=== PATIENT | female | born 1965 | race Caucasian/White ===

== ENCOUNTER 2020-06-08 11:57 | Inpatient (IN) ==
[2020-06-08] MEDS ORDERED: ACETAMINOPHEN 500 MG TAB PO STA (12:49)
--- NOTE | 2020-06-08 12:50 | Emergency Department Note ---
History of Present Illness General Chief complaint: Shortness of Breath/Dyspnea Stated complaint: respiratory diff/ cellulitis lower extrem. Time Seen by Provider: 06/08/20 12:33 History of Present Illness Provider complaint: Shortness of breath Onset (ago): day(s) 2 Location: chest, lower extremity and right Severity: severe Pain Consistency: + constant Maximum Pain Intensity: 10 Current Pain Intensity: 10 Quality: + burning and + dull Relieved By: + none 55-year-old female presents emergency department shortness of breath. She reports her symptoms began 2 days ago. She denies any chest pain. She reports productive cough. No hemoptysis. She reports that her sputum is yellow and green. She also reports nausea once yesterday. No hematemesis or coffee-ground emesis. No bilious vomiting. She reports diarrhea since yesterday. Patient also reports that starting on Sunday she started noticing redness of the right leg. She states it is painful to touch and difficult to walk. She states she is afraid she has cellulitis. Patient went to [facility] walk-in clinic today for COVID test and had a temperature of 101.4 and was transported here via EMS. 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 Home Medications Home Medications Medication Instructions Recorded Confirmed Type bumetanide 1 mg PO DAILY@1700 06/08/20 06/08/20 History lisinopril 2.5 mg PO DAILY@1700 06/08/20 06/08/20 History metoprolol succinate 50 mg PO DAILY@0700,1700 06/08/20 06/08/20 History Allergies Allergy/AdvReac Type Severity Reaction Status Date / Time bee venom protein (honey bee) Allergy Unknown GENERALIZED Unverified 06/08/20 14:02 SWELLING-SOB No Known Drug Allergies Allergy Unknown NONE Unverified 06/08/20 14:02 Past Med/Surg History Medical History (Updated 06/08/20 @ 18:05 by Raghav Oliver) Elevated parathyroid hormone HTN (hypertension) Lymphedema No pertinent family history Surgical History (Updated 06/08/20 @ 12:56 by Raghav Oliver) No pertinent past surgical history Family History Grandmother Heart disease Social History (Updated 06/08/20 @ 15:47 by Kenisha Graham MD) Feels Safe at Home: Yes Smoking Status: Former smoker Tobacco Type: cigarettes ; packs per day: 1 ; Years Smoked: 15 ; Review of Systems A total of 10 systems reviewed and were otherwise negative Physical Exam Vital Signs Vital Signs - 24 hr 06/08/20 12:25 06/08/20 12:30 06/08/20 12:40 Temperature 37.5 C Temperature Source Oral Pulse Rate 101 H Pulse Rate [Left Finger] Pulse Rate [Right Finger] Respiratory Rate 28 H Respiratory Effort / Characteristics Respiratory Depth Respiratory Pattern Blood Pressure 104/58 L Blood Pressure [Left Arm] Blood Pressure Mean 73 Blood Pressure Mean [Left Arm] Blood Pressure Position [Left Arm] Pulse Oximetry 85 L 98 98 Oxygen Delivery Method Room Air Nasal Cannula Nasal Cannula Oxygen Flow Rate 3 3 Fraction of Inspired Oxygen Sepsis Recent Fever Within 48 Hours Yes Sepsis New/Unexplained Change in Mental Status No Sepsis Action Taken by Nursing No Action Required 06/08/20 13:43 06/08/20 14:12 06/08/20 14:21 Temperature Temperature Source Pulse Rate 96 H Pulse Rate [Left Finger] 104 H Pulse Rate [Right Finger] 106 H 96 H Respiratory Rate 20 18 21 Respiratory Effort / Characteristics Non-Labored Spontaneous Spontaneous Respiratory Depth Normal Respiratory Pattern Regular Blood Pressure Blood Pressure [Left Arm] 105/52 L Blood Pressure Mean Blood Pressure Mean [Left Arm] 69 Blood Pressure Position [Left Arm] Pulse Oximetry 99 98 100 Oxygen Delivery Method Nasal Cannula High Flow Nasal Cannula BiPAP Oxygen Flow Rate 3 25 Fraction of Inspired Oxygen 35 30 Sepsis Recent Fever Within 48 Hours Sepsis New/Unexplained Change in Mental Status Sepsis Action Taken by Nursing 06/08/20 15:51 06/08/20 16:16 06/08/20 17:50 Temperature Temperature Source Pulse Rate Pulse Rate [Left Finger] Pulse Rate [Right Finger] 93 H 98 H Respiratory Rate 24 22 Respiratory Effort / Characteristics Non-Labored Spontaneous Non-Labored Spontaneous Respiratory Depth Normal Normal Respiratory Pattern Blood Pressure Blood Pressure [Left Arm] 88/47 L 93/48 L Blood Pressure Mean Blood Pressure Mean [Left Arm] 60 63 Blood Pressure Position [Left Arm] Lying Sitting Pulse Oximetry 94 94 Oxygen Delivery Method BiPAP BiPAP BiPAP Oxygen Flow Rate Fraction of Inspired Oxygen Sepsis Recent Fever Within 48 Hours Sepsis New/Unexplained Change in Mental Status Sepsis Action Taken by Nursing Physical Exam EYES: Conjunctivae and EOM are normal. Pupils are equal, round, and reactive to light. Right eye exhibits no discharge. Left eye exhibits no discharge. No scleral icterus. NECK: Normal range of motion. Neck supple. No JVD present. No spinous process tenderness present. No carotid bruit present. No rigidity. No tracheal deviation and normal range of motion present. No Brudzinski's sign and no Kernig's sign noted. CV: Normal rate, regular rhythm, normal heart sounds and intact distal pulses. Palpable radial pulses bue. PULM/CHEST: Diminished breath sounds bilaterally. -Chest Wall: She exhibits no tenderness. ABD: The abdomen is soft and morbidly obese MUSC/SKEL: Lymphedema of the bilateral lower extremities. NEURO: She is alert and oriented to person, place, and time. No cranial nerve deficit or sensory deficit. GCS eye subscore is 4. GCS verbal subscore is 5. GCS motor subscore is 6. SKIN: Redness and warmth over the right lower extremity that appears circumferential. There are no vesicular lesions. Appears consistent with the appearance of cellulitis. PSYCH: She has a normal mood and affect. Behavior is normal. Judgment and thought content normal. Course Course 1240: The patient was evaluated in room B3. A complete history and physical exam was performed. Cardiac monitoring: An order was placed for continuous cardiac monitoring. The monitor shows a rate of 90 with sinus rhythm Patient was seen immediately on arrival and found to be hypoxic on room air. She was started on supplemental oxygen 3 L nasal cannula which improved the patient's oxygen saturation. Patient was supposed to get a COVID-19 swab done at the [facility] outpatient clinic today. She was placed in airborne precautions and full airborne precautions were warned by myself and staff including a N95, facial, gown and gloves. 1339: Vital signs stable. Labs show leukocytosis of 18.3. Venous blood gas shows a PCO2 of 81 and a pH of 7.24. Patient is breathing better on nasal cannula. Given her respiratory acidosis and reported dyspnea as well as tachypnea on arrival, the patient will be started on high flow nasal cannula. Her creatinine is elevated at 2.15. We are unable to obtain CT of the chest given her elevated creatinine level. proBNP is 4462 troponin 0 0.168. Calcitonin 6.12. Given we cannot rule out PE, a d-dimer was tested and was found to be elevated at 1510. Patient is a COVID-19 rule out at this point and will plan on being admitted. She will be treated with vancomycin for cellulitis of her lower extremity. I will consult Dr. Keegan Hubbard pulmonology/ICU to see if he wants to start the patient empirically on anticoagulation given the possibility of PE, COVID-19, and her elevated d-dimer test. 1355: Spoke with Dr. Hubbard pulmonology who states to switch patient from high flow oxygen to BiPAP given her respiratory acidosis. He states that based off the patient's ultrasound of her lower extremity, we could determine if we should anticoagulate her. He states if positive for DVT to anticoagulate if negative hold off on anticoagulation at this time. Discussed with Laisha Todd, [facility] who stated to admit to Dr. Kenisha fink. 1453: Patient tolerated BiPAP well. hvac service technician called and stated they did not feel comfortable to ultrasound the patient since they are not in a negative pressure room and now is on BiPAP. They stated per their protocols they were to wait until the patient is in negative pressure room. I discussed these with Dr. Kenisha Graham, [facility] hospitalist. He is requested that the patient be started on heparin with bolus given this new development. I did discuss my conversation with pulmonology Dr. Hubbard. Dr. Graham stated that he would follow- up and discuss with pulmonology and possibly stop the heparin if necessary. He also requested that an ABG be redone instead of a VBG while the patient was on BiPAP. Orders placed at his request. 1530: Patient tolerating BiPAP well. Status post being on BiPAP, the patient's repeat VBG shows a pH of 7.3, PCO2 of 62. Patient be continued on BiPAP. Administered Medications Sodium Chloride (Nss 1000ml) 1,000 mls @ 125 mls/hr IV .Q8H YUNIER Stop: 07/08/20 12:59 Last Admin: 06/08/20 13:35 Dose: 80 mls/hr Documented by: [id number] Heparin Sodium/Dextrose (Heparin Sodium/Dextrose) 25,000 units in 500 mls @ 40 mls/hr IV .[id number] [facility]; Protocol Stop: 07/08/20 14:59 Last Admin: 06/08/20 15:44 Dose: 2,000 units/hr, 40 mls/hr Documented by: [id number] Cosigned by: [id number] Discontinued Medications Acetaminophen (Tylenol) 1,000 mg PO NOW STA Stop: 06/08/20 12:50 Last Admin: 06/08/20 13:53 Dose: 1,000 mg Documented by: [id number] Heparin Sodium (Porcine) (Heparin Iv Bolus) Confirm Administered Dose 10,000 units .ROUTE .STK-MED ONE Stop: 06/08/20 15:34 Last Admin: 06/08/20 15:45 Dose: 9,000 units Documented by: [id number] Cosigned by: [id number] Heparin Sodium/Dextrose () 1 ea IV NOW STA; Protocol Stop: 06/08/20 14:54 Last Admin: 06/08/20 15:43 Dose: 1 ea Documented by: [id number] Sodium Chloride (Nss 1000ml) 500 mls @ 999 mls/hr IV .Q31M ONE Stop: 06/08/20 13:56 Last Infusion: 06/08/20 14:40 Dose: 0 mls/hr Documented by: [id number] Admin: 06/08/20 13:35 Dose: 999 mls/hr Documented by: [id number] Vancomycin HCl 2,750 mg/ (Sodium Chloride) 555 mls @ 200 mls/hr IV NOW ONE Stop: 06/08/20 16:12 Last Admin: 06/08/20 13:53 Dose: 200 mls/hr Documented by: [id number] Critical Care Time Critical Care Time: Yes Total Critical Care Time: 77 I have personally spent greater than 77 minutes of critical care time in the direct management of this patient. This includes bedside care, interpretation of diagnostic studies, and testing, discussion with consultants, patient, and family members, and other required patient management activities. This 77 minutes is in excess of all separately billable procedures. Medical Decision Making Laboratory Data Result diagrams: 06/08/20 12:20 06/08/20 12:20 Lab Results 06/08/20 06/08/20 06/08/20 Range/Units 12:20 12:20 12:20 WBC 18.33 H (4.8-10.8) K/uL RBC 3.81 L (4.2-5.4) M/uL Hgb 11.5 L (12.0-16.0) g/dL Hct 34.6 L (37-47) % MCV 90.8 (80-100) fL MCH 30.2 (25-34) pg MCHC 33.2 (32-36) g/dL RDW Std Deviation 48.6 H (36.4-46.3) fL RDW Coeff of Quan 14.5 (11.5-14.5) % Plt Count 283 (130-400) K/uL MPV 10.3 (7.4-10.4) fL Immature Gran % (Auto) 0.4 % Neut % (Auto) 87.0 % Lymph % (Auto) 6.2 % Hernando % (Auto) 6.1 % Eos % (Auto) 0.2 % Baso % (Auto) 0.1 % Neut # (Auto) 15.96 H (1.4-6.5) K/uL Lymph # (Auto) 1.13 L (1.2-3.4) K/uL Hernando # (Auto) 1.11 H (0.11-0.59) K/uL Eos # (Auto) 0.04 (0-0.5) K/uL Baso # (Auto) 0.02 (0-0.2) K/uL Immature Gran # (Auto) 0.07 H (0.00-0.02) K/uL PT 11.3 (9.0-12.0) Seconds INR 1.1 (0.9-1.1) APTT 31.8 H (21.0-31.0) Seconds PTT Ratio 1.1 D-Dimer (0-500) ug/L FEU ABG pH (7.35-7.45) ABG pCO2 (35-46) mmHg ABG pO2 (80-95) mmHg ABG HCO3 (19-24) mmol/L ABG O2 Saturation (90-95) % ABG Base Excess (-9-1.8) mEq/L Lyndon Test (Pos) VBG pH (7.36-7.41) VBG pCO2 (38-50) mmHg VBG pO2 mmHg VBG HCO3 mmol/L VBG O2 Saturation % VBG Base Excess mEq/L Barometric Pressure mm/Hg Oxygen Given Sodium (136-145) mmol/L Potassium (3.5-5.1) mmol/L Chloride (98-107) mmol/L Carbon Dioxide (21-32) mmol/L Anion Gap (3-11) BUN (7-18) mg/dl Creatinine (0.6-1.2) mg/dl Est Cr Clr Drug Dosing ml/min Est GFR ( Amer) Est GFR (Non-Af Amer) BUN/Creatinine Ratio (10-20) Glucose (70-99) mg/dl Lactate 1.5 (0.4-2.0) mmol/L Calcium (8.5-10.1) mg/dl Magnesium (1.8-2.4) mg/dl Total Bilirubin (0.2-1) mg/dl AST (15-37) U/L ALT (12-78) U/L Alkaline Phosphatase (45-117) U/L Troponin I (0-0.045) ng/ml NT-Pro-B Natriuret Pep (0-900) pg/ml Total Protein (6.4-8.2) gm/dl Albumin (3.4-5.0) gm/dl Globulin (2.5-4.0) gm/dl Albumin/Globulin Ratio (0.9-2) Procalcitonin (0-0.5) ng/ml Adenovirus (PCR) (NotDetected) B. pertussis DNA (PCR) (NotDetected) B.parapertussis DNA PCR (NotDetected) C. pneumoniae DNA (PCR) (NotDetected) Coronavirus OC43 (PCR) (NotDetected) Coronavirus HKU1 (PCR) (NotDetected) Coronavirus 229E (PCR) (NotDetected) COVID-19 PCR (Negative) Coronavirus NL63 (PCR) (NotDetected) Human Metapneumovir PCR (NotDetected) Influenza Type A (PCR) (NotDetected) Influenza Type B (PCR) (NotDetected) M. pneumoniae (PCR) (NotDetected) Parainfluenza 1 (PCR) (NotDetected) Parainfluenza 2 (PCR) (NotDetected) Parainfluenza 3 (PCR) (NotDetected) Parainfluenza 4 (PCR) (NotDetected) RSV (PCR) (NotDetected) Entero/Rhino (PCR) (NotDetected) SARS-CoV-2 RNA (RT-PCR) 06/08/20 06/08/20 06/08/20 Range/Units 12:20 12:20 12:20 WBC (4.8-10.8) K/uL RBC (4.2-5.4) M/uL Hgb (12.0-16.0) g/dL Hct (37-47) % MCV (80-100) fL MCH (25-34) pg MCHC (32-36) g/dL RDW Std Deviation (36.4-46.3) fL RDW Coeff of Quan (11.5-14.5) % Plt Count (130-400) K/uL MPV (7.4-10.4) fL Immature Gran % (Auto) % Neut % (Auto) % Lymph % (Auto) % Hernando % (Auto) % Eos % (Auto) % Baso % (Auto) % Neut # (Auto) (1.4-6.5) K/uL Lymph # (Auto) (1.2-3.4) K/uL Hernando # (Auto) (0.11-0.59) K/uL Eos # (Auto) (0-0.5) K/uL Baso # (Auto) (0-0.2) K/uL Immature Gran # (Auto) (0.00-0.02) K/uL PT (9.0-12.0) Seconds INR (0.9-1.1) APTT (21.0-31.0) Seconds PTT Ratio D-Dimer (0-500) ug/L FEU ABG pH (7.35-7.45) ABG pCO2 (35-46) mmHg ABG pO2 (80-95) mmHg ABG HCO3 (19-24) mmol/L ABG O2 Saturation (90-95) % ABG Base Excess (-9-1.8) mEq/L Lyndon Test (Pos) VBG pH (7.36-7.41) VBG pCO2 (38-50) mmHg VBG pO2 mmHg VBG HCO3 mmol/L VBG O2 Saturation % VBG Base Excess mEq/L Barometric Pressure mm/Hg Oxygen Given Sodium 132 L (136-145) mmol/L Potassium 3.6 (3.5-5.1) mmol/L Chloride 95 L (98-107) mmol/L Carbon Dioxide 30 (21-32) mmol/L Anion Gap 7.0 (3-11) BUN 52 H (7-18) mg/dl Creatinine 2.15 H (0.6-1.2) mg/dl Est Cr Clr Drug Dosing 52.3 ml/min Est GFR ( Amer) 29.3 Est GFR (Non-Af Amer) 25.3 BUN/Creatinine Ratio 24.0 H (10-20) Glucose 104 H (70-99) mg/dl Lactate (0.4-2.0) mmol/L Calcium 9.6 (8.5-10.1) mg/dl Magnesium 2.1 (1.8-2.4) mg/dl Total Bilirubin 0.7 (0.2-1) mg/dl AST 23 (15-37) U/L ALT 29 (12-78) U/L Alkaline Phosphatase 117 (45-117) U/L Troponin I 0.168 H* (0-0.045) ng/ml NT-Pro-B Natriuret Pep 4462 H (0-900) pg/ml Total Protein 7.5 (6.4-8.2) gm/dl Albumin 2.4 L (3.4-5.0) gm/dl Globulin 5.1 H (2.5-4.0) gm/dl Albumin/Globulin Ratio 0.5 L (0.9-2) Procalcitonin 6.12 H (0-0.5) ng/ml Adenovirus (PCR) (NotDetected) B. pertussis DNA (PCR) (NotDetected) B.parapertussis DNA PCR (NotDetected) C. pneumoniae DNA (PCR) (NotDetected) Coronavirus OC43 (PCR) (NotDetected) Coronavirus HKU1 (PCR) (NotDetected) Coronavirus 229E (PCR) (NotDetected) COVID-19 PCR (Negative) Coronavirus NL63 (PCR) (NotDetected) Human Metapneumovir PCR (NotDetected) Influenza Type A (PCR) (NotDetected) Influenza Type B (PCR) (NotDetected) M. pneumoniae (PCR) (NotDetected) Parainfluenza 1 (PCR) (NotDetected) Parainfluenza 2 (PCR) (NotDetected) Parainfluenza 3 (PCR) (NotDetected) Parainfluenza 4 (PCR) (NotDetected) RSV (PCR) (NotDetected) Entero/Rhino (PCR) (NotDetected) SARS-CoV-2 RNA (RT-PCR) 06/08/20 06/08/20 06/08/20 Range/Units 12:20 13:24 13:24 WBC (4.8-10.8) K/uL RBC (4.2-5.4) M/uL Hgb (12.0-16.0) g/dL Hct (37-47) % MCV (80-100) fL MCH (25-34) pg MCHC (32-36) g/dL RDW Std Deviation (36.4-46.3) fL RDW Coeff of Quan (11.5-14.5) % Plt Count (130-400) K/uL MPV (7.4-10.4) fL Immature Gran % (Auto) % Neut % (Auto) % Lymph % (Auto) % Hernando % (Auto) % Eos % (Auto) % Baso % (Auto) % Neut # (Auto) (1.4-6.5) K/uL Lymph # (Auto) (1.2-3.4) K/uL Hernando # (Auto) (0.11-0.59) K/uL Eos # (Auto) (0-0.5) K/uL Baso # (Auto) (0-0.2) K/uL Immature Gran # (Auto) (0.00-0.02) K/uL PT (9.0-12.0) Seconds INR (0.9-1.1) APTT (21.0-31.0) Seconds PTT Ratio D-Dimer 1510 H* (0-500) ug/L FEU ABG pH (7.35-7.45) ABG pCO2 (35-46) mmHg ABG pO2 (80-95) mmHg ABG HCO3 (19-24) mmol/L ABG O2 Saturation (90-95) % ABG Base Excess (-9-1.8) mEq/L Lyndon Test (Pos) VBG pH 7.24 L (7.36-7.41) VBG pCO2 81 H (38-50) mmHg VBG pO2 36 mmHg VBG HCO3 34 mmol/L VBG O2 Saturation < 60.0 % VBG Base Excess 4.4 mEq/L Barometric Pressure 733.1 mm/Hg Oxygen Given Sodium (136-145) mmol/L Potassium (3.5-5.1) mmol/L Chloride (98-107) mmol/L Carbon Dioxide (21-32) mmol/L Anion Gap (3-11) BUN (7-18) mg/dl Creatinine (0.6-1.2) mg/dl Est Cr Clr Drug Dosing ml/min Est GFR ( Amer) Est GFR (Non-Af Amer) BUN/Creatinine Ratio (10-20) Glucose (70-99) mg/dl Lactate 1.1 (0.4-2.0) mmol/L Calcium (8.5-10.1) mg/dl Magnesium (1.8-2.4) mg/dl Total Bilirubin (0.2-1) mg/dl AST (15-37) U/L ALT (12-78) U/L Alkaline Phosphatase (45-117) U/L Troponin I (0-0.045) ng/ml NT-Pro-B Natriuret Pep (0-900) pg/ml Total Protein (6.4-8.2) gm/dl Albumin (3.4-5.0) gm/dl Globulin (2.5-4.0) gm/dl Albumin/Globulin Ratio (0.9-2) Procalcitonin (0-0.5) ng/ml Adenovirus (PCR) (NotDetected) B. pertussis DNA (PCR) (NotDetected) B.parapertussis DNA PCR (NotDetected) C. pneumoniae DNA (PCR) (NotDetected) Coronavirus OC43 (PCR) (NotDetected) Coronavirus HKU1 (PCR) (NotDetected) Coronavirus 229E (PCR) (NotDetected) COVID-19 PCR (Negative) Coronavirus NL63 (PCR) (NotDetected) Human Metapneumovir PCR (NotDetected) Influenza Type A (PCR) (NotDetected) Influenza Type B (PCR) (NotDetected) M. pneumoniae (PCR) (NotDetected) Parainfluenza 1 (PCR) (NotDetected) Parainfluenza 2 (PCR) (NotDetected) Parainfluenza 3 (PCR) (NotDetected) Parainfluenza 4 (PCR) (NotDetected) RSV (PCR) (NotDetected) Entero/Rhino (PCR) (NotDetected) SARS-CoV-2 RNA (RT-PCR) 06/08/20 06/08/20 06/08/20 Range/Units 13:50 13:50 13:50 WBC (4.8-10.8) K/uL RBC (4.2-5.4) M/uL Hgb (12.0-16.0) g/dL Hct (37-47) % MCV (80-100) fL MCH (25-34) pg MCHC (32-36) g/dL RDW Std Deviation (36.4-46.3) fL RDW Coeff of Quan (11.5-14.5) % Plt Count (130-400) K/uL MPV (7.4-10.4) fL Immature Gran % (Auto) % Neut % (Auto) % Lymph % (Auto) % Hernando % (Auto) % Eos % (Auto) % Baso % (Auto) % Neut # (Auto) (1.4-6.5) K/uL Lymph # (Auto) (1.2-3.4) K/uL Hernando # (Auto) (0.11-0.59) K/uL Eos # (Auto) (0-0.5) K/uL Baso # (Auto) (0-0.2) K/uL Immature Gran # (Auto) (0.00-0.02) K/uL PT (9.0-12.0) Seconds INR (0.9-1.1) APTT (21.0-31.0) Seconds PTT Ratio D-Dimer (0-500) ug/L FEU ABG pH (7.35-7.45) ABG pCO2 (35-46) mmHg ABG pO2 (80-95) mmHg ABG HCO3 (19-24) mmol/L ABG O2 Saturation (90-95) % ABG Base Excess (-9-1.8) mEq/L Lyndon Test (Pos) VBG pH (7.36-7.41) VBG pCO2 (38-50) mmHg VBG pO2 mmHg VBG HCO3 mmol/L VBG O2 Saturation % VBG Base Excess mEq/L Barometric Pressure mm/Hg Oxygen Given Sodium (136-145) mmol/L Potassium (3.5-5.1) mmol/L Chloride (98-107) mmol/L Carbon Dioxide (21-32) mmol/L Anion Gap (3-11) BUN (7-18) mg/dl Creatinine (0.6-1.2) mg/dl Est Cr Clr Drug Dosing ml/min Est GFR ( Amer) Est GFR (Non-Af Amer) BUN/Creatinine Ratio (10-20) Glucose (70-99) mg/dl Lactate (0.4-2.0) mmol/L Calcium (8.5-10.1) mg/dl Magnesium (1.8-2.4) mg/dl Total Bilirubin (0.2-1) mg/dl AST (15-37) U/L ALT (12-78) U/L Alkaline Phosphatase (45-117) U/L Troponin I (0-0.045) ng/ml NT-Pro-B Natriuret Pep (0-900) pg/ml Total Protein (6.4-8.2) gm/dl Albumin (3.4-5.0) gm/dl Globulin (2.5-4.0) gm/dl Albumin/Globulin Ratio (0.9-2) Procalcitonin (0-0.5) ng/ml Adenovirus (PCR) Not Detected (NotDetected) B. pertussis DNA (PCR) Not Detected (NotDetected) B.parapertussis DNA PCR Not Detected (NotDetected) C. pneumoniae DNA (PCR) Not Detected (NotDetected) Coronavirus OC43 (PCR) Not Detected (NotDetected) Coronavirus HKU1 (PCR) Not Detected (NotDetected) Coronavirus 229E (PCR) Not Detected (NotDetected) COVID-19 PCR NEGATIVE (Negative) Coronavirus NL63 (PCR) Not Detected (NotDetected) Human Metapneumovir PCR Not Detected (NotDetected) Influenza Type A (PCR) Not Detected (NotDetected) Influenza Type B (PCR) Not Detected (NotDetected) M. pneumoniae (PCR) Not Detected (NotDetected) Parainfluenza 1 (PCR) Not Detected (NotDetected) Parainfluenza 2 (PCR) Not Detected (NotDetected) Parainfluenza 3 (PCR) Not Detected (NotDetected) Parainfluenza 4 (PCR) Not Detected (NotDetected) RSV (PCR) Not Detected (NotDetected) Entero/Rhino (PCR) Not Detected (NotDetected) SARS-CoV-2 RNA (RT-PCR) Cancelled 06/08/20 Range/Units 15:12 WBC (4.8-10.8) K/uL RBC (4.2-5.4) M/uL Hgb (12.0-16.0) g/dL Hct (37-47) % MCV (80-100) fL MCH (25-34) pg MCHC (32-36) g/dL RDW Std Deviation (36.4-46.3) fL RDW Coeff of Quan (11.5-14.5) % Plt Count (130-400) K/uL MPV (7.4-10.4) fL Immature Gran % (Auto) % Neut % (Auto) % Lymph % (Auto) % Hernando % (Auto) % Eos % (Auto) % Baso % (Auto) % Neut # (Auto) (1.4-6.5) K/uL Lymph # (Auto) (1.2-3.4) K/uL Hernando # (Auto) (0.11-0.59) K/uL Eos # (Auto) (0-0.5) K/uL Baso # (Auto) (0-0.2) K/uL Immature Gran # (Auto) (0.00-0.02) K/uL PT (9.0-12.0) Seconds INR (0.9-1.1) APTT (21.0-31.0) Seconds PTT Ratio D-Dimer (0-500) ug/L FEU ABG pH 7.30 L (7.35-7.45) ABG pCO2 62 H (35-46) mmHg ABG pO2 92 (80-95) mmHg ABG HCO3 30 H (19-24) mmol/L ABG O2 Saturation 96.3 H (90-95) % ABG Base Excess 1.8 (-9-1.8) mEq/L Lyndon Test Pos (Pos) VBG pH (7.36-7.41) VBG pCO2 (38-50) mmHg VBG pO2 mmHg VBG HCO3 mmol/L VBG O2 Saturation % VBG Base Excess mEq/L Barometric Pressure 732.7 mm/Hg Oxygen Given 25L Sodium (136-145) mmol/L Potassium (3.5-5.1) mmol/L Chloride (98-107) mmol/L Carbon Dioxide (21-32) mmol/L Anion Gap (3-11) BUN (7-18) mg/dl Creatinine (0.6-1.2) mg/dl Est Cr Clr Drug Dosing ml/min Est GFR ( Amer) Est GFR (Non-Af Amer) BUN/Creatinine Ratio (10-20) Glucose (70-99) mg/dl Lactate (0.4-2.0) mmol/L Calcium (8.5-10.1) mg/dl Magnesium (1.8-2.4) mg/dl Total Bilirubin (0.2-1) mg/dl AST (15-37) U/L ALT (12-78) U/L Alkaline Phosphatase (45-117) U/L Troponin I (0-0.045) ng/ml NT-Pro-B Natriuret Pep (0-900) pg/ml Total Protein (6.4-8.2) gm/dl Albumin (3.4-5.0) gm/dl Globulin (2.5-4.0) gm/dl Albumin/Globulin Ratio (0.9-2) Procalcitonin (0-0.5) ng/ml Adenovirus (PCR) (NotDetected) B. pertussis DNA (PCR) (NotDetected) B.parapertussis DNA PCR (NotDetected) C. pneumoniae DNA (PCR) (NotDetected) Coronavirus OC43 (PCR) (NotDetected) Coronavirus HKU1 (PCR) (NotDetected) Coronavirus 229E (PCR) (NotDetected) COVID-19 PCR (Negative) Coronavirus NL63 (PCR) (NotDetected) Human Metapneumovir PCR (NotDetected) Influenza Type A (PCR) (NotDetected) Influenza Type B (PCR) (NotDetected) M. pneumoniae (PCR) (NotDetected) Parainfluenza 1 (PCR) (NotDetected) Parainfluenza 2 (PCR) (NotDetected) Parainfluenza 3 (PCR) (NotDetected) Parainfluenza 4 (PCR) (NotDetected) RSV (PCR) (NotDetected) Entero/Rhino (PCR) (NotDetected) SARS-CoV-2 RNA (RT-PCR) Imaging Data Radiologist's Impression: RIGHT LOWER EXTREMITY VENOUS DOPPLER HISTORY: Right leg swelling. COMPARISON STUDY: None. FINDINGS: There is normal compressibility, flow, and augmentation within the [facility] lower extremity deep venous system. A 3.1 x 2.3 x 1.1 cm popliteal cyst. IMPRESSION: No DVT within the right lower extremity ACT 112: Negative or not required by law. Electronically signed by: Piyush Gonzalez M.D. 06/08/2020 4:12 PM Dictated: 06/08/20 1612 Transcribed: 06/08/20 1612 SINGLE VIEW CHEST CLINICAL HISTORY: Sepsis. FINDINGS: An AP, portable, upright chest radiograph is compared to study dated 05/03/2016. The examination is degraded by portable technique, large body habitus, and apical lordotic positioning. The cardiomediastinal silhouette is unremarkable. There are scattered calcified granulomas. The lungs and pleural spaces are otherwise clear. No pneumothorax is seen. The bony thorax is grossly intact. IMPRESSION: No active disease in the chest. ACT 112: Negative or not required by law. Electronically signed by: Shadi Coe M.D. 06/08/2020 1:52 PM Dictated: 06/08/20 1346 Transcribed: 06/08/20 1346 ECG Data Indication: + SOB/dyspnea Rate (beats per minute): 108 Rhythm: + sinus tachycardia ECG Intervals/blocks: + Normal QRS, + Normal IN and + Normal QT-c ECG ST segments: + Normal ST segments [facility] [place] Narrative 1240: The patient was evaluated in room B3. A complete history and physical exam was performed. Cardiac monitoring: An order was placed for continuous cardiac monitoring. The monitor shows a rate of 90 with sinus rhythm Patient was seen immediately on arrival and found to be hypoxic on room air. She was started on supplemental oxygen 3 L nasal cannula which improved the patient's oxygen saturation. Patient was supposed to get a COVID-19 swab done at the [facility] outpatient clinic today. She was placed in airborne precautions and full airborne precautions were warned by myself and staff including a N95, facial, gown and gloves. 1339: Vital signs stable. Labs show leukocytosis of 18.3. Venous blood gas shows a PCO2 of 81 and a pH of 7.24. Patient is breathing better on nasal meenakshi fermin. Given her respiratory acidosis and reported dyspnea as well as tachypnea on arrival, the patient will be started on high flow nasal cannula. Her creatinine is elevated at 2.15. We are unable to obtain CT of the chest given her elevated creatinine level. proBNP is 4462 troponin 0 0.168. Ca lcitonin 6.12. Given we cannot rule out PE, a d-dimer was tested and was found to be elevated at 1510. Patient is a COVID-19 rule out at this point and will plan on being admitted. She will be treated with vancomycin for cellulitis of her lower extremity. I will consult Dr. Keegan Hubbard pulmonology/ICU to see if he wants to start the patient empirically on anticoagulation given the possibility of PE, COVID-19, and her elevated d-dimer test. 1355: Spoke with Dr. Hubbard pulmonology who states to switch patient from high flow oxygen to BiPAP given her respiratory acidosis. He states that based off the patient's ultrasound of her lower extremity, we could determine if we should anticoagulate her. He states if positive for DVT to anticoagulate if negative hold off on anticoagulation at this time. Discussed with Laisha Abreu, [facility] who stated to admit to Dr. Kenisha fink. 1453: Patient tolerated BiPAP well. hvac service technician called and stated they did not feel comfortable to ultrasound the patient since they are not in a negative pressure room and now is on BiPAP. They stated per their protocols they were to wait until the patient is in negative pressure room. I discussed these with Dr. Kenisha Graham, [facility] hospitalist. He is requested that the patient be started on heparin with bolus given this new development. I did discuss my conversation with pulmonology Dr. Hubbard. Dr. Graham stated that he would follow- up and discuss with pulmonology and possibly stop the heparin if necessary. He also requested that an ABG be redone instead of a VBG while the patient was on BiPAP. Orders placed at his request. 1530: Patient tolerating BiPAP well. Status post being on BiPAP, the patient's repeat VBG shows a pH of 7.3, PCO2 of 62. Patient be continued on BiPAP. Impression & Plan Sepsis, Cellulitis, Elevated troponin, BLAYNE (acute kidney injury), Acute respiratory acidosis, Morbid obesity, D-dimer, elevated Discharge Plan Visit Data Chief Complaint: Shortness of Breath/Dyspnea Stated Complaint: respiratory diff/ cellulitis lower extrem. ED Provider: Raghav Oliver Discharge Problem: Sepsis, Cellulitis, Elevated troponin, BLAYNE (acute kidney injury), Acute respiratory acidosis, Morbid obesity, D-dimer, elevated Patient Disposition: Admitted As Inpatient Forms Stand Alone Forms: My [facility] Prescriptions Prescriptions: No Action metoprolol succinate 50 mg tablet extended release 24 hr 50 mg PO DAILY@0700,1700 RF: 0 bumetanide 1 mg tablet 1 mg PO DAILY@1700 RF: 0 lisinopril 2.5 mg tablet 2.5 mg PO DAILY@1700 RF: 0 Referrals Referrals: Alan Wade MD [Primary Care Provider] - Discharge Problem: Sepsis Qualifiers: Sepsis type: sepsis due to unspecified organism Sepsis acute organ dysfunction status: with acute organ dysfunction Severe sepsis acute organ dysfunction type: acute renal failure Acute renal failure type: unspecified Severe sepsis shock status: unspecified Qualified Code(s): A41.9 - Sepsis, unspecified organism Cellulitis Qualifiers: Site of cellulitis: extremity Site of cellulitis of extremity: lower extremity Laterality: right Qualified Code(s): L03.115 - Cellulitis of right lower limb
[2020-06-08 12:58] LABS: Basophils # (auto) 0.02 K/uL (0-0.2); Basophils % (auto) 0.1 %; Eosinophils # (auto) 0.04 K/uL (0-0.5); Eosinophils % (auto) 0.2 %; Hematocrit (blood only) 34.6 % (37-47); Hemoglobin 11.5 g/dL (12.0-16.0); Immature Granulocytes # (auto) 0.07 K/uL (0.00-0.02); Immature Granulocytes % (auto) 0.4 %; Lymphocytes # (auto) 1.13 K/uL (1.2-3.4); Lymphocytes % (auto) 6.2 %; Mean Corpuscular Hemoglobin 30.2 pg (25-34); Mean Corpuscular Hgb Conc 33.2 g/dL (32-36); Mean Corpuscular Volume 90.8 fL (80-100); Mean Platelet Volume 10.3 fL (7.4-10.4); Monocytes # (auto) 1.11 K/uL (0.11-0.59); Monocytes % (auto) 6.1 %; Neutrophils # (auto) 15.96 K/uL (1.4-6.5); Platelet Count 283 K/uL (130-400); RDW Coefficient of Variation 14.5 % (11.5-14.5); RDW Standard Deviation 48.6 fL (36.4-46.3); Red Blood Count 3.81 M/uL (4.2-5.4); White Blood Count 18.33 K/uL (4.8-10.8)
[2020-06-08 13:04] LABS: Albumin Level 2.4 gm/dl (3.4-5.0); Calcium 9.6 mg/dl (8.5-10.1); Creatinine Clr Calc Pharmacy 52.3 ml/min; Est GFR (African American) 29.3; Est GFR (Non-African American) 25.3; Magnesium 2.1 mg/dl (1.8-2.4); Potassium 3.6 mmol/L (3.5-5.1)
[2020-06-08 13:08] LABS: INR 1.1 (0.9-1.1); Partial Thromboplastin Ratio 1.1; Partial Thromboplastin Time 31.8 Seconds (21.0-31.0); Prothrombin Time 11.3 Seconds (9.0-12.0)
[2020-06-08 13:19] LABS: Albumin Globulin Ratio 0.5 (0.9-2); Bilirubin,Total 0.7 mg/dl (0.2-1); Globulin 5.1 gm/dl (2.5-4.0); Total Protein 7.5 gm/dl (6.4-8.2); Troponin I 0.168 ng/ml (0-0.045)
[2020-06-08] MEDS ORDERED: VANCOMYCIN CONSULT ACTIVE PRN (13:26)
[2020-06-08] MEDS ORDERED: SODIUM CHLORIDE 0.9% 1000ML 500 ML IV ONE ×2 (13:26→16:50)
[2020-06-08] MEDS ORDERED: VANCOMYCIN HCL 2,750 MG in SODIUM CHLORIDE 0.9% 500 ML IV ONE (13:26)
[2020-06-08] MEDS: SODIUM CHLORIDE 0.9% 1000ML 1,000 ML IV SCH (13:35)
[2020-06-08 13:38] LABS: Base Excess VBG 4.4 mEq/L; HCO3 VBG 34 mmol/L; Oxygen Saturation VBG < 60.0 %; PCO2 VBG 81 mmHg (38-50); PO2 VBG 36 mmHg; pH VBG 7.24 (7.36-7.41)
[2020-06-08 13:44] LABS: D Dimer 1510 ug/L FEU (0-500)
--- NOTE | 2020-06-08 13:53 | XRay Report ---
SINGLE VIEW CHEST CLINICAL HISTORY: Sepsis. FINDINGS: An AP, portable, upright chest radiograph is compared to study dated 05/03/2016. The examinat ion is degraded by portable technique, large body habitus, and apical lordotic positioning. The cardi omediastinal silhouette is unremarkable. There are scattered calcified granulomas. The lungs and pleu ral spaces are otherwise clear. No pneumothorax is seen. The bony thorax is grossly intact. IMPRESSION: No active disease in the chest. ACT 112: Negative or not required by law. Electronically signed by: Shadi Coe M.D. 06/08/2020 1:52 PM
[2020-06-08 15:14] LABS: Adenovirus PCR Not Detected (NotDetected); Bordetella parapertussis PCR Not Detected (NotDetected); Bordetella pertussis PCR Not Detected (NotDetected); Chlamydia pneumoniae PCR Not Detected (NotDetected); Coronavirus 229E PCR Not Detected (NotDetected); Coronavirus HKU1 PCR Not Detected (NotDetected); Coronavirus NL63 PCR Not Detected (NotDetected); Coronavirus OC43PCR Not Detected (NotDetected); Human Metapneumovirus PCR Not Detected (NotDetected); Influenza A PCR Not Detected (NotDetected); Influenza B PCR Not Detected (NotDetected); Mycoplasma pneumoniae PCR Not Detected (NotDetected); Parainfluenza Virus 1 PCR Not Detected (NotDetected); Parainfluenza Virus 2 PCR Not Detected (NotDetected); Parainfluenza Virus 3 PCR Not Detected (NotDetected); Parainfluenza Virus 4 PCR Not Detected (NotDetected); Respiratory Syncytial VirusPCR Not Detected (NotDetected); Rhinovirus/Enterovirus PCR Not Detected (NotDetected)
--- NOTE | 2020-06-08 15:21 | History & Physical Report ---
Date of Service June 08, 2020 Assessment & Plan (1) Cellulitis: (2) Acute respiratory failure with hypoxia: Reported fevers SIRS - leukocytosis, HR>90, RR> 28 on admission Met criteria for sepsis with possible infectious source - Cellulitis Elevated procalcitonin Lactate is normal Started on vancomycin in ER. Continue vancomycin Get MRSA swap Continue IVF Acute hypoxic resp failure Was initially on high flow, currently on BIPAP Per review of [facility] records, Dr Ambrosio did communicate with patient about findings of recent sleep study last month. Recommended self titrating CPAP for DOMINIQUE until patient gets another sleep study in sleep lab. Patient reports she is yet to get the home CPAP Review of previous labs show chronically high normal to elevated bicarb. Patient likely also has OHS XR of chest did not show opacities or infiltrate that may explain the hypoxia VBG suggestive of respiratory acidosis With right leg pain, cellulitis, comorbidities, elevated BNP/D-dimer/trop, suspicion for possible PE is high Cannot get CT PE now due to BLAYNE Will get RLL dopplers However, will initiate hep drip empirically for now until further results and evaluation Get Pulm/Critical care consult. Dr Hubbard aware Get COVID19 test considering workplace (3) Elevated troponin: Trop is 0.168 EKG show sinus tachy, possible inferior wall infarct (likely old EKG from 01/13/20 [facility], reported sinus rhythm, old anteroseptal infarct; images not available) Will trend troponin Get 2D Echo (4) BLAYNE (acute kidney injury): BLAYNE Cr is 2.15 from 0.8 in november Continue IVF Monitor. Avoid nephrotoxins Hold home diuretics for now (5) HTN (hypertension): Hold home antihypertensives for now Monitor BP (6) DVT prophylaxis: Heparin drip as above until VTE is ruled out Dispo- PCU for now COde status - FULL per discussion with patient History of Present Illness 55 year old woman with history of hypertension, morbid obesity (BMI >70) who presented with right leg redness that started 4 days ago (sunday night), productive cough that started 3 days ago (sunday) Reported redness worsened since sunday with pain, swelling and difficulty walking Reported nausea and diarrhea yesterday. Patient also reported fever of 101.4 Reported she usually has some dyspnea on exertion but this has worsened to even at rest Denied any chest pain, sorethroat Denied any abd pain, dysuria, frequency, urgency Lives with mother at home. Works at [employer] where there has been positive cases of COVID19 Primary Care Provider: Alan Wade MD Allergies Allergy/AdvReac Type Severity Reaction Status Date / Time bee venom protein (honey bee) Allergy Unknown GENERALIZED Unverified 06/08/20 14:02 SWELLING-SOB No Known Drug Allergies Allergy Unknown NONE Unverified 06/08/20 14:02 Home Medications Home Medications Medication Instructions Recorded Confirmed Type bumetanide 1 mg PO DAILY@1700 06/08/20 06/08/20 History lisinopril 2.5 mg PO DAILY@1700 06/08/20 06/08/20 History metoprolol succinate 50 mg PO DAILY@0700,1700 06/08/20 06/08/20 History Past Med/Surg History Medical History (Updated 06/08/20 @ 15:58 by Kenisha Graham MD) Elevated parathyroid hormone HTN (hypertension) Lymphedema No pertinent family history Surgical History (Updated 06/08/20 @ 12:56 by Raghav Oliver) No pertinent past surgical history Family History Grandmother Heart disease Social History (Updated 06/08/20 @ 15:47 by Kenisha Graham MD) Feels Safe at Home: Yes Smoking Status: Former smoker Tobacco Type: cigarettes ; packs per day: 1 ; Years Smoked: 15 ; Review of Systems Constitutional: + fever, + chills and + anorexia Eyes: no problem reported Ear, Nose, Mouth, Throat: no problem reported Respiratory: + cough and + dyspnea; no hemoptysis Cardiovascular: + dyspnea and + dyspnea on exertion; no chest pain Gastrointestinal: + nausea, + vomiting and + diarrhea/loose stools; no abdominal pain, no hematemesis and no melena Genitourinary: no problem reported Musculoskeletal: RIght leg pain, swelling and redness Neurologic: no problem reported Psychiatric: no problem reported Physical Exam Constitutional: + well hydrated and + morbidly obese On BIPAP Eyes: PERRL, conjunctivae normal, anicteric sclerae ENMT: BIPAP mask on Respiratory: Auscultation: no crackles and no rales On BIPAP, Reduced breath sounds bilaterally Cardiovascular: RRR, no murmur, no edema Chest (Breasts): Additional Comments: No chest wall tenderness Gastrointestinal (Abdomen): normal bowel sounds, soft, nontender, no hepatosplenomegaly Musculoskeletal: Chronic lymphedema of both legs Whole of RLE is erythematous, exquisitely tender, no obvious open wounds on inspections. Could not assess posterior aspect due to difficulty raising leg Neurologic: PERRL, EOMI, accommodation nl, no face palsy, no dysarthria Psychiatric: A+Ox3, euthymic affect Results & Data Results & Data ([facility]) Vital Signs (Past 12 Hours) Vital Signs Temp Pulse Pulse Pulse Resp BP BP 06/08/20 14:21 96 H 96 H 21 06/08/20 14:12 106 H 18 06/08/20 13:43 104 H 20 105/52 L 06/08/20 12:40 06/08/20 12:30 06/08/20 12:25 37.5 C 101 H 28 H 104/58 L Pulse Ox 06/08/20 14:21 100 06/08/20 14:12 98 06/08/20 13:43 99 06/08/20 12:40 98 06/08/20 12:30 98 06/08/20 12:25 85 L Laboratory Results Laboratory Results - last 24 hr 06/08/20 06/08/20 06/08/20 12:20 12:20 12:20 WBC 18.33 H RBC 3.81 L Hgb 11.5 L Hct 34.6 L MCV 90.8 MCH 30.2 MCHC 33.2 RDW Std Deviation 48.6 H RDW Coeff of Quan 14.5 Plt Count 283 MPV 10.3 Immature Gran % (Auto) 0.4 Neut % (Auto) 87.0 Lymph % (Auto) 6.2 [place] % (Auto) 6.1 Eos % (Auto) 0.2 Baso % (Auto) 0.1 Neut # (Auto) 15.96 H Lymph # (Auto) 1.13 L [place] # (Auto) 1.11 H Eos # (Auto) 0.04 Baso # (Auto) 0.02 Immature Gran # (Auto) 0.07 H PT 11.3 INR 1.1 APTT 31.8 H PTT Ratio 1.1 D-Dimer ABG pH ABG pCO2 ABG pO2 ABG HCO3 ABG O2 Saturation ABG Base Excess Lyndon Test VBG pH VBG pCO2 VBG pO2 VBG HCO3 VBG O2 Saturation VBG Base Excess Barometric Pressure Oxygen Given Sodium Potassium Chloride Carbon Dioxide Anion Gap BUN Creatinine Est Cr Clr Drug Dosing Est GFR ( Amer) Est GFR (Non-Af Amer) BUN/Creatinine Ratio Glucose Lactate 1.5 Calcium Magnesium Total Bilirubin AST ALT Alkaline Phosphatase Troponin I NT-Pro-B Natriuret Pep Total Protein Albumin Globulin Albumin/Globulin Ratio Procalcitonin Adenovirus (PCR) B. pertussis DNA (PCR) B.parapertussis DNA PCR C. pneumoniae DNA (PCR) Coronavirus OC43 (PCR) Coronavirus HKU1 (PCR) Coronavirus 229E (PCR) Coronavirus NL63 (PCR) Human Metapneumovir PCR Influenza Type A (PCR) Influenza Type B (PCR) M. pneumoniae (PCR) Parainfluenza 1 (PCR) Parainfluenza 2 (PCR) Parainfluenza 3 (PCR) Parainfluenza 4 (PCR) RSV (PCR) Entero/Rhino (PCR) SARS-CoV-2 RNA (RT-PCR) 06/08/20 06/08/20 06/08/20 12:20 12:20 12:20 WBC RBC Hgb Hct MCV MCH MCHC RDW Std Deviation RDW Coeff of Quan Plt Count MPV Immature Gran % (Auto) Neut % (Auto) Lymph % (Auto) [place] % (Auto) Eos % (Auto) Baso % (Auto) Neut # (Auto) Lymph # (Auto) [place] # (Auto) Eos # (Auto) Baso # (Auto) Immature Gran # (Auto) PT INR APTT PTT Ratio D-Dimer ABG pH ABG pCO2 ABG pO2 ABG HCO3 ABG O2 Saturation ABG Base Excess Lyndon Test VBG pH VBG pCO2 VBG pO2 VBG HCO3 VBG O2 Saturation VBG Base Excess Barometric Pressure Oxygen Given Sodium 132 L Potassium 3.6 Chloride 95 L Carbon Dioxide 30 Anion Gap 7.0 BUN 52 H Creatinine 2.15 H Est Cr Clr Drug Dosing 52.3 Est GFR ( Amer) 29.3 Est GFR (Non-Af Amer) 25.3 BUN/Creatinine Ratio 24.0 H Glucose 104 H Lactate Calcium 9.6 Magnesium 2.1 Total Bilirubin 0.7 AST 23 ALT 29 Alkaline Phosphatase 117 Troponin I 0.168 H* NT-Pro-B Natriuret Pep 4462 H Total Protein 7.5 Albumin 2.4 L Globulin 5.1 H Albumin/Globulin Ratio 0.5 L Procalcitonin 6.12 H Adenovirus (PCR) B. pertussis DNA (PCR) B.parapertussis DNA PCR C. pneumoniae DNA (PCR) Coronavirus OC43 (PCR) Coronavirus HKU1 (PCR) Coronavirus 229E (PCR) Coronavirus NL63 (PCR) Human Metapneumovir PCR Influenza Type A (PCR) Influenza Type B (PCR) M. pneumoniae (PCR) Parainfluenza 1 (PCR) Parainfluenza 2 (PCR) Parainfluenza 3 (PCR) Parainfluenza 4 (PCR) RSV (PCR) Entero/Rhino (PCR) SARS-CoV-2 RNA (RT-PCR) 06/08/20 06/08/20 06/08/20 12:20 13:24 13:24 WBC RBC Hgb Hct MCV MCH MCHC RDW Std Deviation RDW Coeff of Quan Plt Count MPV Immature Gran % (Auto) Neut % (Auto) Lymph % (Auto) [place] % (Auto) Eos % (Auto) Baso % (Auto) Neut # (Auto) Lymph # (Auto) [place] # (Auto) Eos # (Auto) Baso # (Auto) Immature Gran # (Auto) PT INR APTT PTT Ratio D-Dimer 1510 H* ABG pH ABG pCO2 ABG pO2 ABG HCO3 ABG O2 Saturation ABG Base Excess Lyndon Test VBG pH 7.24 L VBG pCO2 81 H VBG pO2 36 VBG HCO3 34 VBG O2 Saturation < 60.0 VBG Base Excess 4.4 Barometric Pressure 733.1 Oxygen Given Sodium Potassium Chloride Carbon Dioxide Anion Gap BUN Creatinine Est Cr Clr Drug Dosing Est GFR ( Amer) Est GFR (Non-Af Amer) BUN/Creatinine Ratio Glucose Lactate 1.1 Calcium Magnesium Total Bilirubin AST ALT Alkaline Phosphatase Troponin I NT-Pro-B Natriuret Pep Total Protein Albumin Globulin Albumin/Globulin Ratio Procalcitonin Adenovirus (PCR) B. pertussis DNA (PCR) B.parapertussis DNA PCR C. pneumoniae DNA (PCR) Coronavirus OC43 (PCR) Coronavirus HKU1 (PCR) Coronavirus 229E (PCR) Coronavirus NL63 (PCR) Human Metapneumovir PCR Influenza Type A (PCR) Influenza Type B (PCR) M. pneumoniae (PCR) Parainfluenza 1 (PCR) Parainfluenza 2 (PCR) Parainfluenza 3 (PCR) Parainfluenza 4 (PCR) RSV (PCR) Entero/Rhino (PCR) SARS-CoV-2 RNA (RT-PCR) 06/08/20 06/08/20 06/08/20 13:50 13:50 15:12 WBC RBC Hgb Hct MCV MCH MCHC RDW Std Deviation RDW Coeff of Quan Plt Count MPV Immature Gran % (Auto) Neut % (Auto) Lymph % (Auto) [place] % (Auto) Eos % (Auto) Baso % (Auto) Neut # (Auto) Lymph # (Auto) [place] # (Auto) Eos # (Auto) Baso # (Auto) Immature Gran # (Auto) PT INR APTT PTT Ratio D-Dimer ABG pH 7.30 L ABG pCO2 62 H ABG pO2 92 ABG HCO3 30 H ABG O2 Saturation 96.3 H ABG Base Excess 1.8 Lyndon Test Pos VBG pH VBG pCO2 VBG pO2 VBG HCO3 VBG O2 Saturation VBG Base Excess Barometric Pressure 732.7 Oxygen Given 25L Sodium Potassium Chloride Carbon Dioxide Anion Gap BUN Creatinine Est Cr Clr Drug Dosing Est GFR ( Amer) Est GFR (Non-Af Amer) BUN/Creatinine Ratio Glucose Lactate Calcium Magnesium Total Bilirubin AST ALT Alkaline Phosphatase Troponin I NT-Pro-B Natriuret Pep Total Protein Albumin Globulin Albumin/Globulin Ratio Procalcitonin Adenovirus (PCR) Not Detected B. pertussis DNA (PCR) Not Detected B.parapertussis DNA PCR Not Detected C. pneumoniae DNA (PCR) Not Detected Coronavirus OC43 (PCR) Not Detected Coronavirus HKU1 (PCR) Not Detected Coronavirus 229E (PCR) Not Detected Coronavirus NL63 (PCR) Not Detected Human Metapneumovir PCR Not Detected Influenza Type A (PCR) Not Detected Influenza Type B (PCR) Not Detected M. pneumoniae (PCR) Not Detected Parainfluenza 1 (PCR) Not Detected Parainfluenza 2 (PCR) Not Detected Parainfluenza 3 (PCR) Not Detected Parainfluenza 4 (PCR) Not Detected RSV (PCR) Not Detected Entero/Rhino (PCR) Not Detected SARS-CoV-2 RNA (RT-PCR) Pending
[2020-06-08] MEDS ORDERED: HEPARIN SOD (PORCINE) 1000 UNIT/ML 10 ML VIAL ONE (15:33)
[2020-06-08 15:38] LABS: Base Excess ABG 1.8 mEq/L (-9-1.8); HCO3 ABG 30 mmol/L (19-24); Oxygen Saturation ABG 96.3 % (90-95); PCO2 ABG 62 mmHg (35-46); PO2 ABG 92 mmHg (80-95)
--- NOTE | 2020-06-08 15:39 | Electrocardiogram Report ---
Test Reason : Blood Pressure : / mmHG Vent. Rate : 108 BPM Atrial Rate : 108 BPM P-R Int : 182 ms QRS Dur : 098 ms QT Int : 326 ms P-R-T Axes : 052 -20 033 degrees QTc Int : 436 ms Sinus tachycardia Low voltage QRS Possible Inferior infarct , age undetermined Cannot rule out Anterior infarct (cited on or before 03-MAY-2016) Abnormal ECG When compared with ECG of 03-MAY-2016 11:58, Borderline criteria for Inferior infarct are now Present Confirmed by Sidney Quinonez ([id number]) on 06/08/2020 3:38:57 PM Referred By: Confirmed By:Florian Quinonez
[2020-06-08] MEDS: HEPARIN SODIUM/DEXTROSE 25,000 UNITS/500 ML BAG IV SCH (15:44)
[2020-06-08 15:45] LABS: Allen Test Pos (Pos)
--- NOTE | 2020-06-08 16:14 | Ultrasound Report ---
RIGHT LOWER EXTREMITY VENOUS DOPPLER HISTORY: Right leg swelling. COMPARISON STUDY: None. FINDINGS: There is normal compressibility, flow, and augmentation within the right lower extremity de ep venous system. A 3.1 x 2.3 x 1.1 cm popliteal cyst. IMPRESSION: No DVT within the right lower extremity ACT 112: Negative or not required by law. Electronically signed by: Piyush Gonzalez M.D. 06/08/2020 4:12 PM
[2020-06-08] MEDS ORDERED: POLYETHYLENE (MIRALAX) 17 GM PACK PO PRN (18:44)
[2020-06-08] MEDS: METOPROLOL SUCC 50MG EXT REL TAB PO SCH (20:20)
[2020-06-08] MEDS: ACETAMINOPHEN 325 MG TAB PO PRN (20:22)
--- NOTE | 2020-06-08 21:09 | Pharmacy Report ---
Pharmacy Abx Dose Short Note - Date of Service June 08, 2020 - Assessment & Plan Assessment 55 year old F receiving IV Vancomycin for treatment of sepsis secondary to RLE cellulitis Day # 1 of antimicrobial therapy. * Patient presents with BLAYNE * Morbidly obese with BMI 77.5 kg/m2 Plan Vancomycin * Patient received Vancomycin 2750mg (~16mg/kg) IV x 1 as loading dose in the ED today at 1353; this is the maximum dose of Vancomycin * Given BLAYNE, anticipate renal function will be rapidly changing. Furthermore, with obesity she is at risk for Vancomycin drug accumulation. Unable to safely determine a maintenance regimen of Vancomycin at this time. Will check random Vancomycin level with AM labs to help guide dosing. * Goal trough level for cellulitis/sepsis : 15 to 20 mcg/mL * Random level ordered for: 06/09/20 with AM labs Pharmacy will continue to follow and will adjust dose/frequency as necessary. Thank you.
[2020-06-08 21:50] LABS: Partial Thromboplastin Ratio 1.6; Partial Thromboplastin Time 44.8 Seconds (21.0-31.0)
[2020-06-08] MEDS ORDERED: PROMETHAZINE HCL 12.5 MG in SODIUM CHLORIDE 0.9% 50 ML IV STA (22:22)
[2020-06-08] MEDS ORDERED: HEPARIN IV BOLUS 4,000 UNITS in SYRINGE 0 ML IV ONE (22:30)
[2020-06-08 22:33] LABS: Appearance Urine Turbid (Clear); Bacteria Urine Automated 1+ (Negative); Blood Urine 2+ (Negative); Color Urine Dark Yellow; Epithelial Cell Urine Auto >30 /lpf (0-5); Glucose Urine UA Negative (Negative); Ketones Urine Negative (Negative); Leukocyte Esterase Urine Negative (Negative); Nitrite Urine Negative (Negative); Protein Urine 2+ (Negative); Specific Gravity Urine 1.022 (1.000-1.030); Urobilinogen Urine Negative (Negative)
[2020-06-08 22:36] LABS: Bilirubin Urine Negative (Negative); Ictotest Urine Negative (Negative)
[2020-06-08 22:48] LABS: RBC Urine Automated 0-4 /hpf (0-4)
[2020-06-09] MEDS: SODIUM CHLORIDE 0.9% 1000ML 1,000 ML IV SCH ×3 (00:46→18:52)
[2020-06-09] MEDS: HEPARIN SODIUM/DEXTROSE 25,000 UNITS/500 ML BAG IV SCH ×2 (04:21→16:33)
[2020-06-09 04:32] LABS: Hematocrit (blood only) 33.5 % (37-47); Hemoglobin 10.5 g/dL (12.0-16.0); Mean Corpuscular Hemoglobin 29.4 pg (25-34); Mean Corpuscular Hgb Conc 31.3 g/dL (32-36); Mean Corpuscular Volume 93.8 fL (80-100); Mean Platelet Volume 10.1 fL (7.4-10.4); Platelet Count 295 K/uL (130-400); RDW Coefficient of Variation 14.9 % (11.5-14.5); Red Blood Count 3.57 M/uL (4.2-5.4); White Blood Count 16.89 K/uL (4.8-10.8)
[2020-06-09 04:51] LABS: BUN Creatinine Ratio 25.4 (10-20); Calcium 8.3 mg/dl (8.5-10.1); Creatinine Clr Calc Pharmacy 48.5 ml/min; Est GFR (African American) 29.8; Est GFR (Non-African American) 25.7; Potassium 4.1 mmol/L (3.5-5.1)
[2020-06-09 04:56] LABS: Partial Thromboplastin Ratio 1.9
[2020-06-09 05:05] LABS: Partial Thromboplastin Time 51.8 Seconds (21.0-31.0)
[2020-06-09] MEDS: ONDANSETRON INJ 2 MG/ML 2 ML VIAL IV PRN (05:08)
[2020-06-09] MEDS ORDERED: METOPROLOL SUCC 50MG EXT REL TAB PO SCH (07:00)
[2020-06-09] MEDS: METOPROLOL SUCC 50MG EXT REL TAB PO SCH (07:48)
[2020-06-09] MEDS ORDERED: DAPTOMYCIN CONSULT ACTIVE PRN (08:31)
[2020-06-09] MEDS: DAPTOmycin 625 MG in SYRINGE 0 ML IV SCH (09:37)
--- NOTE | 2020-06-09 10:54 | Nephrology Consultation ---
Date of Consultation June 09, 2020 Assessment & Plan (1) BLAYNE (acute kidney injury): Borderline oliguric acute kidney injury. Urine sediment most consistent with ATN, likely ischemic ATN from hypotension in the setting of sepsis. Baseline creatinine 0.8 most recent labs November 2019. Presenting creatinine 2.2 on , minimal improvement today, again consistent with ATN. Acceptable chem istries; volume status difficult to assess but presumably volume depleted in the setting of sepsis with active diuretic use Daily basic metabolic panel Follow-up pending cultures Agree with resuming diet Continue to avoid nephrotoxins -I lowered her metoprolol dose to 12.5 mg Toprol-XL daily from current 50 mg twice daily dosing due to hypotension and acute renal failure in the setting of sepsis; hold parameters in place; monitor HR No indication for renal replacement therapy or even discussion of this at this time: However oliguria concerning Present on Admission?: Yes (2) Sepsis: Hypotension likely due to sepsis. Bear in mind however she has a history of hypertensive cardiomyopathy remotely and would have low threshold for echocardiogram -Continue to hold blood pressure medications -Continue normal saline current rate per sepsis protocol; -monitor bp as above Present on Admission?: Yes (3) Acute respiratory acidosis: monitor breathing status closely -- nursing and primary service aware Present on Admission?: Yes History of Present Illness Reason for Consultation: Acute renal failure Requesting Physician: Dr. Combs Attending Physician: Yoandy Combs MD History of Present Illness 55-year-old female whom I am asked to evaluate for acute renal failure was admitted yesterday for SIRS from right lower extremity cellulitis and noted to have both acute hypoxic respiratory failure needing BiPAP initially and now high flow oxygen as well as acute kidney injury. Other medical history includes super morbid obesity with a BMI of 76 per outpatient records, presumptive hypertensive cardiomyopathy details as below, hypertension, recently dx'd sleep apnea. The patient has a history of diminished ejection fraction as low was 45% on dobutamine stress echo 2015; improved on subsequent studies, most recently July 2019 dobutamine stress echo with ejection fraction 55%. The patient follows with cardiology, last seen January 2020. At that visit, Bumex increased to 2 milligrams daily with follow-up up labs planned. However these labs were not done. Creatinine 0.03 December 2019, presenting creatinine 2.2 on June 08 and unchanged this morning. Obtaining ROS is challenging d/t patient lethargy - cannot stay awake patrick genough to hold conversation. Allergies Allergy/AdvReac Type Severity Reaction Status Date / Time bee venom protein (honey bee) Allergy Unknown GENERALIZED Unverified 06/08/20 14:02 SWELLING-SOB No Known Drug Allergies Allergy Unknown NONE Unverified 06/08/20 14:02 Home Medications Home Medications Medication Instructions Recorded Confirmed Type bumetanide 1 mg PO DAILY@1700 06/08/20 06/08/20 History lisinopril 2.5 mg PO DAILY@1700 06/08/20 06/08/20 History metoprolol succinate 50 mg PO DAILY@0700,1700 06/08/20 06/08/20 History Patient History Medical History (Updated 06/09/20 @ 11:08 by Chantal John MD, PhD) Elevated parathyroid hormone HTN (hypertension) Lymphedema No pertinent family history Obesity, morbid, BMI 50 or higher Surgical History (Updated 06/08/20 @ 12:56 by Raghav Oliver) No pertinent past surgical history Family History Grandmother Heart disease Social History (Updated 06/08/20 @ 15:47 by Kenisha Graham MD) Communication Ability: Effective Beliefs That Will Affect Care: None Current Living Situation: Family Other Information That Helps Us Care for You: No Feels Safe at Home: Yes Safety Concerns: Feels Safe At This Time Smoking Status: Former smoker Tobacco Type: cigarettes ; packs per day: 1 ; Years Smoked: 15 ; Hx Alcohol Use: No Hx Substance Use: No Review of Systems Review of Systems: Unobtainable due to reduced consciousness (limited; denies pain or sob or N) Physical Exam Constitutional: well developed, + morbidly obese and + altered mental status; no acute distress Eyes: EOM intact bilaterally ENMT: Ears: no external ear abnormality Nose: no external nose abnormality Mouth: + dry oral mucous membranes Neck: no nuchal rigidity Respiratory: + labored breathing (slight), able to speak in complete sentences (barely) and + paradoxical thoraco-abdominal movement; no respiratory distress, no cough and not tachypneic Auscultation: + diminished lung sounds Cardiovascular: Rate/Rhythm: regular rate and regular rhythm Extremities: + edema (indurated BLE) Gastrointestinal (Abdomen): Inspection/Auscultation: normal bowel sounds Percussion/Palpation: abdomen soft; abdomen nontender Musculoskeletal: Extremities: strength 5/5 throughout Skin: no rashes, warm and dry + erythema (RLE) Neurologic: levy, limited speech, no tremor Results & Data Vital Signs (Past 12 Hours) Vital Signs Temp Pulse Pulse Pulse Resp BP Pulse Ox 06/09/20 07:07 36.7 C 74 22 94/62 L 94 06/09/20 03:53 36.9 C 70 18 93/67 L 97 06/09/20 03:40 62 17 98 06/09/20 00:00 91 H 06/08/20 23:12 88 18 97 06/08/20 23:01 37.1 C 87 20 110/74 97 Laboratory Results 06/09/20 04:14 06/09/20 04:14 Admission urinalysis: Turbid dark yellow urine with a specific gravity of 1022, 2+ protein, 2+ blood, other dipstick indices negative; microscopy remarkable for presence of granular casts, 1+ bacteria, greater than 30 epithelial cells per high-powered field, 5-10 white cells per high-powered field Diagnostic Findings Chest x-ray: No active disease in the chest Doppler right lower extremity: No DVT (1) Sepsis Acute renal failure type: unspecified Sepsis acute organ dysfunction status: with acute organ dysfunction Sepsis type: sepsis due to unspecified organism Severe sepsis acute organ dysfunction type: acute renal failure Severe sepsis shock status: unspecified Qualified Code(s): A41.9 - Sepsis, unspecified organism; R65.20 - Severe sepsis without septic shock; N17.9 - Acute kidney failure, unspecified
--- NOTE | 2020-06-09 15:17 | Pulmonary Consultation ---
Date of Consultation June 09, 2020 Assessment & Plan (1) Obesity, morbid, BMI 50 or higher: Impression: 55-year-old female with morbid obesity and known sleep disordered breathing currently not being treated presents with hypoxemic and hypercarbic respiratory failure, acute kidney injury, and probable lower extremity cellulitis. Recommendations: 1. Acute hypoxemic and hypercarbic respiratory failure. There is likely some chronic component of this as well. Continue oxygen titrated to keep saturations at or above 88%. She was empirically placed on BiPAP 15/8 centimeters of water which seems reasonable. She reports that she slept quite well last night. She should continue to use this on a nightly basis as well as as needed for increased work of breathing during the day and whenever she naps. She requires a formal titration study to be performed in the outpatient setting however this is somewhat limited due to novel coronavirus restrictions. 2. Morbid obesity: Continued weight loss recommended. She will continue to follow with [facility]. Consultation with a dock pumper may be beneficial. 3. Acute renal failure: She does have cellulitis. Antibiotics per primary. Blood cultures negative to date. Will check ASO titer. Nephrology following. 4. Recommend increasing physical activity as much as tolerated. Out of bed recommended. 5. Pulmonary hypertension: This is likely secondary to untreated sleep disordered breathing as well as chronic hypoxemic respiratory failure. Consider repeating echocardiogram in several months to follow PA pressures once she is on appropriate therapy for sleep apnea and oxygen therapy. Given her echo findings, consider gentle diuresis as tolerated by blood pressure and kidney function. We will continue to follow with you. Feel free to contact us with questions or concerns. (2) BLAYNE (acute kidney injury): (3) Acute respiratory acidosis: History of Present Illness Attending Physician: Yoandy Combs MD History of Present Illness Asked by the hospitalist service to evaluate this patient with hypoxemic and hypercarbic respiratory failure and respiratory distress. History is obtained from review the electronic medical record and discussion with the patient at bedside. The patient is a 55-year-old female with a history of morbid obesity as well as sleep disordered breathing. She had a sleep study performed last month which demonstrated severe sleep disordered breathing. She has not yet initiated therapy as she states there were some issues with her insurance company. She also has a history of morbid obesity and is established with a [employer] [facility] program and is currently being evaluated for possible bariatric surgery. She is about 3 months into their evaluation. The patient presented to the emergency room yesterday with shortness of breath and lower extremity edema. She was found to have an erythematous leg and thought to have cellulitis. According to the patient, her mobility is extremely limited. She states she can only walk a few steps before becoming significantly short of breath and this is been going on for some time. She does not have oxygen at home. She does report low-grade fevers. She is not coughing or expectorating any phlegm. 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 The patient was assessed for novel coronavirus with a rapid test which was fortunately negative. She was admitted to the hospitalist service and treated with IV antibiotics. There was initial concern about possible PE as her d-dimer was elevated she was unable to get a CT angiogram due to her elevated creatinine. She has no prior history of underlying kidney disease. Allergies Allergy/AdvReac Type Severity Reaction Status Date / Time bee venom protein (honey bee) Allergy Unknown GENERALIZED Unverified 06/08/20 14:02 SWELLING-SOB No Known Drug Allergies Allergy Unknown NONE Unverified 06/08/20 14:02 Home Medications Home Medications Medication Instructions Recorded Confirmed Type bumetanide 1 mg PO DAILY@1700 06/08/20 06/08/20 History lisinopril 2.5 mg PO DAILY@1700 06/08/20 06/08/20 History metoprolol succinate 50 mg PO DAILY@0700,1700 06/08/20 06/08/20 History Patient History Medical History (Updated 06/09/20 @ 11:08 by Chantal John MD, PhD) Elevated parathyroid hormone HTN (hypertension) Lymphedema No pertinent family history Obesity, morbid, BMI 50 or higher Surgical History (Updated 06/08/20 @ 12:56 by Raghav Oliver) No pertinent past surgical history Family History Grandmother Heart disease Social History (Updated 06/08/20 @ 15:47 by Kenisha Graham MD) Communication Ability: Effective Beliefs That Will Affect Care: None Current Living Situation: Family Other Information That Helps Us Care for You: No Feels Safe at Home: Yes Safety Concerns: Feels Safe At This Time Smoking Status: Former smoker Tobacco Type: cigarettes ; packs per day: 1 ; Years Smoked: 15 ; Hx Alcohol Use: No Hx Substance Use: No Review of Systems Review of Systems: Please refer to admission H&P. I have no additions or deletions. Physical Exam Constitutional: well developed, + morbidly obese and + altered mental status; no acute distress Eyes: EOM intact bilaterally ENMT: Ears: no external ear abnormality Nose: no external nose abnormality Mouth: + dry oral mucous membranes Neck: no nuchal rigidity Respiratory: + labored breathing (slight), able to speak in complete sentences (barely) and + paradoxical thoraco-abdominal movement; no respiratory distress, no cough and not tachypneic Auscultation: + diminished lung sounds Cardiovascular: Rate/Rhythm: regular rate and regular rhythm Extremities: + edema (indurated BLE) Gastrointestinal (Abdomen): Inspection/Auscultation: normal bowel sounds Percussion/Palpation: abdomen soft; abdomen nontender Musculoskeletal: Extremities: strength 5/5 throughout Skin: no rashes, warm and dry + erythema (RLE) Neurologic: levy, limited speech, no tremor Results & Data Results & Data ([facility]) Vital Signs (Past 12 Hours) Vital Signs Temp Pulse Pulse Pulse Resp BP Pulse Ox 06/09/20 10:54 36.7 C 85 22 101/63 96 06/09/20 07:07 36.7 C 74 22 94/62 L 94 06/09/20 03:53 36.9 C 70 18 93/67 L 97 06/09/20 03:40 62 17 98 Laboratory Results 06/09/20 04:14 06/09/20 04:14 06/08/20 06/08/20 13:24 15:12 ABG pH 7.30 L ABG pCO2 62 H ABG pO2 92 ABG HCO3 30 H ABG O2 Saturation 96.3 H ABG Base Excess 1.8 VBG pH 7.24 L VBG pCO2 81 H VBG pO2 36 VBG HCO3 34 VBG O2 Saturation < 60.0 VBG Base Excess 4.4 COVID test negative Initial troponin 0 0.085 and follow-up 0.062 BNP level 4462 Albumin 2.4 Urinalysis with 2+ protein and 2+ blood Diagnostic Findings Echocardiogram reviewed. Ejection fraction of 55 to 60%. Thickening of the mitral valve and aortic valve noted. Mild to moderate mitral regurgitation with moderate tricuspid insufficiency. Estimated PA pressures 40-45 with a mildly dilated inferior vena cava and mild dilatation of the right ventricle. No other regional wall motion abnormalities. Venous Doppler study showed no right lower extremity DVT. Popliteal cyst was noted. Chest x-ray from 05/29/2020 was independently reviewed. Film is inadequately penetrated however no obvious airspace opacity identified. PG Care Time/CCT Total # of Minutes Spent Total Time Spent with Patient: Total time spent is greater than 50% in coordination of care (as documented) at patient's floor/unit and/or counseling patient: Coding Level of Care Code 84497 Inpt Consult Level 4 Diagnoses Obesity, morbid, BMI 50 or higher E66.01 BLAYNE (acute kidney injury) N17.9 Acute respiratory acidosis E87.2
[2020-06-09 16:32] LABS: Anti Streptolysin O Screen Positive IU/ml (<200 IU/ml)
--- NOTE | 2020-06-09 18:24 | Hospitalist Progress Note ---
Date of Service June 09, 2020 Assessment & Plan (1) Cellulitis: Reported fevers SIRS - leukocytosis, HR>90, RR> 28 on admission Met criteria for sepsis with possible infectious source - Cellulitis -- afebrile WBC improving -- blood cultures: pending urine culture: pending -- continue Daptomycin IV monitor (2) Acute respiratory failure with hypoxia: Acute Hypoxic and Hypercarbic Respiratory Failure from Obesity Hypoventilation Syndrome, DOMINIQUE -- per admitting MD notes: Was initially on high flow, currently on BIPAP Per review of EPIC records, Dr Ambrosio did communicate with patient about findings of recent sleep study last month. Recommended self titrating CPAP for DOMINIQUE until patient gets another sleep study in sleep lab. Patient reports she is yet to get the home CPAP Review of previous labs show chronically high normal to elevated bicarb. Patient likely also has OHS XR of chest did not show opacities or infiltrate that may explain the hypoxia VBG suggestive of respiratory acidosis -- Covid Test negative -- PE unlikely -- continue Bipap wean off O2 Pulm consulted, discussed with Dr. Hubbard (3) Elevated troponin: likely from Demand Ischemia Trop is 0.168--> 0.08--> 0.06 EKG no signs of infarct Echo: no signs of wall motion abnormalities ACS unlikely (4) BLAYNE (acute kidney injury): Acute Renal Failure likely from ATN, in the setting of sepsis crea 0.8 at baseline now 2.15 --> 2.12 Nephrology consulted continue IV fluids (5) HTN (hypertension): Metoprolol reduced monitor (6) DVT prophylaxis: Heparin SC q8h Dispo- pending COde status - FULL per discussion with patient Admission and Anticipated Discharge Date Admission Date: June 08, 2020 Subjective ff up for respiratory failure- hypoxic and hypercarbic, leg cellulitis, acute renal failure seen resting in bed, alert, comfortable oriented x 3, answers all questions appropriately states she feels improved compared to yesterday denies chest pain, palpitations, dizziness leg discomfort improving no other symptoms Review of Systems Review of Systems: All systems reviewed & are unremarkable except as noted in HPI & below Physical Exam Physical Exam: General- oriented x 3, not in distress, speaks in sentences with no effort or accessory muscle use Head- atraumatic Eyes- PERRL, EOMI, anicteric ENT- oropharynx clear Neck- supple, no JVD, no adenopathy, no thyromegaly; carotids +2/2, no bruits appreciated Lungs- clear to auscultation bilaterally, no rales/wheezes Heart- normal rate, regular rhythm; no murmur, no gallop, no rub appreciated Abdomen- normal bowel sounds, nondistended, soft, nontender, no masses or hepatosplenomegaly Extremities- grade 2 lower leg edema right leg: (+) significant erythema, moderate warmth, mild tenderness Neuro- alert, oriented x 3; CN 2-12 grossly intact; motor 5/5 bi laterally;sensation 100% on all extremities; no other gross focal neurologic deficits Skin- warm & dry Results & Data Results & Data ([facility]) Vital Signs (Past 12 Hours) Vital Signs Temp Pulse Pulse Resp BP Pulse Ox 06/09/20 16:06 36.9 C 86 20 106/67 100 06/09/20 10:54 36.7 C 85 22 101/63 96 06/09/20 07:07 36.7 C 74 22 94/62 L 94
[2020-06-10] MEDS: ONDANSETRON INJ 2 MG/ML 2 ML VIAL IV PRN ×2 (02:06→09:55)
[2020-06-10] MEDS: SODIUM CHLORIDE 0.9% 1000ML 1,000 ML IV SCH (05:44)
[2020-06-10 06:16] LABS: Partial Thromboplastin Ratio 1.1; Partial Thromboplastin Time 31.1 Seconds (21.0-31.0)
--- NOTE | 2020-06-10 07:29 | Pulmonology Progress Note ---
Date of Service June 10, 2020 Assessment & Plan (1) Obesity, morbid, BMI 50 or higher: Impression: 55-year-old female with morbid obesity and known sleep disordered breathing currently not being treated presents with hypoxemic and hypercarbic respiratory failure, acute kidney injury, and probable lower extremity cellulitis. Recommendations: 1. Acute hypoxemic and hypercarbic respiratory failure. There is a chronic component of this as well. Continue oxygen titrated to keep saturations at or above 88%. Continue nightly BiPAP 15/8 as well as as needed during the day. She requires a formal titration study to be performed in the outpatient setting however this is somewhat limited due to novel coronavirus restrictions. This may be able to be accomplished now that the patient has had a negative COVID test but discussions with the sleep lab should be undertaken. Regardless, she should be discharged on nocturnal positive airway pressure at settings noted above with an indication of chronic hypercarbic respiratory failure due to restrictive lung disease from morbid obesity and obesity hypoventilation syndrome. With a negative duplex and her reassuring echo findings, I think PE is less likely and we have alternative diagnoses to explain her hypoxemia. Would not pursue CT angiogram at this time. No indication for empiric anticoagulation other than her morbid obesity and significant mobility issues. Place her on prophylactic doses of 5000 units of heparin subcu every 8 hours. Given her morbid obesity, consultation with pharmacy to determine optimal chemical prophylaxis may be appropriate. She will likely require oxygen in conjunction with BiPAP at discharge. 2. Morbid obesity: Continued weight loss recommended. She will continue to follow with the [facility] bariatric surgery program. Consultation with a banking pin adjuster may be beneficial. 3. Acute renal failure: ASO titer elevated. According to the patient she may have had cellulitis for several weeks. Post strep GN possible. Defer to nephrology. Chemistry this morning pending 4. Recommend increasing physical activity as much as tolerated. Out of bed recommended. Will order PT and OT consults 5. Pulmonary hypertension: This is likely secondary to untreated sleep disordered breathing as well as chronic hypoxemic respiratory failure. Consider repeating echocardiogram in several months to follow PA pressures once she is on appropriate therapy for sleep apnea and oxygen therapy. Given her echo findings, consider gentle diuresis as tolerated by blood pressure and kidney function. We will continue to follow with you. Feel free to contact us with questions or concerns. (2) BLAYNE (acute kidney injury): (3) Acute respiratory acidosis: Admission and Anticipated Discharge Date Admission Date: June 08, 2020 Subjective Patient seen and examined. EMR reviewed. She reports she was compliant with BiPAP again last evening and slept well. This morning she did did develop some mild nausea. She was transitioned just to nasal cannula. No emesis. She states her breathing continues to show slow and steady improvement. Review of Systems Review of Systems: Unchanged from prior Physical Exam Constitutional: well developed, + morbidly obese and + altered mental status; no acute distress Eyes: EOM intact bilaterally ENMT: Ears: no external ear abnormality Nose: no external nose abnormality Mouth: + dry oral mucous membranes Neck: no nuchal rigidity Respiratory: + labored breathing (slight), able to speak in complete sentences (barely) and + paradoxical thoraco-abdominal movement; no respiratory distress, no cough and not tachypneic Auscultation: + diminished lung sounds Cardiovascular: Rate/Rhythm: regular rate and regular rhythm Extremities: + edema (indurated BLE) Gastrointestinal (Abdomen): Inspection/Auscultation: normal bowel sounds Percussion/Palpation: abdomen soft; abdomen nontender Musculoskeletal: Extremities: strength 5/5 throughout Skin: no rashes, warm and dry + erythema (RLE) Results & Data Results & Data ([facility]) Vital Signs (Past 12 Hours) Vital Signs Temp Pulse Pulse Resp BP Pulse Ox 06/10/20 07:12 36.9 C 78 18 107/71 96 06/10/20 04:10 37.1 C 88 20 104/70 96 06/10/20 03:03 93 H 17 96 06/10/20 00:04 36.9 C 59 L 16 119/74 96 06/09/20 21:58 92 H 18 96 06/09/20 19:43 37.4 C 87 24 104/69 98 Laboratory Results 06/09/20 04:14 06/09/20 04:14 Diagnostic Findings No new imaging PG Care Time/CCT Total # of Minutes Spent Total Time Spent with Patient: Total time spent is greater than 50% in coordination of care (as documented) at patient's floor/unit and/or counseling patient: Coding Level of Care Code 96183 Subseq Hosp Care Lvl 2 Diagnoses Obesity, morbid, BMI 50 or higher E66.01 BLAYNE (acute kidney injury) N17.9 Acute respiratory acidosis E87.2
[2020-06-10] MEDS: METOPROLOL SUCC 25MG EXT REL TAB PO SCH (08:03)
[2020-06-10] MEDS: DAPTOmycin 625 MG in SYRINGE 0 ML IV SCH (08:03)
[2020-06-10] MEDS: ACETAMINOPHEN 325 MG TAB PO PRN (08:37)
[2020-06-10 09:35] LABS: Basophils # (auto) 0.03 K/uL (0-0.2); Basophils % (auto) 0.2 %; Eosinophils # (auto) 0.03 K/uL (0-0.5); Eosinophils % (auto) 0.2 %; Hematocrit (blood only) 33.6 % (37-47); Hemoglobin 10.7 g/dL (12.0-16.0); Immature Granulocytes # (auto) 0.12 K/uL (0.00-0.02); Immature Granulocytes % (auto) 0.6 %; Lymphocytes # (auto) 1.03 K/uL (1.2-3.4); Lymphocytes % (auto) 5.4 %; Mean Corpuscular Hemoglobin 29.8 pg (25-34); Mean Corpuscular Hgb Conc 31.8 g/dL (32-36); Mean Corpuscular Volume 93.6 fL (80-100); Mean Platelet Volume 9.9 fL (7.4-10.4); Monocytes # (auto) 1.23 K/uL (0.11-0.59); Monocytes % (auto) 6.5 %; Neutrophils # (auto) 16.46 K/uL (1.4-6.5); Neutrophils % (auto) 87.1 %; Platelet Count 324 K/uL (130-400); RDW Standard Deviation 51.8 fL (36.4-46.3); Red Blood Count 3.59 M/uL (4.2-5.4)
[2020-06-10 09:52] LABS: BUN Creatinine Ratio 30.3 (10-20); Calcium 8.4 mg/dl (8.5-10.1); Creatinine Clr Calc Pharmacy 48.8 ml/min; Est GFR (African American) 29.2; Est GFR (Non-African American) 25.2; Magnesium 2.4 mg/dl (1.8-2.4)
[2020-06-10] MEDS ORDERED: PIPERACILL/TAZOBAC CONSULT ACTIVE PRN (11:48)
[2020-06-10] MEDS: TRAMADOL HCL 50 MG TABLET PO PRN (11:52)
[2020-06-10] MEDS ORDERED: PIPERACILLIN/TAZOBACTAM 4.5 GM in DEXTROSE 5% 100 ML IV ONE (12:00)
[2020-06-10] MEDS: HEPARIN SOD 5,000 UNIT/0.5 ML VIAL SQ SCH ×2 (13:34→21:49)
--- NOTE | 2020-06-10 13:57 | Nephrology Progress Note ---
Date of Service June 10, 2020 Assessment & Plan (1) BLAYNE (acute kidney injury): Nonoliguric stage 2 acute kidney injury, likeliest cause ischemic ATN though nephritic process such as post streptococcal GN also on differential. Urine sediment most consistent with ATN, from hypotension in the setting of sepsis. However nephritic elements present as well; no outpatient/prior urine studies for comparison. daughter tells me pt has taken 800 mg ibuprofen multiple times daily x years. This or PSGN may cause nephritic sediment. Baseline creatinine 0.8 most recent labs November 2019. Presenting creatinine 2.2 on , minimal improvement again today. Acceptable chemistries; volume status difficult to assess >> has SIRS and hypotension but also mildly dilated IVC on TTE. Daily basic metabolic panel Follow-up pending cultures -ordered C3, CH50, RF, anti DNAse B, proteinuria quantification > to evaluate further for PSGN; however treatment for this is also supportive BP med, IVF as below Continue to avoid nephrotoxins -- advised her no nsaids after discharge No indication for renal replacement therapy or biopsy or even discussion of this at this time (2) Acute respiratory failure with hypoxia: acute on chronic hypoxemic and hypercarbic respiratory failure > just in process before admission of getting CPAP but had not yet done so; -pulmonary following, bipap arranged in house Present on Admission?: Yes (3) Hypotension: her outpatient blood pressures tend to run 120-140 systolic on bid long acting metoprolol 50 mg and bumex and lisinopril. from sepsis; no new echo findings to explain hypotension. She has mild tachycardia, HR in 90s; not appreciably different so far than when she was on full home dose BB in house -continue lower metoprolol dose 12.5 mg succinate qAM -stop NS and observe -low threshold for IV lasix standing -- will give one low dose now -check TSH in AM Present on Admission?: Yes Admission and Anticipated Discharge Date Admission Date: June 08, 2020 Subjective seen and examined with daughter at bedside about 1445. more alert and interactive today but still on the whole quite sleepy. no n/v; RLE very painful and had some drainage earlier today Review of Systems Review of Systems: All systems reviewed & are unremarkable except as noted in HPI & below Physical Exam Constitutional: well developed, + morbidly obese and + lethargic; no acute distress and no altered mental status Eyes: EOM intact bilaterally ENMT: Ears: no external ear abnormality Nose: no external nose abnormality Mouth: + dry oral mucous membranes Neck: no nuchal rigidity Respiratory: + labored breathing (slight), able to speak in complete sentences (barely but more than yesterday) and + paradoxical thoraco-abdominal movement; no respiratory distress, no cough and not tachypneic Auscultation: + diminished lung sounds and + wheezes (new today) Cardiovascular: Rate/Rhythm: regular rate and regular rhythm Extremities: + edema (indurated BLE) Gastrointestinal (Abdomen): Inspection/Auscultation: normal bowel sounds Percussion/Palpation: abdomen soft; abdomen nontender Musculoskeletal: Extremities: strength 5/5 throughout Skin: no rashes, warm and dry + erythema (RLE with sanguinous fluid drainage and several pustules) Neurologic: levy, fluent though limited and more appropriate speechm no tremor Psychiatric: Orientation: oriented x 3 Affect: euthymic affect Results & Data ([facility]) Vital Signs (Past 12 Hours) Vital Signs Temp Pulse Pulse Resp BP Pulse Ox 06/10/20 12:54 36.5 C 97 H 20 93/53 L 98 06/10/20 07:12 36.9 C 78 18 107/71 96 06/10/20 04:10 37.1 C 88 20 104/70 96 06/10/20 03:03 93 H 17 96 Laboratory Results 06/10/20 09:18 06/10/20 09:18 ASO titer = 200 (<200 wnl) Diagnostic Findings Echocardiogram yesterday Moderate LVH, ejection fraction 55 to 60% Mild to moderate right heart pressure elevations in the range of 40 to 45 mmHg with mild RV and IVC dilation Moderate TR; m-m MR
[2020-06-10 15:51] LABS: Appearance Urine Cloudy (Clear); Bacteria Urine Automated Negative (Negative); Bilirubin Urine Negative (Negative); Blood Urine Negative (Negative); Color Urine Dark Yellow; Epithelial Cell Urine Auto >30 /lpf (0-5); Glucose Urine UA Negative (Negative); Ketones Urine Negative (Negative); Leukocyte Esterase Urine Negative (Negative); Nitrite Urine Negative (Negative); Protein Urine 1+ (Negative); Specific Gravity Urine 1.019 (1.000-1.030); Urobilinogen Urine Negative (Negative)
[2020-06-10 16:06] LABS: Protein Creatinine Ratio Urine 0.8 (0-0.2); Total Protein Urine Random 95.3 mg/dl (0-11.9)
[2020-06-10] MEDS: PIPERACILLIN/TAZOBACTAM 4.5 GM in DEXTROSE 5% 100 ML IV SCH (16:57)
[2020-06-10] MEDS ORDERED: FUROSEMIDE 20 MG in SYRINGE 0 ML IV ONE (17:30)
--- NOTE | 2020-06-10 20:15 | Hospitalist Progress Note ---
Date of Service June 10, 2020 Assessment & Plan (1) Cellulitis: Reported fevers SIRS - leukocytosis, HR>90, RR> 28 on admission Met criteria for sepsis with possible infectious source - Cellulitis -- afebrile WBC about the same -- blood cultures: pending urine culture: pending --Add Zosyn, continue Daptomycin IV 1 dose Lasix given today Continue to monitor closely (2) Acute respiratory failure with hypoxia: Acute Hypoxic and Hypercarbic Respiratory Failure from Obesity Hypoventilation Syndrome, DOMINIQUE -- per admitting MD notes: Was initially on high flow, currently on BIPAP Per review of EPIC records, Dr Ambrosio did communicate with patient about findings of recent sleep study last month. Recommended self titrating CPAP for DOMINIQUE until patient gets another sleep study in sleep lab. Patient reports she is yet to get the home CPAP Review of previous labs show chronically high normal to elevated bicarb. Patient likely also has OHS XR of chest did not show opacities or infiltrate that may explain the hypoxia VBG suggestive of respiratory acidosis -- Covid Test negative -- PE unlikely -- continue Bipap wean off O2 Pulm consulted, discussed with Dr. Hubbard --Will need to arrange BiPAP upon discharge (3) Elevated troponin: likely from Demand Ischemia Trop is 0.168--> 0.08--> 0.06 EKG no signs of infarct Echo: no signs of wall motion abnormalities ACS unlikely (4) BLAYNE (acute kidney injury): Acute Renal Failure likely from ATN, in the setting of sepsis crea 0.8 at baseline now 2.15 --> 2.12 Nephrology consulted In range at 2.1 Continue to monitor closely continue IV fluids (5) HTN (hypertension): Metoprolol reduced monitor (6) DVT prophylaxis: Heparin SC q8h Dispo- pending COde status - FULL per discussion with patient Plan of care discussed with patient and her daughter at the bedside In detail at length All questions were answered They are understanding, agreeable, comfortable plan of care Admission and Anticipated Discharge Date Admission Date: June 08, 2020 Subjective Follow-up for hypoxia, leg cellulitis, acute renal failure Seen resting in bed, comfortable, not in distress, on oxygen supplement via nasal cannula Appears more comfortable today than yesterday States her breathing is improving No cough or fevers or chills Reports leg pain on the left side today No problems urination No other symptoms Review of Systems Review of Systems: All systems reviewed & are unremarkable except as noted in HPI & below Physical Exam Physical Exam: General- oriented x 3, not in distress, speaks in sentences with no effort or accessory muscle use Eyes- anicteric Neck- no JVD Lungs- clear breath sounds bilaterally, no rales/wheezes Heart- normal rate, regular rhythm; no murmurs Abdomen- normal bowel sounds, nondistended, soft, nontender Extremities-significant edema and erythema on the right lower leg with tenderness and warmth Mild edema on the left lower extremity Neuro- alert, oriented x 3; no gross focal neurologic deficits Skin- warm & dry Results & Data Results & Data ([facility]) Vital Signs (Past 12 Hours) Vital Signs Temp Pulse Pulse Resp BP Pulse Ox 06/10/20 16:02 36.6 C 80 23 138/77 98 06/10/20 16:00 93 H 06/10/20 12:54 36.5 C 97 H 20 93/53 L 98 Laboratory Results Laboratory Results - last 24 hr 06/10/20 06/10/20 06/10/20 05:33 09:18 09:18 WBC 18.90 H RBC 3.59 L Hgb 10.7 L Hct 33.6 L MCV 93.6 MCH 29.8 MCHC 31.8 L RDW Std Deviation 51.8 H RDW Coeff of Quan 15.0 H Plt Count 324 MPV 9.9 Immature Gran % (Auto) 0.6 Neut % (Auto) 87.1 Lymph % (Auto) 5.4 [place] % (Auto) 6.5 Eos % (Auto) 0.2 Baso % (Auto) 0.2 Neut # (Auto) 16.46 H Lymph # (Auto) 1.03 L [place] # (Auto) 1.23 H Eos # (Auto) 0.03 Baso # (Auto) 0.03 Immature Gran # (Auto) 0.12 H APTT 31.1 H PTT Ratio 1.1 Sodium 136 Potassium 4.0 Chloride 100 Carbon Dioxide 26 Anion Gap 10.0 BUN 65 H Creatinine 2.16 H Est Cr Clr Drug Dosing 48.8 Est GFR ( Amer) 29.2 Est GFR (Non-Af Amer) 25.2 BUN/Creatinine Ratio 30.3 H Glucose 149 H Calcium 8.4 L Magnesium 2.4 Urine Color Urine Appearance Urine pH Ur Specific [place] Urine Protein Urine Glucose (UA) Urine Ketones Urine Blood Urine Nitrite Urine Bilirubin Urine Urobilinogen Ur Leukocyte Esterase Urine WBC (Auto) Urine RBC (Auto) U Hyaline Cast (Auto) U Epithel Cells (Auto) Urine Bacteria (Auto) Urine Yeast Ur Random Creatinine U Random Total Protein Protein/Creatinin Ratio 06/10/20 06/10/20 15:00 15:00 WBC RBC Hgb Hct MCV MCH MCHC RDW Std Deviation RDW Coeff of Quan Plt Count MPV Immature Gran % (Auto) Neut % (Auto) Lymph % (Auto) [place] % (Auto) Eos % (Auto) Baso % (Auto) Neut # (Auto) Lymph # (Auto) [place] # (Auto) Eos # (Auto) Baso # (Auto) Immature Gran # (Auto) APTT PTT Ratio Sodium Potassium Chloride Carbon Dioxide Anion Gap BUN Creatinine Est Cr Clr Drug Dosing Est GFR ( Amer) Est GFR (Non-Af Amer) BUN/Creatinine Ratio Glucose Calcium Magnesium Urine Color Dark Yellow Urine Appearance Cloudy A Urine pH 5.0 Ur Specific [place] 1.019 Urine Protein 1+ H Urine Glucose (UA) Negative Urine Ketones Negative Urine Blood Negative Urine Nitrite Negative Urine Bilirubin Negative Urine Urobilinogen Negative Ur Leukocyte Esterase Negative Urine WBC (Auto) 1-5 Urine RBC (Auto) 5-10 H U Hyaline Cast (Auto) 10-30 H U Epithel Cells (Auto) >30 H Urine Bacteria (Auto) Negative Urine Yeast Budding A Ur Random Creatinine 125.0 U Random Total Protein 95.3 H Protein/Creatinin Ratio 0.8 H
[2020-06-11] MEDS: ONDANSETRON INJ 2 MG/ML 2 ML VIAL IV PRN ×3 (02:22→21:43)
[2020-06-11] MEDS: PIPERACILLIN/TAZOBACTAM 4.5 GM in DEXTROSE 5% 100 ML IV SCH ×3 (02:22→17:13)
[2020-06-11] MEDS: ACETAMINOPHEN 325 MG TAB PO PRN ×2 (02:22→09:42)
[2020-06-11] MEDS: HEPARIN SOD 5,000 UNIT/0.5 ML VIAL SQ SCH ×3 (06:05→21:22)
[2020-06-11 06:11] LABS: Basophils # (auto) 0.02 K/uL (0-0.2); Basophils % (auto) 0.1 %; Eosinophils # (auto) 0.07 K/uL (0-0.5); Eosinophils % (auto) 0.4 %; Hematocrit (blood only) 33.5 % (37-47); Hemoglobin 10.7 g/dL (12.0-16.0); Immature Granulocytes # (auto) 0.16 K/uL (0.00-0.02); Immature Granulocytes % (auto) 0.8 %; Lymphocytes # (auto) 1.21 K/uL (1.2-3.4); Lymphocytes % (auto) 6.4 %; Mean Corpuscular Hemoglobin 30.1 pg (25-34); Mean Corpuscular Hgb Conc 31.9 g/dL (32-36); Mean Corpuscular Volume 94.1 fL (80-100); Mean Platelet Volume 9.3 fL (7.4-10.4); Monocytes % (auto) 7.9 %; Neutrophils # (auto) 15.95 K/uL (1.4-6.5); Neutrophils % (auto) 84.4 %; Platelet Count 387 K/uL (130-400); RDW Standard Deviation 51.6 fL (36.4-46.3); Red Blood Count 3.56 M/uL (4.2-5.4); White Blood Count 18.91 K/uL (4.8-10.8)
[2020-06-11 06:57] LABS: BUN Creatinine Ratio 34.6 (10-20); Creatinine Clr Calc Pharmacy 52.2 ml/min; Est GFR (African American) 31.6; Est GFR (Non-African American) 27.3; Potassium 4.1 mmol/L (3.5-5.1)
[2020-06-11] MEDS: DAPTOmycin 625 MG in SYRINGE 0 ML IV SCH (08:15)
[2020-06-11] MEDS: METOPROLOL SUCC 25MG EXT REL TAB PO SCH (08:15)
--- NOTE | 2020-06-11 11:30 | Pulmonology Progress Note ---
Date of Service June 11, 2020 Assessment & Plan (1) Obesity, morbid, BMI 50 or higher: Impression: 55-year-old female with morbid obesity and known sleep disordered breathing currently not being treated presents with hypoxemic and hypercarbic respiratory failure, acute kidney injury, and probable lower extremity cellulitis. Recommendations: 1. Acute hypoxemic and hypercarbic respiratory failure. There is a chronic component of this as well. Continue oxygen titrated to keep saturations at or above 88%. Continue nightly BiPAP 15/8 as well as as needed during the day. She requires a formal titration study to be performed in the outpatient setting however this is somewhat limited due to novel coronavirus restrictions. This may be able to be accomplished now that the patient has had a negative COVID test but discussions with the sleep lab should be undertaken. Regardless, she should be discharged on nocturnal positive airway pressure at settings noted above with an indication of chronic hypercarbic respiratory failure due to restrictive lung disease from morbid obesity and obesity hypoventilation syndrome. She will likely require oxygen in conjunction with BiPAP at dis charge. I met with the patient and her daughter at bedside. I discussed with the patient that BiPAP is no longer recommended it is life-sustaining therapy. Her only other alternative is to pursue a tracheostomy. She expressed understanding and states she will be compliant with BiPAP. I also advised her that weight loss at this point in time is not a recommendation, it is a medical necessity. The patient is experiencing organ dysfunction due to her weight and without significant weight loss, it will significantly impact her longevity. 2. Morbid obesity: Continued weight loss recommended. She will continue to follow with the [facility] bariatric surgery program. Consultation with a tritionist may be beneficial. 3. Recommend increasing physical activity as much as tolerated. Out of bed recommended. Awaiting PT and OT consults 4. Pulmonary hypertension: This is likely secondary to untreated sleep disordered breathing as well as chronic hypoxemic respiratory failure. Consider repeating echocardiogram in several months to follow PA pressures once she is on appropriate therapy for sleep apnea and oxygen therapy. Given her echo findings, consider gentle diuresis as tolerated by blood pressure and kidney function. We will continue to follow with you. Feel free to contact us with questions or concerns. (2) BLAYNE (acute kidney injury): (3) Acute respiratory acidosis: Admission and Anticipated Discharge Date Admission Date: June 08, 2020 Subjective Patient seen and examined. Discussed with bedside nurse. Apparently the patient declined to use CPAP/BiPAP last night. She was obtunded and unarousable this morning. BiPAP was replaced and the patient has had improvement in her sensorium. She remains hemodynamically stable. Review of Systems Review of Systems: Unobtainable due to reduced consciousness Physical Exam Constitutional: well developed, + morbidly obese and + altered mental status; no acute distress Eyes: EOM intact bilaterally ENMT: Ears: no external ear abnormality Nose: no external nose abnormality Mouth: + dry oral mucous membranes Neck: no nuchal rigidity Respiratory: + labored breathing (slight), able to speak in complete sentences (barely) and + paradoxical thoraco-abdominal movement; no respiratory distress, no cough and not tachypneic Auscultation: + diminished lung sounds Cardiovascular: Rate/Rhythm: regular rate and regular rhythm Extremities: + edema (indurated BLE) Gastrointestinal (Abdomen): Inspection/Auscultation: normal bowel sounds Percussion/Palpation: abdomen soft; abdomen nontender Musculoskeletal: Extremities: strength 5/5 throughout Skin: no rashes, warm and dry + erythema (RLE) Results & Data Results & Data ([facility]) Vital Signs (Past 12 Hours) Vital Signs Temp Pulse Resp BP Pulse Ox 06/11/20 08:00 36.5 C 70 20 115/84 92 06/11/20 04:04 36.3 C L 101 H 22 110/71 95 06/10/20 23:40 36.9 C 90 20 114/64 98 Laboratory Results 06/11/20 05:44 06/11/20 05:44 Cultures no growth to date Diagnostic Findings No new films PG Care Time/CCT Total # of Minutes Spent Total Time Spent with Patient: Total time spent is greater than 50% in coordination of care (as documented) at patient's floor/unit and/or counseling patient: Coding Level of Care Code 16830 Subseq Hosp Care Lvl 3 Diagnoses Obesity, morbid, BMI 50 or higher E66.01 BLAYNE (acute kidney injury) N17.9 Acute respiratory acidosis E87.2
[2020-06-11 13:20] LABS: Base Excess ABG 0.9 mEq/L (-9-1.8); HCO3 ABG 30 mmol/L (19-24); Oxygen Saturation ABG 96.1 % (90-95); PCO2 ABG 74 mmHg (35-46); PO2 ABG 94 mmHg (80-95); pH ABG 7.23 (7.35-7.45)
[2020-06-11 13:22] LABS: Allen Test Pos (Pos)
[2020-06-11 13:48] LABS: Estimated Average Glucose 123 mg/dl; Hemoglobin A1C 5.9 % (4.5-5.6)
[2020-06-11] MEDS: TRAMADOL HCL 50 MG TABLET PO PRN (15:06)
--- NOTE | 2020-06-11 17:39 | Nephrology Progress Note ---
Date of Service June 11, 2020 Assessment & Plan (1) BLAYNE (acute kidney injury): Nonoliguric stage 2 acute kidney injury, likeliest cause ischemic ATN though nephritic process such as post streptococcal GN also on differential. Urine sediment most consistent with ATN, from hypotension in the setting of sepsis. However nephritic elements present as well; no outpatient/prior urine studies for comparison. also, pt has taken 800 mg ibuprofen multiple times daily x years. This or PSGN may cause nephritic sediment. Baseline creatinine 0.8 most recent labs November 2019. Presenting creatinine 2.2 on , minimal improvement again today. Acceptable chemistries; volume status difficult to assess >> has SIRS and hypotension (now normotensive today) but also mildly dilated IVC on TTE. Daily basic metabolic panel Follow-up pending cultures -ordered C3, CH50, RF, anti DNAse B, proteinuria quantification > to evaluate further for PSGN; however treatment for this is also supportive BP med, IVF as below Continue to avoid nephrotoxins -- advised her no nsaids after discharge No indication for renal replacement therapy or biopsy or even discussion of this at this time (2) Acute respiratory failure with hypoxia: acute on chronic hypoxemic and hypercarbic respiratory failure > just in process before admission of getting CPAP but had not yet done so; -pulmonary following, bipap arranged in house (3) Hypotension: resolving somewhat--110-120s systolic today. her outpatient blood pressures tend to run 120-140 systolic on bid long acting metoprolol 50 mg and bumex and lisinopril. from sepsis; no new echo findings to explain hypotension. She has mild tachycardia, HR in 90s; not appreciably different so far than when she was on full home dose BB in house -continue lower metoprolol dose 12.5 mg succinate qAM -stop NS and observe -low threshold for IV lasix standing -- ghad one dose yesterday; use prn at this tiem only -order in to check TSH in AM Admission and Anticipated Discharge Date Admission Date: June 08, 2020 Subjective seen on rounds this am at 0750; sleeping and nearly impossible to awaken on bipap in recliner at that point. nursing reports pt refused bipap through most of night and was awake much of night Review of Systems Review of Systems: Other (unable to obtain due to clinical condition) Physical Exam Constitutional: well developed, + morbidly obese and + lethargic; no acute distress difficult to arouse fully or for long Eyes: EOM intact bilaterally ENMT: Ears: no external ear abnormality Nose: no external nose abnormality Mouth: + dry oral mucous membranes Neck: no nuchal rigidity Respiratory: no respiratory distress, no cough, + not able to speak in complete sentence and not tachypneic Auscultation: + diminished lung sounds Cardiovascular: Rate/Rhythm: regular rate and regular rhythm Extremities: + edema (indurated BLE with some drainage) Gastrointestinal (Abdomen): Inspection/Auscultation: normal bowel sounds Percussion/Palpation: abdomen soft; abdomen nontender Musculoskeletal: Extremities: strength 5/5 throughout Skin: no rashes, warm and dry + erythema (RLE with sanguinous fluid drainage and several pustules) Neurologic: + not awake (stuporous/lethargic) Results & Data ([facility]) Vital Signs (Past 12 Hours) Vital Signs Temp Pulse Resp BP Pulse Ox 06/11/20 15:14 88 20 141/69 H 100 06/11/20 14:13 22 96 06/11/20 12:04 36.1 C L 45 L 19 121/64 99 06/11/20 08:00 36.5 C 70 20 115/84 92 Laboratory Results 06/11/20 05:44 06/11/20 05:44
--- NOTE | 2020-06-11 19:04 | Hospitalist Progress Note ---
Date of Service June 11, 2020 Assessment & Plan (1) Acute respiratory failure with hypoxia: Acute Hypoxic and Hypercarbic Respiratory Failure from restrictive lung disease, obesity Hypoventilation Syndrome, DOMINIQUE Morbid obesity -- per admitting MD notes: Was initially on high flow, currently on BIPAP Per review of EPIC records, Dr Ambrosio did communicate with patient about findings of recent sleep study last month. Recommended self titrating CPAP for DOMINIQUE until patient gets another sleep study in sleep lab. Patient reports she is yet to get the home CPAP Review of previous labs show chronically high normal to elevated bicarb. Patient likely also has OHS XR of chest did not show opacities or infiltrate that may explain the hypoxia VBG suggestive of respiratory acidosis -- Covid Test negative -- PE unlikely --BiPAP settings adjusted today secondary to hypercapnia, lethargy Patient strongly encouraged to use BiPAP while sleeping, emphasized dangers involved without using BiPAP including severe hypercapnia, leading to mechanical intubation or tracheostomy Patient verbalized understanding and agreement Pulm consulted, discussed with Dr. Hubbard today --Will need to arrange BiPAP upon discharge will need weight loss as well (2) Cellulitis: Right lower extremity cellulitis Per admitting service notes: Reported fevers SIRS - leukocytosis, HR>90, RR> 28 on admission Met criteria for sepsis with possible infectious source - Cellulitis -- afebrile WBC about the same -- blood cultures: Negative so far urine culture: Negative so far --Doppler studies right lower extremity: Negative for DVT --Right lower extremity still with significant edema, erythema Continue to observe with broadening of antibiotic coverage to daptomycin plus Zosyn Apply warm compress Continue to monitor closely (3) BLAYNE (acute kidney injury): Acute Renal Failure likely from ATN, in the setting of sepsis Also likely secondary to NSAID use Patient admits to taking ibuprofen 800 mg multiple times per day for several weeks now crea 0.8 at baseline now 2.15 --> 2.12--> 2.0 Nephrology consulted Continue to monitor closely Fluids on hold for now (4) Elevated troponin: likely from Demand Ischemia Possible underlying cor pulmonale Trop is 0.168--> 0.08--> 0.06 EKG no signs of infarct Echo: Rhythm sinus with frequent ventricular ectopic beats Left ventricular size is normal There is moderate concentric LVH Left ventricular wall motion is normal Ejection fraction 50 of 60% There is moderate thickening of the mitral valve leaflets and calcification of the posterior mitral valve annulus Aortic valve leaflets appear mildly callused There is mild to moderate mitral regurgitation There is moderate tricuspid regurgitation Mild to moderate elevation right heart pressures estimated right ventricular systolic pressure 40 to 45 mmHg Inferior vena cava small dilated right ventricle is mild dilated --Acute coronary syndrome unlikely Troponin elevation likely secondary to demand ischemia from hypoxia, also acute renal failure leading to multiple elevation --Patient has cor pulmonale likely secondary to obstructive sleep apnea, restrictive lung disease Likely contributing to bilateral lower extremity edema We will utilize Lasix as needed (5) HTN (hypertension): Metoprolol reduced to prevent hypotension monitor (6) DVT prophylaxis: Heparin SC q8h Dispo- pending COde status - FULL per discussion with patient Plan of care discussed with patient and her daughter at the bedside In detail at length All questions were answered They are understanding, agreeable, comfortable plan of care Admission and Anticipated Discharge Date Admission Date: June 08, 2020 Subjective Follow-up for hypoxic and hypercapnic respiratory failure, acute renal failure, right lower extremity cellulitis Seen with patient's daughter Claudine at the bedside Patient has been lethargic since this morning, was unable to tolerate BiPAP overnight Review of systems difficult to complete secondary to patient's cognitive status Otherwise no other signs or issues per RN ABG stat ordered pH 7.23 PCO2 [address] Hubbard, recommend to adjust BiPAP settings to 20/10 Patient reassessed after about an hour and a half, the patient was alert, oriented x3, speaking in sentences without problems Denies active shortness of breath, chest pain, palpitations, dizziness Unable to tolerate BiPAP overnight secondary to nausea, nausea resolved now Still having pain over the right lower extremity, adequately covered by analgesics Denies problems with urination No other symptoms Review of Systems Review of Systems: All systems reviewed & are unremarkable except as noted in HPI & below Physical Exam Physical Exam: General- oriented x 3, not in distress, speaks in sentences with no effort or accessory muscle use Eyes- anicteric Neck- no JVD Lungs-diminished but clear breath sounds bilaterally, no crackles or wheezing noted Heart- normal rate, regular rhythm; no murmurs Abdomen- normal bowel sounds, nondistended, soft, nontender Extremities-right lower extremity: Significant edema with erythema, small blisters, mild warmth, positive tenderness Left lower extremity: Mild edema, no warmth/erythema/tenderness Neuro- alert, oriented x 3; no gross focal neurologic deficits Skin- warm & dry Results & Data Results & Data ([facility]) Vital Signs (Past 12 Hours) Vital Signs Temp Pulse Resp BP Pulse Ox 06/11/20 18:45 36.8 C 98 H 20 131/72 96 06/11/20 15:14 88 20 141/69 H 100 06/11/20 14:13 22 96 06/11/20 12:04 36.1 C L 45 L 19 121/64 99 06/11/20 08:00 36.5 C 70 20 115/84 92
[2020-06-11 23:13] LABS: Partial Thromboplastin Ratio 1.1; Partial Thromboplastin Time 30.2 Seconds (21.0-31.0)
[2020-06-11 23:26] LABS: Alanine Aminotransferase 33 U/L (12-78); Albumin Level 1.9 gm/dl (3.4-5.0); Aspartate Aminotransferase 17 U/L (15-37); BUN Creatinine Ratio 37.9 (10-20); Blood Urea Nitrogen 66 mg/dl (7-18); Calcium 9.4 mg/dl (8.5-10.1); Carbon Dioxide 30 mmol/L (21-32); Chloride 101 mmol/L (98-107); Creatinine Clr Calc Pharmacy 60.2 ml/min; Est GFR (African American) 37.6; Est GFR (Non-African American) 32.4; Glucose 120 mg/dl (70-99); Lipase 134 U/L (73-393); Magnesium 2.7 mg/dl (1.8-2.4); Potassium 4.1 mmol/L (3.5-5.1); Sodium 136 mmol/L (136-145)
[2020-06-11 23:31] LABS: Albumin Globulin Ratio 0.3 (0.9-2); Alkaline Phosphatase 220 U/L (45-117); Globulin 5.6 gm/dl (2.5-4.0); Total Protein 7.5 gm/dl (6.4-8.2); Troponin I < 0.015 ng/ml (0-0.045)
[2020-06-12] MEDS: PIPERACILLIN/TAZOBACTAM 4.5 GM in DEXTROSE 5% 100 ML IV SCH ×3 (02:04→17:15)
[2020-06-12] MEDS: ONDANSETRON INJ 2 MG/ML 2 ML VIAL IV PRN ×3 (03:13→23:52)
[2020-06-12] MEDS ORDERED: XOPENEX/ATROVENT 1.25mg/0.5MG NEB COMBO NEB STA ×2 (04:51→10:56)
[2020-06-12] MEDS ORDERED: methylPREDNISolone 40 MG in SYRINGE 0 ML IV STA (04:54)
[2020-06-12] MEDS ORDERED: IPRATROPIUM BROMIDE NEB SOLN 0.02% 2.5 ML VIAL INH STA ×2 (04:54→11:12)
[2020-06-12] MEDS ORDERED: LEVALBUTEROL 1.25MG/0.5ML NEB INH STA ×2 (04:54→11:12)
[2020-06-12] MEDS ORDERED: ALBUMIN 25% 50 ML with FUROSEMIDE 40 MG IV ONE (05:30)
[2020-06-12 05:48] LABS: Basophils # (auto) 0.02 K/uL (0-0.2); Basophils % (auto) 0.1 %; Eosinophils # (auto) 0.06 K/uL (0-0.5); Eosinophils % (auto) 0.3 %; Hemoglobin 10.7 g/dL (12.0-16.0); Immature Granulocytes # (auto) 0.24 K/uL (0.00-0.02); Immature Granulocytes % (auto) 1.4 %; Lymphocytes # (auto) 1.24 K/uL (1.2-3.4); Lymphocytes % (auto) 7.1 %; Mean Corpuscular Hemoglobin 29.6 pg (25-34); Mean Corpuscular Volume 94.2 fL (80-100); Monocytes # (auto) 1.43 K/uL (0.11-0.59); Monocytes % (auto) 8.2 %; Neutrophils # (auto) 14.36 K/uL (1.4-6.5); Neutrophils % (auto) 82.9 %; Platelet Count 471 K/uL (130-400); RDW Coefficient of Variation 15.2 % (11.5-14.5); RDW Standard Deviation 52.3 fL (36.4-46.3); Red Blood Count 3.61 M/uL (4.2-5.4); White Blood Count 17.35 K/uL (4.8-10.8)
[2020-06-12 05:53] LABS: Base Excess ABG 3.1 mEq/L (-9-1.8); HCO3 ABG 31 mmol/L (19-24); Oxygen Saturation ABG 95.8 % (90-95); PCO2 ABG 66 mmHg (35-46); PO2 ABG 89 mmHg (80-95); pH ABG 7.29 (7.35-7.45)
[2020-06-12 05:55] LABS: Mean Corpuscular Hgb Conc 31.5 g/dL (32-36)
[2020-06-12 06:01] LABS: Allen Test Pos (Pos)
[2020-06-12] MEDS: HEPARIN SOD 5,000 UNIT/0.5 ML VIAL SQ SCH ×3 (06:14→22:16)
[2020-06-12 06:52] LABS: BUN Creatinine Ratio 38.8 (10-20); Calcium 9.6 mg/dl (8.5-10.1); Creatinine Clr Calc Pharmacy 65.1 ml/min; Est GFR (African American) 41.3; Est GFR (Non-African American) 35.6; Magnesium 2.8 mg/dl (1.8-2.4); Potassium 4.5 mmol/L (3.5-5.1); Thyroid Stimulating Hormone 0.575 uIu/ml (0.300-4.500)
[2020-06-12] MEDS ORDERED: LEVALBUTEROL 1.25MG/0.5ML NEB INH SCH (07:00)
[2020-06-12] MEDS ORDERED: IPRATROPIUM BROMIDE NEB SOLN 0.02% 2.5 ML VIAL INH SCH (07:00)
[2020-06-12] MEDS ORDERED: XOPENEX/ATROVENT 1.25mg/0.5MG NEB COMBO NEB PRN ×2 (07:06→10:55)
[2020-06-12] MEDS: DAPTOmycin 625 MG in SYRINGE 0 ML IV SCH (08:00)
[2020-06-12] MEDS: METOPROLOL SUCC 25MG EXT REL TAB PO SCH (08:03)
--- NOTE | 2020-06-12 08:29 | XRay Report ---
XR chest 1V portable CLINICAL HISTORY: Shortness of breath. COMPARISON STUDY: Chest CT May 05, 2016. Chest radiograph June 08, 2020. FINDINGS: Region is rotated. Cardiomegaly is unchanged. There is no evidence for pulmonary edema. No pneumothorax or pleural effusion is noted. Exam is compromised by suboptimal penetration. IMPRESSION: No acute cardiopulmonary findings. No significant change in appearance of the chest. ACT 112: Negative or not required by law. Electronically signed by: Nasim Cortez M.D. 06/12/2020 8:28 AM
--- NOTE | 2020-06-12 09:39 | Pulmonology Progress Note ---
Date of Service June 12, 2020 Assessment & Plan (1) Obesity, morbid, BMI 50 or higher: Impression: 55-year-old female with morbid obesity and known sleep disordered breathing currently not being treated presents with hypoxemic and hypercarbic respiratory failure, acute kidney injury, and probable lower extremity cellulitis. Recommendations: 1. Acute hypoxemic and hypercarbic respiratory failure. There is a chronic component of this as well. Continue oxygen titrated to keep saturations at or above 88%. Increased bilevel settings to 20/12 centimeters of water. Her EPAP needs to be at least at high to treat the component of obstructive apnea. Her tidal volumes on this setting are between 507 100 which should be adequate. This may be able to be accomplished now that the patient has had a negative COVID test but discussions with the sleep lab should be undertaken. Regardless, she should be discharged on nocturnal positive airway pressure at settings noted above with an indication of chronic hypercarbic respiratory failure due to restrictive lung disease from morbid obesity and obesity hypoventilation syndrome. She will likely require oxygen in conjunction with BiPAP at discharge. Her respiratory status will be better if she can get out of bed and sit up. I again stressed to the primary team patient and nursing staff that compliance with BiPAP is a lifesaving measure. If the patient were to proceed to intubation, it is entirely possible that she may require tracheostomy. This would need ENT consultation given her size. 2. Morbid obesity: Continued weight loss recommended. She will continue to follow with the [facility] bariatric surgery program. Consultation with a director of recruitment and admissions may be beneficial. 3. Recommend increasing physical activity as much as tolerated. Out of bed recommended. Awaiting PT and OT consults 4. Pulmonary hypertension: This is likely secondary to untreated sleep disordered breathing as well as chronic hypoxemic respiratory failure. Consider repeating echocardiogram in several months to follow PA pressures once she is on appropriate therapy for sleep apnea and oxygen therapy. Given her echo findings, consider gentle diuresis as tolerated by blood pressure and kidney function. We will continue to follow with you. Feel free to contact us with questions or concerns. (2) BLAYNE (acute kidney injury): (3) Acute respiratory acidosis: Admission and Anticipated Discharge Date Admission Date: June 08, 2020 Subjective Patient sleeping with BiPAP in place. Reportedly there were issues with compli ance again last night. Yesterday afternoon she had a level of decreased consciousness and blood gas confirmed chronic respiratory acidosis. BiPAP settings were to be increased to 20/10 however this morning when I assessed her she is on 20/5. Review of Systems Review of Systems: All systems reviewed & are unremarkable except as noted in HPI & below Physical Exam Constitutional: well developed, + morbidly obese and + altered mental status; no acute distress Eyes: EOM intact bilaterally ENMT: Ears: no external ear abnormality Nose: no external nose abnormality Mouth: + dry oral mucous membranes Neck: no nuchal rigidity Respiratory: + labored breathing (slight), able to speak in complete sentences (barely) and + paradoxical thoraco-abdominal movement; no respiratory distress, no cough and not tachypneic Auscultation: + diminished lung sounds Cardiovascular: Rate/Rhythm: regular rate and regular rhythm Extremities: + edema (indurated BLE) Gastrointestinal (Abdomen): Inspection/Auscultation: normal bowel sounds Percussion/Palpation: abdomen soft; abdomen nontender Musculoskeletal: Extremities: strength 5/5 throughout Skin: no rashes, warm and dry + erythema (RLE) Results & Data Results & Data ([facility]) Vital Signs (Past 12 Hours) Vital Signs Temp Pulse Pulse Resp BP Pulse Ox 06/12/20 07:59 64 64 22 94 06/12/20 07:41 37.0 C 83 20 121/74 94 06/12/20 05:13 96 H 29 H 98 06/12/20 05:12 99 H 29 H 98 06/12/20 03:32 36.9 C 103 H 25 H 113/62 06/12/20 03:30 97 H 23 99 06/12/20 00:33 106 H 06/11/20 23:44 37 C 87 24 131/89 98 06/11/20 23:06 106 H 16 96 PG Care Time/CCT Total # of Minutes Spent Total Time Spent with Patient: Total time spent is greater than 50% in coordination of care (as documented) at patient's floor/unit and/or counseling patient: Coding Level of Care Code 53792 Subseq Hosp Care Lvl 2 Diagnoses Obesity, morbid, BMI 50 or higher E66.01 BLAYNE (acute kidney injury) N17.9 Acute respiratory acidosis E87.2
[2020-06-12] MEDS: TRAMADOL HCL 50 MG TABLET PO PRN ×3 (10:12→23:51)
--- NOTE | 2020-06-12 10:57 | Hospitalist Progress Note ---
Date of Service June 12, 2020 Assessment & Plan (1) Acute respiratory failure with hypoxia: Acute Hypoxic and Hypercarbic Respiratory Failure from restrictive lung disease, obesity Hypoventilation Syndrome, DOMINIQUE Morbid obesity -- per admitting MD notes: Was initially on high flow, currently on BIPAP Per review of [facility] records, Dr Ambrosio did communicate with patient about findings of recent sleep study last month. Recommended self titrating CPAP for DOMINIQUE until patient gets another sleep study in sleep lab. Patient reports she is yet to get the home CPAP Review of previous labs show chronically high normal to elevated bicarb. Patient likely also has OHS XR of chest did not show opacities or infiltrate that may explain the hypoxia VBG suggestive of respiratory acidosis -- Covid Test negative -- PE unlikely --Xopenex Atrovent ordered today for mild wheezing --Patient encouraged strongly to continue using BiPAP --Will need to arrange BiPAP upon discharge will need weight loss as well (2) Cellulitis: Right lower extremity cellulitis Per admitting service notes: Reported fevers SIRS - leukocytosis, HR>90, RR> 28 on admission Met criteria for sepsis with possible infectious source - Cellulitis -- afebrile WBC improving -- blood cultures: Negative so far urine culture: Negative so far --Doppler studies right lower extremity: Negative for DVT --Right lower extremity seems to be improving today Continue to observe with broadening of antibiotic coverage to daptomycin plus Zosyn Apply warm compress Continue to monitor closely (3) BLAYNE (acute kidney injury): Acute Renal Failure likely from ATN, in the setting of sepsis Also likely secondary to NSAID use Patient admits to taking ibuprofen 800 mg multiple times per day for several weeks now crea 0.8 at baseline now 2.15 --> 2.12--> 2.0--> 1.6 Nephrology consulted Continue to monitor closely Fluids on hold for now (4) Elevated troponin: likely from Demand Ischemia Possible underlying cor pulmonale Trop is 0.168--> 0.08--> 0.06 EKG no signs of infarct Echo: Rhythm sinus with frequent ventricular ectopic beats Left ventricular size is normal There is moderate concentric LVH Left ventricular wall motion is normal Ejection fraction 50 of 60% There is moderate thickening of the mitral valve leaflets and calcification of the posterior mitral valve annulus Aortic valve leaflets appear mildly callused There is mild to moderate mitral regurgitation There is moderate tricuspid regurgitation Mild to moderate elevation right heart pressures estimated right ventricular systolic pressure 40 to 45 mmHg Inferior vena cava small dilated right ventricle is mild dilated --Acute coronary syndrome unlikely Troponin elevation likely secondary to demand ischemia from hypoxia, also acute renal failure leading to multiple elevation --Patient has cor pulmonale likely secondary to obstructive sleep apnea, restrictive lung disease Likely contributing to bilateral lower extremity edema We will utilize Lasix as needed (5) HTN (hypertension): Metoprolol reduced to prevent hypotension monitor (6) DVT prophylaxis: Heparin SC q8h Dispo- pending COde status - FULL per discussion with patient Plan of care discussed with patient and her daughter at the bedside In detail at length All questions were answered They are understanding, agreeable, comfortable plan of care Admission and Anticipated Discharge Date Admission Date: June 08, 2020 Subjective Follow-up for hypoxic respiratory failure, cellulitis, acute renal failure Seen with patient's son and daughter Yuliya at the bedside Awake and alert oriented x3 answers all questions appropriately States she feels somewhat improved compared to yesterday Able to tolerate BiPAP previous night Patient still having right lower extremity pain No other symptoms Review of Systems Review of Systems: All systems reviewed & are unremarkable except as noted in HPI & below Physical Exam Physical Exam: General- oriented x 3, not in distress, speaks in sentences with no effort or accessory muscle use Eyes- anicteric Neck- no JVD Lungs-mild wheeze right lung, clear on the left Heart- normal rate, regular rhythm; no murmurs Abdomen- normal bowel sounds, nondistended, soft, nontender Extremities-right lower extremity: Edema, erythema, warmth improving compared to previous day Neuro- alert, oriented x 3; no gross focal neurologic deficits Skin- warm & dry Results & Data Results & Data ([facility]) Vital Signs (Past 12 Hours) Vital Signs Temp Pulse Pulse Resp BP Pulse Ox 06/12/20 07:59 64 64 22 94 06/12/20 07:41 37.0 C 83 20 121/74 94 06/12/20 05:13 96 H 29 H 98 06/12/20 05:12 99 H 29 H 98 06/12/20 03:32 36.9 C 103 H 25 H 113/62 06/12/20 03:30 97 H 23 99 06/12/20 00:33 106 H 06/11/20 23:44 37 C 87 24 131/89 98 06/11/20 23:06 106 H 16 96 Laboratory Results Laboratory Results - last 24 hr 06/11/20 06/11/20 06/12/20 22:48 22:48 05:37 WBC 17.35 H RBC 3.61 L Hgb 10.7 L Hct 34.0 L MCV 94.2 MCH 29.6 MCHC 31.5 L RDW Std Deviation 52.3 H RDW Coeff of Quan 15.2 H Plt Count 471 H MPV 9.0 Immature Gran % (Auto) 1.4 Neut % (Auto) 82.9 Lymph % (Auto) 7.1 [place] % (Auto) 8.2 Eos % (Auto) 0.3 Baso % (Auto) 0.1 Neut # (Auto) 14.36 H Lymph # (Auto) 1.24 [place] # (Auto) 1.43 H Eos # (Auto) 0.06 Baso # (Auto) 0.02 Immature Gran # (Auto) 0.24 H APTT 30.2 PTT Ratio 1.1 ABG pH ABG pCO2 ABG pO2 ABG HCO3 ABG O2 Saturation ABG Base Excess Lyn[place] Test Barometric Pressure Oxygen Given Sodium 136 Potassium 4.1 Chloride 101 Carbon Dioxide 30 Anion Gap 5.0 BUN 66 H Creatinine 1.75 H Est Cr Clr Drug Dosing 60.2 Est GFR ( Amer) 37.6 Est GFR (Non-Af Amer) 32.4 BUN/Creatinine Ratio 37.9 H Glucose 120 H Calcium 9.4 Magnesium 2.7 H Total Bilirubin 1.0 AST 17 ALT 33 Alkaline Phosphatase 220 H Troponin I < 0.015 Total Protein 7.5 Albumin 1.9 L Globulin 5.6 H Albumin/Globulin Ratio 0.3 L Lipase 134 Procalcitonin TSH Specimen Hemolysis 06/12/20 06/12/20 06/12/20 05:37 05:37 05:37 WBC RBC Hgb Hct MCV MCH MCHC RDW Std Deviation RDW Coeff of Quan Plt Count MPV Immature Gran % (Auto) Neut % (Auto) Lymph % (Auto) [place] % (Auto) Eos % (Auto) Baso % (Auto) Neut # (Auto) Lymph # (Auto) [place] # (Auto) Eos # (Auto) Baso # (Auto) Immature Gran # (Auto) APTT PTT Ratio ABG pH 7.29 L ABG pCO2 66 H ABG pO2 89 ABG HCO3 31 H ABG O2 Saturation 95.8 H ABG Base Excess 3.1 H Lyn[place] Test Pos Barometric Pressure 735.2 Oxygen Given 30% FiO2 Sodium 137 Potassium 4.5 Chloride 102 Carbon Dioxide 31 Anion Gap 4.0 BUN 63 H Creatinine 1.62 H Est Cr Clr Drug Dosing 65.1 Est GFR ( Amer) 41.3 Est GFR (Non-Af Amer) 35.6 BUN/Creatinine Ratio 38.8 H Glucose 121 H Calcium 9.6 Magnesium 2.8 H Total Bilirubin AST ALT Alkaline Phosphatase Troponin I Total Protein Albumin Globulin Albumin/Globulin Ratio Lipase Procalcitonin 1.17 H TSH 0.575 Specimen Hemolysis
[2020-06-12] MEDS ORDERED: LEVALBUTEROL 1.25MG/0.5ML NEB INH PRN (11:00)
[2020-06-12] MEDS ORDERED: IPRATROPIUM BROMIDE NEB SOLN 0.02% 2.5 ML VIAL INH PRN (11:00)
--- NOTE | 2020-06-12 11:16 | Nephrology Progress Note ---
Date of Service June 12, 2020 Assessment & Plan (1) BLAYNE (acute kidney injury): Improving nonoliguric stage 2 acute kidney injury, from ischemic ATN though nephritic process from NSAIDS or post streptococcal GN also on differential. Urine sediment most consistent with ATN, from hypotension in the setting of sepsis. However nephritic elements present as well; no outpatient/prior urine studies for comparison. also, pt has taken 800 mg ibuprofen multiple times daily x years. Baseline creatinine 0.8 most recent labs November 2019. Presenting creatinine 2.2 on , some improvement again today. Acceptable chemistries; volume status difficult to assess >> has SIRS and hypotension (now normotensive today) but also mildly dilated IVC on TTE. Daily basic metabolic panel Follow-up pending cultures -ordered C3, CH50, RF, anti DNAse B, proteinuria quantification > to evaluate further for PSGN; however treatment for this is also supportive BP med, IVF as below Continue to avoid nephrotoxins -- advised her no nsaids after discharge No indication for renal replacement therapy or biopsy or even discussion of this at this time (2) Acute respiratory failure with hypoxia: acute on chronic hypoxemic and hypercarbic respiratory failure > just in process before admission of getting CPAP but had not yet done so; -pulmonary following, bipap arranged in house (3) Hypotension: resolving now --110-120s systolic past 24 hrs. her outpatient blood pressures tend to run 120-140 systolic on bid long acting metoprolol 50 mg and bumex and lisinopril. from sepsis; no new echo findings to explain hypotension. -continue lower metoprolol dose 12.5 mg succinate qAM (OP dose much higher) - but low threshold to reintroduce -no indicatino for further IVF -for now recommend prn IV lasix, not standing -- had one dose lasix albumin this am Admission and Anticipated Discharge Date Admission Date: June 08, 2020 Subjective Daughter at bedside. Patient on BiPAP which limits review of systems. Ongoing leg pain. had IV lasix/albumin this am Review of Systems Review of Systems: All systems reviewed & are unremarkable except as noted in HPI & below Physical Exam Constitutional: well developed and + morbidly obese; no acute distress On BiPAP and much more interactive Eyes: EOM intact bilaterally ENMT: Ears: no external ear abnormality Nose: no external nose abnormality Mouth: + dry oral mucous membranes Neck: no nuchal rigidity Respiratory: no respiratory distress, no cough, + not able to speak in complete sentence and not tachypneic Auscultation: + diminished lung sounds Cardiovascular: Rate/Rhythm: regular rate and regular rhythm Extremities: + edema (indurated BLE with some drainage) Gastrointestinal (Abdomen): Inspection/Auscultation: normal bowel sounds Percussion/Palpation: abdomen soft; abdomen nontender Musculoskeletal: Extremities: strength 5/5 throughout Skin: no rashes, warm and dry + erythema (RLE with sanguinous fluid draina ge and several pustules) Neurologic: + not awake (stuporous/lethargic) Psychiatric: Orientation: oriented x 3 Affect: euthymic affect Genitourinary: No Jon Results & Data ([facility]) Vital Signs (Past 12 Hours) Vital Signs Temp Pulse Pulse Resp BP Pulse Ox 06/12/20 07:59 64 64 22 94 06/12/20 07:41 37.0 C 83 20 121/74 94 06/12/20 05:13 96 H 29 H 98 06/12/20 05:12 99 H 29 H 98 06/12/20 03:32 36.9 C 103 H 25 H 113/62 06/12/20 03:30 97 H 23 99 06/12/20 00:33 106 H 06/11/20 23:44 37 C 87 24 131/89 98 Laboratory Results 06/12/20 05:37 06/12/20 05:37 ABG noted Diagnostic Findings cxr today FINDINGS: Region is rotated. Cardiomegaly is unchanged. There is no evidence for pulmonary edema. No pneumothorax or pleural effusion is noted. Exam is compromised by suboptimal penetration. IMPRESSION: No acute cardiopulmonary findings. No significant change in appearance of the chest.
[2020-06-12] MEDS: ACETAMINOPHEN 325 MG TAB PO PRN (11:24)
[2020-06-12] MEDS: DOCUSATE SODIUM/SENNA 50/8.6MG TAB PO SCH (11:25)
[2020-06-12] MEDS ORDERED: XOPENEX/ATROVENT 1.25mg/0.5MG NEB COMBO NEB SCH (12:00)
[2020-06-13] MEDS: PIPERACILLIN/TAZOBACTAM 4.5 GM in DEXTROSE 5% 100 ML IV SCH ×3 (02:17→18:41)
[2020-06-13] MEDS: HEPARIN SOD 5,000 UNIT/0.5 ML VIAL SQ SCH ×3 (06:02→22:11)
[2020-06-13 07:37] LABS: BUN Creatinine Ratio 39.1 (10-20); Calcium 9.5 mg/dl (8.5-10.1); Creatinine Clr Calc Pharmacy 85.7 ml/min; Est GFR (African American) 52.9; Est GFR (Non-African American) 45.6; Potassium 4.6 mmol/L (3.5-5.1)
[2020-06-13] MEDS: DOCUSATE SODIUM/SENNA 50/8.6MG TAB PO SCH (07:37)
[2020-06-13] MEDS: TRAMADOL HCL 50 MG TABLET PO PRN ×3 (07:37→22:11)
--- NOTE | 2020-06-13 07:46 | Electrocardiogram Report ---
Test Reason : Blood Pressure : / mmHG Vent. Rate : 103 BPM Atrial Rate : 103 BPM P-R Int : 188 ms QRS Dur : 086 ms QT Int : 330 ms P-R-T Axes : 041 -18 048 degrees QTc Int : 432 ms Poor data quality, interpretation may be adversely affected Sinus tachycardia with frequent Premature ventricular complexes in a pattern of bigeminy Low voltage QRS Anterior infarct Abnormal ECG No previous ECGs available Confirmed by Diego Degroot ([id number]) on 06/13/2020 7:45:49 AM Referred By: REFERRED SELF Confirmed By:Diego Degroot
[2020-06-13 08:03] LABS: Basophils # (auto) 0.02 K/uL (0-0.2); Basophils % (auto) 0.1 %; Eosinophils # (auto) 0.03 K/uL (0-0.5); Eosinophils % (auto) 0.2 %; Hematocrit (blood only) 34.3 % (37-47); Immature Granulocytes # (auto) 0.28 K/uL (0.00-0.02); Immature Granulocytes % (auto) 1.5 %; Lymphocytes # (auto) 1.45 K/uL (1.2-3.4); Lymphocytes % (auto) 7.9 %; Mean Corpuscular Hemoglobin 30.2 pg (25-34); Mean Corpuscular Hgb Conc 32.1 g/dL (32-36); Mean Corpuscular Volume 94.2 fL (80-100); Mean Platelet Volume 9.5 fL (7.4-10.4); Monocytes # (auto) 1.29 K/uL (0.11-0.59); Neutrophils % (auto) 83.3 %; Platelet Count 491 K/uL (130-400); RDW Coefficient of Variation 14.9 % (11.5-14.5); RDW Standard Deviation 50.7 fL (36.4-46.3); Red Blood Count 3.64 M/uL (4.2-5.4); White Blood Count 18.37 K/uL (4.8-10.8)
[2020-06-13] MEDS: DAPTOmycin 625 MG in SYRINGE 0 ML IV SCH (09:14)
[2020-06-13] MEDS: METOPROLOL SUCC 25MG EXT REL TAB PO SCH (09:16)
--- NOTE | 2020-06-13 10:39 | Nephrology Progress Note ---
Date of Service June 13, 2020 Assessment & Plan (1) BLAYNE (acute kidney injury): Further improving nonoliguric stage 2 acute kidney injury, from ischemic ATN though nephritic process from NSAIDS or post streptococcal GN also on differential. Urine sediment most consistent with ATN, from hypotension in the setting of sepsis. However nephritic elements present as well; no outpatient/prior urine studies for comparison. also, pt has taken 800 mg ibuprofen multiple times daily x years. Baseline creatinine 0.8 most recent labs November 2019. Presenting creatinine 2.2 on , some improvement again today. Acceptable chemistries; volume status difficult to assess >> has SIRS and hypotension (now normotensive today) but also mildly dilated IVC on TTE. Daily basic metabolic panel Follow-up pending cultures -ordered C3, CH50, RF, anti DNAse B, proteinuria quantification > to evaluate further for PSGN; however treatment for this is also supportive BP med, lasix as below Continue to avoid nephrotoxins -- advised her no nsaids after discharge No indication for renal replacement therapy or biopsy or even discussion of this at this time (2) Acute respiratory failure with hypoxia: acute on chronic hypoxemic and hypercarbic respiratory failure > just in process before admission of getting CPAP but had not yet done so; -pulmonary following, bipap arranged in house -will start standing lasix 10 mg IV daily bid17 (3) Hypotension: resolving now --110-120s systolic past 24 hrs. her outpatient blood pressures tend to run 120-140 systolic on bid long acting metoprolol 50 mg and bumex and lisinopril. from sepsis; no new echo findings to explain hypotension. -continue lower metoprolol dose 12.5 mg succinate qAM (OP dose much higher) - but low threshold to reintroduce -monitor BP and creat on lasix Admission and Anticipated Discharge Date Admission Date: June 08, 2020 Subjective no c/o except ongoing leg pain though it's a bit better; voiding well no issues. Review of Systems Review of Systems: All systems reviewed & are unremarkable except as noted in HPI & below Physical Exam Constitutional: well developed, + morbidly obese and + lethargic (but less than first 2 days of admission; on 02nC); no acute distress Eyes: EOM intact bilaterally ENMT: Ears: no external ear abnormality Nose: no external nose abnormality Mouth: + dry oral mucous membranes Neck: no nuchal rigidity Respiratory: + cough (thick hacking); no respiratory distress, + not able to speak in complete sentence and not tachypneic Auscultation: + diminished lung sounds Cardiovascular: Rate/Rhythm: regular rate and regular rhythm Extremities: + edema (indurated BLE with some yeasty drainage) Gastrointestinal (Abdomen): Inspection/Auscultation: normal bowel sounds Percussion/Palpation: abdomen soft; abdomen nontender Musculoskeletal: Extremities: strength 5/5 throughout Skin: no rashes, warm and dry + erythema (RLE with sanguinous fluid drainage and several pustules) Neurologic: awake (but doses off a few times) Psychiatric: Orientation: oriented x 3 Affect: euthymic affect Results & Data ([facility]) Vital Signs (Past 12 Hours) Vital Signs Temp Pulse Pulse Resp BP Pulse Ox 06/13/20 07:50 36.4 C L 75 21 112/78 92 06/13/20 04:19 36.7 C 86 16 125/83 93 06/13/20 03:30 87 27 H 98 06/12/20 23:21 36.4 C L 85 22 147/78 H 93 Laboratory Results 06/13/20 06:20 06/13/20 06:20
[2020-06-13] MEDS: FUROSEMIDE 10 MG in SYRINGE 0 ML IV SCH ×2 (11:31→16:36)
--- NOTE | 2020-06-13 12:13 | Pulmonology Progress Note ---
Date of Service June 13, 2020 Assessment & Plan (1) Obesity, morbid, BMI 50 or higher: Impression: 55-year-old female with morbid obesity and known sleep disordered breathing currently not being treated presents with hypoxemic and hypercarbic respiratory failure, acute kidney injury, and probable lower extremity cellulitis. Recommendations: 1. Acute hypoxemic and hypercarbic respiratory failure. There is a chronic component of this as well. Continue oxygen titrated to keep saturations at or above 88%. Continue bilevel settings at 20/12 centimeters of water. Her EPAP needs to be at least at high to treat the component of obstructive apnea. She will need a sleep study as an outpatient. Regardless, she should be discharged on nocturnal positive airway pressure at settings noted above with an indication of chronic hypercarbic respiratory failure due to restrictive lung disease from morbid obesity and obesity hypoventilation syndrome. She will likely require oxygen in conjunction with BiPAP at discharge. Her respiratory status will be better if she can get out of bed and sit up. 2. Morbid obesity: Continued weight loss recommended. She will continue to follow with the [facility] bariatric surgery program. Consultation with a software business analyst may be beneficial. 3. Recommend increasing physical activity as much as tolerated. Out of bed recommended. Awaiting PT and OT consults 4. Pulmonary hypertension: This is likely secondary to untreated sleep disordered breathing as well as chronic hypoxemic respiratory failure. Consider repeating echocardiogram in several months to follow PA pressures once she is on appropriate therapy for sleep apnea and oxygen therapy. Given her echo findings, consider gentle diuresis as tolerated by blood pressure and kidney function. Overall prognosis is poor. We will continue to follow with you. Feel free to contact us with questions or concerns. (2) BLAYNE (acute kidney injury): (3) Acute respiratory acidosis: Admission and Anticipated Discharge Date Admission Date: June 08, 2020 Subjective Patient is laying in bed today. She is lethargic. She does open her eyes and answer questions appropriately. She is slow to answer. She noted she had some mild chest pain yesterday evening which was transient. Denies any nausea or vomiting. She has bothered by the air leak on the BiPAP and also by the noise. Review of Systems Review of Systems: All systems reviewed & are unremarkable except as noted in HPI & below Physical Exam Constitutional: well developed, + morbidly obese and + altered mental status; no acute distress Eyes: EOM intact bilaterally ENMT: Ears: no external ear abnormality Nose: no external nose abnormality Mouth: + dry oral mucous membranes Neck: no nuchal rigidity Respiratory: + labored breathing (slight) and able to speak in complete sentences (barely); no respiratory distress, no cough and not tachypneic Auscultation: + diminished lung sounds Cardiovascular: Rate/Rhythm: regular rate and regular rhythm Extremities: + edema (indurated BLE) Gastrointestinal (Abdomen): Inspection/Auscultation: normal bowel sounds Percussion/Palpation: abdomen soft; abdomen nontender Musculoskeletal: Extremities: strength 5/5 throughout Skin: no rashes, warm and dry + erythema (RLE) Results & Data Results & Data ([facility]) Vital Signs (Past 12 Hours) Vital Signs Temp Pulse Pulse Resp BP Pulse Ox 06/13/20 11:45 98.1 F 90 20 133/63 96 06/13/20 07:50 97.5 F L 75 21 112/78 92 06/13/20 04:19 98.1 F 86 16 125/83 93 06/13/20 03:30 87 27 H 98 I personally reviewed labs, chest imaging and vital signs. PG Care Time/CCT Total # of Minutes Spent Total Time Spent with Patient: Total time spent is greater than 50% in coordination of care (as documented) at patient's floor/unit and/or counseling patient: Coding Level of Care Code 54701 Subseq Hosp Care Lvl 3 Diagnoses Obesity, morbid, BMI 50 or higher E66.01 BLAYNE (acute kidney injury) N17.9 Acute respiratory acidosis E87.2
--- NOTE | 2020-06-13 12:54 | Hospitalist Progress Note ---
Date of Service June 13, 2020 Assessment & Plan (1) Acute respiratory failure with hypoxia: Acute Hypoxic and Hypercarbic Respiratory Failure Secondary to restrictive lung disease, obesity Hypoventilation Syndrome, DOMINIQUE Morbid obesity -- per admitting MD notes: Was initially on high flow, currently on BIPAP Per review of EPIC records, Dr Ambrosio did communicate with patient about findings of recent sleep study last month. Recommended self titrating CPAP for DOMINIQUE until patient gets another sleep study in sleep lab. Patient reports she is yet to get the home CPAP Review of previous labs show chronically high normal to elevated bicarb. Patient likely also has OHS XR of chest did not show opacities or infiltrate that may explain the hypoxia VBG suggestive of respiratory acidosis -- Covid Test negative -- PE unlikely --Tolerating BiPAP better Continue current settings, 14/09 Discussed with pulmonary service, recommend to continue BiPAP setting of 20/10 upon discharge Close follow-up with pulmonary clinic as an outpatient --Continue PRN nebs -- will need weight loss as well, patient already following with him [facility] bariatric clinic for possible bariatric surgery (2) Cellulitis: Right lower extremity cellulitis Per admitting service notes: Reported fevers SIRS - leukocytosis, HR>90, RR> 28 on admission Met criteria for sepsis with possible infectious source - Cellulitis -- afebrile WBC improving -- blood cultures: Negative so far urine culture: Negative so far --Doppler studies right lower extremity: Negative for DVT --Right lower extremity improving gradually Continue to observe with daptomycin plus Zosyn Apply warm compress We will consult wound care service Continue to monitor closely (3) BLAYNE (acute kidney injury): Acute Renal Failure likely from ATN, in the setting of sepsis Also likely secondary to NSAID use Patient admits to taking ibuprofen 800 mg multiple times per day for several weeks now crea 0.8 at baseline now 2.15 --> 2.12--> 2.0--> 1.6--> 1.3 Nephrology consulted Continue to monitor closely Fluids on hold for now (4) Elevated troponin: likely from Demand Ischemia Possible underlying cor pulmonale Trop is 0.168--> 0.08--> 0.06 EKG no signs of infarct Echo: Rhythm sinus with frequent ventricular ectopic beats Left ventricular size is normal There is moderate concentric LVH Left ventricular wall motion is normal Ejection fraction 50 of 60% There is moderate thickening of the mitral valve leaflets and calcification of the posterior mitral valve annulus Aortic valve leaflets appear mildly callused There is mild to moderate mitral regurgitation There is moderate tricuspid regurgitation Mild to moderate elevation right heart pressures estimated right ventricular systolic pressure 40 to 45 mmHg Inferior vena cava small dilated right ventricle is mild dilated --Acute coronary syndrome unlikely Troponin elevation likely secondary to demand ischemia from hypoxia, also acute renal failure leading to multiple elevation --Patient has cor pulmonale likely secondary to obstructive sleep apnea, restrictive lung disease Likely contributing to bilateral lower extremity edema Lasix 10 mg twice daily ordered Continue to monitor (5) HTN (hypertension): Metoprolol reduced to prevent hypotension monitor (6) DVT prophylaxis: Heparin SC q8h Dispo- pending COde status - FULL per discussion with patient Plan of care discussed with patient and her daughter at the bedside In detail at length All questions were answered They are understanding, agreeable, comfortable plan of care Admission and Anticipated Discharge Date Admission Date: June 08, 2020 Subjective Follow-up for respiratory failure-hypercapnic, hypoxic, acute renal failure, right lower leg cellulitis Seen with RN chair at the bedside, patient's daughter Claudine visiting at the bedside also Was able to use and tolerate BiPAP overnight Seen resting in bed, on 3 L of nasal cannula Comfortable, not in distress, oriented x3 States she feels improved compared to yesterday No shortness of breath, cough, fevers or chills No problems with urination Positive constipation, positive flatus No abdominal pain, nausea or vomiting Right lower leg pain relieved by tramadol No other symptoms Review of Systems Review of Systems: All systems reviewed & are unremarkable except as noted in HPI & below Physical Exam Physical Exam: General- oriented x 3, not in distress, speaks in sentences with no effort or accessory muscle use Eyes- anicteric Neck- no JVD Lungs-faint expiratory wheeze, no crackles, good air entry bilaterally Heart- normal rate, regular rhythm; no murmurs Abdomen- normal bowel sounds, nondistended, soft, nontender Extremities-right lower extremity: Edema, erythema, warmth improving Positive blisters, healing No bleeding, or purulent discharge Left lower extremity: Trace edema Neuro- alert, oriented x 3; no gross focal neurologic deficits Skin- warm & dry Results & Data Results & Data ([facility]) Vital Signs (Past 12 Hours) Vital Signs Temp Pulse Pulse Resp BP Pulse Ox 06/13/20 11:45 36.7 C 90 20 133/63 96 06/13/20 07:50 36.4 C L 75 21 112/78 92 06/13/20 04:19 36.7 C 86 16 125/83 93 06/13/20 03:30 87 27 H 98 Laboratory Results Laboratory Results - last 24 hr 06/13/20 06/13/20 06:20 06:20 WBC 18.37 H RBC 3.64 L Hgb 11.0 L Hct 34.3 L MCV 94.2 MCH 30.2 MCHC 32.1 RDW Std Deviation 50.7 H RDW Coeff of Quan 14.9 H Plt Count 491 H MPV 9.5 Immature Gran % (Auto) 1.5 Neut % (Auto) 83.3 Lymph % (Auto) 7.9 Obion % (Auto) 7.0 Eos % (Auto) 0.2 Baso % (Auto) 0.1 Neut # (Auto) 15.30 H Lymph # (Auto) 1.45 Obion # (Auto) 1.29 H Eos # (Auto) 0.03 Baso # (Auto) 0.02 Immature Gran # (Auto) 0.28 H Sodium 142 Potassium 4.6 Chloride 104 Carbon Dioxide 35 H Anion Gap 3.0 BUN 52 H Creatinine 1.32 H D Est Cr Clr Drug Dosing 85.7 Est GFR ( Amer) 52.9 Est GFR (Non-Af Amer) 45.6 BUN/Creatinine Ratio 39.1 H Glucose 127 H Calcium 9.5
[2020-06-13] MEDS: ONDANSETRON INJ 2 MG/ML 2 ML VIAL IV PRN (13:05)
[2020-06-13] MEDS ORDERED: ALBUMIN 25% 50 ML IV ONE (23:21)
[2020-06-13] MEDS ORDERED: METOPROLOL TARTRATE 1 MG/ML VIAL IV STA (23:21)
--- NOTE | 2020-06-13 23:26 | Communication Note ---
Date of Service: June 13, 2020 Notified by RN of rapid A. fib event on the monitor around 11:20 PM. Cardiac rate 150s, SBP 110s as per patient. Patient nauseous as per RN. No chest pain, no S OB. Spontaneous conversion to NSR after 10 minutes. AP PAF Increase maintenance Toprol XL Rx from 12.5 to 25 mg p.o. daily Will relay to AM provider..
[2020-06-13] MEDS ORDERED: METOPROLOL SUCC 25MG EXT REL TAB PO STA (23:32)
[2020-06-13] MEDS: PROMETHAZINE HCL 12.5 MG in SODIUM CHLORIDE 0.9% 50 ML IV PRN (23:51)
[2020-06-14 00:05] LABS: Partial Thromboplastin Ratio 0.9; Partial Thromboplastin Time 25.4 Seconds (21.0-31.0)
[2020-06-14 00:21] LABS: BUN Creatinine Ratio 42.9 (10-20); Calcium 10.1 mg/dl (8.5-10.1); Creatinine Clr Calc Pharmacy 106.8 ml/min; Est GFR (African American) 68.9; Est GFR (Non-African American) 59.5; Magnesium 2.2 mg/dl (1.8-2.4); Potassium 4.5 mmol/L (3.5-5.1)
[2020-06-14] MEDS: PIPERACILLIN/TAZOBACTAM 4.5 GM in DEXTROSE 5% 100 ML IV SCH ×3 (01:01→17:10)
[2020-06-14] MEDS: HEPARIN SOD 5,000 UNIT/0.5 ML VIAL SQ SCH ×3 (05:14→21:08)
[2020-06-14 05:52] LABS: Basophils # (auto) 0.02 K/uL (0-0.2); Basophils % (auto) 0.1 %; Eosinophils # (auto) 0.12 K/uL (0-0.5); Eosinophils % (auto) 0.8 %; Hematocrit (blood only) 36.2 % (37-47); Hemoglobin 11.1 g/dL (12.0-16.0); Immature Granulocytes # (auto) 0.28 K/uL (0.00-0.02); Immature Granulocytes % (auto) 1.8 %; Lymphocytes # (auto) 1.65 K/uL (1.2-3.4); Lymphocytes % (auto) 10.5 %; Mean Corpuscular Hemoglobin 29.4 pg (25-34); Mean Corpuscular Hgb Conc 30.7 g/dL (32-36); Mean Corpuscular Volume 95.8 fL (80-100); Mean Platelet Volume 8.8 fL (7.4-10.4); Monocytes # (auto) 1.15 K/uL (0.11-0.59); Monocytes % (auto) 7.3 %; Neutrophils # (auto) 12.56 K/uL (1.4-6.5); Neutrophils % (auto) 79.5 %; Platelet Count 508 K/uL (130-400); RDW Standard Deviation 52.8 fL (36.4-46.3); Red Blood Count 3.78 M/uL (4.2-5.4); White Blood Count 15.78 K/uL (4.8-10.8)
[2020-06-14 06:25] LABS: BUN Creatinine Ratio 40.5 (10-20); Calcium 9.4 mg/dl (8.5-10.1); Creatinine Clr Calc Pharmacy 108.2 ml/min; Est GFR (African American) 70.5; Est GFR (Non-African American) 60.9; Potassium 4.5 mmol/L (3.5-5.1)
[2020-06-14] MEDS: LEVALBUTEROL 1.25MG/0.5ML NEB INH PRN (09:30)
[2020-06-14] MEDS: IPRATROPIUM BROMIDE NEB SOLN 0.02% 2.5 ML VIAL INH PRN (09:30)
[2020-06-14] MEDS: TRAMADOL HCL 50 MG TABLET PO PRN ×2 (09:32→17:13)
[2020-06-14] MEDS: PROMETHAZINE HCL 12.5 MG in SODIUM CHLORIDE 0.9% 50 ML IV PRN (09:32)
[2020-06-14] MEDS: DOCUSATE SODIUM/SENNA 50/8.6MG TAB PO SCH (09:33)
[2020-06-14] MEDS: FUROSEMIDE 10 MG in SYRINGE 0 ML IV SCH (09:33)
[2020-06-14] MEDS: DAPTOmycin 625 MG in SYRINGE 0 ML IV SCH (09:34)
[2020-06-14] MEDS ORDERED: MICONAZOLE NITRATE POWDER 43 GM EXT PRN (10:00)
--- NOTE | 2020-06-14 11:39 | Pulmonology Progress Note ---
Date of Service June 14, 2020 Assessment & Plan (1) Acute on chronic respiratory failure with hypoxia and hypercapnia: Patient is acute on chronic respiratory failure with hypoxia and hypercapnia. Polysomnography completed 05/05/2020 showing severe obstructive disease. Patient will require BiPAP on discharge BiPAP settings this morning were 20/5. Patient requires a higher EPAP to treat component obstructive apnea. Order is been placed to keep the EPAP at 12 with an IPAP of 20 Repeat ABG this morning and is much as patient is lethargic and last ABG/VBG was 06/11/2020 Patient should be followed consistently as an outpatient with the pulmonary clinic for restrictive disease secondary to morbid obesity as well as obstructive disease as listed above. Maintain SaO2 between 88 and 92% Continue work with patient at bedside for tolerance of BiPAP (2) Pulmonary hypertension: This is most likely secondary to untreated sleep apnea Continue with diuretics as well as oxygen therapy Would repeat echocardiogram in 2 to 3 months provided the patient is on outpatient therapy Diuretics as tolerated secondary to acute kidney injury (3) Obstructive sleep apnea: Outpatient polysomnography completed 05/05/2020 Will need titration studies We will discharge on BiPAP at a minimum with settings at 20/12 Patient requires higher EPAP setting to treat obstructive process of disease Continue work with patient regarding tolerance of BiPAP (4) Obesity, morbid, BMI 50 or higher: Patient currently following with bariatric program at [facility] Prior to the COVID lockdown, patient had achieved 30 pound weight loss and was being scheduled for surgery Inasmuch as this was considered an elective procedure, surgery was canceled Continue to follow with bariatrics Continue weight loss as tolerated Continue compliance with pulmonary treatments to maximize effect if surgery is attained (5) BLAYNE (acute kidney injury): Patient presented with acute kidney injury with a creatinine of 2.15 Currently being followed by nephrology Continue serial labs and 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 Hubbard This is a 55-year-old female that was admitted on 06/08/2020 with diagnosis of cellulitis of lower extremities, Sirs, acute on chronic respiratory failure with hypoxia, hypercapnia, and acute kidney injury. The patient is seen at bedside today and has BiPAP in place at 20/5. Mask leak is 26. Maximum tidal volume with deep inspiration is 1225. Chest x-ray on 06/08/2020 as well as 06/12/2020 shows no infiltrate or acute cardiopulmonary process. Duplex study of the right lower extremity shows no e vidence of deep vein thrombosis. No other imaging has been acquired. Polysomnography was completed 05/05/2020 and reveals severe obstructive sleep apnea. There is also significant nocturnal hypoxemia with hypoxia during periods of wakefulness. Patient was recommended for positive air pressure therapy. In discussion with the daughter Yuliya this morning, titration studies have not been completed. Patient states that she thinks that insurance was approved and they are just waiting for equipment. The patient is somewhat lethargic this morning but awakes easily to verbal stimuli. She is able to give thumbs up on the right and the left. She is able to give appropriate answers to questions. She denies any chest pain or tightness. She is working to tolerate the BiPAP mask. She denies having any pulmonary equipment at home such as a nebulizer, CPAP, BiPAP in the past. She states the pain is controlled this morning. She denies any significant sputum production. She denies any awareness of fever, chills, sweats, rigors. Review of Systems Review of Systems: All systems reviewed & are unremarkable except as noted in HPI & below Physical Exam Physical Exam: GENERAL : No acute distress. EYES: No icterus, gaze conjugate. Pupils equal round and reactive to light. NOSE: No evidence of epistaxis MOUTH: No lesions or candidiasis. Mucosa is dry. BiPAP mask is in place with a leak of 26. NECK: Supple. No appreciation of carotid bruits or stridor. LUNGS: Anterior lung mendez are clear. Patient does have significant bronchospasm in the lower two thirds of the posterior mendez posteriorly. There is no appreciation of stridor. HEART: Regular, rate controlled in the 90s ABDOMEN: Soft, NT, ND, BS Present. No rebound tenderness with deep palpation. EXTREMITIES: Positive LE edema, pedal pulses intact and equal bilaterally. There is evidence of RLE bullae and venous stasis. NEURO: A&OX3. Results & Data Results & Data ([facility]) Vital Signs (Past 12 Hours) Vital Signs Temp Pulse Pulse Resp BP BP Pulse Ox 06/14/20 11:20 36.8 C 93 H 20 150/78 H 98 06/14/20 10:36 96 H 22 99 06/14/20 09:30 77 20 96 06/14/20 07:15 36.6 C 90 20 141/82 H 99 06/14/20 07:02 88 06/14/20 04:10 62 24 94 06/14/20 02:50 36.4 C L 62 20 112/73 96 06/14/20 02:01 82 Laboratory Results 06/08/20 06/08/20 06/11/20 13:24 15:12 13:00 ABG pH 7.30 L 7.23 L ABG pCO2 62 H 74 H ABG pO2 92 94 ABG HCO3 30 H 30 H ABG O2 Saturation 96.3 H 96.1 H ABG Base Excess 1.8 0.9 VBG pH 7.24 L VBG pCO2 81 H VBG pO2 36 VBG HCO3 34 VBG O2 Saturation < 60.0 VBG Base Excess 4.4 06/12/20 05:37 ABG pH 7.29 L ABG pCO2 66 H ABG pO2 89 ABG HCO3 31 H ABG O2 Saturation 95.8 H ABG Base Excess 3.1 H VBG pH VBG pCO2 VBG pO2 VBG HCO3 VBG O2 Saturation VBG Base Excess Diagnostic Findings No further diagnostic studies since 06/12/2020 PG Care Time/CCT Total # of Minutes Spent Total Time Spent with Patient: Total time spent is greater than 50% in coordination of care (as documented) at patient's floor/unit and/or counseling patient: 30 minutes including discussion and examination with patient. Then had further discussion with daughter Yuliya regarding outpatient treatment plan and need for follow-up for her acute on chronic respiratory failure as well as obstructive disease. [place] [address] Subseq Hosp Care Lvl 3 Patient Type Established Diagnoses Acute on chronic respiratory failure with hypoxia and hypercapnia J96.21; J96.22 Pulmonary hypertension I27.20 Obstructive sleep apnea G47.33 Obesity, morbid, BMI 50 or higher E66.01 BLAYNE (acute kidney injury) N17.9 DVT prophylaxis Z29.9 Time Spent (min) 30
[2020-06-14] MEDS: HYDROCODONE/ACETAMOPHEN 5/325MG TAB PO PRN ×2 (11:45→18:15)
[2020-06-14] MEDS: ONDANSETRON INJ 2 MG/ML 2 ML VIAL IV PRN (11:45)
--- NOTE | 2020-06-14 11:45 | Nephrology Progress Note ---
Date of Service June 14, 2020 Assessment & Plan (1) BLAYNE (acute kidney injury): Further improving nonoliguric stage 2 acute kidney injury, from ischemic ATN though nephritic process from NSAIDS or post streptococcal GN also on differential. Urine sediment most consistent with ATN, from hypotension in the setting of sepsis. However nephritic elements present as well; no outpatient/prior urine studies for comparison. also, pt has taken 800 mg ibuprofen multiple times daily x years. Baseline creatinine 0.8 most recent labs November 2019. Presenting creatinine 2.2 on , creatinine now back to baseline. BUN is still high which might suggest a prerenal component. Daily basic metabolic panel -Continue fluid boluses as needed (2) Acute respiratory failure with hypoxia: acute on chronic hypoxemic and hypercarbic respiratory failure > just in process before admission of getting CPAP but had not yet done so; -pulmonary following, bipap arranged in house -Hold Lasix (3) Hypotension: BP now on the high side. Her metoprolol was reduced in setting of hypotension. Recommend increasing metoprolol back to 25 mg daily. Admission and Anticipated Discharge Date Admission Date: June 08, 2020 Subjective Patient had nausea and vomiting last night. She has leg pain. Daughter Yuliya was at the bedside this morning. She has intermittent shortness of breath and uses CPAP at night. Review of Systems Review of Systems: All systems reviewed & are unremarkable except as noted in HPI & below Physical Exam Physical Exam: General exam: Appears comfortable, no acute distress HEENT: Pupils are equal and reactive to light Neck: No JVD, neck is supple trachea is midline Respiratory system: Clear breath sounds bilaterally. Gastrointestinal: Abdomen is soft, non distended, non tender, bowel sounds are present CVS: Regular rate and rhythm. No murmurs, rubs or gallops Musculoskeletal: No joint or muscle tenderness Extremities: Non tender, no edema, peripheral pulses are present Neuro: Oriented, no tremors, no focal neurological deficits Skin: No rashes, right leg erythematous with vesicles and bullae Results & Data ([facility]) Vital Signs (Past 12 Hours) Vital Signs Temp Pulse Pulse Resp BP BP Pulse Ox 06/14/20 11:20 36.8 C 93 H 20 150/78 H 98 06/14/20 10:36 96 H 22 99 06/14/20 09:30 77 20 96 06/14/20 07:15 36.6 C 90 20 141/82 H 99 06/14/20 07:02 88 06/14/20 04:10 62 24 94 06/14/20 02:50 36.4 C L 62 20 112/73 96 06/14/20 02:01 82 Laboratory Results 06/14/20 05:35 06/14/20 05:35 WBC 15.78 H RBC 3.78 L MCV 95.8 MCH 29.4 MCHC 30.7 L RDW Std Deviation 52.8 H RDW Coeff of Quan 15.0 H Plt Count 508 H MPV 8.8
[2020-06-14 12:24] LABS: Base Excess ABG 10.2 mEq/L (-9-1.8); HCO3 ABG 37 mmol/L (19-24); Oxygen Saturation ABG 93.4 % (90-95); PCO2 ABG 58 mmHg (35-46); PO2 ABG 67 mmHg (80-95); pH ABG 7.42 (7.35-7.45)
[2020-06-14 12:28] LABS: Allen Test Pos (Pos)
[2020-06-14] MEDS ORDERED: LACTULOSE SYRUP 20 GM/30 ML UDC PO PRN (12:52)
[2020-06-14] MEDS ORDERED: LACTULOSE SYRUP 20 GM/30 ML UDC PO ONE (13:00)
--- NOTE | 2020-06-14 13:22 | XRay Report ---
SINGLE VIEW CHEST CLINICAL HISTORY: Productive cough. FINDINGS: An AP, portable, upright chest radiograph is compared to study dated 06/12/2020. The examina tion is degraded by portable technique, large body habitus, and apical lordotic positioning. The card iomediastinal silhouette is unremarkable. There is mild chronic elevation of the right hemidiaphragm. The lungs and pleural spaces are clear. No pneumothorax is seen. The bony thorax is grossly intact. IMPRESSION: No active disease in the chest. ACT 112: Negative or not required by law. Electronically signed by: Shadi Coe M.D. 06/14/2020 1:21 PM
[2020-06-14] MEDS: FLUTICASONE/VILANTEROL 100/25MCG 14 PUFFS/INHALER INH SCH (14:01)
--- NOTE | 2020-06-14 15:06 | Electrocardiogram Report ---
Test Reason : Blood Pressure : / mmHG Vent. Rate : 094 BPM Atrial Rate : 094 BPM P-R Int : 192 ms QRS Dur : 084 ms QT Int : 362 ms P-R-T Axes : 057 -20 022 degrees QTc Int : 452 ms Sinus rhythm with frequent Premature ventricular complexes Low voltage QRS Septal infarct (cited on or before 03-MAY-2016) Abnormal ECG When compared with ECG of 11-JUN-2020 21:52, No significant change was found Confirmed by Milton Ibrahim ([id number]) on 06/14/2020 3:05:54 PM Referred By: REFERRED SELF Confirmed By:Milton Ibrahim
--- NOTE | 2020-06-14 19:31 | Hospitalist Progress Note ---
Date of Service June 14, 2020 Assessment & Plan (1) Acute respiratory failure with hypoxia: Acute Hypoxic and Hypercarbic Respiratory Failure Secondary to restrictive lung disease, obesity Hypoventilation Syndrome, DOMINIQUE Morbid obesity -- per admitting MD notes: Was initially on high flow, currently on BIPAP Per review of EPIC records, Dr Ambrosio did communicate with patient about findings of recent sleep study last month. Recommended self titrating CPAP for DOMINIQUE until patient gets another sleep study in sleep lab. Patient reports she is yet to get the home CPAP Review of previous labs show chronically high normal to elevated bicarb. Patient likely also has OHS XR of chest did not show opacities or infiltrate that may explain the hypoxia VBG suggestive of respiratory acidosis -- Covid Test negative -- PE unlikely --Tolerating BiPAP better Continue current settings, 14/09 -- add Breo , has history of smoking Close follow-up with pulmonary clinic as an outpatient --Continue PRN nebs -- will need weight loss as well, patient already following with him [facility] bariatric clinic for possible bariatric surgery (2) Cellulitis: Right lower extremity cellulitis Per admitting service notes: Reported fevers SIRS - leukocytosis, HR>90, RR> 28 on admission Met criteria for sepsis with possible infectious source - Cellulitis -- afebrile WBC improving -- blood cultures: Negative so far urine culture: Negative so far --Doppler studies right lower extremity: Negative for DVT --Right lower extremity continues to improve Continue to observe with daptomycin plus Zosyn Apply warm compress consult wound care service will consult [facility] Continue to monitor closely (3) BLAYNE (acute kidney injury): Acute Renal Failure likely from ATN, in the setting of sepsis Also likely secondary to NSAID use Patient admits to taking ibuprofen 800 mg multiple times per day for several weeks now crea 0.8 at baseline now 2.15 --> 2.12--> 2.0--> 1.6--> 1.3--> 1.0 Nephrology consulted Continue to monitor closely Fluids on hold for now (4) Elevated troponin: likely from Demand Ischemia Possible underlying cor pulmonale Trop is 0.168--> 0.08--> 0.06 EKG no signs of infarct Echo: Rhythm sinus with frequent ventricular ectopic beats Left ventricular size is normal There is moderate concentric LVH Left ventricular wall motion is normal Ejection fraction 50 of 60% There is moderate thickening of the mitral valve leaflets and calcification of the posterior mitral valve annulus Aortic valve leaflets appear mildly callused There is mild to moderate mitral regurgitation There is moderate tricuspid regurgitation Mild to moderate elevation right heart pressures estimated right ventricular systolic pressure 40 to 45 mmHg Inferior vena cava small dilated right ventricle is mild dilated --Acute coronary syndrome unlikely Troponin elevation likely secondary to demand ischemia from hypoxia, also acute renal failure leading to multiple elevation --Patient has cor pulmonale likely secondary to obstructive sleep apnea, restrictive lung disease Likely contributing to bilateral lower extremity edema Lasix 10 mg twice daily --> on hold Continue to monitor (5) HTN (hypertension): continue Metoprolol monitor (6) DVT prophylaxis: Heparin SC q8h Dispo- pending COde status - FULL per discussion with patient Plan of care discussed with patient and her daughter Yuliya at the bedside In detail at length All questions were answered They are understanding, agreeable, comfortable plan of care Admission and Anticipated Discharge Date Admission Date: June 08, 2020 Subjective ff up for respiratory failure, acute renal failure, r leg cellulitis seen resting in bed, comfortable was not able to tolerate Bipap yesterday due to nausea (+) constipation but (+ )flatus still has r leg pain no other symptoms Review of Systems Review of Systems: All systems reviewed & are unremarkable except as noted in HPI & below Physical Exam Physical Exam: General- oriented x 3, not in distress, speaks in sentences with no effort or accessory muscle use Eyes- anicteric Neck- no JVD Lungs-faint wheeze bilaterally no crackles Heart- normal rate, regular rhythm; no murmurs Abdomen- normal bowel sounds, nondistended, soft, nontender Extremities- right lower leg edema: improving, less erythema, cluster of blisters present- ruptured Neuro- alert, oriented x 3; no gross focal neurologic deficits Skin- warm & dry Results & Data Results & Data ([facility]) Vital Signs (Past 12 Hours) Vital Signs Temp Pulse Pulse Resp BP BP Pulse Ox 06/14/20 15:19 90 06/14/20 15:16 36.5 C 93 H 18 145/79 H 96 06/14/20 11:20 36.8 C 93 H 20 150/78 H 98 06/14/20 10:36 96 H 22 99 06/14/20 09:30 77 20 96
[2020-06-15] MEDS: PIPERACILLIN/TAZOBACTAM 4.5 GM in DEXTROSE 5% 100 ML IV SCH ×3 (01:01→17:27)
[2020-06-15] MEDS: ONDANSETRON INJ 2 MG/ML 2 ML VIAL IV PRN ×2 (01:56→16:37)
[2020-06-15] MEDS: HYDROCODONE/ACETAMOPHEN 5/325MG TAB PO PRN ×4 (01:59→21:25)
[2020-06-15] MEDS: HEPARIN SOD 5,000 UNIT/0.5 ML VIAL SQ SCH ×3 (05:26→21:26)
[2020-06-15] MEDS: METOPROLOL SUCC 25MG EXT REL TAB PO SCH (07:52)
[2020-06-15] MEDS: FLUTICASONE/VILANTEROL 100/25MCG 14 PUFFS/INHALER INH SCH (07:52)
[2020-06-15] MEDS: DAPTOmycin 625 MG in SYRINGE 0 ML IV SCH (07:55)
[2020-06-15] MEDS: DOCUSATE SODIUM/SENNA 50/8.6MG TAB PO SCH (07:55)
[2020-06-15 08:13] LABS: Basophils # (auto) 0.03 K/uL (0-0.2); Basophils % (auto) 0.2 %; Eosinophils # (auto) 0.18 K/uL (0-0.5); Hematocrit (blood only) 38.5 % (37-47); Hemoglobin 11.7 g/dL (12.0-16.0); Immature Granulocytes # (auto) 0.31 K/uL (0.00-0.02); Immature Granulocytes % (auto) 1.7 %; Lymphocytes # (auto) 1.73 K/uL (1.2-3.4); Lymphocytes % (auto) 9.3 %; Mean Corpuscular Hemoglobin 29.2 pg (25-34); Mean Corpuscular Hgb Conc 30.4 g/dL (32-36); Mean Platelet Volume 8.6 fL (7.4-10.4); Monocytes # (auto) 1.11 K/uL (0.11-0.59); Neutrophils # (auto) 15.24 K/uL (1.4-6.5); Neutrophils % (auto) 81.8 %; Platelet Count 532 K/uL (130-400); RDW Coefficient of Variation 14.8 % (11.5-14.5); RDW Standard Deviation 52.4 fL (36.4-46.3); Red Blood Count 4.01 M/uL (4.2-5.4)
[2020-06-15 08:40] LABS: BUN Creatinine Ratio 31.2 (10-20); Calcium 9.7 mg/dl (8.5-10.1); Creatinine Clr Calc Pharmacy 108.4 ml/min; Est GFR (African American) 86.3; Est GFR (Non-African American) 74.5; Magnesium 1.9 mg/dl (1.8-2.4); Potassium 4.4 mmol/L (3.5-5.1)
[2020-06-15] MEDS: TRAMADOL HCL 50 MG TABLET PO PRN ×2 (08:50→16:37)
--- NOTE | 2020-06-15 10:54 | Nephrology Progress Note ---
Date of Service June 15, 2020 Assessment & Plan (1) BLAYNE (acute kidney injury): Further improving nonoliguric stage 2 acute kidney injury, from ischemic ATN though nephritic process from NSAIDS or post streptococcal GN also on differential. Urine sediment most consistent with ATN, from hypotension in the setting of sepsis. However nephritic elements present as well; no outpatient/prior urine studies for comparison. also, pt has taken 800 mg ibuprofen multiple times daily x years. Baseline creatinine 0.8 most recent labs November 2019. Presenting creatinine 2.2 on , creatinine now back to baseline. BUN is still high which might suggest a prerenal component. Daily basic metabolic panel -No need for fluids now (2) Acute respiratory failure with hypoxia: acute on chronic hypoxemic and hypercarbic respiratory failure > just in process before admission of getting CPAP but had not yet done so; -pulmonary following, bipap arranged in house -Holding Lasix (3) HTN (hypertension): BP now on the high side. Her metoprolol was reduced in setting of hypotension. Recommend increasing metoprolol back to 25 mg twice daily. Admission and Anticipated Discharge Date Admission Date: June 08, 2020 Subjective Patient is more awake today. She tolerated BiPAP last night. Breathing is at baseline. She had episodes of labored breathing in the morning. Review of Systems Review of Systems: All systems reviewed & are unremarkable except as noted in HPI & below Physical Exam 2 Physical Exam: General exam: Appears comfortable, no acute distress HEENT: Pupils are equal and reactive to light Neck: No JVD, neck is supple trachea is midline Respiratory system: Clear breath sounds bilaterally. Gastrointestinal: Abdomen is soft, non distended, non tender, bowel sounds are present CVS: Regular rate and rhythm. No murmurs, rubs or gallops Musculoskeletal: No joint or muscle tenderness Extremities: Non tender, 1+ edema, right leg is erythematous with bullae and very tender Neuro: Oriented, no tremors, no focal neurological deficits Skin: No rashes, erythema on the right leg Results & Data ([facility]) Vital Signs (Past 12 Hours) Vital Signs Temp Pulse Pulse Pulse Resp BP BP 06/15/20 07:34 94 H 06/15/20 07:04 36.7 C 73 20 149/65 H 06/15/20 03:30 36.7 C 86 18 116/64 06/15/20 00:37 101 H 06/14/20 23:25 37.4 C 91 H 18 128/74 06/14/20 23:15 77 18 Pulse Ox 06/15/20 07:34 06/15/20 07:04 94 06/15/20 03:30 98 06/15/20 00:37 06/14/20 23:25 97 06/14/20 23:15 97 Laboratory Results 06/15/20 07:56 06/15/20 07:56 WBC 18.60 H RBC 4.01 L MCV 96.0 MCH 29.2 MCHC 30.4 L RDW Std Deviation 52.4 H RDW Coeff of Quan 14.8 H Plt Count 532 H MPV 8.6
[2020-06-15] MEDS: ACETAMINOPHEN 325 MG TAB PO PRN (12:01)
--- NOTE | 2020-06-15 13:35 | Pulmonology Progress Note ---
Date of Service June 15, 2020 Assessment & Plan (1) Acute on chronic respiratory failure with hypoxia and hypercapnia: Patient is acute on chronic respiratory failure with hypoxia and hypercapnia. Polysomnography completed 05/05/2020 showing severe obstructive disease. Patient will require BiPAP on discharge Considerable improvement in ABG yesterday after use of BiPAP overnight. Discussed need for BiPAP at night consistently for greater than 4 hours. Also suggested trials of BiPAP during the day for 30 to 60 minutes while awake to acclimate to the mask Maintain SaO2 between 88 and 92% (2) Pulmonary hypertension: This is most likely secondary to untreated sleep apnea Continue with oxygen therapy Would repeat echocardiogram in 2 to 3 months provided the patient is on outpatient therapy Diuretics as tolerated secondary to acute kidney injury (3) Obstructive sleep apnea: Outpatient polysomnography completed 05/05/2020 Will need titration studies We will discharge on BiPAP at a minimum with settings at 20/12. Patient would benefit from system that provided ramp for start up. Patient requires higher EPAP setting to treat obstructive process of disease Continue work with patient regarding tolerance of BiPAP (4) Obesity, morbid, BMI 50 or higher: Patient currently following with bariatric program at [facility] Prior to the COVID lockdown, patient had achieved 30 pound weight loss and was being scheduled for surgery Inasmuch as this was considered an elective procedure, surgery was canceled Continue to follow with bariatrics Continue weight loss as tolerated Continue compliance with pulmonary treatments to maximize effect if surgery is attained (5) BLAYNE (acute kidney injury): Patient presented with acute kidney injury with a creatinine of 2.15 Creatinine is down to 0.88 with a BUN of 27 Currently being followed by nephrology Continue serial labs and treatment per power builder developer Continue with diuretics for pulmonary hypertension as tolerated (6) DVT prophylaxis: Lower extremity cellulitis to the right leg Lower extremity duplex was negative for deep vein thrombosis on the right Further management per hospitalist team Thank you for including us in the care of this patient. Please refer to Dr. Hubbard's addendum for further recommendations. Admission and Anticipated Discharge Date Admission Date: June 08, 2020 Subjective Attending: Dr. Hubbard This is a 55-year-old female that was admitted on 06/08/2020 with diagnosis of cellulitis of lower extremities, Sirs, acute on chronic respiratory failure with hypoxia, hypercapnia, and acute kidney injury. The patient is doing much better today. Her repeat ABG yesterday showed significant improvement in the pH from 7.29-7.42. Her PCO2 was also signif icantly improved from the 90s to the 50s. This morning, the patient is alert and oriented x3. She has no evidence of the lethargy. She is talkative and able to give full history. She cooperated with the bath this morning and attended to some of her own ADLs. She does report sputum production of whitish to yellow sputum. There is no evidence of hemoptysis. She denies any fever, chills, sweats, rigors. She had minimal nausea last night which was controlled with antiemetics. She has no diarrhea and denies any vomiting. Aside from general malaise, she has no acute complaints. Review of Systems Review of Systems: All systems reviewed & are unremarkable except as noted in HPI & below Physical Exam Physical Exam: GENERAL : No acute distress. Pleasant and talkative. Daughter Yuliya is at bedside. EYES: No icterus, gaze conjugate. Pupils equal round and reactive to light NOSE: No evidence of epistaxis MOUTH: No lesions or candidiasis. Mucosa is moist NECK: Supple. No appreciation of stridor LUNGS: Generally clear to auscultation bilaterally with the exception of some fine bronchospasm in the bilateral posterior upper lung mendez. HEART: Regular, rate controlled ABDOMEN: Soft, NT, ND, BS Present EXTREMITIES: No LE edema, pedal pulses intact and equal bilaterally. There is significant erythema and warmth to the right lower extremity with bullae. NEURO: A&OX3 Results & Data Results & Data ([facility]) Vital Signs (Past 12 Hours) Vital Signs Temp Pulse Pulse Pulse Resp BP BP 06/15/20 07:34 94 H 06/15/20 07:04 36.7 C 73 20 149/65 H 06/15/20 03:30 36.7 C 86 18 116/64 Pulse Ox 06/15/20 07:34 06/15/20 07:04 94 06/15/20 03:30 98 Laboratory Results 06/15/20 07:56 06/15/20 07:56 Diagnostic Findings SINGLE VIEW CHEST CLINICAL HISTORY: Productive cough. FINDINGS: An AP, portable, upright chest radiograph is compared to study dated 06/12/2020. The examination is degraded by portable technique, large body habitus, and apical lordotic positioning. The cardiomediastinal silhouette is unremarkable. There is mild chronic elevation of the right hemidiaphragm. The lungs and pleural spaces are clear. No pneumothorax is seen. The bony thorax is grossly intact. IMPRESSION: No active disease in the chest. Electronically signed by: Shadi Coe M.D. 06/14/2020 1:21 PM PG Care Time/CCT Total # of Minutes Spent Total Time Spent with Patient: Total time spent is greater than 50% in coordination of care (as documented) at patient's floor/unit and/or counseling patient: 40 minutes including discussion with patient as well as patient's daughter Yuliya regarding treatment goals and plan of care while in inpatient. Coding Level of Care Code 11495 Subseq Hosp Care Lvl 2 Diagnoses Acute on chronic respiratory failure with hypoxia and hypercapnia J96.21; J96.22 Pulmonary hypertension I27.20 Obstructive sleep apnea G47.33 Obesity, morbid, BMI 50 or higher E66.01 BLAYNE (acute kidney injury) N17.9 DVT prophylaxis Z29.9 Time Spent (min) 40
--- NOTE | 2020-06-15 17:45 | Hospitalist Progress Note ---
Date of Service June 15, 2020 Assessment & Plan (1) Acute respiratory failure with hypoxia: Acute Hypoxic and Hypercarbic Respiratory Failure Secondary to restrictive lung disease, obesity Hypoventilation Syndrome, DOMINIQUE Morbid obesity -- per admitting MD notes: Was initially on high flow, currently on BIPAP Per review of EPIC records, Dr Ambrosio did communicate with patient about findings of recent sleep study last month. Recommended self titrating CPAP for DOMINIQUE until patient gets another sleep study in sleep lab. Patient reports she is yet to get the home CPAP Review of previous labs show chronically high normal to elevated bicarb. Patient likely also has OHS XR of chest did not show opacities or infiltrate that may explain the hypoxia VBG suggestive of respiratory acidosis -- Covid Test negative -- PE unlikely --BiPAP setting titrated while admitted At one point patient was obtunded, pH 7.2, PCO2 74, BiPAP settings increased --Main reason for not tolerating BiPAP occasionally is nausea Nausea improved after BM with lactulose, tolerating BiPAP better Importance of using BiPAP emphasized with patient, as per commercial reporter this is going to be life-sustaining for her at this point, patient verbalized understanding and agreement Continue current settings, 14/09 --06/14/2020, patient noted to have mild scattered wheezing, in light of history of smoking, added Breo, wheezing today is almost resolved -- Will need to continue BiPAP upon discharge Close follow-up with pulmonary clinic as an outpatient -- will need weight loss as well, patient already following at [facility] bariatric clinic for possible bariatric surgery Discussed with Dr. Poole via [employer] text today, patient has an appointment with them next week, may need to be done via telemedicine if possible (2) Cellulitis: Right lower extremity cellulitis Severe Per admitting service notes: Reported fevers SIRS - leukocytosis, HR>90, RR> 28 on admission Met criteria for sepsis with possible infectious source - Cellulitis -- afebrile WBC improving -- blood cultures: Negative so far urine culture: Negative so far --Doppler studies right lower extremity: Negative for DVT --Right lower extremity continues to improve although slowly Continue with daptomycin plus Zosyn Consulted wound care service Consulted [facility] ID service, awaiting recommendations Continue to monitor closely (3) BLAYNE (acute kidney injury): Acute Renal Failure likely from ATN, in the setting of sepsis Also likely secondary to NSAID use Patient admits to taking ibuprofen 800 mg multiple times per day for several weeks now crea 0.8 at baseline Given IV fluids, creatinine gradually improved Creatinine 2.15 --> 2.12--> 2.0--> 1.6--> 1.3--> 1.0--> 0.8 Nephrology consulted Continue to monitor closely Fluids on hold for now (4) Elevated troponin: likely from Demand Ischemia Possible underlying cor pulmonale Trop is 0.168--> 0.08--> 0.06 EKG no signs of infarct Echo: Rhythm sinus with frequent ventricular ectopic beats Left ventricular size is normal There is moderate concentric LVH Left ventricular wall motion is normal Ejection fraction 50 of 60% There is moderate thickening of the mitral valve leaflets and calcification of the posterior mitral valve annulus Aortic valve leaflets appear mildly callused There is mild to moderate mitral regurgitation There is moderate tricuspid regurgitation Mild to moderate elevation right heart pressures estimated right ventricular systolic pressure 40 to 45 mmHg Inferior vena cava small dilated right ventricle is mild dilated --Acute coronary syndrome unlikely Troponin elevation likely secondary to demand ischemia from hypoxia, also acute renal failure leading to multiple elevation --Patient has cor pulmonale likely secondary to obstructive sleep apnea, restrictive lung disease Likely contributing to bilateral lower extremity edema -- given intermittent Lasix --> currently on hold Continue to monitor (5) HTN (hypertension): continue Metoprolol XL 25 mg daily monitor (6) SVT (supraventricular tachycardia): Noted on 06/15/2020 around 7 AM patient had a 2-minute episode of SVT Patient reported palpitations but no dizziness or chest pain or shortness of breath Follows as an outpatient with [facility] cardiology clinic Continue metoprolol XL 25 mg daily for now will consult lead printer (7) Constipation: Given lactulose 1 dose 06/14/2020, positive BMs Patient's nausea improved Continue senna daily, please give lactulose as needed (8) DVT prophylaxis: Heparin SC q8h Disposition Will likely need to transition to longterm facility Will need follow-up with PCP, pulmonology clinic, bariatric surgery clinic, lead printer Plan of care discussed with patient and her daughter Yuliya at the bedside In detail at length All questions were answered They are understanding, agreeable, comfortable plan of care Admission and Anticipated Discharge Date Admission Date: June 08, 2020 Subjective Follow-up for hypoxic and hypercapnic respiratory failure, acute renal failure, right lower leg cellulitis Seen with patient's daughter Yuliya visiting at bedside Patient is awake alert oriented x3, on 3 L of nasal cannula, comfortable, not in distress States she feels improved today compared to yesterday Able to tolerate BiPAP overnight No active shortness of breath, cough, sputum production Positive bowel movement yesterday with lactulose Having significant right lower extremity pain this morning, improved with [place] and tramadol Denies other symptoms Review of Systems Review of Systems: All systems reviewed & are unremarkable except as noted in HPI & below Physical Exam Physical Exam: General- oriented x 3, not in distress, speaks in sentences with no effort or accessory muscle use Eyes- anicteric Neck- no JVD Lungs-very faint wheeze on the right lower lobe, clear on the left, no crackles or wheezing Heart- normal rate, regular rhythm; no murmurs Abdomen- normal bowel sounds, nondistended, soft, nontender Extremities-right lower leg: Still has edema and erythema and but improving, blisters drying up Neuro- alert, oriented x 3; no gross focal neurologic deficits Skin- warm & dry Results & Data Results & Data ([facility]) Vital Signs (Past 12 Hours) Vital Signs Temp Pulse Pulse Resp BP BP Pulse Ox 06/15/20 15:49 36.9 C 97 H 22 128/77 96 06/15/20 15:38 97 H 06/15/20 07:34 94 H 06/15/20 07:04 36.7 C 73 20 149/65 H 94 Laboratory Results Laboratory Results - last 24 hr 06/15/20 06/15/20 06/15/20 07:56 07:56 Unknown WBC 18.60 H RBC 4.01 L Hgb 11.7 L Hct 38.5 MCV 96.0 MCH 29.2 MCHC 30.4 L RDW Std Deviation 52.4 H RDW Coeff of Quan 14.8 H Plt Count 532 H MPV 8.6 Immature Gran % (Auto) 1.7 Neut % (Auto) 81.8 Lymph % (Auto) 9.3 [place]verse % (Auto) 6.0 Eos % (Auto) 1.0 Baso % (Auto) 0.2 Neut # (Auto) 15.24 H Lymph # (Auto) 1.73 [place]verse # (Auto) 1.11 H Eos # (Auto) 0.18 Baso # (Auto) 0.03 Immature Gran # (Auto) 0.31 H Sodium 140 Potassium 4.4 Chloride 100 Carbon Dioxide 37 H Anion Gap 3.0 BUN 27 H Creatinine 0.88 Est Cr Clr Drug Dosing 108.4 Est GFR ( Amer) 86.3 Est GFR (Non-Af Amer) 74.5 BUN/Creatinine Ratio 31.2 H Glucose 103 H Calcium 9.7 Magnesium 1.9 Total Creatine Kinase 13 L
[2020-06-16] MEDS: ONDANSETRON INJ 2 MG/ML 2 ML VIAL IV PRN ×2 (00:15→16:03)
[2020-06-16] MEDS: TRAMADOL HCL 50 MG TABLET PO PRN ×2 (00:16→08:28)
[2020-06-16] MEDS: PIPERACILLIN/TAZOBACTAM 4.5 GM in DEXTROSE 5% 100 ML IV SCH ×3 (02:08→18:23)
[2020-06-16] MEDS: HYDROCODONE/ACETAMOPHEN 5/325MG TAB PO PRN ×3 (04:32→22:20)
[2020-06-16] MEDS: HEPARIN SOD 5,000 UNIT/0.5 ML VIAL SQ SCH ×3 (05:24→21:13)
[2020-06-16] MEDS: METOPROLOL SUCC 25MG EXT REL TAB PO SCH (08:28)
[2020-06-16 08:29] LABS: BUN Creatinine Ratio 24.8 (10-20); Calcium 8.8 mg/dl (8.5-10.1); Creatinine Clr Calc Pharmacy 132.9 ml/min; Est GFR (Non-African American) 94.9; Potassium 4.5 mmol/L (3.5-5.1)
[2020-06-16] MEDS: FLUTICASONE/VILANTEROL 100/25MCG 14 PUFFS/INHALER INH SCH (08:29)
[2020-06-16] MEDS: DOCUSATE SODIUM/SENNA 50/8.6MG TAB PO SCH (08:30)
[2020-06-16] MEDS: DAPTOmycin 625 MG in SYRINGE 0 ML IV SCH (08:31)
--- NOTE | 2020-06-16 09:44 | Nephrology Progress Note ---
Date of Service June 16, 2020 Assessment & Plan (1) BLAYNE (acute kidney injury): Further improving nonoliguric stage 2 acute kidney injury, from ischemic ATN though nephritic process from NSAIDS or post streptococcal GN also on differential. Urine sediment most consistent with ATN, from hypotension in the setting of sepsis. However nephritic elements present as well; no outpatient/prior urine studies for comparison. also, pt has taken 800 mg ibuprofen multiple times daily x years. Baseline creatinine 0.8 most recent labs November 2019. Presenting creatinine 2.2 on , creatinine now back to baseline. Daily basic metabolic panel -No need for fluids now (2) Acute respiratory failure with hypoxia: acute on chronic hypoxemic and hypercarbic respiratory failure > -Continuing BiPAP when sleeping. -Holding Lasix (3) HTN (hypertension): BP is controlled now. Continue her metoprolol 25 mg daily. Admission and Anticipated Discharge Date Admission Date: June 08, 2020 Subjective No new issues today. Patient is being cleaned at the time of my visit. Breathing is at baseline Review of Systems Review of Systems: All systems reviewed & are unremarkable except as noted in HPI & below Physical Exam Physical Exam: General exam: Appears comfortable, no acute distress HEENT: Pupils are equal and reactive to light Neck: No JVD, neck is supple trachea is midline Respiratory system: Clear breath sounds bilaterally. Gastrointestinal: Abdomen is soft, non distended, non tender, bowel sounds are present CVS: Regular rate and rhythm. No murmurs, rubs or gallops Musculoskeletal: No joint or muscle tenderness Extremities: Non tender, 1+ edema, Neuro: Oriented, no tremors, no focal neurological deficits Skin: No rashes, right leg is erythematous with bullae Results & Data ([facility]) Vital Signs (Past 12 Hours) Vital Signs Temp Pulse Pulse Resp BP BP Pulse Ox 06/16/20 08:45 93 H 06/16/20 06:55 36.5 C 97 H 20 116/61 96 06/16/20 04:34 36.4 C L 94 H 18 129/79 100 06/16/20 03:35 91 H 22 98 06/16/20 00:18 36.7 C 06/15/20 23:50 37.5 C 56 L 20 144/77 H 96 06/15/20 22:09 85 18 95 Laboratory Results 06/16/20 07:09
--- NOTE | 2020-06-16 12:47 | Electrocardiogram Report ---
Test Reason : Blood Pressure : / mmHG Vent. Rate : 098 BPM Atrial Rate : 098 BPM P-R Int : 192 ms QRS Dur : 098 ms QT Int : 338 ms P-R-T Axes : 053 -20 043 degrees QTc Int : 431 ms Normal sinus rhythm Low voltage QRS Possible Anterolateral infarct (cited on or before 03-MAY-2016) Abnormal ECG When compared with ECG of 13-JUN-2020 23:33, Premature ventricular complexes are no longer Present Questionable change in initial forces of Lateral leads Nonspecific T wave abnormality, worse in Anterior leads Confirmed by Milton Ibrahim ([id number]) on 06/16/2020 12:47:12 PM Referred By: REFERRED SELF Confirmed By:Milton Ibrahim
--- NOTE | 2020-06-16 13:25 | Pulmonology Progress Note ---
Date of Service June 16, 2020 Assessment & Plan (1) Acute on chronic respiratory failure with hypoxia and hypercapnia: Patient is acute on chronic respiratory failure with hypoxia and hypercapnia. Polysomnography completed 05/05/2020 shows severe obstructive disease. Patient will require BiPAP on discharge with IPAP of 20 and EPAP of 12 Patient should use BiPAP for a minimum of 4-6 hours with sleep and as tolerated with rest during the day. Patient had considerable improvement in ABG after use of BiPAP Maintain SaO2 between 88 and 92% Continue to follow with [facility] bariatrics and pulmonary/sleep on discharge (2) Pulmonary hypertension: This is most likely secondary to untreated sleep apnea Continue with oxygen therapy Would repeat echocardiogram in 2 to 3 months provided the patient is on outpatient therapy Diuretics as tolerated secondary to acute kidney injury (3) Obstructive sleep apnea: Outpatient polysomnography completed 05/05/2020 Will need titration studies as an outpatient We will discharge on BiPAP at a minimum with settings at 20/12. Patient requires higher EPAP setting to treat obstructive process of disease Continue work with patient regarding tolerance of BiPAP (4) Obesity, morbid, BMI 50 or higher: Patient currently following with bariatric program at [facility] Prior to the COVID lockdown, patient had achieved 30 pound weight loss and was being scheduled for surgery Inasmuch as this was considered an elective procedure, surgery was canceled Continue to follow with bariatrics Continue weight loss as tolerated Continue compliance with pulmonary treatments to maximize effect if surgery is attained (5) BLAYNE (acute kidney injury): Resolved Patient presented with acute kidney injury with a creatinine of 2.15 Creatinine is down to 0.88 with a BUN of 27 Currently being followed by nephrology Continue serial labs and treatment per director process Continue with diuretics for pulmonary hypertension as tolerated (6) DVT prophylaxis: Lower extremity cellulitis to the right leg Lower extremity duplex was negative for deep vein thrombosis on the right Further management per hospitalist team Thank you for including us in the care of this patient. Please refer to Dr. Hubbard's addendum for further recommendations. I had discussion again tofday with case management. Patient can be discharged to SNF/Rehab from a pulmonary perspective. Nothing further needed from pulmonary for BiPAP settings. We will sign off at this time. Feel free to reconsult as needed. Admission and Anticipated Discharge Date Admission Date: June 08, 2020 Subjective Attending: Dr. Hubbard This is a 55-year-old female that was admitted on 06/08/2020 with diagnosis of cellulitis of lower extremities, Sirs, acute on chronic respiratory failure with hypoxia, hypercapnia, and acute kidney injury. The patient continues to improve slowly. Repeat ABG showed resolution of acidosis with persistent PCO2. Patient is tolerating BiPAP better and was able to successfully use it for 6 hours last night. She has no reports of nausea or vomiting today. She is tired but feeling much better overall. She did have some increased lower extremity pain this morning and received pain medication which she admittedly says makes her drowsy. She has no reports of fever or chills. She has no acute complaints. Review of Systems Review of Systems: All systems reviewed & are unremarkable except as noted in HPI & below Physical Exam Physical Exam: GENERAL : No acute distress EYES: No icterus, gaze conjugate NOSE: No evidence of epistaxis MOUTH: No lesions or candidiasis NECK: Supple LUNGS: CTA B/L, no wheezes, rales or rhonchi HEART: Regular, rate controlled ABDOMEN: Soft, NT, ND, BS Present EXTREMITIES: No LE edema, pedal pulses intact and equal bilaterally. There continues to be improving cellulitis to the right lower extremity with associated bullae. NEURO: A&OX3 Results & Data Results & Data ([facility]) Vital Signs (Past 12 Hours) Vital Signs Temp Pulse Pulse Resp BP BP Pulse Ox 06/16/20 11:17 36.9 C 56 L 16 102/51 L 94 06/16/20 11:16 87 21 94 06/16/20 08:45 93 H 06/16/20 06:55 36.5 C 97 H 20 116/61 96 06/16/20 04:34 36.4 C L 94 H 18 129/79 100 06/16/20 03:35 91 H 22 98 Laboratory Results 06/15/20 07:56 06/16/20 07:09 Diagnostic Findings No new diagnostics PG Care Time/CCT Total # of Minutes Spent Total Time Spent with Patient: Total time spent is greater than 50% in office service coordinator rdination of care (as documented) at patient's floor/unit and/or counseling patient: 40 minutes Coding Level of Care Code 97383 Subseq Hosp Care Lvl 2 Diagnoses Acute on chronic respiratory failure with hypoxia and hypercapnia J96.21; J96.22 Pulmonary hypertension I27.20 Obstructive sleep apnea G47.33 Obesity, morbid, BMI 50 or higher E66.01 BLAYNE (acute kidney injury) N17.9 DVT prophylaxis Z29.9
--- NOTE | 2020-06-16 13:55 | Hospitalist Progress Note ---
Date of Service June 16, 2020 Assessment & Plan (1) Acute respiratory failure with hypoxia: Acute Hypoxic and Hypercarbic Respiratory Failure Secondary to restrictive lung disease, obesity Hypoventilation Syndrome, DOMINIQUE Morbid obesity This is a 55-year-old female that was admitted on 06/08/2020 with diagnosis of cellulitis of lower extremities, Sirs, acute on chronic respiratory failure with hypoxia, hypercapnia, and acute kidney injury. Respiratory status improved to approximate baseline . Repeat ABG showed resolution of acidosis with persistent PCO2. Continue BiPAP at night Patient input from pulmonology team -- Importance of using BiPAP emphasized with patient, as per housekeeping laundry worker this is going to be life-sustaining for her at this point, patient verbalized understanding and agreement Continue current settings, 14/09 -- Will need to continue BiPAP upon discharge Close follow-up with pulmonary clinic as an outpatient -- will need weight loss as well, patient already following at [facility] bariatric clinic for possible bariatric surgery Discussed with Dr. Poole via [place] text today, patient has an appointment with them next week, may need to be done via telemedicine if possible (2) Cellulitis: Right lower extremity cellulitis Per admitting service notes: Reported fevers SIRS - leukocytosis, HR>90, RR> 28 on admission Met criteria for sepsis with possible infectious source - Cellulitis Chronic bilateral lower extremity edema/l lymphedema Noted blister on right lower extremity approximately 3 weeks ago, which continued to get worse, admitted with right lower extremity cellulitis Significant erythema, swelling, multiple blisters filled with pus noted -- -- blood cultures: Negative so far urine culture: Negative so far --Doppler studies right lower extremity: Negative for DVT -- Continue with daptomycin plus Zosyn Consulted wound care service, appreciate input, wound care provider Dr. Licea consulted as patient may need possible debridement Consulted [facility] ID service, awaiting recommendations C (3) BLAYNE (acute kidney injury): Acute Renal Failure likely from ATN, in the setting of sepsis Also likely secondary to NSAID use Patient admits to taking ibuprofen 800 mg multiple times per day for several weeks now crea 0.8 at baseline Creatinine improved to baseline Creatinine 2.15 --> 2.12--> 2.0--> 1.6--> 1.3--> 1.0--> 0.8 Nephrology consulted IV fluids discontinued (4) Elevated troponin: likely from Demand Ischemia Possible underlying cor pulmonale Trop is 0.168--> 0.08--> 0.06 EKG no signs of infarct Echo: Rhythm sinus with frequent ventricular ectopic beats Left ventricular size is normal There is moderate concentric LVH Left ventricular wall motion is normal Ejection fraction 50 of 60% There is moderate thickening of the mitral valve leaflets and calcification of the posterior mitral valve annulus Aortic valve leaflets appear mildly callused There is mild to moderate mitral regurgitation There is moderate tricuspid regurgitation Mild to moderate elevation right heart pressures estimated right ventricular systolic pressure 40 to 45 mmHg Inferior vena cava small dilated right ventricle is mild dilated --Acute coronary syndrome unlikely Troponin elevation likely secondary to demand ischemia from hypoxia, also acut e renal failure leading to multiple elevation --Patient has cor pulmonale likely secondary to obstructive sleep apnea, restrictive lung disease Likely contributing to bilateral lower extremity edema -- given intermittent Lasix --> currently on hold because of acute renal failure Continue to monitor (5) HTN (hypertension): continue Metoprolol XL 25 mg daily monitor (6) SVT (supraventricular tachycardia): Noted on 06/15/2020 around 7 AM patient had a 2-minute episode of SVT Patient reported palpitations but no dizziness or chest pain or shortness of breath Follows as an outpatient with [facility] cardiology clinic Continue metoprolol XL 25 mg daily for now Cardiology consulted (7) Constipation: Given lactulose 1 dose 06/14/2020, positive BMs Patient's nausea improved Continue senna daily, please give lactulose as needed (8) DVT prophylaxis: High risk given morbid obesity, bilateral lower extremity lymphedema, right lower extremity cellulitis Heparin SC q8h Disposition Will likely need to transition to longterm facility Will need follow-up with PCP, pulmonology clinic, bariatric surgery clinic, advanced manufacturing consultant Plan of care discussed with patient and her daughter Yuliya at the bedside In detail at length All questions were answered They are understanding, agreeable, comfortable plan of care Admission and Anticipated Discharge Date Admission Date: June 08, 2020 Subjective She reports of pain on right lower leg/cellulitis area Fever, but experiencing occasional chills Had cough with yellowish productive sputum earlier this morning No complaint of shortness of breath, no orthopnea No wheeze Review of Systems 2 Review of Systems: All systems reviewed & are unremarkable except as noted in HPI & below Constitutional: no fever Musculoskeletal: Right lower extremity severe lymphedema, with cellulitis Physical Exam Constitutional: WD/WN, vitals as above + obese; no acute distress Eyes: no scleral abnormality ENMT: external ear and nose normal, oropharynx normal Neck: trachea midline, no thyromegaly Respiratory: normal respiratory effort and + cough; no respiratory distress Auscultation: no crackles, no rales and no wheezes Cardiovascular: Rate/Rhythm: regular rate and regular rhythm Extremities: + edema Significant bilateral lower extremity edema Gastrointestinal (Abdomen): Percussion/Palpation: abdomen soft; abdomen nontender Musculoskeletal: Bilateral significant lymphadenopathy, right worse than left Skin: Erythematous, swelling on right lower extremity, chronic lymphedema Multiple yellowish, past continuing blisters, wound noted Neurologic: PERRL, EOMI, accommodation nl, no face palsy, no dysarthria Results & Data Results & Data ([facility]) Vital Signs (Past 12 Hours) Vital Signs Temp Pulse Pulse Resp BP BP Pulse Ox 06/16/20 11:17 36.9 C 56 L 16 102/51 L 94 06/16/20 11:16 87 21 94 06/16/20 08:45 93 H 06/16/20 06:55 36.5 C 97 H 20 116/61 96 06/16/20 04:34 36.4 C L 94 H 18 129/79 100 06/16/20 03:35 91 H 22 98
--- NOTE | 2020-06-16 15:27 | Cardiology Consultation ---
Date of Consultation June 16, 2020 Assessment & Plan (1) PSVT (paroxysmal supraventricular tachycardia): (2) Pulmonary hypertension: (3) Obstructive sleep apnea: (4) Acute on chronic respiratory failure with hypoxia and hypercapnia: (5) Obesity, morbid, BMI 50 or higher: (6) Cellulitis: (7) HTN (hypertension): Patient with underlying obesity hypoventilation and severe obstructive sleep apnea only started on BiPAP this admission Short bursts of paroxysmal supraventricular tachycardia occurring while not wearing BiPAP She was counseled that her obstructive sleep apnea is most likely the most significant contributing factor to her paroxysmal supraventricular tachycardia. The need for compliance with BiPAP as recommended by pulmonary medicine was discussed at great lengths and she states that she will comply We will continue her current dose of metoprolol History of Present Illness Reason for Consultation: NSVT Requesting Physician: Dr. Villareal Attending Physician: Allie Villareal MD History of Present Illness I saw Ms. Jacobson in consultation today June 16, 2020. She is a very medically complex morbidly obese 55-year-old woman admitted for cellulitis. Diagnosed with severe obstructive sleep apnea during her admission and started on nocturnal BiPAP therapy. She is been having a difficult time tolerating and last evening when the BiPAP was off she had some episodes of nonsustained supraventricular tachycardia. She states that she was aware of this and did feel racing of her heart. She states that she is had similar episodes in the past. Allergies Allergy/AdvReac Type Severity Reaction Status Date / Time bee venom protein (honey bee) Allergy Unknown GENERALIZED Unverified 06/08/20 14:02 SWELLING-SOB No Known Drug Allergies Allergy Unknown NONE Unverified 06/08/20 14:02 Patient History Medical History Acute on chronic respiratory failure with hypoxia and hypercapnia Elevated parathyroid hormone HTN (hypertension) Lymphedema No pertinent family history Obesity, morbid, BMI 50 or higher Obstructive sleep apnea Surgical History No pertinent past surgical history Family History Grandmother Heart disease Social History Smoking Status: Former smoker packs per day: 1; Years Smoked: 15; Hx Alcohol Use: No Hx Substance Use: No Communication Ability: Effective Beliefs That Will Affect Care: None Current Living Situation: Family Other Information That Helps Us Care for You: No Feels Safe at Home: Yes Safety Concerns: Feels Safe At This Time Review of Systems Review of Systems: All systems reviewed & are unremarkable except as noted in HPI & below Physical Exam Physical Exam: General: Awake, alert and oriented x 3. No acute distress. HEENT: Normocephalic, atraumatic. Pupils equal, round and reactive to light and accommodation. Extraocular muscles are intact. Anicteric sclera. Moist mucous membranes. Neck: No JVD. No bruit. Cardiovascular: Distant but regular unable appreciate murmurs rubs or gallops. Pulmonary: Clear to auscultation B/L. No rales, rhonchi or wheezing Abdomen: Bowel sounds x 4, soft. No rebound, guarding or tenderness. No organomegaly. Extremities: Significant right lower extremity cellulitis with chronic venous insufficiency changes and nonpitting lower extremity edema. Unable to appreciate pal palpable pedal pulses Skin: Warm and dry. Results & Data ([facility]) Vital Signs (Past 12 Hours) Vital Signs Temp Pulse Pulse Resp BP BP Pulse Ox 06/16/20 15:04 100 H 06/16/20 11:17 36.9 C 56 L 16 102/51 L 94 06/16/20 11:16 87 21 94 06/16/20 08:45 93 H 06/16/20 06:55 36.5 C 97 H 20 116/61 96 06/16/20 04:34 36.4 C L 94 H 18 129/79 100 06/16/20 03:35 91 H 22 98 (1) Cellulitis Laterality: right Site of cellulitis: extremity Site of cellulitis of extremity: lower extremity Qualified Code(s): L03.115 - Cellulitis of right lower limb
[2020-06-16] MEDS: IPRATROPIUM BROMIDE NEB SOLN 0.02% 2.5 ML VIAL INH PRN (15:49)
[2020-06-16] MEDS: LEVALBUTEROL 1.25MG/0.5ML NEB INH PRN (15:49)
[2020-06-16] MEDS: HYDROmorphone INJ 0.5 MG/0.5 ML SYR IV PRN (18:24)
[2020-06-17] MEDS: ONDANSETRON INJ 2 MG/ML 2 ML VIAL IV PRN ×2 (02:00→07:59)
[2020-06-17] MEDS: PIPERACILLIN/TAZOBACTAM 4.5 GM in DEXTROSE 5% 100 ML IV SCH ×3 (02:00→18:12)
[2020-06-17] MEDS: HYDROmorphone INJ 0.5 MG/0.5 ML SYR IV PRN ×3 (03:21→19:34)
[2020-06-17] MEDS: HEPARIN SOD 5,000 UNIT/0.5 ML VIAL SQ SCH (05:43)
[2020-06-17] MEDS: DAPTOmycin 625 MG in SYRINGE 0 ML IV SCH (08:00)
[2020-06-17] MEDS: FLUTICASONE/VILANTEROL 100/25MCG 14 PUFFS/INHALER INH SCH (08:00)
[2020-06-17] MEDS: HYDROCODONE/ACETAMOPHEN 5/325MG TAB PO PRN ×2 (08:05→18:50)
[2020-06-17] MEDS: METOPROLOL SUCC 25MG EXT REL TAB PO SCH (08:06)
[2020-06-17] MEDS: DOCUSATE SODIUM/SENNA 50/8.6MG TAB PO SCH (08:12)
[2020-06-17] MEDS ORDERED: METOPROLOL SUCC 25MG EXT REL TAB PO ONE (10:05)
--- NOTE | 2020-06-17 10:11 | Nephrology Progress Note ---
Date of Service June 17, 2020 Assessment & Plan (1) BLAYNE (acute kidney injury): Further improving nonoliguric stage 2 acute kidney injury, from ischemic ATN though nephritic process from NSAIDS or post streptococcal GN also on differential. Urine sediment most consistent with ATN, from hypotension in the setting of sepsis. However nephritic elements present as well; no outpatient/prior urine studies for comparison. also, pt has taken 800 mg ibuprofen multiple times daily x years. Baseline creatinine 0.8 most recent labs November 2019. Presenting creatinine 2.2 on , creatinine now back to baseline. Daily basic metabolic panel -No need for fluids now -Renal will sign off. Please reconsult if additional questions or concerns (2) Acute respiratory failure with hypoxia: acute on chronic hypoxemic and hypercarbic respiratory failure > -Continuing BiPAP when sleeping. -Holding Lasix (3) HTN (hypertension): Blood pressure is on the high side. Patient also has tachycardia. Metoprolol was changed to Toprol-XL 50 mg daily. Admission and Anticipated Discharge Date Admission Date: June 08, 2020 Subjective Patient feels about the same. No shortness of breath. She still requires CPAP at night. She complains of right leg pain Review of Systems Review of Systems: All systems reviewed & are unremarkable except as noted in HPI & below Physical Exam Physical Exam: General exam: Appears comfortable, no acute distress HEENT: Pupils are equal and reactive to light Neck: No JVD, neck is supple trachea is midline Respiratory system: Clear breath sounds bilaterally. Gastrointestinal: Abdomen is soft, non distended, non tender, bowel sounds are present CVS: Regular rate and rhythm. No murmurs, rubs or gallops Musculoskeletal: No joint or muscle tenderness Extremities: Right leg is swollen and erythematous with weeping lesions Neuro: Oriented, no tremors, no focal neurological deficits Skin: No rashes Results & Data ([facility]) Vital Signs (Past 12 Hours) Vital Signs Temp Pulse Pulse Resp BP BP Pulse Ox 06/17/20 10:02 99 06/17/20 08:51 37 C 06/17/20 07:38 104 H 06/17/20 07:03 36.5 C 102 H 20 151/87 H 95 06/17/20 04:03 37.2 C 83 21 128/76 94 06/17/20 03:44 93 H 22 94 06/17/20 03:15 93 H 20 119/75 99 07/22/20 23:40 37.0 C 84 20 118/79 94 06/16/20 23:00 91 H 23 98 Laboratory Results 06/16/20 07:09
[2020-06-17] MEDS: TRAMADOL HCL 50 MG TABLET PO PRN (11:30)
--- NOTE | 2020-06-17 11:43 | Communication Note ---
Date of Service: June 17, 2020 per nursing , pt started to experience small amount vaginal bleed since last night pt is post menopausal , last period few years back sub q heparin on hold pelvic usg and Brand Planner consult requested Allie Villareal MD
--- NOTE | 2020-06-17 14:14 | Ultrasound Report ---
ULTRASOUND OF THE PELVIS CLINICAL HISTORY: Postmenopausal bleeding. COMPARISON STUDY: No priors. TECHNIQUE: Real-time, grayscale, and color flow sonography of the pelvis is performed both transabdom inally and endovaginally. Images are reviewed in the transverse and longitudinal planes. The examinat ion is degraded by large body habitus. FINDINGS: Uterus: The uterus is atrophic and heterogeneous, measuring at least 7 cm in length. Numerous nabothi an cysts are seen in the cervix. Endometrium: The endometrium is normal in appearance, and the endometrial stripe is normal in thickne ss measuring up to 1.0 cm. Ovaries: The ovaries were not visualized. Pelvis: There is no free fluid in the cul-de-sac. No concerning adnexal lesion is seen. IMPRESSION: 1. The uterus is atrophic and heterogeneous. 2. The endometrium is thickened for age measuring up to 1.0 cm in thickness. Nonemergent gynecology f ollow-up is recommended. 3. The ovaries were not visualized. ACT 112: Negative or not required by law. Electronically signed by: Shadi Coe M.D. 06/17/2020 2:13 PM
--- NOTE | 2020-06-17 15:36 | Wound Consultation ---
Date of Consultation June 17, 2020 Assessment & Plan (1) Cellulitis of right lower limb: This is a 55-year-old female with a severe cellulitis of her right lower extremity. Wounds need debridement. Topical Xylocaine was applied. After obtaining permission and using a curette, the wound was debrided of fibrin and slough. Minimal bleeding was controlled with pressure. Patient tolerated the procedure well with no complications. This represents a non-excisional debridement of approximately 600 cm. Wound was dressed with Aquacel Ag and an ultra sorb pad. If wound soaks through Aquacel Ag overnight which is reapply ultra sorb's. Continue antibiotics per infectious disease. Thank you for limited participate in the care of this patient. Please do not hesitate to call with any questions. We will continue to follow along. History of Present Illness Reason for Consultation: right leg cellultitis Attending Physician: Allie Villareal MD History of Present Illness This is a 55-year-old female with a history of SVT, pulmonary hypertension, obstructive sleep apnea and hypertension who was admitted June 08, 2020 with acute respiratory failure with hypoxia and severe cellulitis of her right leg. Patient remains on IV antibiotics. The right leg has blistered and has a large amount of drainage. Unable to obtain ABIs due to pain. At this time patient denies fever or chills. Allergies Allergy/AdvReac Type Severity Reaction Status Date / Time bee venom protein (honey bee) Allergy Unknown GENERALIZED Unverified 06/08/20 14:02 SWELLING-SOB No Known Drug Allergies Allergy Unknown NONE Unverified 06/08/20 14:02 Patient History Medical History Acute on chronic respiratory failure with hypoxia and hypercapnia Elevated parathyroid hormone HTN (hypertension) Lymphedema No pertinent family history Obesity, morbid, BMI 50 or higher Obstructive sleep apnea Surgical History No pertinent past surgical history Family History Grandmother Heart disease Social History Smoking Status: Former smoker packs per day: 1; Years Smoked: 15; Hx Alcohol Use: No Hx Substance Use: No Communication Ability: Effective Beliefs That Will Affect Care: None Current Living Situation: Family Other Information That Helps Us Care for You: No Feels Safe at Home: Yes Safety Concerns: Feels Safe At This Time Review of Systems Review of Systems: All systems reviewed & are unremarkable except as noted in HPI & below Physical Exam Constitutional: WD/WN, vitals as above Eyes: PERRL, conjunctivae normal, anicteric sclerae ENMT: external ear and nose normal, oropharynx normal Skin: Wound measuring as recorded in nursing documentation. This is a circumferential wound with blistering. Periwound is erythematous. There is copious amounts of drainage and no foul odor. Neurologic: awake; not confused Psychiatric: A+Ox3, euthymic affect Results & Data Vital Signs (Past 12 Hours) Vital Signs Temp Pulse Pulse Resp BP BP Pulse Ox 06/17/20 10:02 99 06/17/20 08:51 37 C 06/17/20 07:38 104 H 06/17/20 07:03 36.5 C 102 H 20 151/87 H 95 06/17/20 04:03 37.2 C 83 21 128/76 94 06/17/20 03:44 93 H 22 94 PG Care Time/CCT Total # of Minutes Spent Total Time Spent with Patient: Total time spent is greater than 50% in coordination of care (as documented) at patient's floor/unit and/or counseling patient: Coding Level of Care Code 51890 Inpt Consult Level 3 Diagnoses Cellulitis of right lower limb L03.115
--- NOTE | 2020-06-17 18:41 | Hospitalist Progress Note ---
Date of Service June 17, 2020 Assessment & Plan (1) Acute respiratory failure with hypoxia: Acute Hypoxic and Hypercarbic Respiratory Failure Secondary to restrictive lung disease, obesity Hypoventilation Syndrome, DOMINIQUE Morbid obesity This is a 55-year-old female that was admitted on 06/08/2020 with diagnosis of cellulitis of lower extremities, Sirs, acute on chronic respiratory failure with hypoxia, hypercapnia, and acute kidney injury. Respiratory status improved to approximate baseline . Repeat ABG showed resolution of acidosis with persistent PCO2. Continue BiPAP at night Patient input from pulmonology team -- Importance of using BiPAP emphasized with patient, as per travel attendants this is going to be life-sustaining for her at this point, patient verbalized understanding and agreement Continue current settings, 14/09 -- Will need to continue BiPAP upon discharge Close follow-up with pulmonary clinic as an outpatient -- will need weight loss as well, patient already following at [facility] bariatric clinic for possible bariatric surgery Dr Ayon Discussed with Dr. 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 requested (2) Cellulitis: Right lower extremity cellulitis Per admitting service notes: Reported fevers SIRS - leukocytosis, HR>90, RR> 28 on admission Met criteria for sepsis with possible infectious source - Cellulitis Chronic bilateral lower extremity edema/l lymphedema Noted blister on right lower extremity approximately 3 weeks ago, which continued to get worse, admitted with right lower extremity cellulitis Significant erythema, swelling, multiple blisters filled with pus noted -- -- blood cultures: Negative so far urine culture: Negative so far --Doppler studies right lower extremity: Negative for DVT -- Continue with daptomycin plus Zosyn Consulted wound care service, appreciate input, wound care provider Dr. Licea consulted pt underwent debridement of wounds on rt lower ext Consulted [facility] ID service, awaiting recommendations C (3) BLAYNE (acute kidney injury): Acute Renal Failure likely from ATN, in the setting of sepsis Also likely secondary to NSAID use Patient admits to taking ibuprofen 800 mg multiple times per day for several weeks now crea 0.8 at baseline Creatinine improved to baseline Creatinine 2.15 --> 2.12--> 2.0--> 1.6--> 1.3--> 1.0--> 0.8 Nephrology consulted IV fluids discontinued (4) Elevated troponin: likely from Demand Ischemia Possible underlying cor pulmonale Trop is 0.168--> 0.08--> 0.06 EKG no signs of infarct Echo: Rhythm sinus with frequent ventricular ectopic beats Left ventricular size is normal There is moderate concentric LVH Left ventricular wall motion is normal Ejection fraction 50 of 60% There is moderate thickening of the mitral valve leaflets and calcification of the posterior mitral valve annulus Aortic valve leaflets appear mildly callused There is mild to moderate mitral regurgitation There is moderate tricuspid regurgitation Mild to moderate elevation right heart pressures estimated right ventricular systolic pressure 40 to 45 mmHg Inferior vena cava small dilated right ventricle is mild dilated --Acute coronary syndrome unlikely Troponin elevation likely secondary to demand ischemia from hypoxia, also acute renal failure leading to multiple elevation --Patient has cor pulmonale likely secondary to obstructive sleep apnea, restrictive lung disease Likely contributing to bilateral lower extremity edema -- will resume Lasix in am (5) HTN (hypertension): continue Metoprolol XL 25 mg daily monitor (6) SVT (supraventricular tachycardia): Noted on 06/15/2020 around 7 AM patient had a 2-minute episode of SVT Patient reported palpitations but no dizziness or chest pain or shortness of breath Follows as an outpatient with [facility] cardiology clinic Continue metoprolol XL 50 mg daily for now Cardiology following (7) Constipation: Given lactulose 1 dose 06/14/2020, positive BMs Patient's nausea improved Continue senna daily, please give lactulose as needed (8) DVT prophylaxis: High risk given morbid obesity, bilateral lower extremity lymphedema, right lower extremity cellulitis Heparin SC q8h on hold for vaginal leed Disposition Will likely need to transition to rehab PT/OT eval Will need follow-up with PCP, pulmonology clinic, bariatric surgery clinic, electric meter installer Admission and Anticipated Discharge Date Admission Date: June 08, 2020 Subjective had episode of vaginal bleeding earlier resolved now no complain of abdominal pain no fever or chills Review of Systems Review of Systems: All systems reviewed & are unremarkable except as noted in HPI & below Physical Exam Constitutional: WD/WN, vitals as above + obese; no acute distress Eyes: no scleral abnormality ENMT: external ear and nose normal, oropharynx normal Neck: trachea midline, no thyromegaly Respiratory: normal respiratory effort and + cough; no respiratory distress Auscultation: no crackles, no rales and no wheezes Cardiovascular: Rate/Rhythm: regular rate and regular rhythm Extremities: + edema Gastrointestinal (Abdomen): Percussion/Palpation: abdomen soft; abdomen nont mannie Musculoskeletal: right leg extensive cellulitis , s/p debridement today bandage present Neurologic: PERRL, EOMI, accommodation nl, no face palsy, no dysarthria Results & Data Results & Data ([facility]) Vital Signs (Past 12 Hours) Vital Signs Temp Pulse Pulse Pulse Resp BP BP 06/17/20 15:00 36.5 C 93 H 18 128/76 06/17/20 10:02 06/17/20 08:51 37 C 06/17/20 07:38 104 H 06/17/20 07:03 36.5 C 102 H 20 151/87 H Pulse Ox 06/17/20 15:00 94 06/17/20 10:02 99 06/17/20 08:51 06/17/20 07:38 06/17/20 07:03 95
--- NOTE | 2020-06-17 22:38 | Electrocardiogram Report ---
Test Reason : Blood Pressure : / mmHG Vent. Rate : 093 BPM Atrial Rate : 093 BPM P-R Int : 164 ms QRS Dur : 092 ms QT Int : 358 ms P-R-T Axes : 045 -11 015 degrees QTc Int : 445 ms Sinus rhythm with frequent Premature ventricular complexes Low voltage QRS Possible Anterior infarct Abnormal ECG When compared with ECG of 16-JUN-2020 10:32, Premature ventricular complexes are now Present Confirmed by Diego Degroot ([id number]) on 06/17/2020 10:38:12 PM Referred By: REFERRED SELF Confirmed By:Diego Degroot
[2020-06-18] MEDS: HYDROCODONE/ACETAMOPHEN 5/325MG TAB PO PRN ×3 (00:51→21:02)
[2020-06-18] MEDS: ONDANSETRON INJ 2 MG/ML 2 ML VIAL IV PRN ×2 (00:52→23:01)
[2020-06-18] MEDS: PIPERACILLIN/TAZOBACTAM 4.5 GM in DEXTROSE 5% 100 ML IV SCH ×3 (02:28→17:22)
[2020-06-18] MEDS: HYDROmorphone INJ 0.5 MG/0.5 ML SYR IV PRN ×2 (02:30→15:02)
[2020-06-18] MEDS: TRAMADOL HCL 50 MG TABLET PO PRN ×2 (05:37→13:22)
[2020-06-18] MEDS: FLUTICASONE/VILANTEROL 100/25MCG 14 PUFFS/INHALER INH SCH (07:59)
[2020-06-18] MEDS: METOPROLOL SUCC 50MG EXT REL TAB PO SCH (07:59)
[2020-06-18] MEDS: DAPTOmycin 625 MG in SYRINGE 0 ML IV SCH (08:00)
[2020-06-18] MEDS: DOCUSATE SODIUM/SENNA 50/8.6MG TAB PO SCH (08:53)
[2020-06-18] MEDS: FUROSEMIDE 10 MG in SYRINGE 0 ML IV SCH ×2 (08:53→17:22)
--- NOTE | 2020-06-18 15:52 | Wound Progress Note ---
Date of Service June 18, 2020 Assessment & Plan (1) Cellulitis of right lower limb: Leg is improving. No debridement was done today. Wound be dressed with Aquacel Ag and ultra sorb pads. This will be wrapped with Kerlix. Patient will need ABIs or arterial studies when she is able to tolerate them. Subjective Patient seen at bedside. Tubigrip was too tight last night. There is still large amount of drainage. Patient denying fever or chills. Review of Systems Review of Systems: All systems reviewed & are unremarkable except as noted in HPI & below Physical Exam Skin: Wound measuring as recorded in nursing documentation. Still large amount of slough covering the wounds. Blisters are reabsorbing. Periwound remains erythematous but improved. Neurologic: awake; not confused Psychiatric: A+Ox3, euthymic affect Results & Data Vital Signs (Past 12 Hours) Vital Signs Temp Pulse Pulse Resp BP BP Pulse Ox 06/18/20 15:29 91 H 22 94 06/18/20 15:27 37.4 C 78 22 116/69 95 06/18/20 11:18 36.7 C 88 18 138/79 98 06/18/20 07:38 100 H 06/18/20 07:16 36.6 C 92 H 20 146/72 H 94 PG Care Time/CCT Total # of Minutes Spent Total Time Spent with Patient: Total time spent is greater than 50% in coordination of care (as documented) at patient's floor/unit and/or counseling patient: Coding Level of Care Code 42197 Subseq Hosp Care Lvl 2 Diagnoses Cellulitis of right lower limb L03.115
--- NOTE | 2020-06-18 17:05 | Hospitalist Progress Note ---
Date of Service June 18, 2020 Assessment & Plan (1) Acute respiratory failure with hypoxia: Acute Hypoxic and Hypercarbic Respiratory Failure Secondary to restrictive lung disease, obesity Hypoventilation Syndrome, DOMINIQUE Morbid obesity This is a 55-year-old female that was admitted on 06/08/2020 with diagnosis of cellulitis of lower extremities, Sirs, acute on chronic respiratory failure with hypoxia, hypercapnia, and acute kidney injury. Respiratory status improved to approximate baseline . Repeat ABG showed resolution of acidosis with persistent PCO2. Continue BiPAP at night Patient input from pulmonology team -- Importance of using BiPAP emphasized with patient, as per hot mix operator this is going to be life-sustaining for her at this point, patient verbalized understanding and agreement Continue current settings, 14/09 -- Will need to continue BiPAP upon discharge Close follow-up with pulmonary clinic as an outpatient -- will need weight loss as well, patient already following at [facility] bariatric clinic for possible bariatric surgery Dr Ayon Discussed with Dr. Poole via [place] text , patient has an appointment with them next week, may need to be done via telemedicine if possible Post menauposal bleed : pelvic USG shows thickend endometrium considering age Assembly Repairer eval requested (2) Cellulitis: Right lower extremity cellulitis Per admitting service notes: Reported fevers SIRS - leukocytosis, HR>90, RR> 28 on admission Met criteria for sepsis with possible infectious source - Cellulitis Chronic bilateral lower extremity edema/l lymphedema Noted blister on right lower extremity approximately 3 weeks ago, which continued to get worse, admitted with right lower extremity cellulitis Significant erythema, swelling, multiple blisters filled with pus noted -- -- blood cultures: Negative so far urine culture: Negative so far --Doppler studies right lower extremity: Negative for DVT -- Continue with daptomycin plus Zosyn Consulted wound care service, appreciate input, wound care provider Dr. Licea consulted pt underwent debridement of wounds on rt lower ext Continue local wound care Consulted [facility] ID service, awaiting recommendations (3) BLAYNE (acute kidney injury): Acute Renal Failure likely from ATN, in the setting of sepsis Also likely secondary to NSAID use Patient admits to taking ibuprofen 800 mg multiple times per day for several weeks now crea 0.8 at baseline Creatinine improved to baseline Creatinine 2.15 --> 2.12--> 2.0--> 1.6--> 1.3--> 1.0--> 0.8 Nephrology consulted IV fluids discontinued (4) Elevated troponin: likely from Demand Ischemia Possible underlying cor pulmonale Trop is 0.168--> 0.08--> 0.06 EKG no signs of infarct Echo: Rhythm sinus with frequent ventricular ectopic beats Left ventricular size is normal There is moderate concentric LVH Left ventricular wall motion is normal Ejection fraction 50 of 60% There is moderate thickening of the mitral valve leaflets and calcification of the posterior mitral valve annulus Aortic valve leaflets appear mildly callused There is mild to moderate mitral regurgitation There is moderate tricuspid regurgitation Mild to moderate elevation right heart pressures estimated right ventricular systolic pressure 40 to 45 mmHg Inferior vena cava small dilated right ventricle is mild dilated --Acute coronary syndrome unlikely Troponin elevation likely secondary to demand ischemia from hypoxia, also acute renal failure leading to multiple elevation --Patient has cor pulmonale likely secondary to obstructive sleep apnea, restrictive lung disease Likely contributing to bilateral lower extremity edema -- Lasix resumed (5) HTN (hypertension): continue Metoprolol XL 25 mg daily monitor (6) SVT (supraventricular tachycardia): Noted on 06/15/2020 around 7 AM patient had a 2-minute episode of SVT Patient reported palpitations but no dizziness or chest pain or shortness of breath Follows as an outpatient with [facility] cardiology clinic Continue metoprolol XL 50 mg daily for now Cardiology following (7) Constipation: Given lactulose 1 dose 06/14/2020, positive BMs Patient's nausea improved Continue senna daily, please give lactulose as needed (8) DVT prophylaxis: High risk given morbid obesity, bilateral lower extremity lymphedema, right lower extremity cellulitis Heparin subcu Disposition Will likely need to transition to rehab PT/OT eval Will need follow-up with PCP, pulmonology clinic, bariatric surgery clinic, electrician helper powerhouse Admission and Anticipated Discharge Date Admission Date: June 08, 2020 Subjective Status post bedside debridement of right Leg cellulitis by wound care provider Still have pain and discomfort due to procedure No fever or chills, denies of any shortness of breath, Used BiPAP approximately 6 hours last night Physical Exam Constitutional: WD/WN, vitals as above + obese; no acute distress Eyes: no scleral abnormality ENMT: external ear and nose normal, oropharynx normal Neck: trachea midline, no thyromegaly Respiratory: normal respiratory effort and + cough; no respiratory distress Auscultation: no crackles, no rales and no wheezes Cardiovascular: Rate/Rhythm: regular rate and regular rhythm Extremities: + edema Gastrointestinal (Abdomen): Percussion/Palpation: abdomen soft; abdomen nontender Musculoskeletal: Extensive right lower leg lymphedema, erythema, cellulitis, status post debridement, bandage present Neurologic: PERRL, EOMI, accommodation nl, no face palsy, no dysarthria Results & Data Results & Data ([facility]) Vital Signs (Past 12 Hours) Vital Signs Temp Pulse Pulse Resp BP BP Pulse Ox 06/18/20 16:44 105 H 06/18/20 15:29 91 H 22 94 06/18/20 15:27 37.4 C 78 22 116/69 95 06/18/20 11:18 36.7 C 88 18 138/79 98 06/18/20 07:38 100 H 06/18/20 07:16 36.6 C 92 H 20 146/72 H 94
--- NOTE | 2020-06-18 20:45 | OB/GYN Consultation ---
Date of Consultation June 18, 2020 Assessment & Plan (1) Post-menopausal bleeding: TUBE DEPATCHER Consult dictated Plan Unremarkable pelvic sonogram pt will need an endometrial biopsy This will require a TUBE DEPATCHER exam table and endometrial Pipelle Pt will f/u with me in the office after disch . Gradall Operator will no longer follow this pt unless her land surveying party chief situation changes Thank you for the consult and please do not hesitate to reconsult our services if you need to' History of Present Illness Attending Physician: Allie Villareal MD Allergies Allergy/AdvReac Type Severity Reaction Status Date / Time bee venom protein (honey bee) Allergy Unknown GENERALIZED Unverified 06/08/20 14:02 SWELLING-SOB No Known Drug Allergies Allergy Unknown NONE Unverified 06/08/20 14:02 Patient History Medical History Acute on chronic respiratory failure with hypoxia and hypercapnia Elevated parathyroid hormone HTN (hypertension) Lymphedema No pertinent family history Obesity, morbid, BMI 50 or higher Obstructive sleep apnea Surgical History No pertinent past surgical history Family History Grandmother Heart disease Social History Smoking Status: Former smoker packs per day: 1; Years Smoked: 15; Hx Alcohol Use: No Hx Substance Use: No Communication Ability: Effective Beliefs That Will Affect Care: None Current Living Situation: Family Other Information That Helps Us Care for You: No Feels Safe at Home: Yes Safety Concerns: Feels Safe At This Time Results & Data Vital Signs (Past 12 Hours) Vital Signs Temp Pulse Pulse Pulse Resp BP BP 06/18/20 19:01 36.7 C 97 H 20 119/72 06/18/20 16:44 105 H 06/18/20 15:29 91 H 22 06/18/20 15:27 37.4 C 78 22 116/69 06/18/20 11:18 36.7 C 88 18 138/79 Pulse Ox 06/18/20 19:01 92 06/18/20 16:44 06/18/20 15:29 94 06/18/20 15:27 95 06/18/20 11:18 98
[2020-06-18 22:11] LABS: Anti-DNASE B Ab 146 U/mL (<301); Complement C3 217 mg/dL (83-193); Complement Total(CH50) >60 U/mL (31-60); Rheumatoid Factor 14 IU/mL (<14)
--- NOTE | 2020-06-18 22:37 | History and Physical Report ---
DATE OF ADMISSION: 06/08/[address] Villareal. This is a SHOVEL HANDLE ASSEMBLER consult for vaginal bleeding. HISTORY OF PRESENT ILLNESS: This is a 55-year-old who was admitted to [facility] on 06/08/2020 with complaints of right leg swelling and shortness of breath. The patient was in her usual state of health. She is a morbidly obese patient, BMI over 70, who has chronic cellulitis on her right leg. Her cellulitis prior to 06/08/2020 was getting worse. 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 Upon recommendation of her central office supervisor, she went to see her PCP. Her PCP directed her to the Emergency Room where in the emergency room, she was admitted with a fever of 101.4 and possible sepsis. The patient was admitted on medicine service and has been here since. She is being evaluated for hypertension, sepsis, acute kidney failure and was started on DVT prophylaxis. She began to have some vaginal bleeding and so SHOVEL HANDLE ASSEMBLER was consulted. She has had a transvaginal ultrasound, which showed a uterus of about 7 weeks' size with normal endometrial thickening. The patient has no history of SHOVEL HANDLE ASSEMBLER cancers, cervical, uterine, or ovarian. She has been postmenopausal for over 4 years. She has not seen SHOVEL HANDLE ASSEMBLER in several years. PAST MEDICAL HISTORY: 1. History of parathyroid disease. 2. Hypertension. 3. Lymphedema. PAST SURGICAL HISTORY: None. SOCIAL HISTORY: The patient denies tobacco, drug or alcohol use. FAMILY HISTORY: Noncontributory. PHYSICAL EXAMINATION: GENERAL: Obese white female resting comfortably in bed. HEART: Regular rhythm and rate. PELVIC: The patient has cough. Otherwise lungs are clear. EXTREMITIES: As stated above, she has right leg cellulitis, which has been debrided by wound therapy today. It is well bandaged and appeared to be clean and dry. Left leg is otherwise unremarkable except for large size because of obesity. No cyanosis, clubbing or edema. ASSESSMENT AND PLAN: This is a 55-year-old obese patient with multiple medical problems including hypertension, renal disease, sepsis, and cellulitis, who has been admitted since 06/08/2020. SHOVEL HANDLE ASSEMBLER consult was placed because patient had vaginal bleeding after being placed on DVT prophylaxis. Bedside transvaginal ultrasound was otherwise unremarkable. The patient will need endometrial biopsy which cannot be done in this hospital setting. The patient is very morbidly obese and will need procedure room to do the endometrial biopsy. At the moment, this is something that can be done as an outpatient. I have discussed findings with the patient. The patient will follow up with me in the office where an office endometrial biopsy will be done. I discussed this with the hospitalist information consultant tonight as far as my plan. Please do not hesitate to reconsult if needed. SHOVEL HANDLE ASSEMBLER will no longer follow this patient unless patient's situation changes.
[2020-06-19] MEDS: PIPERACILLIN/TAZOBACTAM 4.5 GM in DEXTROSE 5% 100 ML IV SCH ×3 (02:35→17:21)
[2020-06-19] MEDS: HYDROmorphone INJ 0.5 MG/0.5 ML SYR IV PRN (03:58)
[2020-06-19] MEDS: HYDROCODONE/ACETAMOPHEN 5/325MG TAB PO PRN ×3 (06:23→20:46)
[2020-06-19] MEDS: DOCUSATE SODIUM/SENNA 50/8.6MG TAB PO SCH (08:37)
[2020-06-19] MEDS: FUROSEMIDE 10 MG in SYRINGE 0 ML IV SCH ×2 (08:37→17:13)
[2020-06-19] MEDS: FLUTICASONE/VILANTEROL 100/25MCG 14 PUFFS/INHALER INH SCH (08:38)
[2020-06-19] MEDS: METOPROLOL SUCC 50MG EXT REL TAB PO SCH (08:48)
[2020-06-19] MEDS: DAPTOmycin 625 MG in SYRINGE 0 ML IV SCH (08:48)
[2020-06-19] MEDS: TRAMADOL HCL 50 MG TABLET PO PRN ×2 (11:38→17:55)
--- NOTE | 2020-06-19 17:16 | Hospitalist Progress Note ---
Date of Service June 19, 2020 Assessment & Plan (1) Acute respiratory failure with hypoxia: Acute Hypoxic and Hypercarbic Respiratory Failure Secondary to restrictive lung disease, obesity Hypoventilation Syndrome, DOMINIQUE Morbid obesity This is a 55-year-old female that was admitted on 06/08/2020 with diagnosis of cellulitis of lower extremities, Sirs, acute on chronic respiratory failure with hypoxia, hypercapnia, and acute kidney injury. Respiratory status improved to approximate baseline . Repeat ABG showed resolution of acidosis with persistent PCO2. Continue BiPAP at night Patient input from pulmonology team -- Importance of using BiPAP emphasized with patient, as per vehicle return associate this is going to be life-sustaining for her at this point, patient verbalized understanding and agreement Continue current settings, 14/09 -- Will need to continue BiPAP upon discharge Close follow-up with pulmonary clinic as an outpatient -- will need weight loss as well, patient already following at [facility] bariatric clinic for possible bariatric surgery Dr Ayon Discussed with Dr. Poole via [place] text , patient has an appointment with them next week, may need to be done via telemedicine if possible Post menauposal bleed : No further episode pelvic USG shows thickend endometrium considering age Manager Information eval requested Appreciate input, Recommends outpatient follow-up in clinic for endometrial biopsy Rash/itching Possible allergic reaction to IV Dilaudid,Ordered recently after post debridement of right lower extremity patient reports feeling of itching after IV pain meds, has been tolerated been tolerating IV antibiotic Has to limit IV Dilaudid, utilize p.o. pain med benadryl ordered continue to monitor (2) Cellulitis: Right lower extremity cellulitis Per admitting service notes: Reported fevers SIRS - leukocytosis, HR>90, RR> 28 on admission Met criteria for sepsis with possible infectious source - Cellulitis Chronic bilateral lower extremity edema/l lymphedema Noted blister on right lower extremity approximately 3 weeks ago, which continued to get worse, admitted with right lower extremity cellulitis Significant erythema, swelling, multiple blisters filled with pus noted -- -- blood cultures: Negative so far urine culture: Negative so far --Doppler studies right lower extremity: Negative for DVT -- Continue with daptomycin plus Zosyn Consulted wound care service, appreciate input, wound care provider Dr. Licea consulted pt underwent debridement of wounds on rt lower ext Continue local wound care Consulted [facility] ID service, awaiting recommendations (3) BLAYNE (acute kidney injury): Acute Renal Failure likely from ATN, in the setting of sepsis Also likely secondary to NSAID use Patient admits to taking ibuprofen 800 mg multiple times per day for several weeks now crea 0.8 at baseline Creatinine improved to baseline Creatinine 2.15 --> 2.12--> 2.0--> 1.6--> 1.3--> 1.0--> 0.8 Nephrology consulted IV fluids discontinued (4) Elevated troponin: likely from Demand Ischemia Possible underlying cor pulmonale Trop is 0.168--> 0.08--> 0.06 EKG no signs of infarct Echo: Rhythm sinus with frequent ventricular ectopic beats Left ventricular size is normal There is moderate concentric LVH Left ventricular wall motion is normal Ejection fraction 50 of 60% There is moderate thickening of the mitral valve leaflets and calcification of the posterior mitral valve annulus Aortic valve leaflets appear mildly callused There is mild to moderate mitral regurgitation There is moderate tricuspid regurgitation Mild to moderate elevation right heart pressures estimated right ventricular systolic pressure 40 to 45 mmHg Inferior vena cava small dilated right ventricle is mild dilated --Acute coronary syndrome unlikely Troponin elevation likely secondary to demand ischemia from hypoxia, also acute renal failure leading to multiple elevation --Patient has cor pulmonale likely secondary to obstructive sleep apnea, restrictive lung disease Likely contributing to bilateral lower extremity edema -- Lasix resumed (5) HTN (hypertension): continue Metoprolol XL 25 mg daily monitor (6) SVT (supraventricular tachycardia): Noted on 06/15/2020 around 7 AM patient had a 2-minute episode of SVT Patient reported palpitations but no dizziness or chest pain or shortness of breath Follows as an outpatient with [facility] cardiology clinic Continue metoprolol XL 50 mg daily for now Cardiology following (7) Constipation: Given lactulose 1 dose 06/14/2020, positive BMs Patient's nausea improved Continue senna daily, please give lactulose as needed (8) DVT prophylaxis: High risk given morbid obesity, bilateral lower extremity lymphedema, right lower extremity cellulitis Heparin subcu Disposition Will likely need to transition to rehab PT/OT eval Will need follow-up with PCP, pulmonology clinic, bariatric surgery clinic, patternmaker plaster Admission and Anticipated Discharge Date Admission Date: June 08, 2020 Subjective Developed erythematous rash, itching on back, Patient reports of itching sensation after getting IV Dilaudid No discomfort after taking p.o. [place] No fever or chills, no shortness of breath or cough Right leg slightly area pain has improved Physical Exam Constitutional: WD/WN, vitals as above + obese; no acute distress Eyes: no scleral abnormality ENMT: external ear and nose normal, oropharynx normal Neck: trachea midline, no thyromegaly Respiratory: normal respiratory effort and + cough; no respiratory distress Auscultation: no crackles, no rales and no wheezes Cardiovascular: Rate/Rhythm: regular rate and regular rhythm Extremities: + edema Gastrointestinal (Abdomen): Percussion/Palpation: abdomen soft; abdomen nontender Neurologic: PERRL, EOMI, accommodation nl, no face palsy, no dysarthria Results & Data Results & Data ([facility]) Vital Signs (Past 12 Hours) Vital Signs Temp Pulse Pulse Resp BP BP Pulse Ox 06/19/20 15:50 102 H 06/19/20 15:08 36.7 C 70 18 142/81 H 96 06/19/20 11:26 36.8 C 61 18 139/80 96 06/19/20 08:49 105 H 109/64 06/19/20 07:19 36.7 C 96 H 18 104/54 L 92 06/19/20 07:01 98 H
[2020-06-19] MEDS: ACETAMINOPHEN 325 MG TAB PO PRN (21:58)
[2020-06-19] MEDS: HEPARIN SOD 5,000 UNIT/0.5 ML VIAL SQ SCH (22:41)
[2020-06-20] MEDS: PIPERACILLIN/TAZOBACTAM 4.5 GM in DEXTROSE 5% 100 ML IV SCH ×2 (02:38→09:14)
[2020-06-20] MEDS: TRAMADOL HCL 50 MG TABLET PO PRN ×3 (05:47→20:51)
[2020-06-20] MEDS: HEPARIN SOD 5,000 UNIT/0.5 ML VIAL SQ SCH (05:48)
[2020-06-20] MEDS ORDERED: FUROSEMIDE 20 MG TAB PO SCH (09:00)
[2020-06-20] MEDS: DAPTOmycin 625 MG in SYRINGE 0 ML IV SCH (09:08)
[2020-06-20] MEDS: FLUTICASONE/VILANTEROL 100/25MCG 14 PUFFS/INHALER INH SCH (09:08)
[2020-06-20] MEDS: METOPROLOL SUCC 50MG EXT REL TAB PO SCH (09:11)
[2020-06-20] MEDS: HYDROCODONE/ACETAMOPHEN 5/325MG TAB PO PRN ×2 (09:18→15:23)
[2020-06-20] MEDS: DOCUSATE SODIUM/SENNA 50/8.6MG TAB PO SCH (09:18)
--- NOTE | 2020-06-20 09:28 | Hospitalist Progress Note ---
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 pain med benadryl ordered continue to monitor Patient has been utilizing p.o. narcotic pain meds only, itching, diffuse erythematous rash on back and torso has improved (2) Acute respiratory failure with hypoxia: Acute Hypoxic and Hypercarbic Respiratory Failure Secondary to restrictive lung disease, obesity Hypoventilation Syndrome, DOMINIQUE Morbid obesity This is a 55-year-old female that was admitted on 06/08/2020 with diagnosis of cellulitis of lower extremities, SIRS acute on chronic respiratory failure with hypoxia, hypercapnia, and acute kidney injury. Respiratory status improved to approximate baseline . Appreciate input from neurology team Patient is started on BiPAP at night, so far has been tolerating only 4-6 hours at night -- Importance of using BiPAP emphasized with patient, as per song plugger this is going to be life-sustaining for her at this point, patient verbalized und erstanding and agreement Continue current settings, 14/09 -- Will need to continue BiPAP upon discharge Close follow-up with pulmonary clinic as an outpatient -- will need weight loss as well, patient already following at [facility] bariatric clinic for possible bariatric surgery Bariatric surgery was contacted by previous hospitalist Dr. Poole Patient will need clinic follow-up/telehealth appointment after discharged from hospital (3) Cellulitis: Right lower extremity cellulitis Per admitting service notes: Reported fevers SIRS - leukocytosis, HR>90, RR> 28 on admission Met criteria for sepsis with possible infectious source - Cellulitis Chronic bilateral lower extremity edema/l lymphedema Noted blister on right lower extremity approximately 3 weeks ago, which continued to get worse, admitted with right lower extremity cellulitis Significant erythema, swelling, multiple blisters filled with pus noted -- -- blood cultures: Negative so far urine culture: Negative so far --Doppler studies right lower extremity: Negative for DVT --MRSA nasal screening negative On daptomycin/Zosyn We will DC daptomycin now We will change antibiotic to IV Rocephin, Appreciate input from wound care provider Dr. Licea, pt underwent debridement of wounds on rt lower ext Continue local wound care (4) BLAYNE (acute kidney injury): Acute Renal Failure likely from ATN, in the setting of sepsis Also likely secondary to NSAID use Patient admits to taking ibuprofen 800 mg multiple times per day for several weeks now Improved to baseline, Patient is counseled repeated time to avoid NSAIDs Appreciate input from nephrology (5) Elevated troponin: likely from Demand Ischemia Possible underlying cor pulmonale Trop is 0.168--> 0.08--> 0.06 , EKG no signs of infarct Echo: Left ventricular wall motion is normal Ejection fraction 50 of 60% Mild to moderate elevation right heart pressures estimated right ventricular systolic pressure 40 to 45 mmHg --Acute coronary syndrome unlikely Echo no wall motion abnormality, no anginal symptoms, no chest pain or chest heaviness, Troponin elevation likely secondary to demand ischemia from hypoxia, also acute renal failure leading to multiple elevation --Patient has cor pulmonale likely secondary to obstructive sleep apnea, restrictive lung disease Also evidence of right heart failure noted Likely contributing to bilateral lower extremity edema -- Lasix resumed Continue CPAP at night (6) HTN (hypertension): BP stable: continue Metoprolol XL 25 mg daily monitor (7) SVT (supraventricular tachycardia): Noted on 06/15/2020 around 7 AM patient had a 2-minute episode of SVT Patient reported palpitations but no dizziness or chest pain or shortness of breath Follows as an outpatient with [facility] cardiology clinic Continue metoprolol XL 50 mg daily for now Cardiology following (8) DVT prophylaxis: High risk given morbid obesity, bilateral lower extremity lymphedema, right lower extremity cellulitis Subcu heparin discontinued, as patient continued to have intermittent vaginal bleed Disposition Will likely need to transition to rehab PT/OT eval requested Will need follow-up with PCP, pulmonology clinic, bariatric surgery clinic, risk and insurance consultant Admission and Anticipated Discharge Date Admission Date: June 08, 2020 Subjective Patient seen and examined at bedside, Reports of having a lower abdominal cramps with intermittent vaginal bleeding/spotting Itching/erythematous rash on back and torso has almost resolved Patient has been utilizing p.o. pain meds only, we are avoiding IV Dilaudid for possible drug allergic reaction Reports of having chills this morning, no fever Vitals been stable, Able to tolerate CPAP at night for 4-6 hours No cough, no shortness of breath, denies of any orthopnea Review of Systems Constitutional: + chills; no fever Genitourinary: Intermittent vaginal bleeding Physical Exam Constitutional: WD/WN, vitals as above + obese; no acute distress Eyes: no scleral abnormality ENMT: external ear and nose normal, oropharynx normal Neck: trachea midline, no thyromegaly Respiratory: normal respiratory effort and + cough; no respiratory distress Auscultation: no crackles, no rales and no wheezes Cardiovascular: Rate/Rhythm: regular rate and regular rhythm Extremities: + edema Gastrointestinal (Abdomen): Percussion/Palpation: abdomen soft; abdomen nontender Neurologic: PERRL, EOMI, accommodation nl, no face palsy, no dysarthria Results & Data Results & Data ([facility]) Vital Signs (Past 12 Hours) Vital Signs Temp Pulse Pulse Resp BP Pulse Ox 06/20/20 07:28 36.9 C 100 H 18 148/66 H 96 06/20/20 03:50 36.9 C 88 20 125/73 100 06/20/20 03:48 77 24 95 06/19/20 23:44 76 20 98 06/19/20 23:13 36.8 C 105 H 18 96/48 L 93 (1) Cellulitis Site of cellulitis: extremity Site of cellulitis of extremity: lower extremity Laterality: right Qualified Code(s): L03.115 - Cellulitis of right lower limb
[2020-06-20] MEDS: cefTRIAXone SODIUM 2,000 MG in DEXTROSE 5% 50 ML IV SCH (10:07)
[2020-06-20] MEDS ORDERED: FUROSEMIDE 20 MG TAB PO ONE (10:08)
[2020-06-20 11:03] LABS: Hematocrit (blood only) 32.5 % (37-47); Hemoglobin 10.2 g/dL (12.0-16.0); Mean Corpuscular Hemoglobin 29.8 pg (25-34); Mean Corpuscular Hgb Conc 31.4 g/dL (32-36); Mean Platelet Volume 8.8 fL (7.4-10.4); Platelet Count 335 K/uL (130-400); RDW Coefficient of Variation 14.9 % (11.5-14.5); RDW Standard Deviation 51.4 fL (36.4-46.3); Red Blood Count 3.42 M/uL (4.2-5.4); White Blood Count 11.74 K/uL (4.8-10.8)
[2020-06-20] MEDS: ONDANSETRON INJ 2 MG/ML 2 ML VIAL IV PRN (11:13)
[2020-06-20] MEDS: PROMETHAZINE HCL 12.5 MG in SODIUM CHLORIDE 0.9% 50 ML IV PRN (16:09)
[2020-06-20] MEDS: FUROSEMIDE 20 MG TAB PO SCH (16:22)
[2020-06-20] MEDS: ACETAMINOPHEN 325 MG TAB PO PRN (19:37)
[2020-06-20] MEDS ORDERED: KETOROLAC TROMETHAMINE 15 MG/ML VIAL IV ONE (21:39)
[2020-06-21] MEDS: HYDROCODONE/ACETAMOPHEN 5/325MG TAB PO PRN ×2 (05:35→13:37)
[2020-06-21] MEDS: ACETAMINOPHEN 325 MG TAB PO PRN ×2 (06:13→19:17)
[2020-06-21 07:48] LABS: BUN Creatinine Ratio 12.7 (10-20); Calcium 8.4 mg/dl (8.5-10.1); Creatinine Clr Calc Pharmacy 115.3 ml/min; Est GFR (African American) 87.5; Est GFR (Non-African American) 75.5; Potassium 4.1 mmol/L (3.5-5.1)
[2020-06-21] MEDS: FLUTICASONE/VILANTEROL 100/25MCG 14 PUFFS/INHALER INH SCH (08:01)
[2020-06-21] MEDS: METOPROLOL SUCC 50MG EXT REL TAB PO SCH (08:01)
[2020-06-21] MEDS: DOCUSATE SODIUM/SENNA 50/8.6MG TAB PO SCH (08:02)
[2020-06-21] MEDS: FUROSEMIDE 20 MG TAB PO SCH ×2 (08:02→16:04)
[2020-06-21] MEDS: cefTRIAXone SODIUM 2,000 MG in DEXTROSE 5% 50 ML IV SCH (09:09)
[2020-06-21] MEDS: TRAMADOL HCL 50 MG TABLET PO PRN ×2 (09:09→15:36)
--- NOTE | 2020-06-21 13:52 | Wound Progress Note ---
Date of Service June 21, 2020 Assessment & Plan (1) Cellulitis of right lower limb: Leg is improving. No debridement was done today. Wound be dressed with Aquacel Ag and ABD pads. This will be wrapped with Kerlix. Patient instructed to keep the dressing in place. Patient will need ABIs or arterial studies when she is able to tolerate them. I will see patient in the office after discharge. Subjective Patient seen at bedside with WOCN. She had no dressing on. Reports it was getting too tight. Review of Systems Review of Systems: All systems reviewed & are unremarkable except as noted in HPI & below Physical Exam Skin: Circumferential wound measuring as recorded in nursing documentation. Wound appears to be clinically improving. The anterior aspect is dried out secondary to no dressing on. There is still significant drainage coming from the lateral medial and posterior aspects of the wound. Periwound is erythematous but improving. Neurologic: awake; not confused Psychiatric: A+Ox3, euthymic affect Results & Data Vital Signs (Past 12 Hours) Vital Signs Temp Pulse Pulse Resp BP Pulse Ox 06/21/20 11:06 36.8 C 97 H 18 143/76 H 98 06/21/20 08:00 108 H 06/21/20 07:27 37.4 C 85 18 136/68 91 06/21/20 03:43 101 H 20 95 06/21/20 02:52 37.0 C 98 H 18 93/64 L 94 PG Care Time/CCT Total # of Minutes Spent Total Time Spent with Patient: Total time spent is greater than 50% in coordination of care (as documented) at patient's floor/unit and/or counseling patient: Coding Level of Care Code 49570 Subseq Hosp Care Lvl 2 Diagnoses Cellulitis of right lower limb L03.115
[2020-06-21] MEDS: cephALEXin 250 MG CAP PO SCH ×2 (16:05→21:35)
--- NOTE | 2020-06-21 17:21 | Hospitalist Progress Note ---
Date of Service June 21, 2020 Assessment & Plan (1) Cellulitis: Right lower extremity Extensive cellulitis With pus-containing blisters Chronic bilateral lower extremity edema/l lymphedema Noted blister on right lower extremity approximately 3 weeks ago, which continued to get worse, admitted with right lower extremity cellulitis Significant erythema, swelling, multiple blisters filled with pus noted --Doppler studies right lower extremity: Negative for DVT Need arterial Doppler and ANNE-MARIE when patient is able to tolerate --MRSA nasal screening negative Appreciate input from wound care provider : According to his note: Leg is improving. No debridement was done today. Wound be dressed with Aquacel Ag and ABD pads. This will be wrapped with Kerlix. Patient instructed to keep the dressing in place. Patient will need ABIs or arterial studies when she is able to tolerate them. Patient will be seen by wound care provider in clinic after discharge (2) Post-menopausal bleeding: Patient noted to have intermittent vaginal bleed /Spotting on and off No further episode now pelvic USG shows thickend endometrium measuring up to 1 cm considering age Barrel Header eval requested Appreciate input, Recommends outpatient follow-up in clinic for endometrial biopsy Will DC subcu heparin, No further vaginal bleed episode after discontinuation of subcu heparin Rash/itching/ Symptom has completely resolved:no Itching or rash noted Possible allergic reaction to IV Dilaudid,Ordered recently after post debridement of right lower extremity patient reports feeling of itching after IV pain meds, has been tolerating IV antibiotic Has to limit IV Dilaudid, utilize p.o. pain med benadryl ordered continue to monitor Patient has been utilizing p.o. narcotic pain meds only, itching, diffuse erythematous rash on back and torso has improved (3) Acute respiratory failure with hypoxia: Acute Hypoxic and Hypercarbic Respiratory Failure Secondary to restrictive lung disease, obesity Hypoventilation Syndrome, DOMINIQUE Morbid obesity This is a 55-year-old female that was admitted on 06/08/2020 with diagnosis of cellulitis of lower extremities, SIRS acute on chronic respiratory failure with hypoxia, hypercapnia, and acute kidney injury. Respiratory status improved to approximate baseline . Appreciate input from neurology team Patient is started on BiPAP at night, so far has been tolerating only 4-6 hours at night -- Importance of using BiPAP emphasized with patient, as per civil engineering design draftsperson this is going to be life-sustaining for her at this point, patient verbalized understanding and agreement Continue current settings, 14/09 -- Will need to continue BiPAP upon discharge To rehab Close follow-up with pulmonary clinic as an outpatient -- will need weight loss as well, patient already following at [facility] bariatric clinic for possible bariatric surgery Bariatric surgery was contacted by previous hospitalist Dr. Poole Patient will need clinic follow-up/telehealth appointment after discharged from hospital (4) BLAYNE (acute kidney injury): Resolved, renal function improved to baseline Acute Renal Failure likely from ATN, in the setting of sepsis Also likely secondary to NSAID use Patient admits to taking ibuprofen 800 mg multiple times per day for several we eks now Patient is counseled repeated time to avoid NSAIDs Appreciate input from nephrology (5) Elevated troponin: likely from Demand Ischemia Possible underlying cor pulmonale Trop is 0.168--> 0.08--> 0.06 , EKG no signs of infarct Echo: Left ventricular wall motion is normal Ejection fraction 50 of 60% Mild to moderate elevation right heart pressures estimated right ventricular systolic pressure 40 to 45 mmHg --Acute coronary syndrome unlikely Echo no wall motion abnormality, no anginal symptoms, no chest pain or chest heaviness, Troponin elevation likely secondary to demand ischemia from hypoxia, also acute renal failure leading to multiple elevation --Patient has cor pulmonale likely secondary to obstructive sleep apnea, restrictive lung disease Also evidence of right heart failure noted Likely contributing to bilateral lower extremity edema -- Lasix resumed Continue CPAP at night (6) HTN (hypertension): BP stable: Intermittent tachycardia noted continue Metoprolol XL 25 mg daily monitor In telemetry (7) SVT (supraventricular tachycardia): Noted on 06/15/2020 around 7 AM patient had a 2-minute episode of SVT Patient reported palpitations but no dizziness or chest pain or shortness of breath Follows as an outpatient with [facility] cardiology clinic Continue metoprolol XL 50 mg daily Cardiology following (8) DVT prophylaxis: High risk given morbid obesity, bilateral lower extremity lymphedema, right lower extremity cellulitis Subcu heparin discontinued, as patient continued to have intermittent vaginal bleed Disposition Will likely need to transition to rehab PT/OT eval requested Will need follow-up with PCP, pulmonology clinic, bariatric surgery clinic, inorganic chemical technician Admission and Anticipated Discharge Date Admission Date: June 08, 2020 Subjective Patient seen at bedside Denies of any pain or discomfort, Vitals been stable, No further bleeding per vagina or spotting Right lower extremity dressing change done by Dr. Godinez earlier Physical Exam Constitutional: WD/WN, vitals as above + obese; no acute distress Eyes: no scleral abnormality ENMT: external ear and nose normal, oropharynx normal Neck: trachea midline, no thyromegaly Respiratory: normal respiratory effort and + cough; no respiratory distress Auscultation: no crackles, no rales and no wheezes Cardiovascular: Rate/Rhythm: regular rate and regular rhythm Extremities: + edema Gastrointestinal (Abdomen): Percussion/Palpation: abdomen soft; abdomen nontender Neurologic: PERRL, EOMI, accommodation nl, no face palsy, no dysarthria Results & Data Results & Data ([facility]) Vital Signs (Past 12 Hours) Vital Signs Temp Pulse Pulse Resp BP BP Pulse Ox 06/21/20 15:20 37.7 C H 81 18 131/72 95 06/21/20 11:06 36.8 C 97 H 18 143/76 H 98 06/21/20 08:00 108 H 06/21/20 07:27 37.4 C 85 18 136/68 91 (1) Cellulitis Laterality: right Site of cellulitis: extremity Site of cellulitis of extremity: lower extremity Qualified Code(s): L03.115 - Cellulitis of right lower limb
[2020-06-22] MEDS: ACETAMINOPHEN 325 MG TAB PO PRN ×2 (00:15→19:07)
[2020-06-22] MEDS: FUROSEMIDE 20 MG TAB PO SCH ×2 (08:29→16:32)
[2020-06-22] MEDS: HYDROCODONE/ACETAMOPHEN 5/325MG TAB PO PRN ×2 (08:30→21:31)
[2020-06-22] MEDS: METOPROLOL SUCC 50MG EXT REL TAB PO SCH (08:30)
[2020-06-22] MEDS: DOCUSATE SODIUM/SENNA 50/8.6MG TAB PO SCH (08:31)
[2020-06-22] MEDS: cephALEXin 250 MG CAP PO SCH (08:31)
[2020-06-22] MEDS: FLUTICASONE/VILANTEROL 100/25MCG 14 PUFFS/INHALER INH SCH (08:31)
[2020-06-22] MEDS ORDERED: DAPTOMYCIN CONSULT ACTIVE PRN (10:26)
--- NOTE | 2020-06-22 10:32 | Communication Note ---
Date of Service: June 22, 2020 Patient having intermittent spike of temperature/fever since yesterday T-max 39 at 7 PM yesterday Patient reports of feeling chills, fatigue during those febrile episode No cough, no shortness of breath Does mention urine very concentrated, with foul-smelling denies of urinary frequency or dysuria Patient will need to stay in hospital for continued evaluation of infection/febrile episode Order for CBC, BMP, urine culture, blood and wound culture DC p.o. Keflex Antibiotic changed to broad-spectrum IV daptomycin and IV cefepime Continue to monitor in telemetry No plan to discharge to rehab today Case management will be updated Allie Villareal MD
[2020-06-22 11:04] LABS: Basophils # (auto) 0.02 K/uL (0-0.2); Basophils % (auto) 0.3 %; Eosinophils # (auto) 0.11 K/uL (0-0.5); Eosinophils % (auto) 1.6 %; Hematocrit (blood only) 30.3 % (37-47); Hemoglobin 9.6 g/dL (12.0-16.0); Immature Granulocytes # (auto) 0.02 K/uL (0.00-0.02); Immature Granulocytes % (auto) 0.3 %; Lymphocytes # (auto) 0.58 K/uL (1.2-3.4); Lymphocytes % (auto) 8.6 %; Mean Corpuscular Hemoglobin 29.4 pg (25-34); Mean Corpuscular Hgb Conc 31.7 g/dL (32-36); Mean Corpuscular Volume 92.7 fL (80-100); Mean Platelet Volume 8.6 fL (7.4-10.4); Monocytes # (auto) 0.77 K/uL (0.11-0.59); Monocytes % (auto) 11.4 %; Neutrophils # (auto) 5.25 K/uL (1.4-6.5); Neutrophils % (auto) 77.8 %; Platelet Count 312 K/uL (130-400); RDW Coefficient of Variation 14.5 % (11.5-14.5); RDW Standard Deviation 49.1 fL (36.4-46.3); Red Blood Count 3.27 M/uL (4.2-5.4); White Blood Count 6.75 K/uL (4.8-10.8)
[2020-06-22] MEDS ORDERED: CEFEPIME CONSULT ACTIVE PRN (11:10)
[2020-06-22 11:34] LABS: BUN Creatinine Ratio 11.6 (10-20); Calcium 8.5 mg/dl (8.5-10.1); Creatinine Clr Calc Pharmacy 133.4 ml/min; Est GFR (African American) 95.4; Est GFR (Non-African American) 82.3
[2020-06-22] MEDS: CEFEPIME 2,000 MG in SYRINGE 7.5 ML IV SCH ×2 (11:46→19:45)
[2020-06-22] MEDS: DAPTOmycin 425 MG in SYRINGE 0 ML IV SCH (11:46)
[2020-06-22] MEDS: TRAMADOL HCL 50 MG TABLET PO PRN (12:10)
--- NOTE | 2020-06-22 13:07 | Hospitalist Progress Note ---
Date of Service June 22, 2020 Assessment & Plan (1) Cellulitis: Right lower extremity Extensive cellulitis With pus-containing blisters Chronic bilateral lower extremity edema/l lymphedema Noted blister on right lower extremity approximately 3 weeks ago, which continued to get worse, admitted with right lower extremity cellulitis Significant erythema, swelling, multiple blisters filled with pus noted --Doppler studies right lower extremity: Negative for DVT Need arterial Doppler and ANNE-MARIE when patient is able to tolerate Given recurrent fever, patient is restarted on IV daptomycin and cefepime Wound culture ordered Appreciate input from [facility] infectious disease consult on 06/15/[address] of right lower extremity for evaluation of any abscess Appreciate input from wound care provider : Wound be dressed with Aquacel Ag and ABD pads. This will be wrapped with Kerlix. Patient instructed to keep the dressing in place. Patient will need ABIs or arterial studies when she is able to tolerate them. Patient will be seen by wound care provider in clinic after discharge (2) Post-menopausal bleeding: Patient noted to have intermittent vaginal bleed /Spotting on and off No further episode now pelvic USG shows thickend endometrium measuring up to 1 cm considering age Sprinkler Truck Driver eval requested Appreciate input, Recommends outpatient follow-up in clinic for endometrial biopsy Will DC subcu heparin, No further vaginal bleed episode after discontinuation of subcu heparin Rash/itching/ Symptom has completely resolved:no Itching or rash noted Possible allergic reaction to IV Dilaudid,Ordered recently after post debridement of right lower extremity patient reports feeling of itching after IV pain meds, has been tolerating IV antibiotic Has to limit IV Dilaudid, utilize p.o. pain med benadryl ordered continue to monitor Patient has been utilizing p.o. narcotic pain meds only, itching, diffuse erythematous rash on back and torso has improved (3) Acute respiratory failure with hypoxia: Acute Hypoxic and Hypercarbic Respiratory Failure Secondary to restrictive lung disease, obesity Hypoventilation Syndrome, DOMINIQUE Morbid obesity This is a 55-year-old female that was admitted on 06/08/2020 with diagnosis of cellulitis of lower extremities, SIRS acute on chronic respiratory failure with hypoxia, hypercapnia, and acute kidney injury. Respiratory status improved to approximate baseline . Appreciate input from neurology team Patient is started on BiPAP at night, so far has been tolerating only 4-6 hours at night -- Importance of using BiPAP emphasized with patient, as per abrasive grinder this is going to be life-sustaining for her at this point, patient verbalized understanding and agreement Continue current settings, 14/09 -- Will need to continue BiPAP upon discharge To rehab Close follow-up with pulmonary clinic as an outpatient -- will need weight loss as well, patient already following at [facility] bariatric clinic for possible bariatric surgery Bariatric surgery was contacted by previous hospitalist Dr. Poole Patient will need clinic follow-up/telehealth appointment after discharged from hospital (4) BLAYNE (acute kidney injury): Resolved, renal function improved to baseline Acute Renal Failure likely from ATN, in the setting of sepsis Also likely secondary to NSAID use Patient admits to taking ibuprofen 800 mg multiple times per day for several weeks now Patient is counseled repeated time to avoid NSAIDs Appreciate input from nephrology (5) Elevated troponin: likely from Demand Ischemia Possible underlying cor pulmonale Trop is 0.168--> 0.08--> 0.06 , EKG no signs of infarct Echo: Left ventricular wall motion is normal Ejection fraction 50 of 60% Mild to moderate elevation right heart pressures estimated right ventricular systolic pressure 40 to 45 mmHg --Acute coronary syndrome unlikely Echo no wall motion abnormality, no anginal symptoms, no chest pain or chest heaviness, Troponin elevation likely secondary to demand ischemia from hypoxia, also acute renal failure leading to multiple elevation --Patient has cor pulmonale likely secondary to obstructive sleep apnea, restrictive lung disease Also evidence of right heart failure noted Likely contributing to bilateral lower extremity edema -- Lasix resumed Continue CPAP at night (6) HTN (hypertension): BP stable: Intermittent tachycardia noted continue Metoprolol XL 25 mg daily monitor In telemetry (7) SVT (supraventricular tachycardia): Noted on 06/15/2020 around 7 AM patient had a 2-minute episode of SVT Patient reported palpitations but no dizziness or chest pain or shortness of breath Follows as an outpatient with [facility] cardiology clinic Continue metoprolol XL 50 mg daily Cardiology following (8) DVT prophylaxis: High risk given morbid obesity, bilateral lower extremity lymphedema, right lower extremity cellulitis Subcu heparin discontinued, as patient continued to have intermittent vaginal bleed Disposition Patient will need continued hospital stay for evaluation of further infectious process Will likely need to transition to rehab when medically stable PT/OT eval requested Will need follow-up with PCP, pulmonology clinic, bariatric surgery clinic, nurse clinical Admission and Anticipated Discharge Date Admission Date: June 08, 2020 Subjective Febrile episode noted this morning, Lab work reviewed, no leukocytosis, renal function stable, Repeat blood culture, urine culture ordered will follow report Physical Exam Constitutional: WD/WN, vitals as above + obese; no acute distress Eyes: no scleral abnormality ENMT: external ear and nose normal, oropharynx normal Neck: trachea midline, no thyromegaly Respiratory: normal respiratory effort and + cough; no respiratory distress Auscultation: no crackles, no rales and no wheezes Cardiovascular: Rate/Rhythm: regular rate and regular rhythm Extremities: + edema Gastrointestinal (Abdomen): Percussion/Palpation: abdomen soft; abdomen nontender Neurologic: PERRL, EOMI, accommodation nl, no face palsy, no dysarthria Results & Data Results & Data ([facility]) Vital Signs (Past 12 Hours) Vital Signs Temp Pulse Pulse Resp BP Pulse Ox 06/22/20 12:00 36.9 C 91 H 20 133/75 96 06/22/20 08:00 37.4 C 91 H 18 120/67 97 06/22/20 07:39 102 H 06/22/20 04:22 36.9 C 20 128/84 96 06/22/20 02:50 84 20 92 (1) Cellulitis Site of cellulitis: extremity Site of cellulitis of extremity: lower extremity Laterality: right Qualified Code(s): L03.115 - Cellulitis of right lower limb
[2020-06-22] MEDS ORDERED: OPTIRAY 320 125ml IV PRN (14:03)
--- NOTE | 2020-06-22 14:21 | CT Scan Report ---
CT tib/fib RT w con CT DOSE: 781.90 mGy.cm CLINICAL HISTORY: right leg extensive cellulitis , eval for abscess TECHNIQUE: Patient was scanned in a dynamic helical fashion during intravenous administration of 120 cc of Optiray 320 A dose lowering technique was utilized adhering to the principles of ALARA. COMPARISON STUDY: None. FINDINGS: The examination is mildly limited from a technical standpoint due to the patient's large body habitus as a small portion of the subcutaneous tissues of the lower lateral leg were not within the field-of -view. There is diffuse lower extremity edema with skin thickening consistent with the clinical history of c ellulitis. There are no focal fluid collections to indicate an abscess. There are no bony destructive changes to indicate osteomyelitis. Moderate arthritic changes are present within the. There is no gas present within the soft tissues. IMPRESSION: 1. Diffuse cutaneous and subcutaneous edema, consistent with the clinical history of cellulitis 2. No evidence of abscess 3. No evidence of osteomyelitis ACT 112: Negative or not required by law. Electronically signed by: Galen Rodriguez M.D. 06/22/2020 2:20 PM
[2020-06-22] MEDS: ONDANSETRON INJ 2 MG/ML 2 ML VIAL IV PRN (16:32)
[2020-06-23] MEDS: CEFEPIME 2,000 MG in SYRINGE 7.5 ML IV SCH ×3 (03:46→19:14)
[2020-06-23] MEDS: METOPROLOL SUCC 50MG EXT REL TAB PO SCH (08:51)
[2020-06-23] MEDS: FLUTICASONE/VILANTEROL 100/25MCG 14 PUFFS/INHALER INH SCH (08:51)
[2020-06-23] MEDS: FUROSEMIDE 20 MG TAB PO SCH ×2 (08:51→16:21)
[2020-06-23] MEDS: HYDROCODONE/ACETAMOPHEN 5/325MG TAB PO PRN ×2 (08:56→16:31)
[2020-06-23] MEDS: DOCUSATE SODIUM/SENNA 50/8.6MG TAB PO SCH (08:57)
[2020-06-23] MEDS: DAPTOmycin 425 MG in SYRINGE 0 ML IV SCH (10:35)
--- NOTE | 2020-06-23 19:03 | Hospitalist Progress Note ---
Date of Service June 23, 2020 Assessment & Plan (1) Acute on chronic respiratory failure with hypoxia and hypercapnia: (1) Cellulitis: Right lower extremity Extensive cellulitis With pus-containing blisters per Dr. Villareal notes: --Doppler studies right lower extremity: Negative for DVT Need arterial Doppler and ANNE-MARIE when patient is able to tolerate CT of right lower extremity: no abscess continue Dapto + Cefepime will discuss with ID re: antibiotic regiman and duration (2) Post-menopausal bleeding: per Dr. Villareal notes: Patient noted to have intermittent vaginal bleed /Spotting on and off No further episode now pelvic USG shows thickend endometrium measuring up to 1 cm considering age Jute Bag Clipper eval requested Appreciate input, Recommends outpatient follow-up in clinic for endometrial biopsy No further vaginal bleed episode after discontinuation of subcu heparin Rash/itching Symptom has completely resolved:no Itching or rash noted Possible allergic reaction to IV Dilaudid,Ordered recently after post debridement of right lower extremity patient reports feeling of itching after IV pain meds, has been tolerating IV antibiotic Diffuse erythematous rash on back and torso has improved (3) Acute respiratory failure with hypoxia: Acute Hypoxic and Hypercarbic Respiratory Failure Secondary to restrictive lung disease, obesity Hypoventilation Syndrome, DOMINIQUE Morbid obesity This is a 55-year-old female that was admitted on 06/08/2020 with diagnosis of cellulitis of lower extremities, SIRS acute on chronic respiratory failure with hypoxia, hypercapnia, and acute kidney injury. Respiratory status improved to approximate baseline. tolerating Bipap well now (4) BLAYNE (acute kidney injury): Resolved, renal function improved to baseline Acute Renal Failure likely from ATN, in the setting of sepsis Also likely secondary to NSAID use Patient admits to taking ibuprofen 800 mg multiple times per day for several weeks now Patient is counseled repeated time to avoid NSAIDs Appreciate input from nephrology (5) Elevated troponin: likely from Demand Ischemia Possible underlying cor pulmonale Trop is 0.168--> 0.08--> 0.06 EKG no signs of infarct Echo: Left ventricular wall motion is normal Ejection fraction 50 of 60% Mild to moderate elevation right heart pressures estimated right ventricular systolic pressure 40 to 45 mmHg --Acute coronary syndrome unlikely Echo no wall motion abnormality, no anginal symptoms, no chest pain or chest heaviness, Troponin elevation likely secondary to demand ischemia from hypoxia, also acute renal failure leading to multiple elevation --Patient has cor pulmonale likely secondary to obstructive sleep apnea, restrictive lung disease Also evidence of right heart failure noted Likely contributing to bilateral lower extremity edema -- Lasix resumed Continue CPAP at night (6) HTN (hypertension): continue Metoprolol XL 25 mg daily monitor In telemetry (7) SVT (supraventricular tachycardia): Noted on 06/15/2020 around 7 AM patient had a 2-minute episode of SVT Patient reported palpitations but no dizziness or chest pain or shortness of breath likely from being off Bipap Truck Crane Operator Helper consulted Continue metoprolol XL 50 mg daily (8) DVT prophylaxis: High risk given morbid obesity, bilateral lower extremity lymphedema, right lower extremity cellulitis Subcu heparin discontinued, as patient continued to have intermittent vaginal bleed Disposition Patient will need continued hospital stay for evaluation of further infectious process Will likely need to transition to rehab when medically stable PT/OT eval requested Will need follow-up with PCP, pulmonology clinic, bariatric surgery clinic, steam box operator Admission and Anticipated Discharge Date Admission Date: June 08, 2020 Subjective ff up for RLE cellulitis, acute renal failure, respiratory failure seen resting in bed, comfortable, in good spirits continues to feel improved no SOB, cough, chills no itching no vaginal bleeding RLE pain improving tolerating Bipap well no other symptoms Review of Systems Review of Systems: All systems reviewed & are unremarkable except as noted in HPI & below Physical Exam Physical Exam: General- oriented x 3, not in distress, speaks in sentences with no effort or accessory muscle use Eyes- anicteric Neck- no JVD Lungs- clear breath sounds bilaterally, no rales/wheezes Heart- normal rate, regular rhythm; no murmurs Abdomen- normal bowel sounds, nondistended, soft, nontender Extremities-RLE: moderate edema, dressing in place- no discharge/bleeding noted Neuro- alert, oriented x 3; no gross focal neurologic deficits Skin- warm & dry Results & Data Results & Data ([facility]) Vital Signs (Past 12 Hours) Vital Signs Temp Pulse Pulse Resp BP BP Pulse Ox 06/23/20 16:00 36.6 C 99 H 18 130/74 94 06/23/20 11:32 36.6 C 95 H 16 114/65 91 06/23/20 07:46 37.2 C 88 18 113/68 99 06/23/20 07:28 97 H
[2020-06-23] MEDS: TRAMADOL HCL 50 MG TABLET PO PRN (20:57)
[2020-06-23] MEDS: ONDANSETRON INJ 2 MG/ML 2 ML VIAL IV PRN (21:44)
[2020-06-24] MEDS: CEFEPIME 2,000 MG in SYRINGE 7.5 ML IV SCH ×3 (01:56→19:27)
[2020-06-24] MEDS: METOPROLOL SUCC 50MG EXT REL TAB PO SCH (08:14)
[2020-06-24] MEDS: FLUTICASONE/VILANTEROL 100/25MCG 14 PUFFS/INHALER INH SCH (08:14)
[2020-06-24] MEDS: DOCUSATE SODIUM/SENNA 50/8.6MG TAB PO SCH (08:14)
[2020-06-24] MEDS: FUROSEMIDE 20 MG TAB PO SCH ×2 (08:14→17:20)
[2020-06-24] MEDS: HYDROCODONE/ACETAMOPHEN 5/325MG TAB PO PRN ×2 (08:16→16:08)
[2020-06-24] MEDS: DAPTOmycin 425 MG in SYRINGE 0 ML IV SCH (10:53)
[2020-06-24] MEDS: ACETAMINOPHEN 325 MG TAB PO PRN (11:59)
--- NOTE | 2020-06-24 12:58 | Hospitalist Progress Note ---
Date of Service June 24, 2020 Assessment & Plan (1) Acute on chronic respiratory failure with hypoxia and hypercapnia: Acute respiratory failure with hypoxia: Acute Hypoxic and Hypercarbic Respiratory Failure Secondary to restrictive lung disease, obesity Hypoventilation Syndrome, DOMINIQUE Morbid obesity This is a 55-year-old female that was admitted on 06/08/2020 with diagnosis of cellulitis of lower extremities, SIRS acute on chronic respiratory failure with hypoxia, hypercapnia, and acute kidney injury. Respiratory status improved to approximate baseline. tolerating Bipap well now continue as outpatient Cellulitis: Right lower extremity Extensive cellulitis per Dr. Villareal notes: --Doppler studies right lower extremity: Negative for DVT Need arterial Doppler and ANNE-MARIE when patient is able to tolerate CT of right lower extremity: no abscess received Dapto + Zosyn, then Cefepime, total of 17 days discussed with [facility] SONDRA Pool- recommend Clindamycin and Cipro x 1 week ff up with [facility] BLAYNE (acute kidney injury) Resolved, renal function improved to baseline Acute Renal Failure likely from ATN, in the setting of sepsis Also likely secondary to NSAID use Patient admits to taking ibuprofen 800 mg multiple times per day for several weeks now Patient is counseled to avoid NSAIDs Nephrology consulted Post-menopausal bleeding per Dr. Villareal notes: Patient noted to have intermittent vaginal bleed /Spotting pelvic USG shows thickend endometrium measuring up to 1 cm considering age Station Supervisor eval - Dr. Chiu Recommends outpatient follow-up in clinic for endometrial biopsy 06/24/2020: had an episode of vaginal bleeding- amount equivalent to "having a period" discussed with Dr. Jordan- senior solutions engineer Station Supervisor recommend Aygestin (Norethindrone 5mg daily x 7 days), ff up with Mammalogy Teacher in 1 week for endometrial biopsy Rash/itching Symptom has completely resolved Possible allergic reaction to IV Dilaudid patient reports pruritus after IV pain meds, has been tolerating IV antibiotic Diffuse erythematous rash on back and torso has improved Elevated troponin: likely from Demand Ischemia Possible underlying cor pulmonale Trop is 0.168--> 0.08--> 0.06 EKG no signs of infarct Echo: Left ventricular wall motion is normal Ejection fraction 50 of 60% Mild to moderate elevation right heart pressures estimated right ventricular systolic pressure 40 to 45 mmHg --Acute coronary syndrome unlikely Echo no wall motion abnormality, no anginal symptoms, no chest pain or chest heaviness, Troponin elevation likely secondary to demand ischemia from hypoxia, also acute renal failure leading to multiple elevation --Patient has cor pulmonale likely secondary to obstructive sleep apnea, restrictive lung disease Also evidence of right heart failure noted Likely contributing to bilateral lower extremity edema -- Lasix resumed Continue CPAP at night HTN (hypertension): continue Metoprolol XL 25 mg daily SVT (supraventricular tachycardia): Noted on 06/15/2020 around 7 AM patient had a 2-minute episode of SVT Patient reported palpitations but no dizziness or chest pain or shortness of breath likely from being off Bipap Pump Mechanic consulted Continue metoprolol XL 50 mg daily DVT prophylaxis: High risk given morbid obesity, bilateral lower extremity lymphedema, right lower extremity cellulitis Subcu heparin discontinued, as patient had episodes of intermittent vaginal bleed please continue to encourage ambulation, especially now patient will be on Norethindrone Disposition d/c to Rehab when accepted ff up with PCP in 1 week ff up with Station Supervisor in 1 week ff up with [facility] 1 week Admission and Anticipated Discharge Date Admission Date: June 08, 2020 Subjective ff up for right leg cellulitis, acute renal failure, respiratory failure seen resting in bed, comfortable in good spirits states she feels fine overall no shortness of breath, cough right leg pain adequately controlled had episode of vaginal bleed today- equivalent to "having a period" no abdominal pain, cramping denies other symptom states she is ready for discharge today Review of Systems Review of Systems: All systems reviewed & are unremarkable except as noted in HPI & below Physical Exam Physical Exam: General- oriented x 3, not in distress, speaks in sentences with no effort or accessory muscle use Eyes- anicteric Neck- no JVD Lungs- clear breath sounds bilaterally, no rales/wheezes Heart- normal rate, regular rhythm; no murmurs Abdomen- normal bowel sounds, nondistended, soft, nontender Extremities- no pretibial edema, no calf tenderness right lower ext: has moderate edema, mild warmth and tenderness on some areas, blisters healing well Neuro- alert, oriented x 3; no gross focal neurologic deficits Skin- warm & dry Results & Data Results & Data ([facility]) Vital Signs (Past 12 Hours) Vital Signs Temp Pulse Pulse Resp BP Pulse Ox 06/24/20 07:53 36.6 C 99 H 18 141/74 H 98 06/24/20 04:53 107 H 06/24/20 03:10 99 H 23 95 06/24/20 03:03 37 C 101 H 20 103/62 96
[2020-06-24] MEDS: NORETHINDRONE 5 MG TAB PO SCH (13:44)
--- NOTE | 2020-06-24 13:48 | Discharge Summary ---
Date of Service June 24, 2020 Discharge Data Allergies Allergy/AdvReac Type Severity Reaction Status Date / Time bee venom protein (honey bee) Allergy Unknown GENERALIZED Unverified 06/08/20 14:02 SWELLING-SOB No Known Drug Allergies Allergy Unknown NONE Unverified 06/08/20 14:02 Consultations 06/08/20 14:15 ED Decision to Admit Stat 06/08/20 15:55 Consult Configuration Release Manager Routine 06/08/20 18:44 Consult Case Management - Discharge Planning Routine 06/09/20 08:19 Consult Nephrology Routine 06/15/20 08:39 Consult Infectious Diseases Routine 06/15/20 17:45 Consult Cardiology Routine 06/16/20 12:51 Consult Wound Care Provider Routine 06/17/20 11:41 Consult Gynecology Routine Ordered Studies 06/08/20 12:49 US venous doppler LE RT Stat 06/17/20 15:30 US pelvic complete Routine US transvaginal Routine 06/22/20 13:04 CT tib/fib RT w con Routine Hospital Course (1) Acute on chronic respiratory failure with hypoxia and hypercapnia: Acute respiratory failure with hypoxia: Acute Hypoxic and Hypercarbic Respiratory Failure Secondary to restrictive lung disease, obesity Hypoventilation Syndrome, DOMINIQUE Morbid obesity This is a 55-year-old female that was admitted on 06/08/2020 with diagnosis of cellulitis of lower extremities, SIRS acute on chronic respiratory failure with hypoxia, hypercapnia, and acute kidney injury. Respiratory status improved to approximate baseline. tolerating Bipap well now continue as outpatient Cellulitis: Right lower extremity Extensive cellulitis per Dr. Villareal notes: --Doppler studies right lower extremity: Negative for DVT Need arterial Doppler and ANNE-MARIE when patient is able to tolerate CT of right lower extremity: no abscess received Dapto + Zosyn, then Cefepime, total of 17 days discussed with Peyton Pool- recommend Clindamycin and Cipro x 1 week ff up with [facility] BLAYNE (acute kidney injury) Resolved, renal function improved to baseline Acute Renal Failure likely from ATN, in the setting of sepsis Also likely secondary to NSAID use Patient admits to taking ibuprofen 800 mg multiple times per day for several weeks now Patient is counseled to avoid NSAIDs Nephrology consulted Post-menopausal bleeding per Dr. Villareal notes: Patient noted to have intermittent vaginal bleed /Spotting pelvic USG shows thickend endometrium measuring up to 1 cm considering age Call Center Trainer eval - Dr. Chiu Recommends outpatient follow-up in clinic for endometrial biopsy 06/24/2020: had an episode of vaginal bleeding- amount equivalent to "having a period" discussed with Dr. Jordan- elevator constructor Call Center Trainer recommend Aygestin (Norethindrone 5mg daily x 7 days), ff up with Flight Communications Officer in 1 week for endometrial biopsy Rash/itching Symptom has completely resolved Possible allergic reaction to IV Dilaudid patient reports pruritus after IV pain meds, has been tolerating IV antibiotic Diffuse erythematous rash on back and torso has improved Elevated troponin: likely from Demand Ischemia Possible underlying cor pulmonale Trop is 0.168--> 0.08--> 0.06 EKG no signs of infarct Echo: Left ventricular wall motion is normal Ejection fraction 50 of 60% Mild to moderate elevation right heart pressures estimated right ventricular systolic pressure 40 to 45 mmHg --Acute coronary syndrome unlikely Echo no wall motion abnormality, no anginal symptoms, no chest pain or chest heaviness, Troponin elevation likely secondary to demand ischemia from hypoxia, also acute renal failure leading to multiple elevation --Patient has cor pulmonale likely secondary to obstructive sleep apnea, restrictive lung disease Also evidence of right heart failure noted Likely contributing to bilateral lower extremity edema -- Lasix resumed Continue CPAP at night Pulmonary Hypertension HTN (hypertension): continue Metoprolol XL 25 mg daily SVT (supraventricular tachycardia): Noted on 06/15/2020 around 7 AM patient had a 2-minute episode of SVT Patient reported palpitations but no dizziness or chest pain or shortness of breath likely from being off Bipap Multimedia Editor consulted Continue metoprolol XL 50 mg daily DVT prophylaxis: High risk given morbid obesity, bilateral lower extremity lymphedema, right lower extremity cellulitis Subcu heparin discontinued, as patient had episodes of intermittent vaginal bleed please continue to encourage ambulation, especially now patient will be on Norethindrone Disposition d/c to Rehab when accepted ff up with PCP in 1 week ff up with Call Center Trainer in 1 week ff up with [facility] in 1 week Discharge Plan Discharge Items Patient Disposition: Transfer Inpatient Rehab Fac Reason For Visit: ACUTE HYPOXIC RESP FAILURE,SEPSIS,RLE CELLULITIS,A Discharge Diagnosis: ACUTE HYPOXIC AND HYPERCAPNEIC RESPIRATORY FAILURE SEVERE RIGHT LOWER EXTREMITY CELLULITIS, SEPSIS ACUTE RENAL FAILURE POST MENOPAUSAL BLEEDING Activity: As commented below Activity Comment: CONTINUE PT AND OT Driving/Machine Use: NO DRIVING UNTIL RE-EVALUATED AND ALLOWED BY PRIMARY CARE PHYSICIAN Non-emergency contact: Primary Care Provider Call non-emergency contact if: you have any medication questions, your symptoms worsen, your pain is not controlled, your pain is worsening, your pain is unusual for you, your pain is concerning for you, your wound has increased redness, your wound has increased drainage and your wound pain has increased Follow-up/Referrals: Sagar Hubbard MD [Physician] - Alan Wade MD [Primary Care Provider] - Diet: Heart Healthy Addtl Attending Provider Instructions: PLEASE REFER TO [facility] DISCHARGE SUMMARY FOR FULL DETAILS. 1 MORE WEEK OF CIPROFLOXACIN AND CLINDAMYCIN. FOLLOW UP WITH [facility] IN 1 WEEK. Patient will require BiPAP on discharge with IPAP of 20 and EPAP of 12 Patient requires higher EPAP setting to treat obstructive process of disease Patient should use BiPAP for a minimum of 4-6 hours with sleep and as tolerated with rest during the day. Will need titration studies as an outpatient Maintain SaO2 between 88 and 92% Continue to follow with [facility] bariatrics and pulmonary/sleep on discharge Continue with oxygen therapy at daytime. Would repeat echocardiogram in 2 to 3 months for pulmonary hypertension Continue to follow with bariatrics FOLLOW UP WITH [facility] FOR POSSIBLE ENDOMETRIAL BIOPSY IN 1 WEEK. CLINIC TO CALL PATIENT WITH APPOINTMENT. FOLLOW UP WITH [facility] IN 1 WEEK AND REGULARLY. FOLLOW UP WITH PCP 1 WEEK AFTER DISCHARGE FROM REHAB. FOLLOW UP WITH [facility] DR. SAGAR HUBBARD IN 1-2 WEEKS. FOLLOW UP WITH [facility] IN 1-2 WEEKS. Pending Studies at Discharge: Yes Studies:: CBC, CMP IN 1 WEEK REPEAT 2D ECHO IN 2-3 MONTHS Stand-Alone Forms: My [facility] [employer], Smoking Cessation Skilled Items Patient informed of condition?: Yes DNR: No Discharge Level of Care: Acute rehab Communicable Disease: No Discharge Prognosis: Stable Lines: None Urinary Catheter: No Medications and DC Order Prescriptions: New clindamycin HCl 150 mg capsule 450 mg PO Q8H 7 Days Qty: 63 RF: 0 ciprofloxacin HCl 500 mg tablet 500 mg PO Q12H Qty: 14 RF: 0 ipratropium bromide 0.02 % Solution 0.5 mg inhalation Q4R PRN (Reason: shortness of breath or wheezing) Qty: 62.5 RF: 0 levalbuterol HCl 1.25 mg/0.5 mL Solution For Nebulization 1.25 mg inhalation Q4R PRN (Reason: shortness of breath or wheezing) Qty: 30 RF: 0 acetaminophen 325 mg Tablet 650 mg PO Q4H PRN (Reason: fever or pain) Qty: 30 RF: 0 metoprolol succinate 50 mg Tablet Extended Release 24 Hr 50 mg PO DAILY Qty: 30 RF: 0 furosemide 20 mg Tablet 20 mg PO BID17 Qty: 60 RF: 0 lactulose 20 gram/30 mL Solution 20 gm PO TID PRN (Reason: constipation) Qty: 1200 RF: 0 sennosides-docusate sodium [Senokot-S] 8.6-50 mg Tablet 1 tab PO QAM Qty: 30 RF: 0 norethindrone acetate 5 mg Tablet 5 mg PO DAILY Qty: 6 RF: 0 Breo Ellipta 100-25 mcg/dose Blister With Device 1 puff inhalation DAILY Qty: 1 RF: 2 (DME) BiPap Machine Misc See Rx Instructions .ROUTE .MEDSUPPLY Qty: 1 RF: 0 (DME) walker Misc See Rx Instructions .ROUTE .MEDSUPPLY Qty: 1 RF: 0 Admission Data Admit Date/Time: 06/08/20 17:16 Attending Provider: Yoandy Combs Admit Provider: Kenisha Graham I. Primary Care Provider: Alan Wade Other Providers: [facility] ; [facility], ; Kenisha Graham I. ; Sagar Hubbard ; Chantal John ; Андрей Daugherty ; Alex Gordon ; Emile Pool I. ; Baldemar Vásquez II ; Holly Jimenez ; Joseph Martinez ; Jaime Roe ; Salazar Licea ; Miguelito Watson ; Sherron Taylor ; Brittany Stiles ; Lalo Chiu ; Tamera Worley ; Naresh Contreras ; Eliazar Head ; Radha Dangelo. ; Shea Dove V. ; iNna Monzon. ; Allie Villareal. ; [facility]
--- NOTE | 2020-06-24 14:41 | Wound Progress Note ---
Date of Service June 24, 2020 Assessment & Plan (1) Cellulitis of right lower limb: Leg is improving. No debridement was done today. Wound be dressed with Aquacel Ag and ABD pads. This will be wrapped with Kerlix. Secure in place with a single layer Tubigrip Patient instructed to keep the dressing in place. Patient will need ABIs or arterial studies likely after discharge. I will see patient in the office after discharge. Subjective Patient seen at bedside with WOCN. Patient has a temporary Kerlix dressing on it she just got cleaned up. Review of Systems Review of Systems: All systems reviewed & are unremarkable except as noted in HPI & below Physical Exam Physical Exam: Temp Pulse Resp BP Pulse Ox 36.6 C 119 H 18 141/74 H 98 06/24/20 07:53 06/24/20 08:00 06/24/20 07:53 06/24/20 07:53 06/24/20 07:53 Skin: Wound measuring is recorded in nursing documentation. Leg is still erythematous with large amount of drainage and blistering. Neurologic: awake; not confused Psychiatric: A+Ox3, euthymic affect Results & Data Vital Signs (Past 12 Hours) Vital Signs Temp Pulse Pulse Resp BP Pulse Ox 06/24/20 08:00 119 H 06/24/20 07:53 36.6 C 99 H 18 141/74 H 98 06/24/20 04:53 107 H 06/24/20 03:10 99 H 23 95 06/24/20 03:03 37 C 101 H 20 103/62 96 PG Care Time/CCT Total # of Minutes Spent Total Time Spent with Patient: Total time spent is greater than 50% in coordination of care (as documented) at patient's floor/unit and/or counseling patient: Coding Level of Care Code 74910 Subseq Hosp Care Lvl 2 Diagnoses Cellulitis of right lower limb L03.115
[2020-06-24] MEDS: TRAMADOL HCL 50 MG TABLET PO PRN (21:17)
[2020-06-25] MEDS: HYDROCODONE/ACETAMOPHEN 5/325MG TAB PO PRN ×3 (01:38→20:32)
[2020-06-25] MEDS: CEFEPIME 2,000 MG in SYRINGE 7.5 ML IV SCH (03:46)
[2020-06-25] MEDS: TRAMADOL HCL 50 MG TABLET PO PRN (08:34)
[2020-06-25] MEDS: NORETHINDRONE 5 MG TAB PO SCH (08:35)
[2020-06-25] MEDS: METOPROLOL SUCC 50MG EXT REL TAB PO SCH (08:35)
[2020-06-25] MEDS: FLUTICASONE/VILANTEROL 100/25MCG 14 PUFFS/INHALER INH SCH (08:36)
[2020-06-25] MEDS: FUROSEMIDE 20 MG TAB PO SCH ×2 (08:36→17:53)
[2020-06-25] MEDS: DOCUSATE SODIUM/SENNA 50/8.6MG TAB PO SCH (08:36)
[2020-06-25] MEDS: CLINDAMYCIN HCL 150 MG CAP PO SCH ×2 (09:13→17:52)
[2020-06-25] MEDS: CIPROFLOXACIN 500 MG TAB PO SCH ×2 (09:13→20:32)
--- NOTE | 2020-06-25 21:36 | Hospitalist Progress Note ---
Date of Service June 25, 2020 Assessment & Plan (1) Acute on chronic respiratory failure with hypoxia and hypercapnia: Acute respiratory failure with hypoxia: Acute Hypoxic and Hypercarbic Respiratory Failure Secondary to restrictive lung disease, obesity Hypoventilation Syndrome, DOMINIQUE Morbid obesity This is a 55-year-old female that was admitted on 06/08/2020 with diagnosis of cellulitis of lower extremities, SIRS acute on chronic respiratory failure with hypoxia, hypercapnia, and acute kidney injury. Respiratory status improved to approximate baseline. -- tolerating Bipap well now continue as outpatient Cellulitis: Right lower extremity Extensive cellulitis per Dr. Villareal notes: --Doppler studies right lower extremity: Negative for DVT Need arterial Doppler and ANNE-MARIE when patient is able to tolerate CT of right lower extremity: no abscess received Dapto + Zosyn, then Cefepime, total of 17 days discussed with [facility] SONDRA Pool- recommend Clindamycin and Cipro x 1 week ff up with [facility] -- continues to improve transition to Clinda + Cipro BLAYNE (acute kidney injury) Resolved, renal function improved to baseline Acute Renal Failure likely from ATN, in the setting of sepsis Also likely secondary to NSAID use Patient admits to taking ibuprofen 800 mg multiple times per day for several weeks now Patient is counseled to avoid NSAIDs Nephrology consulted Post-menopausal bleeding per Dr. Villareal notes: Patient noted to have intermittent vaginal bleed /Spotting pelvic USG shows thickend endometrium measuring up to 1 cm considering age Conventional Underwriter eval - Dr. Chiu Recommends outpatient follow-up in clinic for endometrial biopsy 06/24/2020: had an episode of vaginal bleeding- amount equivalent to "having a period" discussed with Dr. Jordan- machine carton marker Conventional Underwriter recommend Aygestin (Norethindrone 5mg daily x 7 days), ff up with Health Insurance Agent in 1 week for endometrial biopsy -- resolved monitor Rash/itching Symptom has completely resolved Possible allergic reaction to IV Dilaudid patient reports pruritus after IV pain meds, has been tolerating IV antibiotic Diffuse erythematous rash on back and torso has improved Elevated troponin: likely from Demand Ischemia Possible underlying cor pulmonale Trop is 0.168--> 0.08--> 0.06 EKG no signs of infarct Echo: Left ventricular wall motion is normal Ejection fraction 50 of 60% Mild to moderate elevation right heart pressures estimated right ventricular systolic pressure 40 to 45 mmHg --Acute coronary syndrome unlikely Echo no wall motion abnormality, no anginal symptoms, no chest pain or chest heaviness, Troponin elevation likely secondary to demand ischemia from hypoxia, also acute renal failure leading to multiple elevation --Patient has cor pulmonale likely secondary to obstructive sleep apnea, restrictive lung disease Also evidence of right heart failure noted Likely contributing to bilateral lower extremity edema -- Lasix resumed Continue CPAP at night Pulmonary Hypertension will need outpatient echo HTN (hypertension): continue Metoprolol XL 25 mg daily SVT (supraventricular tachycardia): Noted on 06/15/2020 around 7 AM patient had a 2-minute episode of SVT Patient reported palpitations but no dizziness or chest pain or shortness of breath likely from being off Bipap Seed Potato Cutter consulted Continue metoprolol XL 50 mg daily DVT prophylaxis: High risk given morbid obesity, bilateral lower extremity lymphedema, right lower extremity cellulitis Subcu heparin discontinued, as patient had episodes of intermittent vaginal bleed please continue to encourage ambulation, especially now patient will be on Norethindrone Disposition d/c to Rehab when accepted ff up with PCP in 1 week ff up with Conventional Underwriter in 1 week [facility] Admission and Anticipated Discharge Date Admission Date: June 08, 2020 Subjective ff up for respiratory failure, etc. seen resting in bed, comfortable states she feels fine overall no SOB, chest pain, palpitations no vaginal bleeding tolerating Bipap well so far no other symptoms Review of Systems Review of Systems: All systems reviewed & are unremarkable except as noted in HPI & below Physical Exam Physical Exam: General- oriented x 3, not in distress, speaks in sentences with no effort or accessory muscle use Eyes- anicteric Neck- no JVD Lungs- clear BS BL Heart- normal rate, regular rhythm; no murmurs Abdomen- normal bowel sounds, nondistended, soft, nontender Extremities- RLE cellulitis continues to improve Neuro- alert, oriented x 3; no gross focal neurologic deficits Skin- warm & dry Results & Data Results & [facility] ([facility]) Vital Signs (Past 12 Hours) Vital Signs Temp Pulse Pulse Resp BP Pulse Ox 06/25/20 20:26 36.7 C 94 H 20 134/84 94 06/25/20 15:40 101 H 06/25/20 15:10 36.5 C 90 20 143/94 H 95 06/25/20 11:36 36.3 C L 87 18 110/66 90
[2020-06-26] MEDS: CLINDAMYCIN HCL 150 MG CAP PO SCH ×3 (00:15→16:29)
[2020-06-26] MEDS: TRAMADOL HCL 50 MG TABLET PO PRN (01:52)
[2020-06-26] MEDS: FLUTICASONE/VILANTEROL 100/25MCG 14 PUFFS/INHALER INH SCH (08:09)
[2020-06-26] MEDS: CIPROFLOXACIN 500 MG TAB PO SCH ×2 (08:09→21:10)
[2020-06-26] MEDS: DOCUSATE SODIUM/SENNA 50/8.6MG TAB PO SCH (08:10)
[2020-06-26] MEDS: METOPROLOL SUCC 50MG EXT REL TAB PO SCH (08:10)
[2020-06-26] MEDS: NORETHINDRONE 5 MG TAB PO SCH (08:10)
[2020-06-26] MEDS: FUROSEMIDE 20 MG TAB PO SCH ×2 (08:10→16:30)
[2020-06-26] MEDS: HYDROCODONE/ACETAMOPHEN 5/325MG TAB PO PRN ×3 (08:14→21:10)
--- NOTE | 2020-06-26 19:44 | Hospitalist Progress Note ---
Date of Service June 26, 2020 Assessment & Plan (1) Acute on chronic respiratory failure with hypoxia and hypercapnia: Acute respiratory failure with hypoxia: Acute Hypoxic and Hypercarbic Respiratory Failure Secondary to restrictive lung disease, obesity Hypoventilation Syndrome, DOMINIQUE Morbid obesity This is a 55-year-old female that was admitted on 06/08/2020 with diagnosis of cellulitis of lower extremities, SIRS acute on chronic respiratory failure with hypoxia, hypercapnia, and acute kidney injury. Respiratory status improved to approximate baseline. -- tolerating Bipap well now continue as outpatient Cellulitis: Right lower extremity Extensive cellulitis per Dr. Villareal notes: --Doppler studies right lower extremity: Negative for DVT Need arterial Doppler and ANNE-MARIE when patient is able to tolerate CT of right lower extremity: no abscess received Dapto + Zosyn, then Cefepime, total of 17 days discussed with [facility] SONDRA Pool- recommend Clindamycin and Cipro x 1 week ff up with [facility] -- continues to improve tolerating Clinda + Cipro BLAYNE (acute kidney injury) Resolved, renal function improved to baseline Acute Renal Failure likely from ATN, in the setting of sepsis Also likely secondary to NSAID use Patient admits to taking ibuprofen 800 mg multiple times per day for several weeks now Patient is counseled to avoid NSAIDs Nephrology consulted Post-menopausal bleeding per Dr. Villareal notes: Patient noted to have intermittent vaginal bleed /Spotting pelvic USG shows thickend endometrium measuring up to 1 cm considering age Plumbing Installer eval - Dr. Chiu Recommends outpatient follow-up in clinic for endometrial biopsy 06/24/2020: had an episode of vaginal bleeding- amount equivalent to "having a period" discussed with Dr. Jordan- home restoration service cleaner Plumbing Installer recommend Aygestin (Norethindrone 5mg daily x 7 days), ff up with Safety Intern in 1 week for endometrial biopsy -- resolved monitor Rash/itching Symptom has completely resolved Possible allergic reaction to IV Dilaudid patient reports pruritus after IV pain meds, has been tolerating IV antibiotic Diffuse erythematous rash on back and torso has improved Elevated troponin: likely from Demand Ischemia Possible underlying cor pulmonale Trop is 0.168--> 0.08--> 0.06 EKG no signs of infarct Echo: Left ventricular wall motion is normal Ejection fraction 50 of 60% Mild to moderate elevation right heart pressures estimated right ventricular systolic pressure 40 to 45 mmHg --Acute coronary syndrome unlikely Echo no wall motion abnormality, no anginal symptoms, no chest pain or chest heaviness, Troponin elevation likely secondary to demand ischemia from hypoxia, also acute renal failure leading to multiple elevation --Patient has cor pulmonale likely secondary to obstructive sleep apnea, restrictive lung disease Also evidence of right heart failure noted Likely contributing to bilateral lower extremity edema -- Lasix resumed Continue CPAP at night Pulmonary Hypertension will need outpatient echo HTN (hypertension): continue Metoprolol XL 25 mg daily SVT (supraventricular tachycardia): Noted on 06/15/2020 around 7 AM patient had a 2-minute episode of SVT Patient reported palpitations but no dizziness or chest pain or shortness of breath likely from being off Bipap Regulatory Internship consulted Continue metoprolol XL 50 mg daily DVT prophylaxis: High risk given morbid obesity, bilateral lower extremity lymphedema, right lower extremity cellulitis Subcu heparin discontinued, as patient had episodes of intermittent vaginal bleed please continue to encourage ambulation, especially now patient will be on Norethindrone Disposition d/c to Rehab when accepted ff up with PCP in 1 week ff up with Plumbing Installer in 1 week ff [facility] with [facility] Admission and Anticipated Discharge Date Admission Date: June 08, 2020 Subjective ff up for acute respiratory failure, etc. resting in bed, comfortable no problems with breathing leg pain well controlled no vaginal bleeding states she feels fine overall, in good spirits no other symptoms Review of Systems Review of Systems: All systems reviewed & are unremarkable except as noted in HPI & below Physical Exam Physical Exam: General- oriented x 3, not in distress, speaks in sentences with no effort or accessory muscle use Eyes- anicteric Neck- no JVD Lungs- clear BS BL no rales/wheezing Heart- normal rate, regular rhythm; no murmurs Abdomen- normal bowel sounds, nondistended, soft, nontender Extremities- RLE cellulitis continues to improve Neuro- alert, oriented x 3; no gross focal neurologic deficits Skin- warm & dry Results & Data Results & Data ([facility]) Vital Signs (Past 12 Hours) Vital Signs Temp Pulse Pulse Resp BP Pulse Ox 06/26/20 19:22 36.8 C 99 H 18 119/74 93 06/26/20 16:27 92 H 06/26/20 15:39 36.5 C 97 H 18 102/52 L 97 06/26/20 11:39 36.7 C 83 18 114/65 95 06/26/20 08:02 85 06/26/20 07:53 36.3 C L 93 H 20 151/75 H 95
[2020-06-27] MEDS: CLINDAMYCIN HCL 150 MG CAP PO SCH ×2 (03:37→08:40)
[2020-06-27] MEDS: TRAMADOL HCL 50 MG TABLET PO PRN (03:37)
[2020-06-27] MEDS: FLUTICASONE/VILANTEROL 100/25MCG 14 PUFFS/INHALER INH SCH (08:39)
[2020-06-27] MEDS: NORETHINDRONE 5 MG TAB PO SCH (08:40)
[2020-06-27] MEDS: FUROSEMIDE 20 MG TAB PO SCH (08:40)
[2020-06-27] MEDS: CIPROFLOXACIN 500 MG TAB PO SCH (08:40)
[2020-06-27] MEDS: METOPROLOL SUCC 50MG EXT REL TAB PO SCH (08:40)
[2020-06-27] MEDS: DOCUSATE SODIUM/SENNA 50/8.6MG TAB PO SCH (08:42)
[2020-06-27] MEDS: HYDROCODONE/ACETAMOPHEN 5/325MG TAB PO PRN (10:40)
--- NOTE | 2020-06-27 14:28 | Hospitalist Progress Note ---
Date of Service June 27, 2020 Assessment & Plan (1) Acute on chronic respiratory failure with hypoxia and hypercapnia: Acute respiratory failure with hypoxia: Acute Hypoxic and Hypercarbic Respiratory Failure Secondary to restrictive lung disease, obesity Hypoventilation Syndrome, DOMINIQUE Morbid obesity This is a 55-year-old female that was admitted on 06/08/2020 with diagnosis of cellulitis of lower extremities, SIRS acute on chronic respiratory failure with hypoxia, hypercapnia, and acute kidney injury. Respiratory status improved to approximate baseline. -- tolerating Bipap well now Home BiPAP arranged Patient strongly encouraged to use nightly while sleeping and as tolerated during the daytime Follow-up with pulmonary clinic in 2 weeks Cellulitis: Right lower extremity Extensive cellulitis per Dr. Villareal notes: --Doppler studies right lower extremity: Negative for DVT Need arterial Doppler and ANNE-MARIE when patient is able to tolerate CT of right lower extremity: no abscess received Dapto + Zosyn, then Cefepime, total of 17 days discussed with [employer] SONDRA Pool- recommend Clindamycin and Cipro x 1 week (patient needs 5 more days of antibiotics) ff up with [facility] [place] in 1 week Discharge home with home health services BLAYNE (acute kidney injury) Resolved, renal function improved to baseline Acute Renal Failure likely from ATN, in the setting of sepsis Also likely secondary to NSAID use Patient admits to taking ibuprofen 800 mg multiple times per day for several weeks now Patient is counseled to avoid NSAIDs Nephrology consulted Post-menopausal bleeding per Dr. Villareal notes: Patient noted to have intermittent vaginal bleed /Spotting pelvic USG shows thickend endometrium measuring up to 1 cm considering age Radiator Tester eval - Dr. Chiu Recommends outpatient follow-up in clinic for endometrial biopsy 06/24/2020: had an episode of vaginal bleeding- amount equivalent to "having a period" discussed with Dr. Jordan- cyber security consultant Radiator Tester recommend Aygestin (Norethindrone 5mg daily x 7 days-patient needs 3 more days only on day of discharge), ff up with Yard Jacker in 1 week for endometrial biopsy -- resolved monitor Rash/itching Symptom has completely resolved Possible allergic reaction to IV Dilaudid patient reports pruritus after IV pain meds, has been tolerating IV antibiotic Diffuse erythematous rash on back and torso has improved Elevated troponin: likely from Demand Ischemia Possible underlying cor pulmonale Trop is 0.168--> 0.08--> 0.06 EKG no signs of infarct Echo: Left ventricular wall motion is normal Ejection fraction 50 of 60% Mild to moderate elevation right heart pressures estimated right ventricular systolic pressure 40 to 45 mmHg --Acute coronary syndrome unlikely Echo no wall motion abnormality, no anginal symptoms, no chest pain or chest heaviness, Troponin elevation likely secondary to demand ischemia from hypoxia, also acute renal failure leading to multiple elevation --Patient has cor pulmonale likely secondary to obstructive sleep apnea, restrictive lung disease Also evidence of right heart failure noted Likely contributing to bilateral lower extremity edema -- Lasix resumed Continue CPAP at night Pulmonary Hypertension will need outpatient echo HTN (hypertension): continue Metoprolol XL 50 mg daily SVT (supraventricular tachycardia): Noted on 06/15/2020 around 7 AM patient had a 2-minute episode of SVT Patient reported palpitations but no dizziness or chest pain or shortness of breath likely from being off Bipap Airfreight Operations Agent consulted Continue metoprolol XL 50 mg daily DVT prophylaxis: High risk given morbid obesity, bilateral lower extremity lymphedema, right lower extremity cellulitis Subcu heparin discontinued, as patient had episodes of intermittent vaginal bleed Encouraged to ambulate Disposition d/c home today with home health services ff up with PCP in 1 week ff up with Radiator Tester in 1 week ff [facility] with [facility] Follow-up with pulmonary clinic in 2 weeks Admission and Anticipated Discharge Date Admission Date: June 08, 2020 Subjective Follow-up for acute hypoxic and hypercapnic respiratory failure, acute renal failure, right lower neck cellulitis Seen with patient's and daughter Yuliya at the bedside visiting Sitting up in bed, just walked from the bathroom, not in distress, in good spirits, smiling States she feels fine overall Minimal shortness of breath after walking to the bathroom Denies chest pain, palpitations, dizziness, headache No vaginal bleeding x2 days Right lower extremity pain well controlled Denies other symptoms States she is ready like to be discharged today Review of Systems Review of Systems: All systems reviewed & are unremarkable except as noted in HPI & below Physical Exam Physical Exam: General- oriented x 3, not in distress, speaks in sentences with no effort or accessory muscle use Eyes- anicteric Neck- no JVD Lungs- clear breath sounds bilaterally, no rales/wheezes Heart- normal rate, regular rhythm; no murmurs Abdomen- normal bowel sounds, nondistended, soft, nontender Extremities- no pretibial edema, no calf tenderness Right lower extremity: Redness, tenderness, warmth continues to improve Neuro- alert, oriented x 3; no gross focal neurologic deficits Skin- warm & dry Results & Data Results & Data ([facility]) Vital Signs (Past 12 Hours) Vital Signs Temp Pulse Pulse Pulse Pulse Pulse Resp 06/27/20 09:36 148 H 137 H 110 H 06/27/20 07:51 96 H 06/27/20 07:19 36.6 C 104 H 20 06/27/20 03:09 36.7 C 90 22 Resp Resp Resp BP Pulse Ox Pulse Ox Pulse Ox 06/27/20 09:36 20 20 18 92 93 06/27/20 07:51 06/27/20 07:19 138/82 90 06/27/20 03:09 139/81 97 Pulse Ox 06/27/20 09:36 93 06/27/20 07:51 06/27/20 07:19 06/27/20 03:09
--- NOTE | 2020-06-29 19:28 | Discharge Summary ---
Date of Service June 29, 2020 Admission HPI Per Admitting Provider 55 year old woman with history of hypertension, morbid obesity (BMI >70) who presented with right leg redness that started 4 days ago (sunday night), productive cough that started 3 days ago (sunday) Reported redness worsened since sunday with pain, swelling and difficulty walking Reported nausea and diarrhea yesterday. Patient also reported fever of 101.4 Reported she usually has some dyspnea on exertion but this has worsened to even at rest Denied any chest pain, sorethroat Denied any abd pain, dysuria, frequency, urgency Lives with mother at home. Works at [employer] where there has been positive cases of COVID19 Admission Exam Per Admitting Provider Constitutional: + well hydrated and + morbidly obese On BIPAP Eyes: PERRL, conjunctivae normal, anicteric sclerae ENMT: BIPAP mask on Respiratory: Auscultation: no crackles and no rales On BIPAP, Reduced breath sounds bilaterally Cardiovascular: RRR, no murmur, no edema Chest (Breasts): Additional Comments: No chest wall tenderness Gastrointestinal (Abdomen): normal bowel sounds, soft, nontender, no hepatosplenomegaly Musculoskeletal: Chronic lymphedema of both legs Whole of RLE is erythematous, exquisitely tender, no obvious open wounds on inspections. Could not assess posterior aspect due to difficulty raising leg Neurologic: PERRL, EOMI, accommodation nl, no face palsy, no dysarthria Psychiatric: A+Ox3, euthymic affect Principal Diagnosis Acute Hypoxic and Hypercarbic Respiratory Failure Secondary to restrictive lung disease, obesity Hypoventilation Syndrome, DOMINIQUE Morbid obesity Extensive right lower extremity cellulitis Acute renal failure Discharge Exam General- oriented x 3, not in distress, speaks in sentences with no effort or accessory muscle use Eyes- anicteric Neck- no JVD Lungs- clear breath sounds bilaterally, no rales/wheezes Heart- normal rate, regular rhythm; no murmurs Abdomen- normal bowel sounds, nondistended, soft, nontender Extremities- no pretibial edema, no calf tenderness Right lower extremity: Redness, tenderness, warmth continues to improve Neuro- alert, oriented x 3; no gross focal neurologic deficits Skin- warm & dry Discharge Data Allergies Allergy/AdvReac Type Severity Reaction Status Date / Time bee venom protein (honey bee) Allergy Unknown GENERALIZED Unverified 06/30/20 10:04 SWELLING-SOB No Known Drug Allergies Allergy Unknown NONE Unverified 06/30/20 10:04 Consultations 06/08/20 14:15 ED Decision to Admit Stat 06/08/20 15:55 Consult Logistics Manager Routine 06/08/20 18:44 Consult Case Management - Discharge Planning Routine 06/09/20 08:19 Consult Nephrology Routine 06/15/20 08:39 Consult Infectious Diseases Routine 06/15/20 17:45 Consult Cardiology Routine 06/16/20 12:51 Consult Wound Care Provider Routine 06/17/20 11:41 Consult Gynecology Routine Ordered Studies 06/08/20 12:49 US venous doppler LE RT Stat FINDINGS: There is normal compressibility, flow, and augmentation within the right lower extremity deep venous system. A 3.1 x 2.3 x 1.1 cm popliteal cyst. IMPRESSION: No DVT within the right lower extremity 06/17/20 15:30 US pelvic complete Routine US transvaginal Routine Uterus: The uterus is atrophic and heterogeneous, measuring at least 7 cm in length. Numerous nabothian cysts are seen in the cervix. Endometrium: The endometrium is normal in appearance, and the endometrial stripe is normal in thickness measuring up to 1.0 cm. Ovaries: The ovaries were not visualized. Pelvis: There is no free fluid in the cul-de-sac. No concerning adnexal lesion is seen. IMPRESSION: 1. The uterus is atrophic and heterogeneous. 2. The endometrium is thickened for age measuring up to 1.0 cm in thickness. Nonemergent gynecology follow-up is recommended. 3. The ovaries were not visualized. 06/22/20 13:04 CT tib/fib RT w con Routine FINDINGS: The examination is mildly limited from a technical standpoint due to the patient's large body habitus as a small portion of the subcutaneous tissues of the lower lateral leg were not within the [id number]. There is diffuse lower extremity edema with skin thickening consistent with the clinical history of cellulitis. There are no focal fluid collections to indicate an abscess. There are no bony destructive changes to indicate osteomyelitis. Moderate arthritic changes are present within the. There is no gas present within the soft tissues. IMPRESSION: 1. Diffuse cutaneous and subcutaneous edema, consistent with the clinical history of cellulitis 2. No evidence of abscess 3. No evidence of osteomyelitis Hospital Course (1) Acute on chronic respiratory failure with hypoxia and hypercapnia: Acute respiratory failure with hypoxia: Acute Hypoxic and Hypercarbic Respiratory Failure Secondary to restrictive lung disease, obesity Hypoventilation Syndrome, DOMINIQUE Morbid obesity This is a 55-year-old female that was admitted on 06/08/2020 with diagnosis of cellulitis of lower extremities, SIRS acute on chronic respiratory failure with hypoxia, hypercapnia, and acute kidney injury. -- [facility] [place] Pul[place] Dr. Sagar Hubbard consulted -- patient placed on Bipap, setting adjusted when patient not using Bipap at night consistently, CO2 levels rise and patient becomes lethargic -- per Pulmonary SVC: Patient is acute on chronic respiratory failure with hypoxia and hypercapnia. Polysomnography completed 05/05/2020 showing severe obstructive disease. Patient will require BiPAP on discharge--> settings 14/11 (life sustaining at this time) Patient should be followed consistently as an outpatient with the pulmonary clinic for restrictive disease secondary to morbid obesity as well as obstructive disease as listed above. Maintain SaO2 between 88 and 92% -- tolerating Bipap well now Home BiPAP arranged Patient strongly encouraged to use nightly while sleeping and as tolerated during the daytime Follow-up with pulmonary clinic in 2 weeks Cellulitis: Right lower extremity Extensive cellulitis per Dr. Villareal notes: --Doppler studies right lower extremity: Negative for DVT Need arterial Doppler and ANNE-MARIE when patient is able to tolerate CT of right lower extremity: no abscess received Dapto + Zosyn, then Cefepime, total of 17 days discussed with Peyton Pool- recommend Clindamycin and Cipro x 1 week (patient needs 5 more days of antibiotics) ff up with [facility] in 1 week Discharge home with home health services BLAYNE (acute kidney injury) Resolved, renal function improved to baseline Acute Renal Failure likely from ATN, in the setting of sepsis Also likely secondary to NSAID use Patient admits to taking ibuprofen 800 mg multiple times per day for several weeks now Patient is counseled to avoid NSAIDs Nephrology consulted monitor renal function as patient being discharged with Lasix 20mg PO BID for possible cor pulmonale Post-menopausal bleeding per Dr. Villareal notes: Patient noted to have intermittent vaginal bleed /Spotting pelvic USG shows thickend endometrium measuring up to 1 cm considering age Fire Captain eval - Dr. Chiu Recommends outpatient follow-up in clinic for endometrial biopsy 06/24/2020: had an episode of vaginal bleeding- amount equivalent to "having a period" discussed with Dr. Jordan- regional agronomist Fire Captain recommend Aygestin (Norethindrone 5mg daily x 7 days-patient needs 3 more days only on day of discharge) ff up with [facility] Application T[facility] in 1 week for endometrial biopsy Rash/itching Symptom has completely resolved Possible allergic reaction to IV Dilaudid patient reports pruritus after IV pain meds, has been tolerating IV antibiotic Diffuse erythematous rash on back and torso has improved ff up as outpatient Elevated troponin: likely from Demand Ischemia Possible underlying cor pulmonale Troponin is 0.168--> 0.08--> 0.06 EKG no signs of infarct Echo: Left ventricular wall motion is normal Ejection fraction 50 of 60% Mild to moderate elevation right heart pressures estimated right ventricular systolic pressure 40 to 45 mmHg --Acute coronary syndrome unlikely Echo no wall motion abnormality, no anginal symptoms, no chest pain or chest heaviness, Troponin elevation likely secondary to demand ischemia from hypoxia, also acute renal failure leading to multiple elevation --Patient has cor pulmonale likely secondary to obstructive sleep apnea, restrictive lung disease Also evidence of right heart failure noted Likely contributing to bilateral lower extremity edema -- given Lasix while admitted continue Lasix 20mg PO BID, monitor renal function Continue CPAP at night Pulmonary Hypertension This is likely secondary to untreated sleep disordered breathing as well as chronic hypoxemic respiratory failure. Consider repeating echocardiogram in several months to follow PA pressures once she is on appropriate therapy for sle ep apnea and oxygen therapy. HTN (hypertension): continue Metoprolol XL 50 mg daily SVT (supraventricular tachycardia): Noted on 06/15/2020 around 7 AM patient had a 2-minute episode of SVT Patient reported palpitations but no dizziness or chest pain or shortness of breath likely from being off Bipap Language Asst consulted Continue metoprolol XL 50 mg daily DVT prophylaxis: High risk given morbid obesity, bilateral lower extremity lymphedema, right lower extremity cellulitis Subcu heparin discontinued, as patient had episodes of intermittent vaginal bleed Encouraged to ambulate Disposition d/c home today with home health services ff up with PCP in 1 week ff up with Fire Captain in 1 week ff up with [facility] in 1 week Follow-up with pulmonary clinic in 2 weeks Total Time Total Time Spent Total Time Spent (In Minutes): > 30 minutes Discharge Plan Discharge Items Patient Disposition: Home - Home Health Services Reason For Visit: ACUTE HYPOXIC RESP FAILURE,SEPSIS,RLE CELLULITIS,A Discharge Diagnosis: ACUTE HYPOXIC AND HYPERCAPNEIC RESPIRATORY FAILURE SEVERE RIGHT LOWER EXTREMITY CELLULITIS, SEPSIS ACUTE RENAL FAILURE POST MENOPAUSAL BLEEDING Activity: As commented below Activity Comment: CONTINUE PT AND OT Bathing Comment: No bathing in the tub or swimming in the pool Exercise/Sports: Gradually increase as tolerated Driving/Machine Use: NO DRIVING UNTIL RE-EVALUATED AND ALLOWED BY PRIMARY CARE PHYSICIAN Non-emergency contact: Primary Care Provider Call non-emergency contact if: you have any medication questions, your symptoms worsen, your pain is not controlled, your pain is worsening, your pain is unusual for you, your pain is concerning for you, your wound has increased redness, your wound has increased drainage and your wound pain has increased Follow-up/Referrals: Sagar Hubbard MD [Physician] - Alan Wade MD [Primary Care Provider] - Diet: Heart Healthy Addtl Attending Provider Instructions: Your new medications include: Ciprofloxacin and Clindamycin - antibiotics for leg cellulitis - take a probiotic daily for at least 1 month Breo - inhaler to control wheezing Lasix- diuretic to prevent water retention Aygestin- to prevent vaginal bleeding (stop after 3 days). Always ambulate as much as possible to prevent blood clots. Please follow-up with [facility] primary care provider SERGIO Villegas on Tuesday, June 30, 2020 at 8 AM. Also follow-up with [facility] gynecology clinic within 1 week for possible endometrial biopsy. Please call the clinic for an appointment at [phone]. Please follow-up with [facility] wound care center in 1 week. Please call the clinic for an appointment at [phone]. Follow-up with [facility] cancer program director Dr. Sagar Hubbard in 2 weeks. Please call his clinic for an appointment at [phone]. Follow-up with [facility] bariatric program as scheduled. Pulmonary service recommendations: Patient will require BiPAP on discharge with IPAP of 20 and EPAP of 12 Patient requires higher EPAP setting to treat obstructive process of disease Patient should use BiPAP for a minimum of 4-6 hours with sleep and as tolerated with rest during the day. Will need titration studies as an outpatient Maintain SaO2 between 88 and 92% Continue to follow with [facility] bariatrics and pulmonary/sleep on discharge Would repeat echocardiogram in 2 to 3 months for pulmonary hypertension Continue to follow with bariatrics Please call primary care physician or return to the ER immediately if with worsening of symptoms Including increasing redness, swelling, pain, bleeding or discharge on the right lower extremity, fever chills, shortness of breath, cough, sputum production. Pending Studies at Discharge: Yes Studies:: BLOOD WORK INCLUDINGCBC, CMP IN 1 WEEK REPEAT 2D ECHOCARDIOGRAM IN 2-3 MONTHS Stand-Alone Forms: [facility] [employer], Smoking Cessation Medications and DC Order Prescriptions: New acetaminophen 325 mg Tablet 650 mg PO Q4H PRN (Reason: fever or pain) Qty: 30 RF: 0 (DME) BiPap Machine Misc See Rx Instructions .ROUTE .MEDSUPPLY Qty: 1 RF: 0 (DME) walker Misc See Rx Instructions .ROUTE .MEDSUPPLY Qty: 1 RF: 0 tramadol 50 mg Tablet 50 mg PO Q6H PRN (Reason: severe pain) Qty: 15 RF: 0 levalbuterol tartrate 45 mcg/actuation HFA aerosol inhaler 2 puffs INH Q6H PRN (Reason: shortness of breath) Qty: 15 RF: 2 ciprofloxacin HCl 500 mg tablet 500 mg PO Q12H Qty: 10 RF: 0 clindamycin HCl 150 mg capsule 450 mg PO Q8H Qty: 45 RF: 0 metoprolol succinate 50 mg tablet extended release 24 hr 50 mg PO DAILY Qty: 30 RF: 2 furosemide [Lasix] 20 mg tablet 20 mg PO BID Qty: 60 RF: 2 sennosides-docusate sodium [Senokot-S] 8.6-50 mg tablet 1 tabcap PO DAILY Qty: 30 RF: 2 Breo Ellipta 100-25 mcg/dose blister with device 1 puffs INH DAILY Qty: 28 RF: 2 Discontinued bumetanide 1 mg tablet 1 mg PO DAILY RF: 0 lisinopril 2.5 mg tablet 2.5 mg PO DAILY RF: 0 Discharge Orders: Discharge Order (Routine); Ordered 06/27/20 Ordered By: Yoandy Combs Admission Data Admit Date/Time: 06/08/20 17:16 Attending Provider: Yoandy Combs Admit Provider: Kenisha Graham I. Primary Care Provider: Alan Wade Other Providers: [facility] ; [facility], ; Kenisha Graham I. ; Sagar Hubbard ; Chantal John ; Андрей Daugherty ; Alex Gordon ; Emile Pool I. ; Baldemar Vásquez II ; Holly Jimenez ; Joseph Martinez ; Jaime Roe ; Salazar Licea ; Miguelito Watson ; Sherron Taylor ; Brittany Stiles ; Lalo Chiu ; Tamera Worley ; Naresh Contreras ; Eliazar Head ; Radha Dangelo ; Shea Dove V. ; Nina Monzon ; Allie Villareal ; [facility] Other Interventions: Discharge Summary Assessment (RN) Last Done: 06/27/20 15:26 DC Date/Time DO NOT enter until pt leaves facility: 06/27/20 16:17
== END 2020-06-27 16:17 | disposition home health service (06) | DRG 871 ==
LOC: ED 11:57 → 2S 17:16 → SUATTDRO 17:16 → 2S 17:50 → 2N 06-13 14:04

== ENCOUNTER 2020-07-03 00:23 | Inpatient (IN) ==
--- NOTE | 2020-07-03 00:39 | Emergency Department Note ---
History of Present Illness General Chief complaint: Chest Pain Stated complaint: CHEST PAIN/SHORT OF BREATH History of Present Illness This 55-year-old presents to the ER complaining of chest pain and racing heart for the past 4 hours she has a history of SVT and follows with Dr. Jeffrey Location: Chest Quality: Pressure Severity: Moderate Duration: This evening Timing: Started 4 hours ago Context: Patient was concerned and summoned EMS Modifying factors: better with adenosine; worse with activity Patient states she was just discharged from the hospital for sepsis to the right lower leg. She finished her antibiotics today. She states overall the leg is feeling better. No history of DVT or PE. She does not smoke. Patient denies dyspnea, fevers, flulike illness, cold symptoms. She states she has a history of SVT. Home Medications Home Medications Medication Instructions Recorded Confirmed Type acetaminophen 650 mg PO Q4H PRN #30 tab 06/24/20 06/30/20 Rx BiPap Machine #1 ea 06/25/20 06/30/20 Rx walker #1 ea 06/25/20 06/30/20 Rx ciprofloxacin HCl 500 mg PO Q12H #10 tab 06/27/20 06/30/20 Rx clindamycin HCl 450 mg PO Q8H #45 cap 06/27/20 06/30/20 Rx fluticasone furoate-vilanterol 1 puffs INH DAILY #28 ea 06/27/20 06/30/20 Rx [Breo Ellipta] furosemide [Lasix] 20 mg PO BID #60 tab 06/27/20 06/30/20 Rx levalbuterol tartrate 2 puffs INH Q6H PRN #15 gm 06/27/20 06/30/20 Rx metoprolol succinate 50 mg PO DAILY #30 tab 06/27/20 06/30/20 Rx sennosides-docusate sodium 1 tabcap PO DAILY #30 tab 06/27/20 06/30/20 Rx [Senokot-S] tramadol 50 mg PO Q6H PRN #15 tab 06/27/20 06/30/20 Rx ammonium lactate 5 % lotion 1 appln TOP BID 30 Days #226 gm 06/30/20 06/30/20 Rx Allergies Allergy/AdvReac Type Severity Reaction Status Date / Time bee venom protein (honey bee) Allergy Unknown GENERALIZED Unverified 06/30/20 10:04 SWELLING-SOB No Known Drug Allergies Allergy Unknown NONE Unverified 06/30/20 10:04 Past Med/Surg History Medical History Acute on chronic respiratory failure with hypoxia and hypercapnia Elevated parathyroid hormone HTN (hypertension) Lymphedema No pertinent family history Obesity, morbid, BMI 50 or higher (Chronic) Obstructive sleep apnea Surgical History No pertinent past surgical history Family History Grandmother Heart disease Social History Smoking Status: Never smoker packs per day: 1; Hx Alcohol Use: No Hx Substance Use: No Communication Ability: Effective Beliefs That Will Affect Care: None Current Living Situation: Family Feels Safe at Home: Yes Review of Systems A total of 10 systems reviewed and were otherwise negative Physical Exam Vital Signs Vital Signs - 24 hr 07/03/20 00:33 07/03/20 00:40 07/03/20 01:50 Temperature 36.9 C Temperature Source Oral Pulse Rate 108 H Pulse Rate [Apical] 96 H Pulse Rhythm [Apical] Regular Respiratory Rate 20 18 Respiratory Effort / Characteristics Non-Labored Spontaneous SOB on Exertion Respiratory Depth Normal Normal Blood Pressure 127/69 Blood Pressure [Right Arm] 143/85 H Blood Pressure Mean 88 Blood Pressure Mean [Right Arm] 104 Pulse Oximetry 94 93 Oxygen Delivery Method Room Air Room Air Sepsis Recent Fever Within 48 Hours No Sepsis New/Unexplained Change in Mental Status No Sepsis Action Taken by Nursing No Action Required 07/03/20 01:53 Temperature Temperature Source Pulse Rate Pulse Rate [Apical] Pulse Rhythm [Apical] Respiratory Rate Respiratory Effort / Characteristics Respiratory Depth Blood Pressure Blood Pressure [Right Arm] Blood Pressure Mean Blood Pressure Mean [Right Arm] Pulse Oximetry 94 Oxygen Delivery Method Room Air Sepsis Recent Fever Within 48 Hours Sepsis New/Unexplained Change in Mental Status Sepsis Action Taken by Nursing VITALS: Vitals are noted on the nurse's note and reviewed by myself. Vital signs stable. GENERAL: Pleasant female speaking in full sentences, in no acute distress, nondiaphoretic, well-developed well-nourished. SKIN: Capillary reflex less than 2 seconds. Right lower leg erythematous and ed ematous healing per patient. HEENT: Normocephalic. PERRLA. EOMI. Nares patent. Mucous membranes moist. Neck is supple without nuchal rigidity. HEART: Regular rate and rhythm LUNGS: Clear to auscultation bilaterally without wheezes, rales or rhonchi. No retractions or accessory muscle use. ABDOMEN: Positive bowel sounds x 4. Normal tympanic percussion. Soft, nontender, without masses or organomegaly. Figueroa sign negative. No guarding or rebound tenderness. MUSCULOSKELETAL: No gross musculoskeletal defects. NEURO: Patient was alert and oriented to person place and time. No focal neurological deficits. Course Administered Medications Discontinued Medications Ioversol (Optiray 320 125ml) 119 ml IV ONCE ONE Stop: 07/03/20 01:47 Last Admin: 07/03/20 01:46 Dose: 119 ml Documented by: [id number] Medical Decision Making Medical Records Attestation: I reviewed the patient's medical records. Home Medications Current Medication List: was personally reviewed by me Laboratory Data Attestation: I reviewed the patient's lab results. Result diagrams: 07/03/20 00:32 07/03/20 00:32 Lab Results 07/03/20 07/03/20 07/03/20 Range/Units 00:32 00:32 00:32 WBC 12.45 H (4.8-10.8) K/uL RBC 3.20 L (4.2-5.4) M/uL Hgb 9.2 L (12.0-16.0) g/dL Hct 28.3 L (37-47) % MCV 88.4 (80-100) fL MCH 28.8 (25-34) pg MCHC 32.5 (32-36) g/dL RDW Std Deviation 48.8 H (36.4-46.3) fL RDW Coeff of Quan 15.0 H (11.5-14.5) % Plt Count 522 H (130-400) K/uL MPV 8.2 (7.4-10.4) fL Immature Gran % (Auto) 0.6 % Neut % (Auto) 67.6 % Lymph % (Auto) 19.4 % [place] % (Auto) 10.1 % Eos % (Auto) 1.8 % Baso % (Auto) 0.5 % Neut # (Auto) 8.42 H (1.4-6.5) K/uL Lymph # (Auto) 2.41 (1.2-3.4) K/uL [place] # (Auto) 1.26 H (0.11-0.59) K/uL Eos # (Auto) 0.23 (0-0.5) K/uL Baso # (Auto) 0.06 (0-0.2) K/uL Immature Gran # (Auto) 0.07 H (0.00-0.02) K/uL PT 12.1 H (9.0-12.0) Seconds INR 1.2 H (0.9-1.1) APTT 25.6 (21.0-31.0) Seconds PTT Ratio 0.9 D-Dimer 8940 H* (0-500) ug/L FEU Sodium 134 L (136-145) mmol/L Potassium 3.7 (3.5-5.1) mmol/L Chloride 102 (98-107) mmol/L Carbon Dioxide 27 (21-32) mmol/L Anion Gap 5.0 (3-11) BUN 15 (7-18) mg/dl Creatinine 0.94 (0.6-1.2) mg/dl Est Cr Clr Drug Dosing 115.0 ml/min Est GFR ( Amer) 79.7 Est GFR (Non-Af Amer) 68.8 BUN/Creatinine Ratio 15.7 (10-20) Glucose 124 H (70-99) mg/dl Calcium 9.0 (8.5-10.1) mg/dl Magnesium 1.8 (1.8-2.4) mg/dl Total Bilirubin 0.6 (0.2-1) mg/dl AST 17 (15-37) U/L ALT 20 (12-78) U/L Alkaline Phosphatase 108 (45-117) U/L Troponin I < 0.015 (0-0.045) ng/ml Total Protein 8.5 H (6.4-8.2) gm/dl Albumin 2.2 L (3.4-5.0) gm/dl Globulin 6.3 H (2.5-4.0) gm/dl Albumin/Globulin Ratio 0.4 L (0.9-2) Lipase 82 (73-393) U/L TSH 2.530 (0.300-4.500) uIu/ml Imaging Data Attestation: I personally reviewed and interpreted this imaging study as follow s: MDM Narrative Prior records/ancillary studies reviewed. Triage Nursing notes reviewed. Additional history obtained from EMS. The patient's history was concerning for chest pain. Differential diagnosis: Etiologies such as cardiac ischemia, aortic dissection, pulmonary embolism, pneumonia, pneumothorax, musculoskeletal, infections, pericarditis, myocarditis, esophageal rupture, gastrointestinal, as well as others were entertained. Physical examination: As above. ER treatment provided: An order was placed for continuous cardiac monitoring. The monitor shows a rate of 60-1 20 with a sinus rhythm. [] On reassessment the patient felt better. Diagnostic interpretation by me: The electrocardiogram was ordered for chest pain EKG: Normal sinus, normal axis, no acute ST-T wave changes, rate of 108. Impression sinus tachycardia interpreted by myself I think arrhythmia is unlikely. EKG shows normal sinus rhythm with no interval abnormalities such as QT prolongation or WPW. There are no findings to suggest Brugada syndrome. Cardiac monitoring in the emergency department reveals no tachycardic or bradycardic dysrhythmia. Hypertrophic cardiomyopathy was considered but there are no clear historical elements pointing toward this. EKG is not suggestive. The QRS voltage is not extremely large and there are no suggestive Q waves. The labs revealed mild leukocytosis Elevated d-dimer. Negative troponin Imaging studies: Chest x-ray shows cardiomegaly without pneumothorax or free air or CHF per my interpretation CTA CHEST: Artifact related to a portion of patient's thorax being outside of the scanner gantry, as well as contrast bolus timing results in suboptimal opacification of the pulmonary arterial system with internal density of the main pulmonary artery measuring 202 HU. No central pulmonary arterial embolus. Segmental and subsegmental pulmonary emboli cannot be excluded due to exam limitations. Multivessel coronary artery calcifications. Hepatic steatosis. Radiologist: Javy Patterson MD US VENOUS BILATERAL UPPER EXTREMITIES: No evidence of deep venous thrombosis in either upper extremity. Radiologist: Javy Patterson MD US VENOUS BILATERAL LOWER EXTREMITIES: No evidence of deep venous thrombosis in either lower extremity. Mildly enlarged right inguinal lymph node measuring 1.9 cm in short axis. This is likely reactive given history of right leg cellulitis. Recommend clinical follow-up to ensure resolution. 4.6 x 2.9 x 1.3 cm fluid collection of the left popliteal fossa, most likely a Hughes's cyst. Right popliteal fossa fluid collection measuring approximately 1.5 x 1 cm. This also is likely a Hughes's cyst. Radiologist: Javy Patterson MD HEART SCORE: Hx: high/mod/low suspicion: 1 ECG: ST depression/nonspecific changes/normal: 0 Age: Greater than 65/45-64/less than 45: 1 Risk factors: (Hypertension, hyperlipidemia, diabetes, coronary disease, tobacco use, cocaine use): 2 Troponin: Greater than 2 times normal limits/1-2 times normal limits/normal: 0 Total: 4 Consultation: A consultation was placed with the hospitalist, Dr Amanda. The case was discussed and diagnostics were reviewed. The patient was evaluated in the ER for further treatment. Exam and history seem consistent with SVT that was treated with adenosine by the warehouse shift supervisor. First troponin is negative. Inconclusive CTA. Negative DVT studies. Patient will be evaluated by medicine for possible admission. By the evaluation outlined above emergent etiologies such as aortic dissection, pulmonary embolism, pneumonia, pneumothorax, pericarditis, myocarditis, gastrointestinal, as well as others were deemed relatively unlikely. The pt informed about the findings as listed above. All questions were answered and pleased with the treatment. The chart was completed utilizing [employer] Speech voice recognition software. Grammatical errors, random word insertions, pronoun errors, and incomplete sentences are an occassional consequence of this system due to software limitations, ambient noise, and hardware issues. Any formal questions or concerns about the content, text, or information contained within the body of this dictation should be directly addressed to the physician seed analysis laboratory assistant for clarification. Impression & Plan Chest pain, SVT (supraventricular tachycardia) Discharge Plan Visit Data Chief Complaint: Chest Pain Stated Complaint: CHEST PAIN/SHORT OF BREATH Other Complaint: Shortness of Breath/Dyspnea ED Provider: Amy Dykes ED Midlevel Provider: Odalis Woody Discharge Problem: Chest pain, SVT (supraventricular tachycardia) Patient Disposition: Being Evaluated by Hospitalist Condition: Fair Forms Stand Alone Forms: [employer] Prescriptions Prescriptions: No Action Lac-Hydrin Five 5 % lotion 1 appln TOP BID 30 Days Qty: 226 RF: 1 acetaminophen 325 mg Tablet 650 mg PO Q4H PRN (Reason: fever or pain) Qty: 30 RF: 0 (DME) BiPap Machine Misc See Rx Instructions .ROUTE .MEDSUPPLY Qty: 1 RF: 0 (DME) walker Misc See Rx Instructions .ROUTE .MEDSUPPLY Qty: 1 RF: 0 tramadol 50 mg Tablet 50 mg PO Q6H PRN (Reason: severe pain) Qty: 15 RF: 0 levalbuterol tartrate 45 mcg/actuation HFA aerosol inhaler 2 puffs INH Q6H PRN (Reason: shortness of breath) Qty: 15 RF: 2 ciprofloxacin HCl 500 mg tablet 500 mg PO Q12H Qty: 10 RF: 0 clindamycin HCl 150 mg capsule 450 mg PO Q8H Qty: 45 RF: 0 metoprolol succinate 50 mg tablet extended release 24 hr 50 mg PO DAILY Qty: 30 RF: 2 furosemide [Lasix] 20 mg tablet 20 mg PO BID Qty: 60 RF: 2 sennosides-docusate sodium [Senokot-S] 8.6-50 mg tablet 1 tabcap PO DAILY Qty: 30 RF: 2 Breo Ellipta 100-25 mcg/dose blister with device 1 puffs INH DAILY Qty: 28 RF: 2 Referrals Referrals: Alan Wade MD [Primary Care Provider] - Discharge Problem: Chest pain Qualifiers: Chest pain type: unspecified Qualified Code(s): R07.9 - Chest pain, unspecified
[2020-07-03 00:40] LABS: Basophils # (auto) 0.06 K/uL (0-0.2); Basophils % (auto) 0.5 %; Eosinophils # (auto) 0.23 K/uL (0-0.5); Eosinophils % (auto) 1.8 %; Hematocrit (blood only) 28.3 % (37-47); Hemoglobin 9.2 g/dL (12.0-16.0); Immature Granulocytes # (auto) 0.07 K/uL (0.00-0.02); Immature Granulocytes % (auto) 0.6 %; Lymphocytes # (auto) 2.41 K/uL (1.2-3.4); Lymphocytes % (auto) 19.4 %; Mean Corpuscular Hemoglobin 28.8 pg (25-34); Mean Corpuscular Hgb Conc 32.5 g/dL (32-36); Mean Corpuscular Volume 88.4 fL (80-100); Mean Platelet Volume 8.2 fL (7.4-10.4); Monocytes # (auto) 1.26 K/uL (0.11-0.59); Monocytes % (auto) 10.1 %; Neutrophils # (auto) 8.42 K/uL (1.4-6.5); Neutrophils % (auto) 67.6 %; Platelet Count 522 K/uL (130-400); RDW Standard Deviation 48.8 fL (36.4-46.3); White Blood Count 12.45 K/uL (4.8-10.8)
[2020-07-03 01:00] LABS: Alanine Aminotransferase 20 U/L (12-78); Albumin Level 2.2 gm/dl (3.4-5.0); Aspartate Aminotransferase 17 U/L (15-37); BUN Creatinine Ratio 15.7 (10-20); Blood Urea Nitrogen 15 mg/dl (7-18); Carbon Dioxide 27 mmol/L (21-32); Chloride 102 mmol/L (98-107); Est GFR (African American) 79.7; Est GFR (Non-African American) 68.8; Glucose 124 mg/dl (70-99); Lipase 82 U/L (73-393); Magnesium 1.8 mg/dl (1.8-2.4); Potassium 3.7 mmol/L (3.5-5.1); Sodium 134 mmol/L (136-145)
[2020-07-03 01:09] LABS: INR 1.2 (0.9-1.1); Partial Thromboplastin Ratio 0.9; Partial Thromboplastin Time 25.6 Seconds (21.0-31.0); Prothrombin Time 12.1 Seconds (9.0-12.0)
[2020-07-03 01:11] LABS: Albumin Globulin Ratio 0.4 (0.9-2); Alkaline Phosphatase 108 U/L (45-117); Bilirubin,Total 0.6 mg/dl (0.2-1); Globulin 6.3 gm/dl (2.5-4.0); Total Protein 8.5 gm/dl (6.4-8.2); Troponin I < 0.015 ng/ml (0-0.045)
[2020-07-03 01:13] LABS: D Dimer 8940 ug/L FEU (0-500)
[2020-07-03] MEDS ORDERED: OPTIRAY 320 125ml IV ONE (01:46)
[2020-07-03] MEDS ORDERED: NITROGLYCERIN SL 0.4 MG/TAB TAB SL PRN (05:08)
[2020-07-03] MEDS ORDERED: ACETAMINOPHEN 325 MG TAB PO PRN (05:08)
[2020-07-03] MEDS ORDERED: DAPTOMYCIN CONSULT ACTIVE PRN (05:08)
[2020-07-03] MEDS ORDERED: POLYETHYLENE (MIRALAX) 17 GM PACK PO PRN (05:08)
[2020-07-03] MEDS ORDERED: METOPROLOL TARTRATE 1 MG/ML VIAL IV PRN (05:08)
[2020-07-03] MEDS ORDERED: DAPTOmycin 750 MG in SYRINGE 0 ML IV ONE (05:08)
[2020-07-03] MEDS ORDERED: LEVALBUTEROL TARTRATE 15 GM HFA.AER.AD INH PRN (05:08)
[2020-07-03] MEDS ORDERED: PIPERACILL/TAZOBAC CONSULT ACTIVE PRN (05:08)
[2020-07-03] MEDS ORDERED: ONDANSETRON INJ 2 MG/ML 2 ML VIAL IV PRN (05:08)
[2020-07-03] MEDS ORDERED: CONSULT PHARMACY STA (05:08)
--- NOTE | 2020-07-03 05:48 | History and Physical Report ---
DATE OF ADMISSION: 07/03/2020 CHIEF COMPLAINT: Chest pain and palpitations. HISTORY OF PRESENT ILLNESS: A 55-year-old female with past medical history significant for hypertension, morbidly obese, BMI greater than 70, history of restrictive lung disease and pulmonary hypertension, cor pulmonale, likely secondary to obstructive sleep apnea, chronic respiratory failure, on BiPAP at night, history of SVT. Last admission, she had postmenopausal bleeding. The patient says now it is resolved. Last admission, she was also treated for cellulitis of right lower extremity with daptomycin and Zosyn, then cefepime. She just finished her p.o. antibiotics of clindamycin and Cipro. Lives with her mother, comes because of chest pain and palpitations. She says that the chest pain started in the evening at 7:00 p.m. when she was trying to go to bed to sleep and it got worse, about 7/10 in severity, in the left side of the chest, radiating to the neck, jaw, and left shoulder, pressure-like feeling, associated with some nausea and palpitations and dizziness and she also had an episode of vomiting and she has cough. Denies any fever, chills. No headache, no blurred visions, no earache, no runny nose, no sore throat, no abdominal pain. Normal bowel and bladder movements. Appetite is okay. Ambulates with a walker. In the EMS, she was found to be in SVT and given adenosine. Currently resting comfortably and hemodynamically stable. The patient says alsoher right lower extremity again, getting more red and warm to touch. D-dimer is elevated, but CTA of the chest, preliminary report, no PE. Doppler studies are pending. Troponin is negative. ALLERGIES: BEE VENOM. PAST MEDICAL HISTORY: As mentioned above. PAST SURGICAL HISTORY: Ligation of the oviducts. MEDICATIONS: Currently the patient is on Tylenol 650 mg p.o. q. 4 hours p.r.n., tramadol 50 mg p.o. q. 6 hours p.r.n., Xopenex 2 puffs inhalation q. 6 hours p.r.n., Toprol-XL 50 mg p.o. daily, Lasix 20 mg p.o. b.i.d., Senokot S 1 capsule daily, Breo Ellipta 1 inhalation daily. FAMILY HISTORY: Significant for mother had heart disorder; maternal grandmother had pancreatic cancer, diabetes; maternal grandfather has GA and emphysema. SOCIAL HISTORY: Lives with her mother. Quit smoking in 2014, prior to that smoked 1.5 packs a day for 12 years. Alcohol occasional. No drug use. REVIEW OF SYSTEMS: As per HPI. Rest of the review of systems negative. PHYSICAL EXAMINATION: GENERAL: The patient is morbidly obese, not in acute distress. VITAL SIGNS: Temperature 36.9, pulse 96, respiratory rate 18, blood pressure 143/85, oxygen 94% on room air. HEENT: No pallor. Pupils equal, round, reactive to light. NECK: No JVD, no neck masses. CARDIOVASCULAR: S1, S2 heard, regular rate and rhythm, no murmur, no gallop. RESPIRATORY SYSTEM: Normal AP diameter. No accessory muscle use. No wheezing, no crackles. ABDOMEN: Soft, bowel sounds present, nontender. No distention. CENTRAL NERVOUS SYSTEM: Alert and oriented. Speech clear. Obeys commands. Moves extremities. EXTREMITIES: Bilateral lower extremity edema present and right lower extremity is erythematous and warm on palpation. LABORATORY DATA: WBC 12.4, hemoglobin 9.2, hematocrit 28.3, platelets 522. PT 12.1, INR 1.1, APTT 25.6. D-dimer 8940. Sodium 134, potassium 3.7, chloride 102, bicarbonate 27, BUN 15, creatinine 0.9, serum glucose 124, calcium 9, magnesium 1.8, total bilirubin 0.6, AST 17, ALT 20, alkaline phosphatase 108. Troponin I less than 0.015. Lipase 82. TSH 2.5. IMAGING DATA: Chest x-ray, poor inspiratory effort. No acute findings. CT of the chest, preliminary report, no PE. Lower extremity Doppler results are pending. EKG: Sinus tachycardia with PACs at a rate of 108. ASSESSMENT AND PLAN: This is a 55-year-old female who presents with chest pain, palpitations, and found to be in supraventricular tachycardia. 1. Chest pain: Initial EKG and troponins are negative. Risk factors, age, hypertension, obesity. We will follow serial enzymes and monitor in the tele floor and cardiac consult in the a.m. We will keep n.p.o. until seen by cardiology.Had Echo last admission. 2. Supraventricular tachycardia: The patient has a history of SVT. The patient says last admission her Toprol-XL was changed from 50 b.i.d. to 50 mg daily. Received adenosine by the EMS. Currently rates are under control. Will continue on Toprol-XL home dose 50 mg daily and IV Lopressor p.r.n. and await cardiology input. 3. Right lower extremity cellulitis. The patient was recently in the hospital and discharged a few days back, but at that time she received daptomycin and Zosyn and she took additional clindamycin and Cipro, which she finished yesterday. Again there is increase in redness and warmth on palpation. Await Doppler studies. Leukocytosis. Will restart on daptomycin and Zosyn. Follow the cultures. Will consult wound care. 4. Postmenopausal bleeding last admission, seen by SOFTWARE ASSET MANAGEMENT ANALYST. Needs followup with SOFTWARE ASSET MANAGEMENT ANALYST for endometrial biopsy. 5. Hypertension, on Toprol-XL, she will continue. 6. Obstructive sleep apnea, restrictive lung disease secondary to obesity, pulmonary hypertension, currently on BiPAP at bedtime and also as needed. Needs followup with pulmonary. 7. Chronic diastolic congestive heart failure. Normal EF. She has moderate mitral regurgitation, moderate tricuspid regurgitation, and pulmonary hypertension, on Lasix at home which will continue. 8. Deep venous thrombosis prophylaxis. We will place her on Lovenox subQ. DISPOSITION: Admit to tele floor. PT and OT prior to discharge. Social service to help with discharge planning. Code status, full code. MTDD
[2020-07-03] MEDS ORDERED: PIPERACILLIN/TAZOBACTAM 4.5 GM in DEXTROSE 5% 100 ML IV ONE (06:00)
[2020-07-03] MEDS: DAPTOmycin 425 MG in SYRINGE 0 ML IV SCH (06:02)
--- NOTE | 2020-07-03 06:44 | XRay Report ---
XR chest 1V portable CLINICAL HISTORY: Chest Pain pain COMPARISON STUDY: 06/14/2020 FINDINGS: Moderate cardiomegaly. Prominent pulmonary vasculature. Chronic elevation right hemidiaphra gm. IMPRESSION: Cardiomegaly with components of developing congestive heart failure. ACT 112: Negative or not required by law. The above report was generated using voice recognition software. It may contain grammatical, syntax or spelling errors. Electronically signed by: Joseph Stewart M.D. 07/03/2020 6:43 AM
--- NOTE | 2020-07-03 06:45 | Ultrasound Report ---
US venous doppler LE BI HISTORY: Pain. Edema. +ddimer, ? DVT COMPARISON STUDY: None. FINDINGS: There is normal compressibility, flow, and augmentation within the bilateral lower extremit y deep venous systems. IMPRESSION: No DVT within the right or left lower extremity. Popliteal cyst posterior to the left knee. Small rig ht popliteal cyst measuring 1.5 cm. ACT 112: Negative or not required by law. The above report was generated using voice recognition software. It may contain grammatical, syntax or spelling errors. Electronically signed by: Joseph Stewart M.D. 07/03/2020 6:44 AM
--- NOTE | 2020-07-03 06:46 | Ultrasound Report ---
US venous doppler UE BI HISTORY: Pain. Edema. +ddimer, ? DVT COMPARISON STUDY: None. FINDINGS: The internal jugular veins are patent. There is normal flow within the subclavian veins. There is nor mal flow and compressibility within the bilateral axillary, basilic, brachial, radial, ulnar, and vis ualized cephalic veins. IMPRESSION: No DVT within the upper extremitys. ACT 112: Negative or not required by law. The above report was generated using voice recognition software. It may contain grammatical, syntax or spelling errors. Electronically signed by: Joseph Stewart M.D. 07/03/2020 6:44 AM
--- NOTE | 2020-07-03 06:50 | CT Scan Report ---
CT angio chest PE protocol CT DOSE: 1147.69 mGy.cm HISTORY: Chest pain. Dyspnea. PE TECHNIQUE: Multiaxial CT images of the chest were performed following the intravenous administration of contrast to evaluate the pulmonary arteries. Maximal intensity projection images were also obtaine d. A dose lowering technique was utilized adhering to the principles of ALARA. COMPARISON STUDY: None. FINDINGS: Limited study due to patient body habitus. The central pulmonary vasculature enhances appropriately. There are no major filling defects centrall y. Evaluation of the third order and peripheral vasculature is problematic due to limited contrast admin istration. IMPRESSION: No evidence for major pulmonary embolus. Limited evaluation of the peripheral vasculature due to body habitus considerations. ACT 112: Negative or not required by law. The above report was generated using voice recognition software. It may contain grammatical, syntax or spelling errors. Electronically signed by: Joseph Stewart M.D. 07/03/2020 6:48 AM
[2020-07-03 07:30] LABS: Basophils # (auto) 0.07 K/uL (0-0.2); Basophils % (auto) 0.7 %; Eosinophils # (auto) 0.23 K/uL (0-0.5); Eosinophils % (auto) 2.3 %; Hematocrit (blood only) 27.5 % (37-47); Hemoglobin 8.7 g/dL (12.0-16.0); Immature Granulocytes # (auto) 0.04 K/uL (0.00-0.02); Immature Granulocytes % (auto) 0.4 %; Lymphocytes # (auto) 2.13 K/uL (1.2-3.4); Mean Corpuscular Hemoglobin 28.6 pg (25-34); Mean Corpuscular Hgb Conc 31.6 g/dL (32-36); Mean Corpuscular Volume 90.5 fL (80-100); Mean Platelet Volume 8.1 fL (7.4-10.4); Monocytes # (auto) 1.07 K/uL (0.11-0.59); Monocytes % (auto) 10.6 %; Neutrophils # (auto) 6.58 K/uL (1.4-6.5); Nucleated RBC # (auto) 0.02 K/uL (0-0); Nucleated RBC % (auto) 0.2 %; Platelet Count 509 K/uL (130-400); RDW Coefficient of Variation 15.3 % (11.5-14.5); RDW Standard Deviation 50.8 fL (36.4-46.3); Red Blood Count 3.04 M/uL (4.2-5.4); White Blood Count 10.12 K/uL (4.8-10.8)
[2020-07-03 07:48] LABS: BUN Creatinine Ratio 16.2 (10-20); Blood Urea Nitrogen 13 mg/dl (7-18); Calcium 8.9 mg/dl (8.5-10.1); Carbon Dioxide 30 mmol/L (21-32); Chloride 101 mmol/L (98-107); Creatinine Clr Calc Pharmacy 140.4 ml/min; Est GFR (African American) 101.5; Est GFR (Non-African American) 87.5; Glucose 95 mg/dl (70-99); Potassium 3.7 mmol/L (3.5-5.1); Sodium 136 mmol/L (136-145)
[2020-07-03 07:52] LABS: Troponin I < 0.015 ng/ml (0-0.045)
[2020-07-03] MEDS: AMMONIUM LACTATE 12% LOTION 225 GM BTL EXT SCH ×2 (08:38→19:44)
[2020-07-03] MEDS: FUROSEMIDE 20 MG TAB PO SCH ×2 (08:38→18:08)
[2020-07-03] MEDS: DOCUSATE SODIUM/SENNA 50/8.6MG TAB PO SCH (08:39)
--- NOTE | 2020-07-03 08:39 | Hospitalist Progress Note ---
Date of Service July 03, 2020 Assessment & Plan (1) PSVT (paroxysmal supraventricular tachycardia): Chest Pain -This is a 55-year-old female who presents with chest pain, palpitations, and found to be in supraventricular tachycardia. -as per the reports of the ED notes and admitting contact lens technician and patient, that patient was identified to have supraventricular tachycardia when she was evaluated by EMS at home after patient had felt palpitations and chest pain radiating up to left jaw. In the physical patient chart, patient got 6 mg and 12 mg of what is presumed to be adenosine for which then patient returned to sinus rhythm and then subsequently was loaded on aspirin 324 mg -admission EKG: Normal sinus, normal axis, no acute ST-T wave changes, rate of 108. -07/03/2020: hospitalist cannot find the strip in the physical chart for which patient was identified to have SVT by the EMS. On the current telemetry since arrival from ED, patient has been in sinus rhythm. Patient denies any current chest discomforts or palpitations. No dizziness. no nausea. no vomiting. no head ache -review of previous admission notes did document episode of SVT on that stay - no gross electrolyte deficiencies on this admission, normal TSH on admission, troponins negative x 2, her chest pain at home likely from PSVT -continue current home dose of metoprolol 50 mg succinate once a day for now, appreciate further cardiology service evaluation History of right lower extremity cellulitis -patient had recent admission for right lower extremity cellulitis. She reports that she has seen [facility] on Sunday06/30/2020 and was told that the right leg was generally improved. She was at the end of her outpatient antibiotic course of Clindamycin and Ciprofloxacin prior to this hospital presentation -07/03/2020: on my exam, I do not appreciate an active right leg cellulitis but seeing sequela of healing skin with scabbing -agree with admitting physician on having patient on empiric broad spectrum of Zosyn and Daptomycin until blood cultures return to see if PSVT at home was related to an infection or not 07/03/2020 Venous doppler: No DVT within the right or left lower extremity. Popliteal cyst posterior to the left knee. Small right popliteal cyst measuring 1.5 cm. 07/03/2020 CTA: No evidence for major pulmonary embolus. Limited evaluation of the peripheral vasculature due to body habitus considerations Chronic diastolic congestive heart failure. Hypertension -her last echocardiogram with normal EF. She has moderate mitral regurgitation, moderate tricuspid regurgitation, and pulmonary hypertension, -on Toprol-XL -continue outpatient lasix Obstructive sleep apnea, restrictive lung disease secondary to obesity pulmonary hypertension, on on BiPAP at night Morbid Obesity with BMI 73.3 -continue BIPAP at night -patient denies needing oxygen during day time -continue home dose inhalers Postmenopausal bleeding on last admission and was seen by [employer] SALES SUPERVISOR. -will need outpatient followup with [employer] SAL[employer] SUPERVISOR for endometrial biopsy. Deep venous thrombosis prophylaxis: Lovenox subcutaneous as 40 mg q12 hours (discussed with pharmacist that this twice a day dosing is because of accounting for patient's body size and weight instead of the typically Lovenox 40 mg once a day dosing Admission and Anticipated Discharge Date Admission Date: July 03, 2020 Subjective -07/03/2020: hospitalist cannot find the strip in the physical chart for which patient was identified to have SVT by the EMS. On the current telemetry since arrival from ED, patient has been in sinus rhythm. Patient denies any current chest discomforts or palpitations. No dizziness. no nausea. no vomiting. no headache Review of Systems Review of Systems: All systems reviewed & are unremarkable except as noted in Subjective Physical Exam Constitutional: + morbidly obese Eyes: PERRL, conjunctivae normal, anicteric sclerae EOM intact bilaterally ENMT: external ear and nose normal, oropharynx normal Respiratory: normal respiratory effort, lungs clear to auscultation Cardiovascular: Rate/Rhythm: regular rhythm heart rate around 100 bpm Gastrointestinal (Abdomen): normal bowel sounds, soft, nontender, no hepatosplenomegaly Musculoskeletal: Head/Neck/Chest: normocephalic Skin: + crusts (left leg with crusty scabs of healing skin ) Neurologic: PERRL, EOMI, accommodation nl, no face palsy, no dysarthria CN's II-XI intact bilaterally Psychiatric: A+Ox3, euthymic affect Results & Data Results & Data ([facility]) Vital Signs (Past 12 Hours) Vital Signs Temp Pulse Pulse Resp BP BP BP 07/03/20 08:09 88 07/03/20 07:13 36.5 C 95 H 19 139/77 07/03/20 05:35 89 21 07/03/20 05:26 94 H 07/03/20 04:52 36.9 C 92 H 25 H 157/95 H 07/03/20 04:24 93 H 18 151/86 H 07/03/20 01:53 07/03/20 01:50 96 H 18 143/85 H 07/03/20 00:33 36.9 C 108 H 20 127/69 Pulse Ox 07/03/20 08:09 07/03/20 07:13 98 07/03/20 05:35 99 07/03/20 05:26 07/03/20 04:52 07/03/20 04:24 93 07/03/20 01:53 94 07/03/20 01:50 93 07/03/20 00:33 94
[2020-07-03] MEDS: FLUTICASONE/VILANTEROL 100/25MCG 14 PUFFS/INHALER INH SCH (08:44)
[2020-07-03] MEDS ORDERED: ENOXAPARIN INJ 40 MG/0.4 ML SYR SQ SCH (09:00)
[2020-07-03] MEDS ORDERED: METOPROLOL SUCC 50MG EXT REL TAB PO SCH (09:00)
--- NOTE | 2020-07-03 10:19 | Electrocardiogram Report ---
Test Reason : Blood Pressure : / mmHG Vent. Rate : 108 BPM Atrial Rate : 108 BPM P-R Int : 176 ms QRS Dur : 096 ms QT Int : 352 ms P-R-T Axes : 052 -15 025 degrees QTc Int : 471 ms Sinus tachycardia with Premature atrial complexes Low voltage QRS Poor R wave progression, consider anterior [place] vs. lead placement vs. LVH Abnormal ECG When compared with ECG of 17-JUN-2020 03:18, Premature ventricular complexes are no longer Present Premature atrial complexes are now Present Confirmed by Sidney Quinonez ([id number]) on 07/03/2020 10:19:26 AM Referred By: REFERRED SELF Confirmed By:Florian Quinonez
[2020-07-03] MEDS: PIPERACILLIN/TAZOBACTAM 4.5 GM in DEXTROSE 5% 100 ML IV SCH ×2 (10:44→18:09)
[2020-07-03] MEDS: ENOXAPARIN INJ 40 MG/0.4 ML SYR SQ SCH ×2 (11:17→20:43)
[2020-07-03] MEDS: TRAMADOL HCL 50 MG TABLET PO PRN (12:48)
--- NOTE | 2020-07-03 13:34 | Cardiology Consultation ---
Date of Consultation July 03, 2020 Assessment & Plan (1) SVT (supraventricular tachycardia): (2) Chest pain: (3) Pulmonary hypertension: (4) Obstructive sleep apnea: (5) Obesity, morbid, BMI 50 or higher: (6) HTN (hypertension): (7) Venous stasis ulcer: (8) Cellulitis of right lower limb: Given that her chest discomfort occurred in the setting of supraventricular tachycardia with rapid ventricular response and that her pain resolved with mormonism of sinus rhythm I do not believe this represents an ischemic event. There are no ischemic changes on her EKG and her troponin levels are unremarkable. We will repeat a resting echocardiogram at this time to evaluate for new wall m otion abnormalities. Should that come back unremarkable then no further ischemic work-up would be necessary at this time. I do believe with continued treatment of obstructive sleep apnea and obesity hypoventilation that her SVT will improve. Until then I will increase her metoprolol to 50 mg p.o. every 8 hours to help suppress any recurrences of her SVT. Continue to monitor on telemetry overnight. History of Present Illness Reason for Consultation: Sustained supraventricular ectopy and chest pain Requesting Physician: Dr. Anthony Attending Physician: Alphonse Anthony MD History of Present Illness It was my pleasure to see Ms. Jacobson in cardiology consultation today July 03, 2020. She is a very pleasant yet medically complex 55-year-old woman who I met at her previous admission last month at which time she was treated for paroxysmal supraventricular tachycardia secondary to obstructive sleep apnea and obesity hypoventilation. Since discharge she states that she has been doing well, however, she was sitting at home last evening watching television after dinner when she suddenly developed chest pain. She described as a pressure sensation across her left precordium that radiated down her left arm. She states that she became very short of breath with this as well as diaphoretic and nauseous. She states that she also noticed her heart racing. States this episode was different than previous and that this episode did not break on its own. EMS was summoned and they report that she was in SVT at that time. She was given adenosine x2 and she states that her symptoms resolved after it was reported that she broke into sinus rhythm with a second dose. Since admission she states that she is been feeling better without any recurrences of the chest pain or palpitations. She states that she has been compliant at home with her nocturnal BiPAP and metoprolol. Allergies Allergy/AdvReac Type Severity Reaction Status Date / Time bee venom protein (honey bee) Allergy Unknown GENERALIZED Unverified 06/30/20 10:04 SWELLING-SOB No Known Drug Allergies Allergy Unknown NONE Unverified 06/30/20 10:04 Home Medications Home Medications Medication Instructions Recorded Confirmed Type acetaminophen 650 mg PO Q4H PRN #30 tab 06/24/20 06/30/20 Rx BiPap Machine #1 ea 06/25/20 06/30/20 Rx walker #1 ea 06/25/20 06/30/20 Rx ciprofloxacin HCl 500 mg PO Q12H #10 tab 06/27/20 06/30/20 Rx clindamycin HCl 450 mg PO Q8H #45 cap 06/27/20 06/30/20 Rx fluticasone furoate-vilanterol 1 puffs INH DAILY #28 ea 06/27/20 06/30/20 Rx [Breo Ellipta] furosemide [Lasix] 20 mg PO BID #60 tab 06/27/20 06/30/20 Rx levalbuterol tartrate 2 puffs INH Q6H PRN #15 gm 06/27/20 06/30/20 Rx metoprolol succinate 50 mg PO DAILY #30 tab 06/27/20 06/30/20 Rx sennosides-docusate sodium 1 tabcap PO DAILY #30 tab 06/27/20 06/30/20 Rx [Senokot-S] tramadol 50 mg PO Q6H PRN #15 tab 06/27/20 06/30/20 Rx ammonium lactate 5 % lotion 1 appln TOP BID 30 Days #226 gm 06/30/20 06/30/20 Rx Patient History Medical History Acute on chronic respiratory failure with hypoxia and hypercapnia Elevated parathyroid hormone HTN (hypertension) Lymphedema No pertinent family history Obesity, morbid, BMI 50 or higher (Chronic) Obstructive sleep apnea Surgical History No pertinent past surgical history Family History Grandmother Heart disease Social History Smoking Status: Former smoker packs per day: 1; Hx Alcohol Use: No Hx Substance Use: No Preferred Language: Romanian Communication Ability: Effective Beliefs That Will Affect Care: None Current Living Situation: Family Other Information That Helps Us Care for You: No Feels Safe at Home: Yes Safety Concerns: Feels Safe At This Time Review of Systems Review of Systems: All systems reviewed & are unremarkable except as noted in HPI & below Physical Exam Physical Exam: General: Awake, alert and oriented x 3. No acute distress. Morbidly obese. HEENT: Normocephalic, atraumatic. Pupils equal, round and reactive to light and accommodation. Extraocular muscles are intact. Anicteric sclera. Moist mucous membranes. Neck: No JVD. No bruit. Cardiovascular: Regular. But distant unable to appreciate murmurs rubs or gallops. Pulmonary: Clear to auscultation B/L. No rales, rhonchi or wheezing Abdomen: Bowel sounds x 4, soft. No rebound, guarding or tenderness. No organomegaly. Extremities: Chronic venous stasis changes bilaterally with +2 nonpitting edema. Unable appreciate pedal pulses Skin: Warm and dry. Results & Data ([facility]) Vital Signs (Past 12 Hours) Vital Signs Temp Pulse Pulse Pulse Resp BP BP 07/03/20 11:16 36.9 C 93 H 19 113/67 07/03/20 08:09 88 07/03/20 07:13 36.5 C 95 H 19 139/77 07/03/20 05:35 89 21 07/03/20 05:26 94 H 07/03/20 04:52 36.9 C 92 H 25 H 157/95 H 07/03/20 04:24 93 H 18 151/86 H 07/03/20 01:53 07/03/20 01:50 96 H 18 143/85 H Pulse Ox 07/03/20 11:16 92 07/03/20 08:09 07/03/20 07:13 98 07/03/20 05:35 99 07/03/20 05:26 07/03/20 04:52 07/03/20 04:24 93 07/03/20 01:53 94 07/03/20 01:50 93 (1) Chest pain Chest pain type: unspecified Qualified Code(s): R07.9 - Chest pain, unspecified (2) Venous stasis ulcer Venous stasis ulcer site: calf Varicose vein presence: unspecified whether present Laterality: right Non-pressure ulcer stage: limited to breakdown of skin Qualified Code(s): I83.012 - Varicose veins of right lower extremity with ulcer of calf; L97.211 - Non-pressure chronic ulcer of right calf limited to breakdown of skin
[2020-07-03] MEDS: ACETAMINOPHEN 325 MG TAB PO PRN ×2 (15:03→20:43)
[2020-07-03] MEDS: METOPROLOL TARTRATE 50 MG TAB PO SCH ×2 (17:18→21:50)
[2020-07-03] MEDS ORDERED: METOPROLOL TARTRATE 1 MG/ML VIAL IV STA (19:35)
[2020-07-04] MEDS: PIPERACILLIN/TAZOBACTAM 4.5 GM in DEXTROSE 5% 100 ML IV SCH ×3 (01:57→17:41)
[2020-07-04] MEDS: TRAMADOL HCL 50 MG TABLET PO PRN ×3 (03:25→22:14)
[2020-07-04] MEDS ORDERED: DiphenhydrAMINE HCL 50 MG/ML VIAL IV STA (03:35)
[2020-07-04] MEDS: METOPROLOL TARTRATE 50 MG TAB PO SCH ×2 (05:27→13:40)
[2020-07-04] MEDS: DAPTOmycin 425 MG in SYRINGE 0 ML IV SCH (05:30)
[2020-07-04 06:25] LABS: Basophils # (auto) 0.01 K/uL (0-0.2); Basophils % (auto) 0.1 %; Eosinophils # (auto) 0.54 K/uL (0-0.5); Eosinophils % (auto) 5.6 %; Hematocrit (blood only) 29.8 % (37-47); Hemoglobin 9.1 g/dL (12.0-16.0); Immature Granulocytes # (auto) 0.03 K/uL (0.00-0.02); Immature Granulocytes % (auto) 0.3 %; Lymphocytes # (auto) 0.95 K/uL (1.2-3.4); Lymphocytes % (auto) 9.9 %; Mean Corpuscular Hgb Conc 30.5 g/dL (32-36); Mean Corpuscular Volume 91.7 fL (80-100); Mean Platelet Volume 8.3 fL (7.4-10.4); Monocytes # (auto) 0.54 K/uL (0.11-0.59); Monocytes % (auto) 5.6 %; Neutrophils # (auto) 7.56 K/uL (1.4-6.5); Neutrophils % (auto) 78.5 %; Nucleated RBC # (auto) 0.02 K/uL (0-0); Nucleated RBC % (auto) 0.2 %; Platelet Count 584 K/uL (130-400); RDW Coefficient of Variation 15.5 % (11.5-14.5); RDW Standard Deviation 52.2 fL (36.4-46.3); Red Blood Count 3.25 M/uL (4.2-5.4); White Blood Count 9.63 K/uL (4.8-10.8)
[2020-07-04 07:07] LABS: BUN Creatinine Ratio 16.7 (10-20); Calcium 8.7 mg/dl (8.5-10.1); Creatinine Clr Calc Pharmacy 112.5 ml/min; Est GFR (African American) 78.7; Est GFR (Non-African American) 67.9; Potassium 3.8 mmol/L (3.5-5.1)
[2020-07-04] MEDS: FLUTICASONE/VILANTEROL 100/25MCG 14 PUFFS/INHALER INH SCH (07:35)
[2020-07-04] MEDS: ENOXAPARIN INJ 40 MG/0.4 ML SYR SQ SCH (07:36)
[2020-07-04] MEDS: DOCUSATE SODIUM/SENNA 50/8.6MG TAB PO SCH (07:36)
[2020-07-04] MEDS: FUROSEMIDE 20 MG TAB PO SCH ×2 (07:37→16:13)
[2020-07-04] MEDS: AMMONIUM LACTATE 12% LOTION 225 GM BTL EXT SCH ×2 (07:37→20:46)
[2020-07-04] MEDS: ACETAMINOPHEN 325 MG TAB PO PRN (07:42)
--- NOTE | 2020-07-04 08:45 | Hospitalist Progress Note ---
Date of Service July 04, 2020 Assessment & Plan (1) PSVT (paroxysmal supraventricular tachycardia): Chest Pain -This is a 55-year-old female who presents with chest pain, palpitations, and found to be in supraventricular tachycardia. -as per the reports of the ED notes and admitting biology teacher and patient, that patient was identified to have supraventricular tachycardia when she was evaluated by EMS at home after patient had felt palpitations and chest pain radiating up to left jaw. In the physical patient chart, patient got 6 mg and 12 mg of what is presumed to be adenosine for which then patient returned to sinus rhythm and then subsequently was loaded on aspirin 324 mg -admission EKG: Normal sinus, normal axis, no acute ST-T wave changes, rate of 108. -07/03/2020: hospitalist cannot find the strip in the physical chart for which patient was identified to have SVT by the EMS. On the current telemetry since arrival from ED, patient has been in sinus rhythm. Patient denies any current chest discomforts or palpitations. No dizziness. no nausea. no vomiting. no head ache -review of previous admission notes did document episode of SVT on that stay -no gross electrolyte deficiencies on this admission, normal TSH on admission, troponins negative x 2, her chest pain at home likely from PSVT. no wall motion abnormalities on this admission echocardiogram -07/04/2020 updates: she felt palpitations when she was sinus tachycardic to 120 on 07/03/2020 evening but appears to be responding to the metoprolol 50 mg every 8 hours as scheduled and currently with regular heart rate. History of right lower extremity cellulitis -patient had recent admission for right lower extremity cellulitis. She reports that she has seen [facility] clinic on Sunday06/30/2020 and was told that the right leg was generally improved. She was at the end of her outpatient antibiotic course of Clindamycin and Ciprofloxacin prior to this hospital presentation -07/03/2020: on my exam, I do not appreciate an active right leg cellulitis but seeing sequela of healing skin with scabbing -agree with admitting physician on having patient on empiric broad spectrum of Zosyn and Daptomycin until blood cultures return to see if PSVT at home was related to an infection or not 07/04/2020: continue antibiotics for now while awaiting further admission blood culture results 07/03/2020 Venous doppler: No DVT within the right or left lower extremity. Popliteal cyst posterior to the left knee. Small right popliteal cyst measuring 1.5 cm. 07/03/2020 CTA: No evidence for major pulmonary embolus. Limited evaluation of the peripheral vasculature due to body habitus considerations Chronic diastolic congestive heart failure. Hypertension -her last echocardiogram with normal EF. She has moderate mitral regurgitation, moderate tricuspid regurgitation, and pulmonary hypertension, -on Toprol-XL -continue outpatient lasix Obstructive sleep apnea, restrictive lung disease secondary to obesity pulmonary hypertension, on on BiPAP at night Morbid Obesity with BMI 73.3 -continue BIPAP at night -patient denies needing oxygen during day time -continue home dose inhalers Postmenopausal bleeding -noted on last admission and has upcoming follow up with [facility] -patient declining Lovenox during this hospital stay because of noting vaginal bleed. Deep venous thrombosis prophylaxis: SCDs to right leg at this time Admission and Anticipated Discharge Date Admission Date: July 03, 2020 Subjective patient declining Lovenox because of noting vaginal bleed - however she does not report profuse bleeding. she felt palpitations when she was sinus tachycardic to 120 on 07/03/2020 evening but appears to be responding to the metoprolol 50 mg every 8 hours as scheduled and currently with regular heart rate. no current chest discomforts or palpitations. no nausea. no vomiting. no dizziness. no headache. she reports she has been able to ambulate in the room. Review of Systems Review of Systems: All systems reviewed & are unremarkable except as noted in Subjective Physical Exam Constitutional: + morbidly obese Eyes: PERRL, conjunctivae normal, anicteric sclerae EOM intact bilaterally ENMT: external ear and nose normal, oropharynx normal Neck: trachea midline, no thyromegaly normal visual inspection Respiratory: normal respiratory effort, lungs clear to auscultation Cardiovascular: Rate/Rhythm: regular rhythm Gastrointestinal (Abdomen): normal bowel sounds, soft, nontender, no hepatosplenomegaly Musculoskeletal: Head/Neck/Chest: normocephalic Skin: + crusts (left leg with crusty scabs of healing skin ) Neurologic: PERRL, EOMI, accommodation nl, no face palsy, no dysarthria CN's II-XI intact bilaterally Psychiatric: A+Ox3, euthymic affect Results & Data Results & Data ([facility]) Vital Signs (Past 12 Hours) Vital Signs Temp Pulse Pulse Resp BP Pulse Ox 07/04/20 07:10 84 07/04/20 07:08 36.6 C 90 22 122/76 96 07/04/20 03:09 36.6 C 97 H 20 139/80 92 07/03/20 23:28 36.9 C 86 20 112/68 95 07/03/20 20:49 37.6 C H 07/03/20 20:48 109 H
--- NOTE | 2020-07-04 10:59 | Electrocardiogram Report ---
Test Reason : Blood Pressure : / mmHG Vent. Rate : 087 BPM Atrial Rate : 087 BPM P-R Int : 196 ms QRS Dur : 100 ms QT Int : 384 ms P-R-T Axes : 057 -19 018 degrees QTc Int : 462 ms Normal sinus rhythm Low voltage QRS Poor R wave progression, consider anterior [place] vs. lead placement vs. LVH Abnormal ECG When compared with ECG of 03-JUL-2020 19:22, (unconfirmed) Premature ventricular complexes are no longer Present Confirmed by Sidney Quinonez ([id number]) on 07/04/2020 11:07:14 AM Also confirmed by Sidney Quinonez ([id number]), material expeditor Michael Nesbitt ([id number]) on 07/05/2020 7:56:53 AM Also confirmed by Sidney Quinonez ([id number]), material expeditor Michael Nesbitt ([id number]) on 07/05/2020 8:02:19 AM Referred By: REFERRED SELF Confirmed By:Florian Quinonez
--- NOTE | 2020-07-04 11:07 | Electrocardiogram Report ---
Test Reason : Blood Pressure : / mmHG Vent. Rate : 114 BPM Atrial Rate : 114 BPM P-R Int : 164 ms QRS Dur : 088 ms QT Int : 330 ms P-R-T Axes : 054 -22 039 degrees QTc Int : 454 ms Sinus tachycardia with frequent Premature ventricular complexes Low voltage QRS Poor R wave progression, consider anterior [place] vs. lead placement vs. LVH Abnormal ECG When compared with ECG of 03-JUL-2020 00:28, Premature ventricular complexes are now Present Premature atrial complexes are no longer Present Confirmed by Sidney Quinonez ([id number]) on 07/04/2020 10:59:02 AM Also confirmed by Sidney Quinonez ([id number]), supervising editor news reel Michael Nesbitt ([id number]) on 07/05/2020 8:01:32 AM Referred By: REFERRED SELF Confirmed By:Florian Quinonez
--- NOTE | 2020-07-04 13:52 | Cardiology Progress Note ---
Date of Service July 04, 2020 Assessment & Plan (1) SVT (supraventricular tachycardia): (2) Chest pain: (3) Pulmonary hypertension: (4) Obstructive sleep apnea: (5) Obesity, morbid, BMI 50 or higher: (6) HTN (hypertension): (7) Venous stasis ulcer: (8) Cellulitis of right lower limb: Given that her chest discomfort occurred in the setting of supraventricular tachycardia with rapid ventricular response and that her pain resolved with jew of sinus rhythm I do not believe this represents an ischemic event. There are no ischemic changes on her EKG and her troponin levels are unremarkable. No new wall motion abnormalities on echo. Responding well to increased dose of metoprolol. We will change to 100 mg p.o. twice daily today. Continue to monitor on telemetry hopeful for discharge tomorrow should there not be any recurrence of her SVT. Subjective Patient seen and examined, chart reviewed. Patient states that she feels well today but did have an episode of palpitations last evening that did correlate with sinus tachycardia. Denies chest pain, shortness of breath, lightheadedness, dizziness or syncope. Telemetry reviewed: Sinus rhythm in the 100-120s range without arrhythmia. Review of Systems Review of Systems: All systems reviewed & are unremarkable except as noted in HPI & below Physical Exam Physical Exam: General: Awake, alert and oriented x 3. No acute distress. Morbidly obese HEENT: Normocephalic, atraumatic. Pupils equal, round and reactive to light and accommodation. Extraocular muscles are intact. Anicteric sclera. Moist mucous membranes. Neck: No JVD. No bruit. Cardiovascular: Regular but distant. Unable appreciate any murmurs rubs or gallops. Pulmonary: Clear to auscultation B/L. No rales, rhonchi or wheezing Abdomen: Bowel sounds x 4, soft. No rebound, guarding or tenderness. No organomegaly. Extremities: No clubbing, cyanosis. +2 bilateral nonpitting edema. +2 pedal pulses bilaterally. Chronic venous stasis changes Skin: Warm and dry. Results & Data Vital Signs (Past 12 Hours) Vital Signs Temp Pulse Pulse Pulse Resp BP Pulse Ox 07/04/20 13:39 98 H 163/76 H 07/04/20 11:39 36.7 C 94 H 18 131/74 93 08/09/20 07:10 84 07/04/20 07:08 36.6 C 90 22 122/76 96 07/04/20 03:09 36.6 C 97 H 20 139/80 92 (1) Chest pain Chest pain type: unspecified Qualified Code(s): R07.9 - Chest pain, unspecified (2) Venous stasis ulcer Venous stasis ulcer site: calf Varicose vein presence: unspecified whether pr esent Laterality: right Non-pressure ulcer stage: limited to breakdown of skin Qualified Code(s): I83.012 - Varicose veins of right lower extremity with ulcer of calf; L97.211 - Non-pressure chronic ulcer of right calf limited to breakdown of skin
[2020-07-04] MEDS: METOPROLOL TARTRATE 100 MG TAB PO SCH (16:13)
[2020-07-04] MEDS ORDERED: CALCIUM CARBONATE 500 MG CHEWABLE TAB PO PRN (21:43)
[2020-07-05] MEDS: PIPERACILLIN/TAZOBACTAM 4.5 GM in DEXTROSE 5% 100 ML IV SCH (01:58)
[2020-07-05] MEDS: DAPTOmycin 425 MG in SYRINGE 0 ML IV SCH (05:14)
--- NOTE | 2020-07-05 08:03 | Electrocardiogram Report ---
Test Reason : Blood Pressure : / mmHG Vent. Rate : 089 BPM Atrial Rate : 089 BPM P-R Int : 188 ms QRS Dur : 102 ms QT Int : 380 ms P-R-T Axes : 045 -21 018 degrees QTc Int : 462 ms Normal sinus rhythm Low voltage QRS Cannot rule out Anterior infarct (cited on or before 04-JUL-2020) Abnormal ECG When compared with ECG of 04-JUL-2020 06:30, No significant change was found Confirmed by Sidney Quinonez ([id number]), senior technical editor Michael Nesbitt ([id number]) on 07/05/2020 8:03:23 AM Referred By: REFERRED SELF Confirmed By:Florian Quinonez
--- NOTE | 2020-07-05 08:04 | Electrocardiogram Report ---
Test Reason : Blood Pressure : / mmHG Vent. Rate : 095 BPM Atrial Rate : 095 BPM P-R Int : 174 ms QRS Dur : 096 ms QT Int : 368 ms P-R-T Axes : 054 -15 025 degrees QTc Int : 462 ms Normal sinus rhythm with sinus arrhythmia Low voltage QRS Cannot rule out Anterior infarct (cited on or before 04-JUL-2020) Abnormal ECG When compared with ECG of 04-JUL-2020 21:26, (unconfirmed) No significant change was found Confirmed by Sidney Quinonez ([id number]), editor & co founder Michael Nesbitt ([id number]) on 07/05/2020 7:57:40 AM Also confirmed by Sidney Quinonez ([id number]), editor & co founder Michael Nesbitt ([id number]) on 07/05/2020 8:04:03 AM Referred By: REFERRED SELF Confirmed By:Florian Quinonez
[2020-07-05] MEDS ORDERED: NORETHINDRONE 5 MG TAB PO STA (08:21)
[2020-07-05] MEDS: DOCUSATE SODIUM/SENNA 50/8.6MG TAB PO SCH (08:24)
[2020-07-05] MEDS: FUROSEMIDE 20 MG TAB PO SCH (08:25)
[2020-07-05] MEDS: FLUTICASONE/VILANTEROL 100/25MCG 14 PUFFS/INHALER INH SCH (08:25)
[2020-07-05] MEDS: METOPROLOL TARTRATE 100 MG TAB PO SCH (08:26)
[2020-07-05] MEDS: AMMONIUM LACTATE 12% LOTION 225 GM BTL EXT SCH (08:26)
[2020-07-05] MEDS: TRAMADOL HCL 50 MG TABLET PO PRN (08:35)
--- NOTE | 2020-07-05 08:50 | Hospitalist Progress Note ---
Date of Service July 05, 2020 Assessment & Plan (1) PSVT (paroxysmal supraventricular tachycardia): Chest Pain -This is a 55-year-old female who presents with chest pain, palpitations, and found to be in supraventricular tachycardia. 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 In the physical patient chart, patient got 6 mg and 12 mg of what is presumed to be adenosine for which then patient returned to sinus rhythm and then subsequently was loaded on aspirin 324 mg -admission EKG: Normal sinus, normal axis, no acute ST-T wave changes, rate of 108. -07/03/2020: hospitalist cannot find the strip in the physical chart for which patient was identified to have SVT by the EMS. On the current telemetry since arrival from ED, patient has been in sinus rhythm. Patient denies any current chest discomforts or palpitations. No dizziness. no nausea. no vomiting. no hea dache -review of previous admission notes did document episode of SVT on that stay -no gross electrolyte deficiencies on this admission, normal TSH on admission, troponins negative x 2, her chest pain at home likely from PSVT. no wall motion abnormalities on this admission echocardiogram -07/04/2020 updates: she felt palpitations when she was sinus tachycardic to 120 on 07/03/2020 evening but appears to be responding to the metoprolol 50 mg every 8 hours as scheduled and currently with regular heart rate. was then transitioned to 100 mg BID by cardiology service History of right lower extremity cellulitis -patient had recent admission for right lower extremity cellulitis. She reports that she has seen [facility] clinic on Sunday06/30/2020 and was told that the right leg was generally improved. She was at the end of her outpatient antibiotic course of Clindamycin and Ciprofloxacin prior to this hospital presentation -07/03/2020: on my exam, I do not appreciate an active right leg cellulitis but seeing sequela of healing skin with scabbing -agree with admitting physician on having patient on empiric broad spectrum of Zosyn and Daptomycin until blood cultures return to see if PSVT at home was related to an infection or not 07/04/2020: continue antibiotics for now while awaiting further admission blood culture results -07/05/2020: admission blood cultures with no growth to date. IV Zosyn and IV daptomycin stopped as there was no bacteremia as cause of the PSVT. right leg with minimal drainage. discharge medication of antibiotics to be started for 7 days only if right leg has flare of recurrent infection (ciprofloxacin 500 mg q12 hours and clindamycin 450 mg every 8 hours) and then patient should seek medical consultation if a flare up of infection such as more redness or more drainage of the leg Chronic diastolic congestive heart failure. Hypertension -07/03/2020 Venous doppler: No DVT within the right or left lower extremity. Popliteal cyst posterior to the left knee. Small right popliteal cyst measuring 1.5 cm. -07/03/2020 CTA: No evidence for major pulmonary embolus. Limited evaluation of the peripheral vasculature due to body habitus considerations -continue outpatient Lasix. 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 -patient declining Lovenox during this hospital stay because of noting vaginal bleed -Patient declined inpatient OBGYN consultation in regards to vaginal bleeding and prefers discharge to outpatient OBGYN follow up with Norethindrone Acetate (Aygestin) 5 mg daily for 5 day prescription [facility] [place] [address] of metoprolol tartrate 100 mg twice a day (replaces home dose metoprolol of 50 mg daily) of antibiotics to be started for 7 days only if right leg has flare of recurrent infection (ciprofloxacin 500 mg q12 hours and clindamycin 450 mg every 8 hours) and then patient should seek medical consultation if a flare up of infection such as more redness or more drainage of the leg Patient declined inpatient OBGYN consultation in regards to vaginal bleeding and prefers discharge to outpatient OBGYN follow up with Norethindrone Acetate (Aygestin) 5 mg daily for 5 day prescription upcoming scheduled appointments 07/07/2020 12:00 PM Provider [facility]2020 2:00 PM Provider Tamera Sparks MD Department [facility] Gynecology/Obstetrics 07/21/2020 1:30 PM Provider Vilma Marie RDN Department Nutrition & Weight Management, [facility] 07/21/2020 2:30 PM Provider Lizeth Holguin PA-C Department Cardiology, [facility] 07/21/2020 3:20 PM Provider Colette Ambrosoi DO Department Pulmonary Medicine, [facility] Admission and Anticipated Discharge Date Admission Date: July 03, 2020 Subjective Patient declined inpatient OBGYN consultation in regards to vaginal bleeding and prefers discharge to outpatient OBGYN follow up with Norethindrone Acetate (Aygestin) 5 mg daily for 5 day prescription Her wishes are to be discharged today but she allows for blood draw on 07/05/2020 to verify no large decrease in hemoglobin she denies acute palpitations or chest pressure. no shortness of breath. no abdominal pain. no nausea. no dizziness. no headache Review of Systems Review of Systems: All systems reviewed & are unremarkable except as noted in Subjective Physical Exam Constitutional: + morbidly obese Eyes: PERRL, conjunctivae normal, anicteric sclerae EOM intact bilaterally ENMT: external ear and nose normal, oropharynx normal Neck: trachea midline, no thyromegaly normal visual inspection Respiratory: normal respiratory effort, lungs clear to auscultation Cardiovascular: Rate/Rhythm: regular rhythm Gastrointestinal (Abdomen): normal bowel sounds, soft, nontender, no hepatosplenomegaly Musculoskeletal: Head/Neck/Chest: normocephalic Skin: + crusts (left leg with crusty scabs of healing skin ) Neurologic: PERRL, EOMI, accommodation nl, no face palsy, no dysarthria CN's II-XI intact bilaterally Psychiatric: A+Ox3, euthymic affect Results & Data Results & Data ([facility]) Vital Signs (Past 12 Hours) Vital Signs Temp Pulse Pulse Pulse Resp BP BP 07/05/20 07:58 36.4 C L 93 H 18 151/92 H 07/05/20 03:27 36.5 C 86 18 130/88 07/05/20 02:18 88 18 07/04/20 23:35 36.8 C 88 21 134/77 07/04/20 23:34 89 20 07/04/20 21:30 98 H 137/71 Pulse Ox 07/05/20 07:58 93 07/05/20 03:27 98 07/05/20 02:18 99 07/04/20 23:35 98 07/04/20 23:34 98 07/04/20 21:30
--- NOTE | 2020-07-05 09:01 | Discharge Summary ---
Date of Service July 05, 2020 Admission HPI Per Admitting Provider CHIEF COMPLAINT: Chest pain and palpitations. HISTORY OF PRESENT ILLNESS: A 55-year-old female with past medical history significant for hypertension, morbidly obese, BMI greater than 70, history of restrictive lung disease and pulmonary hypertension, cor pulmonale, likely secondary to obstructive sleep apnea, chronic respiratory failure, on BiPAP at night, history of SVT. Last admission, she had postmenopausal bleeding. The patient says now it is resolved. Last admission, she was also treated for cellulitis of right lower extremity with daptomycin and Zosyn, then cefepime. She just finished her p.o. antibiotics of clindamycin and Cipro. Lives with her mother, comes because of chest pain and palpitations. She says that the chest pain started in the evening at 7:00 p.m. when she was trying to go to bed to sleep and it got worse, about 7/10 in severity, in the left side of the chest, radiating to the neck, jaw, and left shoulder, pressure-like feeling, associated with some nausea and palpitations and dizziness and she also had an episode of vomiting and she has cough. Denies any fever, chills. No headache, no blurred visions, no earache, no runny nose, no sore throat, no abdominal pain. Normal bowel and bladder movements. Appetite is okay. Ambulates with a walker. In the EMS, she was found to be in SVT and given adenosine. Currently resting comfortably and hemodynamically stable. The patient says alsoher right lower extremity again, getting more red and warm to touch. D-dimer is elevated, but CTA of the chest, preliminary report, no PE. Doppler studies are pending. Troponin is negative. Principal Diagnosis Chest Pain from PSVT (paroxysmal supraventricular tachycardia) History of right lower extremity cellulitis Obstructive sleep apnea, restrictive lung disease secondary to obesity pulmonary hypertension, on on BiPAP at night Morbid Obesity with BMI 73.3 Postmenopausal bleeding with Anemia Discharge Exam Constitutional + morbidly obese Eyes PERRL, conjunctivae normal, anicteric sclerae EOM intact bilaterally ENMT external ear and nose normal, oropharynx normal Neck trachea midline, no thyromegaly normal visual inspection Respiratory normal respiratory effort, lungs clear to auscultation Cardiovascular Rate/Rhythm: regular rhythm Gastrointestinal (Abdomen) normal bowel sounds, soft, nontender, no hepatosplenomegaly Musculoskeletal Head/Neck/Chest: normocephalic Skin + crusts (left leg with crusty scabs of healing skin ) Neurologic PERRL, EOMI, accommodation nl, no face palsy, no dysarthria CN's II-XI intact bilaterally Psychiatric A+Ox3, euthymic affect Discharge Data Allergies Allergy/AdvReac Type Severity Reaction Status Date / Time bee venom protein (honey bee) Allergy Unknown GENERALIZED Unverified 06/30/20 10:04 SWELLING-SOB No Known Drug Allergies Allergy Unknown NONE Unverified 06/30/20 10:04 Consultations 07/03/20 02:52 ED Decision to Admit Stat 07/03/20 05:08 Consult Case Management - Discharge Planning Routine 07/03/20 08:00 Consult Cardiology Routine Ordered Studies 07/03/20 00:54 CT angio chest PE protocol Urgent 07/03/20 01:55 US venous doppler LE BI Urgent US venous doppler UE BI Urgent Hospital Course (1) PSVT (paroxysmal supraventricular tachycardia): Chest Pain -This is a 55-year-old female who presents with chest pain, palpitations, and found to be in supraventricular tachycardia. 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 In the physical patient chart, patient got 6 mg and 12 mg of what is presumed to be adenosine for which then patient returned to sinus rhythm and then subsequently was loaded on aspirin 324 mg -admission EKG: Normal sinus, normal axis, no acute ST-T wave changes, rate of 108. -07/03/2020: hospitalist cannot find the strip in the physical chart for which patient was identified to have SVT by the EMS. On the current telemetry since arrival from ED, patient has been in sinus rhythm. Patient denies any current chest discomforts or palpitations. No dizziness. no nausea. no vomiting. no headache -review of previous admission notes did document episode of SVT on that stay -no gross electrolyte deficiencies on this admission, normal TSH on admission, troponins negative x 2, her chest pain at home likely from PSVT. no wall motion abnormalities on this admission echocardiogram -07/04/2020 updates: she felt palpitations when she was sinus tachycardic to 120 on 07/03/2020 evening but appears to be responding to the metoprolol 50 mg every 8 hours as scheduled and currently with regular heart rate. was then transitioned to 100 mg BID by cardiology service History of right lower extremity cellulitis -patient had recent admission for right lower extremity cellulitis. She reports that she has seen [facility] care clinic on Sunday06/30/2020 and was told that the right leg was generally improved. She was at the end of her outpatient antibiotic course of Clindamycin and Ciprofloxacin prior to this hospital presentation -07/03/2020: on my exam, I do not appreciate an active right leg cellulitis but seeing sequela of healing skin with scabbing -agree with admitting physician on having patient on empiric broad spectrum of Zosyn and Daptomycin until blood cultures return to see if PSVT at home was related to an infection or not 07/04/2020: continue antibiotics for now while awaiting further admission blood culture results -07/05/2020: admission blood cultures with no growth to date. IV Zosyn and IV daptomycin stopped as there was no bacteremia as cause of the PSVT. right leg with minimal drainage. discharge medication of antibiotics to be started for 7 days only if right leg has flare of recurrent infection (ciprofloxacin 500 mg q12 hours and clindamycin 450 mg every 8 hours) and then patient should seek medical consultation if a flare up of infection such as more redness or more drainage of the leg Chronic diastolic congestive heart failure. Hypertension -07/03/2020 Venous doppler: No DVT within the right or left lower extremity. Popliteal cyst posterior to the left knee. Small right popliteal cyst measuring 1.5 cm. -07/03/2020 CTA: No evidence for major pulmonary embolus. Limited evaluation of the peripheral vasculature due to body habitus considerations -continue outpatient Lasix. 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 follow up with THERAPY ASSISTANT clinic -patient declining Lovenox during this hospital stay because of noting vaginal bleed -Patient declined inpatient OBGYN consultation in regards to vaginal bleeding and prefers discharge to outpatient OBGYN follow up with Norethindrone Acetate (Aygestin) 5 mg daily for 5 day prescription Discharge medication sent electronically to [facility], [place] [address] of metoprolol tartrate 100 mg twice a day (replaces home dose metoprolol of 50 mg daily) of antibiotics to be started for 7 days only if right leg has flare of recurrent infection (ciprofloxacin 500 mg q12 hours and clindamycin 450 mg every 8 hours) and then patient should seek medical consultation if a flare up of infection such as more redness or more drainage of the leg Patient declined inpatient OBGYN consultation in regards to vaginal bleeding and prefers discharge to outpatient OBGYN follow up with Norethindrone Acetate (Aygestin) 5 mg daily for 5 day prescription upcoming scheduled appointments 07/07/2020 12:00 PM Provider [facility]/09/2020 2:00 PM Provider Tamera Sparks MD Department [facility] Gynecology/Obstetrics 07/21/2020 1:30 PM Provider Vilma Marie RDN Department Nutrition & Weight Management, [facility] 07/21/2020 2:30 PM Provider Lizeth Holguin PA-C Department Cardiology, [facility] 07/21/2020 3:20 PM Provider Colette Ambrosio DO Department Pulmonary Medicine, [facility] Total Time Total Time Spent Total Time Spent (In Minutes): 40 minutes Total Time Includes: Examination of the Patient, Discharge Planning, Medication Reconciliation and Communication With Other Providers Discharge Plan Discharge Items Patient Disposition: Home - Self-Care Reason For Visit: CHEST PAIN, SVT Discharge Diagnosis: Chest Pain from PSVT (paroxysmal supraventricular tachycardia) History of right lower extremity cellulitis Obstructive sleep apnea, restrictive lung disease secondary to obesity pulmonary hypertension, on on BiPAP at night Morbid Obesity with BMI 73.3 Postmenopausal bleeding with Anemia Condition on Discharge: Fair Activity: Per Instructions section Non-emergency contact: Primary Care Provider and Cryptographic Machine Operator Call non-emergency contact if: you have any medication questions Follow-up/Referrals: Alan Wade MD [Primary Care Provider] - Diet: Heart Healthy and Low Fat Addtl Attending Provider Instructions: Discharge medication sent electronically to [facility] [address], [place] [address] of metoprolol tartrate 100 mg twice a day (replaces home dose metoprolol of 50 mg daily) of antibiotics to be started for 7 days only if right leg has flare of recurrent infection (ciprofloxacin 500 mg q12 hours and clindamycin 450 mg every 8 hours) and then patient should seek medical consultation if a flare up of infection such as more redness or more drainage of the leg Patient declined inpatient OBGYN consultation in regards to vaginal bleeding and prefers discharge to outpatient OBGYN follow up with Norethindrone Acetate (Aygestin) 5 mg daily for 5 day prescription upcoming scheduled appointments 07/07/2020 12:00 PM Provider [facility] 07/09/2020 2:00 PM Provider Tamera Sparks MD Department [facility] Gynecology/Obstetrics 07/21/2020 1:30 PM Provider Vilma Marie RDN Department Nutrition & Weight Management, [facility] 07/21/2020 2:30 PM Provider MAYO BlanchardC Department Cardiology, [facility] 07/21/2020 3:20 PM Provider Colette Ambrosio DO Department Pulmonary Medicine, [facility] Pending Studies at Discharge: No Stand-Alone Forms: My [facility] [place] [employer], Smoking Cessation Medications and DC Order Prescriptions: New norethindrone acetate 5 mg Tablet 5 mg PO DAILY 5 Days Qty: 5 RF: 0 metoprolol tartrate 100 mg Tablet 100 mg PO [id number] 30 Days Qty: 30 RF: 0 ciprofloxacin HCl [Cipro] 500 mg tablet 500 mg PO Q12H 7 Days Qty: 14 RF: 0 clindamycin HCl 150 mg capsule 450 mg PO Q8H 7 Days Qty: 63 RF: 0 Continued Lac-Hydrin Five 5 % lotion 1 appln TOP BID 30 Days Qty: 226 RF: 1 acetaminophen 325 mg Tablet 650 mg PO Q4H PRN (Reason: fever or pain) Qty: 30 RF: 0 (DME) BiPap Machine Misc See Rx Instructions .ROUTE .MEDSUPPLY Qty: 1 RF: 0 (DME) walker Misc See Rx Instructions .ROUTE .MEDSUPPLY Qty: 1 RF: 0 tramadol 50 mg Tablet 50 mg PO Q6H PRN (Reason: severe pain) Qty: 15 RF: 0 levalbuterol tartrate 45 mcg/actuation HFA aerosol inhaler 2 puffs INH Q6H PRN (Reason: shortness of breath) Qty: 15 RF: 2 furosemide [Lasix] 20 mg tablet 20 mg PO BID Qty: 60 RF: 2 sennosides-docusate sodium [Senokot-S] 8.6-50 mg tablet 1 tabcap PO DAILY Qty: 30 RF: 2 Breo Ellipta 100-25 mcg/dose blister with device 1 puffs INH DAILY Qty: 28 RF: 2 Discontinued ciprofloxacin HCl 500 mg tablet 500 mg PO Q12H Qty: 10 RF: 0 clindamycin HCl 150 mg capsule 450 mg PO Q8H Qty: 45 RF: 0 metoprolol succinate 50 mg tablet extended release 24 hr 50 mg PO DAILY Qty: 30 RF: 2 Discharge Orders: Discharge Order (Routine); Ordered 07/05/20 Ordered By: Alphonse Anthony Admission Data Admit Date/Time: 07/03/20 04:03 Attending Provider: Alphonse Anthony Admit Provider: Héctor Amanda Primary Care Provider: Alan Wade Other Providers: Héctor Amanda ; Jaime Roe ; Fred Woodard ; Roberto Angel ; Chip Grande ; Salvador Beck ; Joseph Jim ; Lizeth Holguin ; Mitzi Mason ; Pawan Pearce ; Replaced By [facility]
[2020-07-05 09:09] LABS: Basophils # (auto) 0.01 K/uL (0-0.2); Basophils % (auto) 0.1 %; Eosinophils # (auto) 0.72 K/uL (0-0.5); Eosinophils % (auto) 7.8 %; Hemoglobin 8.9 g/dL (12.0-16.0); Immature Granulocytes # (auto) 0.03 K/uL (0.00-0.02); Immature Granulocytes % (auto) 0.3 %; Lymphocytes # (auto) 1.27 K/uL (1.2-3.4); Lymphocytes % (auto) 13.7 %; Mean Corpuscular Hemoglobin 28.3 pg (25-34); Mean Corpuscular Volume 92.1 fL (80-100); Mean Platelet Volume 8.1 fL (7.4-10.4); Monocytes # (auto) 0.65 K/uL (0.11-0.59); Neutrophils # (auto) 6.59 K/uL (1.4-6.5); Neutrophils % (auto) 71.1 %; Platelet Count 525 K/uL (130-400); RDW Coefficient of Variation 15.5 % (11.5-14.5); RDW Standard Deviation 52.2 fL (36.4-46.3); Red Blood Count 3.15 M/uL (4.2-5.4); White Blood Count 9.27 K/uL (4.8-10.8)
[2020-07-05 09:11] LABS: Mean Corpuscular Hgb Conc 30.7 g/dL (32-36)
--- NOTE | 2020-07-05 10:48 | Cardiology Progress Note ---
Date of Service July 05, 2020 Assessment & Plan (1) SVT (supraventricular tachycardia): No recurrent SVT with titration of metoprolol to 100 mg BID Tolerating dose. (2) Chest pain: Resolved. Symptoms resolved with resolution of SVT. No acute echo changes. Negative cardiac enzymes. (3) Pulmonary hypertension: (4) Obstructive sleep apnea: BIPAP recommended (5) Obesity, morbid, BMI 50 or higher: (6) HTN (hypertension): BP borderline elevated. Monitor with higher dose metoprolol continue furosemide Last admission she had episode of BLAYNE. Lisinopril was discontinued at that time (7) Venous stasis ulcer: (8) Cellulitis of right lower limb: Continue to follow with wound clinic Case discussed with Dr. Angel. Gume for discharge from cardiac perspective. Follow up with cardiology in 2-4 weeks. Patient scheduled with [facility] on 07/21/20 at 2:30 and will keep this appt Subjective Patient resting comfortably in bed. No recurrent chest pain or palpitations. Tolerating higher dose beta wally. SOB at baseline. Compliant with BIPAP. Denies dizziness. Telemetry reviewed - NSR, with occ PVC. No recurrent SVT. Review of Systems Review of Systems: All systems reviewed & are unremarkable except as noted in HPI & below Physical Exam Constitutional: WD/WN, vitals as above + morbidly obese; no acute distress Respiratory: normal respiratory effort Auscultation: + diminished lung sounds; no crackles, no rales and no rhonchi Cardiovascular: Rate/Rhythm: regular rate and regular rhythm Heart Sounds: no murmur Vessels: no JVD Extremities: + edema (2+ hard indurated on right with wraps. 1+ left) Musculoskeletal: no cyanosis or clubbing, extremities motor strength 5/5 Neurologic: PERRL, EOMI, accommodation nl, no face palsy, no dysarthria Psychiatric: A+Ox3, euthymic affect Results & Data Vital Signs (Past 12 Hours) Vital Signs Temp Pulse Pulse Pulse Resp BP BP 07/05/20 08:00 36.4 C L 110 H 98 H 93 H 18 130/88 151/92 H 07/05/20 07:58 36.4 C L 93 H 18 151/92 H 07/05/20 03:27 36.5 C 86 18 130/88 07/05/20 02:18 88 18 07/04/20 23:35 36.8 C 88 21 134/77 07/04/20 23:34 89 20 Pulse Ox 07/05/20 08:00 93 07/05/20 07:58 93 07/05/20 03:27 98 07/05/20 02:18 99 07/04/20 23:35 98 07/04/20 23:34 98 (1) Chest pain Chest pain type: unspecified Qualified Code(s): R07.9 - Chest pain, unspecified (2) Venous stasis ulcer Venous stasis ulcer site: calf Varicose vein presence: unspecified whether present Laterality: right Non-pressure ulcer stage: limited to breakdown of skin Qualified Code(s): I83.012 - Varicose veins of right lower extremity with ulcer of calf; L97.211 - Non-pressure chronic ulcer of right calf limited to breakdown of skin
[2020-07-05 11:47] VITALS: BP 139/85; PULSE 79; TEMP 98.1; O2SAT 96
[2020-07-06] MEDS ORDERED: NORETHINDRONE 5 MG TAB PO SCH (09:00)
== END 2020-07-05 12:10 | disposition home health service (06) | DRG 309 ==
LOC: ED 00:23 → 2S 04:03 → SUATTDRO 04:03 → 2S 04:40 → 2E 14:25

== ENCOUNTER 2023-04-19 22:29 | Inpatient (IN) ==
--- NOTE | 2023-04-19 22:44 | Emergency Department Note ---
History of Present Illness General Chief complaint: Arrhythmia/Palpitations Stated complaint: Afib, Chest Pain, Dizziness Time Seen by Provider: 04/19/23 22:34 History of Present Illness This 57-year-old female presents to the ER complaining of near syncope lightheadedness and dizziness. Patient just started Eliquis the other day for new onset A-fib. Patient denies chest pain, dyspnea, numbness, tingling, lo calized weakness. No other concerns per patient. Home Medications Medication Instructions Recorded Confirmed Type BiPap Machine #1 ea 06/25/20 08/08/21 Rx walker #1 ea 06/25/20 08/08/21 Rx furosemide 20 mg tablet (Lasix) 20 mg PO BID #60 tabs 06/27/20 04/20/23 Rx cholecalciferol (vitamin D3) 25 25 mcg PO QPM 11/25/20 04/20/23 History mcg (1,000 unit) tablet (Vitamin D3) metoprolol tartrate 100 mg tablet 100 mg PO BIDM 11/25/20 04/20/23 History ascorbic acid (vitamin C) 500 mg 500 mg PO QPM 03/09/21 04/20/23 History tablet (Vitamin C) cyanocobalamin (vitamin B-12) 1,000 mcg PO QPM 03/09/21 04/20/23 History 1,000 mcg tablet apixaban 5 mg tablet (Eliquis) 5 mg PO BID 30 days #60 tabs 04/17/23 04/20/23 Rx calcium carbonate 600 mg-vitamin 1 tab PO DAILY 04/20/23 04/20/23 History D3 20 mcg (800 unit) chewable tablet (Caltrate 600 plus D) magnesium oxide 400 mg PO DAILY 04/20/23 04/20/23 History multivitamin 1 tab PO DAILY 04/20/23 04/20/23 History zinc acetate 50 mg (zinc) capsule 50 mg PO DAILY 04/20/23 04/20/23 History Allergies Allergy/AdvReac Type Severity Reaction Status Date / Time bee venom protein (honey bee) Allergy Mild GENERALIZED Verified 04/20/23 00:14 SWELLING-SOB ciprofloxacin [From Cipro] Allergy Mild possible Verified 04/20/23 00:14 rash clindamycin Allergy Mild possible Verified 04/20/23 00:14 rash Past Med/Surg History Medical History History of cellulitis RT LOWER LEG WOUND, REQUIRING MULTIPLE DEBRIDEMENTS, FOLLOWING WITH [facility]. HTN (hypertension) Hx of supraventricular tachycardia SHORT BURSTS OF SYMPTOMATIC PSVT NOTED WHILE HOSPITALIZED AT [facility] 05/2020. CARDIO CONSULT --> FELT 2/2 SEVERE DOMINIQUE. ADMITTED 06/2020 VIA EMS FOR CHEST PAIN (FOUND TO BE IN SVT BY EMS). CHEST PAIN RULED NON-ISCHEMIC, ECHO SHOWED NO NEW WMA. DISCHARGED ON 100MG PO METOPROLOL. Mitral valve regurgitation MILD-MODERATE BY 06/09/20 ECHO. FOLLOWS WITH [facility]. Morbid obesity Obstructive sleep apnea SEVERE BY POLYSOMNOGRAPHY 05/05/20. MONITORED DURING 05/2020 ADMISSION FOR ACUTE ON CHRONIC RESP FAILURE, DISCHARGED ON BIPAP DEVICE. Prediabetes Pulmonary hypertension RVSP 40-45MMHG BY 06/09/20 ECHO. Wound drainage RT LOWER LEG (PT STATES GOING TO E.D. TODAY FOR EXCESSIVE DRAINAGE) Surgical History H/O rotator cuff surgery LEFT S/P debridement (03/24/21) Excisional Debridement Right Lower Extremity Wound 6.0cm x 1.5cm x 2.0cm (Right) - Paul Morrison, DO Tubal ligation status Family History Grandmother Diabetes Heart disease Cancer Mother Hypertension Stroke Grandmother (Maternal) Family history of diabetes mellitus Other No family history of adverse response to anesthesia Social History Smoking Status: Never smoker Tobacco Type: Cigarettes packs per day: 1; Second Hand Exposure: Yes (IN THE PAST); Do You Dip or Chew Tobacco: No; Hx Alcohol Use: No Hx Substance Use: No Preferred Language: [place] Communication Ability: Effective Senior Research Engineer Required: No Beliefs That Will Affect Care: None Current Living Situation: Family Current Living Situation Comment: WITH MOTHER current occupational status: employed 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 How many Children do You have: 3 Feels Safe at Home: Yes Assistive Devices: BiPap Review of Systems A total of 10 systems reviewed and were otherwise negative Physical Exam Vital Signs Vital Signs - 24 hr 04/19/23 22:34 04/19/23 22:41 04/19/23 22:38 Temperature 36.8 C Temperature Source Temporal Artery Scan Pulse Rate 69 65 Pulse Rate from SpO2 Sensor Respiratory Rate 20 Respiratory Effort / Characteristics Non-Labored Spontaneous Respiratory Depth Normal Blood Pressure 115/90 Blood Pressure Mean 98 Pulse Oximetry 97 96 Oxygen Delivery Method Room Air Room Air Sepsis Recent Fever Within 48 Hours No Sepsis New/Unexplained Change in Mental Status N/A Sepsis Action Taken by Nursing No Action Required 04/19/23 22:37 04/19/23 22:38 Temperature Temperature Source Pulse Rate 65 Pulse Rate from SpO2 Sensor 70 Respiratory Rate 28 H Respiratory Effort / Characteristics Respiratory Depth Blood Pressure 115/80 Blood Pressure Mean 91 Pulse Oximetry 97 Oxygen Delivery Method Room Air Sepsis Recent Fever Within 48 Hours Sepsis New/Unexplained Change in Mental Status Sepsis Action Taken by Nursing VITALS: Vitals are noted on the nurse's note and reviewed by myself. Vital signs stable. GENERAL: Pleasant female, in no acute distress, nondiaphoretic, well-developed well-nourished. SKIN: The skin was without rashes, erythema, edema, or bruising. There is no tenting of the skin. Capillary reflex less than 2 seconds. HEAD: Normocephalic atraumatic. EARS: External auditory canals clear, EYES: Pupils equal round and reactive to light and accommodation. Conjunctivae without injection, sclerae without icterus. Extraocular movements intact. NOSE: Patent, turbinates without inflammation or discharge. MOUTH: Mucous membranes moist. Pharynx without erythema or exudate. Uvula midline. Airway patent. Tongue does not deviate. NECK: Supple without nuchal rigidity. No lymphadenopathy. No thyromegaly. Cervical spine is nontender. No JVD. HEART: Irregularly irregular LUNGS: Clear to auscultation bilaterally without wheezes, rales or rhonchi. No retractions or accessory muscle use. ABDOMEN: Positive bowel sounds x 4. Normal tympanic percussion. Soft, nont mannie, without masses or organomegaly. Figueroa sign negative. No guarding or rebound tenderness. No CVA tenderness MUSCULOSKELETAL: No muscle atrophy, erythema, or edema noted. NEURO: Patient was alert and oriented to person place and time. Normal sensation to light and sharp touch. No focal neurological deficits. Course Administered Medications Discontinued Medications Sodium Chloride (Nss 1000ml) 1,000 mls @ 999 mls/hr IV .Q1H1M YUNIER Stop: 04/19/23 23:45 Last Infusion: 04/20/23 00:07 Dose: 0 mls/hr Documented By: Admin: 04/19/23 22:42 Dose: 999 mls/hr Documented By: ALEJA Medical Decision Making Medical Records Attestation: I reviewed the patient's medical records. Home Medications Current Medication List: was personally reviewed by me Laboratory Data Attestation: I reviewed the patient's lab results. 04/19/23 22:30 04/19/23 22:30 Lab Results 04/19/23 04/19/23 04/19/23 Range/Units 22:30 22:30 22:30 WBC 9.80 (4.8-10.8) K/ul RBC 4.25 (4.20-5.40) M/uL Hgb 13.2 (12.0-16.0) g/dl Hct 38.8 (37.0-47.0) % MCV 91.3 (80.0-100.0) fL MCH 31.1 (25.0-34.0) pg MCHC 34.0 (32.0-36.0) g/dL RDW Std Deviation 45.7 (36.4-46.3) fL RDW Coeff of Quan 13.5 (11.5-14.5) % Plt Count 312 (130-400) K/uL MPV 9.9 (9.4-12.4) fL Immature Gran % (Auto) 0.3 % Neut % (Auto) 68.3 % Lymph % (Auto) 23.7 % Fallon % (Auto) 6.3 % Eos % (Auto) 0.8 % Baso % (Auto) 0.6 % Neut # (Auto) 6.69 H (1.40-6.50) K/uL Lymph # (Auto) 2.32 (1.2-3.4) K/uL Fallon # (Auto) 0.62 H (0.11-0.59) K/uL Eos # (Auto) 0.08 (0-0.50) K/uL Baso # (Auto) 0.06 (0-0.2) K/uL Immature Gran # (Auto) 0.03 (0.01-0.20) K/uL Sodium 140 (136-145) mmol/L Potassium 4.2 (3.5-5.1) mmol/L Chloride 106 (98-107) mmol/L Carbon Dioxide 27 (21-32) mmol/L Anion Gap 7 (3-11) BUN 26 H (6-23) mg/dl Creatinine 0.67 (0.6-1.2) mg/dl Est Cr Clr Drug Dosing 113.0 ml/min Est GFR ( Amer) 113.9 ml/min Est GFR (Non-Af Amer) 98.3 ml/min BUN/Creatinine Ratio 38.8 H (10-20) Glucose 106 H (70-99(Fasting)) mg/dl Calcium 9.3 (8.6-10.3) mg/dl Magnesium 2.0 (1.7-2.4) mg/dl Total Bilirubin 0.5 (0.2-1.0) mg/dl AST 137 H (13-39) U/L ALT 111 H (7-52) U/L Alkaline Phosphatase 121 H (34-104) U/L Troponin I High Sens 5.7 (0-14) pg/ml Total Protein 6.9 (6.0-8.3) gm/dl Albumin 4.0 (3.4-5.0) gm/dl Globulin 2.9 (2.5-4.0) gm/dl Albumin/Globulin Ratio 1.4 (0.9-2) TSH 2.050 (0.300-4.500) uIu/ml Acetaminophen (10-30) ug/ml Ethyl Alcohol mg/dL (<10.0) mg/dl 04/19/23 04/19/23 Range/Units 22:30 23:41 WBC (4.8-10.8) K/ul RBC (4.20-5.40) M/uL Hgb (12.0-16.0) g/dl Hct (37.0-47.0) % MCV (80.0-100.0) fL MCH (25.0-34.0) pg MCHC (32.0-36.0) g/dL RDW Std Deviation (36.4-46.3) fL RDW Coeff of Quan (11.5-14.5) % Plt Count (130-400) K/uL MPV (9.4-12.4) fL Immature Gran % (Auto) % Neut % (Auto) % Lymph % (Auto) % Fallon % (Auto) % Eos % (Auto) % Baso % (Auto) % Neut # (Auto) (1.40-6.50) K/uL Lymph # (Auto) (1.2-3.4) K/uL Fallon # (Auto) (0.11-0.59) K/uL Eos # (Auto) (0-0.50) K/uL Baso # (Auto) (0-0.2) K/uL Immature Gran # (Auto) (0.01-0.20) K/uL Sodium (136-145) mmol/L Potassium (3.5-5.1) mmol/L Chloride (98-107) mmol/L Carbon Dioxide (21-32) mmol/L Anion Gap (3-11) BUN (6-23) mg/dl Creatinine (0.6-1.2) mg/dl Est Cr Clr Drug Dosing ml/min Est GFR ( Amer) ml/min Est GFR (Non-Af Amer) ml/min BUN/Creatinine Ratio (10-20) Glucose (70-99(Fasting)) mg/dl Calcium (8.6-10.3) mg/dl Magnesium (1.7-2.4) mg/dl Total Bilirubin (0.2-1.0) mg/dl AST (13-39) U/L ALT (7-52) U/L Alkaline Phosphatase (34-104) U/L Troponin I High Sens (0-14) pg/ml Total Protein (6.0-8.3) gm/dl Albumin (3.4-5.0) gm/dl Globulin (2.5-4.0) gm/dl Albumin/Globulin Ratio (0.9-2) TSH (0.300-4.500) uIu/ml Acetaminophen 5 L (10-30) ug/ml Ethyl Alcohol mg/dL < 10.0 (<10.0) mg/dl Imaging Data Attestation: I personally reviewed and interpreted this imaging study as follows: Radiologist's Impression: Head CT 04/19/23 22:40 Exam(s): CT HEAD Without Contrast EXAM: CT Head Without Intravenous Contrast CLINICAL HISTORY: Reason for exam: near syncope, on eliquis. TECHNIQUE: Axial computed tomography images of the head/brain without intravenous contrast. CTDI is 35.65 mGy and DLP is 547.75 mGy-cm. Automated exposure control was utilized for the study. A dose lowering technique was utilized adhering to the principles of ALARA. COMPARISON: 04/17/2023 FINDINGS: Brain: Unremarkable. No hemorrhage. No significant white matter disease. No edema. Ventricles: Unremarkable. No ventriculomegaly. Bones/joints: Unremarkable. No acute fracture. Soft tissues: Unremarkable. Sinuses: Unremarkable as visualized. No acute sinusitis. Mastoid air cells: Unremarkable as visualized. No mastoid effusion. IMPRESSION: Normal head/brain CT. Electronically signed by: Vishnu Garcia M.D. 04/19/23 23:21 PM [facility] Narrative Prior records/ancillary studies reviewed and summarized above. Nursing notes reviewed. Additional history obtained from nursing. The patient's history was concerning for lightheaded and dizziness. Differential diagnosis: Etiologies such as metabolic, infection, hypo/hyperglycemia, electrolyte abnormalities, cardiac sources, intracerebral event, toxicologic, neurologic, as well as others were entertained. Physical examination: As above. ER treatment provided: IV Lock An order was placed for continuous cardiac monitoring. The monitor shows a rate of 60-100 with a A-fib rhythm per my interpretation. IV fluids were ordered On reassessment the patient felt better. Diagnostics interpretation by me: ECG: Ordered for near syncope EKG: Irregularly irregular with no acute ST-T wave changes, rate of 75. Impression A-fib rate controlled independently interpreted by myself The labs Independently Interpreted by myself revealed elevated LFTs, euthyroid Negative Tylenol level, negative alcohol Hepatitis level pending Imaging studies: Head CT negative for intracranial bleed per my independent interpretation and report was reviewed as above Consultation: A consultation was placed with the hospitalist. The case was discussed and diagnostics were reviewed. The patient was evaluated in the ER for further treatment. Exam and history seem consistent with new onset symptomatic A-fib. Patient's LFTs are also elevated. She denies any alcohol use. She occasionally takes Tylenol. Patient was offered admission and would like to stay. Medicine is consulted the case was discussed. Patient will be admitted for new onset A-fib. Labs and diagnostics were independent turbid by myself. Radiology read the CAT scan. By the evaluation outlined above emergent etiologies such as infection, electrolyte abnormalities, intracerebral event, toxologic, neurologic, abnormalities blood glucose, metabolic, as well as others were deemed relatively unlikely. The pt informed about the findings as listed above. All questions were answered and pleased with the treatment. The chart was completed utilizing [employer] Speech voice recognition software. Grammatical errors, random word insertions, pronoun errors, and incomplete sentences are an occassional consequence of this system due to software limitations, ambient noise, and hardware issues. Any formal questions or concerns about the content, text, or information contained within the body of this dictation should be directly addressed to the physician help desk assistant for clarification. Impression & Plan Atrial fibrillation, Dizziness, Elevated liver enzymes Discharge Plan Visit Data Chief Complaint: Arrhythmia/Palpitations Stated Complaint: Afib, Chest Pain, Dizziness ED Provider: Amy Dykes ED Midlevel Provider: Odalis Woody Discharge Problem: Atrial fibrillation, Dizziness, Elevated liver enzymes Patient Disposition: Admitted As Inpatient Condition: Good Forms Stand Alone Forms: [employer] Prescriptions Prescriptions: No Action (DME) BiPap Machine Misc See Rx Instructions .ROUTE .MEDSUPPLY Qty: 1 0RF Rx Instructions: As directed (DME) walker Misc See Rx Instructions .ROUTE .MEDSUPPLY Qty: 1 0RF Rx Instructions: As directed furosemide [Lasix] 20 mg tablet 20 mg PO BID Qty: 60 2RF metoprolol tartrate 100 mg tablet 100 mg PO BIDM cholecalciferol (vitamin D3) [Vitamin D3] 25 mcg (1,000 unit) Tablet 25 mcg PO QPM cyanocobalamin (vitamin B-12) 1,000 mcg Tablet 1,000 mcg PO QPM ascorbic acid (vitamin C) [Vitamin C] 500 mg Tablet 500 mg PO QPM Eliquis 5 mg tablet 5 mg PO BID 30 Days Qty: 60 0RF zinc acetate 50 mg (zinc) Capsule 50 mg PO DAILY multivitamin [Multiple Vitamin] Tablet 1 tab PO DAILY Caltrate 600 plus D 600 mg-20 mcg (800 unit) Tablet,Chewable 1 tab PO DAILY magnesium oxide 400 mg magnesium Tablet 400 mg PO DAILY Referrals Referrals: Alan Wade MD [Primary Care Provider] - Atrial fibrillation Qualifiers: Atrial fibrillation type: unspecified Qualified Code(s): I48.91 - Unspecified atrial fibrillation
[2023-04-19] MEDS ORDERED: SODIUM CHLORIDE 0.9% 1000ML 1,000 ML IV SCH (22:45)
[2023-04-19 22:52] LABS: Basophils # (auto) 0.06 K/uL (0-0.2); Basophils % (auto) 0.6 %; Eosinophils # (auto) 0.08 K/uL (0-0.50); Eosinophils % (auto) 0.8 %; Hematocrit (blood only) 38.8 % (37.0-47.0); Hemoglobin 13.2 g/dl (12.0-16.0); Immature Granulocytes # (auto) 0.03 K/uL (0.01-0.20); Immature Granulocytes % (auto) 0.3 %; Lymphocytes # (auto) 2.32 K/uL (1.2-3.4); Lymphocytes % (auto) 23.7 %; Mean Corpuscular Hemoglobin 31.1 pg (25.0-34.0); Mean Corpuscular Volume 91.3 fL (80.0-100.0); Mean Platelet Volume 9.9 fL (9.4-12.4); Monocytes # (auto) 0.62 K/uL (0.11-0.59); Monocytes % (auto) 6.3 %; Neutrophils # (auto) 6.69 K/uL (1.40-6.50); Neutrophils % (auto) 68.3 %; Platelet Count 312 K/uL (130-400); RDW Coefficient of Variation 13.5 % (11.5-14.5); RDW Standard Deviation 45.7 fL (36.4-46.3); Red Blood Count 4.25 M/uL (4.20-5.40)
[2023-04-19 23:09] LABS: Albumin Globulin Ratio 1.4 (0.9-2); BUN Creatinine Ratio 38.8 (10-20); Bilirubin,Total 0.5 mg/dl (0.2-1.0); Calcium 9.3 mg/dl (8.6-10.3); Est GFR (African American) 113.9 ml/min; Est GFR (Non-African American) 98.3 ml/min; Globulin 2.9 gm/dl (2.5-4.0); Potassium 4.2 mmol/L (3.5-5.1); Total Protein 6.9 gm/dl (6.0-8.3)
[2023-04-19 23:16] LABS: Troponin I High Sensitivity 5.7 pg/ml (0-14)
--- NOTE | 2023-04-19 23:22 | CT Scan Report ---
Exam(s): CT HEAD Without Contrast EXAM: CT Head Without Intravenous Contrast CLINICAL HISTORY: Reason for exam: near syncope, on eliquis. TECHNIQUE: Axial computed tomography images of the head/brain without intravenous contrast. CTDI is 35.65 mGy and DLP is 547.75 mGy-cm. Automated exposure control was utilized for the study. A dose lowering technique was utilized adhering to the principles of ALARA. COMPARISON: 04/17/2023 FINDINGS: Brain: Unremarkable. No hemorrhage. No significant white matter disease. No edema. Ventricles: Unremarkable. No ventriculomegaly. Bones/joints: Unremarkable. No acute fracture. Soft tissues: Unremarkable. Sinuses: Unremarkable as visualized. No acute sinusitis. Mastoid air cells: Unremarkable as visualized. No mastoid effusion. IMPRESSION: Normal head/brain CT. Electronically signed by: Vishnu Garcia M.D. 04/19/23 23:21 PM
[2023-04-20 00:31] LABS: Partial Thromboplastin Time 27.6 Seconds (21.0-31.0); Prothrombin Time 11.2 Seconds (9.0-12.0)
[2023-04-20] MEDS ORDERED: POLYETHYLENE (MIRALAX) 17 GM PACK PO PRN (01:37)
[2023-04-20] MEDS ORDERED: METOPROLOL TARTRATE 1 MG/ML VIAL IV PRN (01:37)
[2023-04-20] MEDS ORDERED: NITROGLYCERIN SL 0.4 MG/TAB TAB SL PRN (01:37)
--- NOTE | 2023-04-20 03:00 | History and Physical Report ---
DATE OF ADMISSION: 04/20/2023. CHIEF COMPLAINT: Near syncope, AFib. HISTORY OF PRESENT ILLNESS: This is a 57-year-old female with past medical history significant for prediabetes, obstructive sleep apnea treated with BiPAP, history of hypertension, history of hypertensive cardiomyopathy, obesity, status post back surgery, recent diagnosis of AFib, presents with dizziness and near syncope. The patient saw Cardiology on 02/07/2023. She works in a [employer]. She saw Cardiology because she had some racing heart and diaphoretic and long- term event monitor study showed persistent atrial fibrillation and was already mohini controlled with Metoprolol, she was placed on Eliquis, but at that time, she did not start eliquis. Echo several years ago showed hypertensive heart disease with some mitral regurgitation.The patient again was in the ER on 04/17/2023 because of the syncope.. The patient had syncope at work. When she was pushing a wheelchair, she felt lightheaded and next thing she knew was awoken on the floor. She hit right side of the head and she has some head discomfort. In the ER, she did not want to stay, so ER called on-call cardiology and was started Eliquis. The patient says she is taking it now. She still has some head discomfort in the right side since the fall. Today at home, again she was feeling dizzy and she felt like passing out. She has to hold the chair and sit in the chair and that is the reason she came here. Currently, resting comfortably, hemodynamically stable. During the episode, she felt some sweating, some nausea. Denies any shortness of breath. She also noticed some chest pain since 6:00 p.m. on the left side, 6/10 in severity, pressure-like feeling, constant pain. No blurred visions, no earache, no runny nose, no sore throat, no cough, no difficulty swallowing. No abdominal pain. Normal bowel and bladder movements. Denies any bloody stools or black stools. Denies any hematuria. She says prior to this episode, she was ambulating okay. ALLERGIES: TO BEE VENOM, CIPROFLOXACIN, CLINDAMYCIN. PAST MEDICAL HISTORY: As mentioned above. PAST SURGICAL HISTORY: EGD, laparoscopic procedure of the liver, laparoscopic gastric Alex-en-Y bypass in June 2021, ligation of oviducts. MEDICATIONS: The patient is on Eliquis 5 mg p.o. b.i.d., vitamin C 500 mg p.o. a.m., calcium plus vitamin D one tablet daily, vitamin D 25 mcg p.o. daily, vitamin B12 1000 mcg p.o. daily, Lasix 20 mg p.o. b.i.d., magnesium oxide 400 mg p.o. daily, metoprolol tartrate 100 mg p.o. b.i.d., multivitamins 1 tablet p.o. daily, zinc acetate 50 mg p.o. daily. FAMILY HISTORY: Significant for maternal grandmother had pancreatic cancer and diabetes; maternal grandfather has ME; mother has palpitation; maternal grandfather has emphysema. SOCIAL HISTORY: Quit smoking in 2014, smoked 1.5 packs a day for 12 years. Alcohol, rarely. No drug use. REVIEW OF SYSTEMS: As per HPI. Rest of the review of systems is negative. PHYSICAL EXAMINATION: GENERAL: The patient is obese, not in acute distress. VITAL SIGNS: Temperature 36.8, pulse 65, respiratory rate 28, blood pressure 115/80, oxygen 96% on room air. HEENT: Pupils equal, round and reactive to light. Oral mucosa moist. NECK: No JVD, no neck masses. CARDIOVASCULAR: S1 and S2 heard, irregular rhythm. No murmur, no gallop. RESPIRATORY SYSTEM: Normal AP diameter. No accessory muscle use. No wheezing or crackles. ABDOMEN: Soft, bowel sounds present, nontender, no distention. CENTRAL NERVOUS SYSTEM: Cranial nerves II through XII grossly intact, nonfocal. EXTREMITIES: Bilateral lower extremity chronic edema seen. No erythema seen. LABORATORY DATA: WBC is 9.8, hemoglobin 13.2, hematocrit 38.8, platelets 312. PT 11.2, INR 1, APTT 27.6. Sodium 140, potassium 4.2, chloride 106, bicarb 27, BUN 26, creatinine 0.6, serum glucose 106, calcium 9.8, magnesium 2, total bilirubin 0.5, AST 137, ALT 111, alkaline phosphatase 121. Troponin I high sensitivity 5.7. TSH is 2.05. Acetaminophen less than 5. Ethyl alcohol less than 10. IMAGING DATA: Normal CT of the head and brain. EKG: Atrial fibrillation at a rate of 75, no significant change was found. ASSESSMENT AND PLAN: This is a 57-year-old female who presents with dizziness, near syncope, AFib and chest pain. 1. Dizziness, near syncope could be possibly symptomatic atrial fibrillation: Monitor in the tele floor. CT of the head is okay. We will check orthostatics. Follow echocardiogram. Consult cardiology in the a.m. 2. Atrial fibrillation: Currently rate is under control. Continue home metoprolol and Eliquis. Follow echocardiogram. Follow serial cardiac enzymes. Consult cardiology in the a.m. Monitor in the tele floor. 3. Chest pain, left side since 6:00 p.m.: Initial EKG and troponins negative. Follow serial enzymes and echocardiogram. 4. Elevated LFTs: Possibly could be from the fatty liver, but we will get a liver ultrasound. ER ordered hepatitis panel, which we will follow. If any concern, consult GI while the patient is in the hospital. 5. History of diastolic congestive heart failure, chronic lower extremity edema: On Lasix, which will be continued. Will follow lower extremity Dopplers. 6. Obstructive sleep apnea: On BIPAP 7. Pre Diabetes: Follow HbA1c levels. 8. Obesity, status post gastric bypass surgery: Followup. Continue her vitamin supplements. 9. Deep venous thrombosis prophylaxis: On Eliquis. DISPOSITION: Closely monitor in the tele floor. Level 1 full code. Expect to discharge home and follow with family doctor. Job ID: [id number] [facility]
--- NOTE | 2023-04-20 03:57 | Ultrasound Report ---
Exam(s): US VENOUS BILATERAL LOWER EXTREMITIES EXAM: US Duplex Bilateral Lower Extremities Veins CLINICAL HISTORY: Reason for exam: lower xtremity edema. dvt?. TECHNIQUE: Real-time duplex ultrasound scan of the bilateral lower extremity veins integrating B-mode two-dimensional vascular structure, Doppler spectral analysis, color flow Doppler imaging and compression. COMPARISON: No relevant prior studies available. FINDINGS: Right deep veins: Unremarkable. No DVT in the right common femoral, femoral, proximal deep femoral or popliteal veins. The veins demonstrate normal color flow, are normally compressible, with normal phasic flow and/or augmentation response. Left deep veins: Unremarkable. No DVT in the left common femoral, femoral, proximal deep femoral or popliteal veins. The veins demonstrate normal color flow, are normally compressible, with normal phasic flow and/or augmentation response. Soft tissues: Left popliteal fossa cyst measuring 4.8 x 1.0 cm x 2.4 cm. IMPRESSION: No acute findings in the bilateral lower extremity veins. Electronically signed by: Vishnu Garcia M.D. 04/20/23 03:55 AM
[2023-04-20 05:58] LABS: Basophils # (auto) 0.05 K/uL (0-0.2); Basophils % (auto) 0.7 %; Eosinophils # (auto) 0.08 K/uL (0-0.50); Eosinophils % (auto) 1.1 %; Hematocrit (blood only) 35.8 % (37.0-47.0); Hemoglobin 11.9 g/dl (12.0-16.0); Immature Granulocytes # (auto) 0.02 K/uL (0.01-0.20); Immature Granulocytes % (auto) 0.3 %; Lymphocytes # (auto) 2.63 K/uL (1.2-3.4); Lymphocytes % (auto) 37.1 %; Mean Corpuscular Hemoglobin 30.5 pg (25.0-34.0); Mean Corpuscular Hgb Conc 33.2 g/dL (32.0-36.0); Mean Corpuscular Volume 91.8 fL (80.0-100.0); Mean Platelet Volume 9.5 fL (9.4-12.4); Monocytes # (auto) 0.51 K/uL (0.11-0.59); Monocytes % (auto) 7.2 %; Neutrophils # (auto) 3.79 K/uL (1.40-6.50); Neutrophils % (auto) 53.6 %; Platelet Count 244 K/uL (130-400); RDW Coefficient of Variation 13.5 % (11.5-14.5); RDW Standard Deviation 45.1 fL (36.4-46.3); White Blood Count 7.08 K/ul (4.8-10.8)
[2023-04-20 06:08] LABS: Albumin Level 3.5 gm/dl (3.4-5.0); BUN Creatinine Ratio 38.5 (10-20); Bilirubin Direct 0.1 mg/dl (0-0.2); Bilirubin,Total 0.6 mg/dl (0.2-1.0); Creatinine Clr Calc Pharmacy 156.7 ml/min; Est GFR (African American) 123.8 ml/min; Est GFR (Non-African American) 106.8 ml/min; Magnesium 1.9 mg/dl (1.7-2.4); Potassium 3.7 mmol/L (3.5-5.1); Total Protein 6.1 gm/dl (6.0-8.3)
[2023-04-20 06:16] LABS: Troponin I High Sensitivity 4.7 pg/ml (0-14)
[2023-04-20 07:07] LABS: Estimated Average Glucose 100 mg/dl; Hemoglobin A1C 5.1 % (4.5-5.6)
--- NOTE | 2023-04-20 07:37 | Ultrasound Report ---
ABDOMINAL ULTRASOUND, RIGHT UPPER QUADRANT HISTORY: transaminitis. COMPARISON: None. FINDINGS: Pancreas: The pancreatic tail is obscured by overlying bowel gas. The remaining portions of the pancr eas are within normal limits. Liver: 19 cm in length. No hepatic masses. Gallbladder: The 1.7 cm stone within the fundus of the gallbladder. Small amount of sludge also seen within the gallbladder. Punctate echogenic focus with ringdown artifact at the anterior wall the gall bladder suggesting adenomyomatosis. No gallbladder wall thickening. CBD: 5 mm. Right kidney: No hydronephrosis. IMPRESSION: 1. Cholelithiasis. No gallbladder wall thickening. 2. Normal caliber common bile duct. ACT 112: Negative or not required by law. Electronically signed by: Piyush Gonzalez M.D. 04/20/2023 7:35 AM
[2023-04-20] MEDS ORDERED: METOPROLOL TARTRATE 100 MG TAB PO SCH (08:00)
[2023-04-20] MEDS: APIXABAN 5 MG TABLET PO SCH ×2 (08:04→20:47)
[2023-04-20] MEDS: CALCIUM 600MG + VIT D 400 IU TAB PO SCH (08:04)
[2023-04-20] MEDS: MAGNESIUM OXIDE 400 MG TAB PO SCH (08:04)
[2023-04-20] MEDS: ZINC SULFATE 220 MG CAPSULE PO SCH (08:05)
[2023-04-20] MEDS: MULTIVITAMIN TAB PO SCH (08:05)
[2023-04-20] MEDS: FUROSEMIDE 20 MG TAB PO SCH ×2 (08:05→17:18)
[2023-04-20] MEDS ORDERED: POTASSIUM CHLORIDE CRTAB 20 MEQ TABCR PO STA (08:06)
--- NOTE | 2023-04-20 13:31 | Cardiology Consultation ---
Date of Consultation April 20, 2023 Assessment & Plan (1) Syncope: (2) Dizziness: (3) Atrial fibrillation: (4) Ventricular tachycardia: Plan Patient admitted to [facility] after 2 syncopal events in the last week. Etiology uncertain at this time. She was found to have afib in January 2023, duration unknown. Rates were well controlled on home dose metoprolol tartrate 100 mg BID. She was prescribed Eliquis in January, but admits she did not start medication. She started taking medication after 1st syncopal event this week. HS troponin negative x4 since admission. Echo results pending EKG without acute changes. She notes mild left sided atypical chest pain, possibly due to syncopal event this week with injury? Chest xray ordered Given syncopal events, update carotid duplex and continue on telemetry. She did have afib with slow rates after morning meds but was not overtly symptomatic. Metoprolol reduced to 75 mg BID. Continue Eliquis for stroke prophylaxis. Outpatient records were reviewed in detail and she had possible episodes of non sustained VT vs afib with aberrancy on ZIO. She did not report symptoms with these episodes, but still concerning with patient now having syncopal events. Keep on monitor. May need EP evaluation/consult May need ischemic evaluation if this is VT. Case discussed with Dr. Woodard I spent a total of 70 minutes on the date of service in preparation, delivery, and documentation of the care provided to this patient, excluding any time spent in the performance of separately billed services. Lizeth Holguin PA-C Department of Cardiology, [facility] This chart was completed in part utilizing Speech Voice Recognition Software. Grammatical errors, random word insertions, pronoun errors, and incomplete sentences are an occasional consequence of this system due to software limitations, ambient noise, and hardware issues. Any formal questions or concerns about the content, text, or information contained within the body of this dictation should be directly addressed to the provider for clarification. Supervising Physician Co-Signing Physician Notes Supervising Physician Attestation: I have personally performed a history and physical examination on the patient. I agree with the physician accounts receivable assistant's findings and plan as documented with the following additions. Subjective: Patient with recurrent dizziness this morning that seem to correlate with atrial fibrillation with ventricular rates in the 40s. The QRS complexes were narrow on telemetry at that time. She felt much improved with heart rates in the 80s. Exam: Cardiovascular: Irregular rhythm, no murmurs Echocardiogram performed 04/20/2023: Revealing mild concentric left ventricular hypertrophy, LVEF 55%, severe left atrial dilatation, mitral annular calcification noted, mild mitral regurgitation, mild tricuspid regurgitation, mild aortic valve sclerosis without stenosis Data: playground monitor performed December,, rhythm strips reviewed independently revealing persistent atrial fibrillation, occasional wide-complex rhythm likely A-fib with aberrant conduction rate in a rate related bundle branch block, less likely ventricular arrhythmia Assessment and Plan: -Reduce metoprolol tartrate from 100 mg twice daily to 75 mg twice daily. Continue monitoring on telemetry for recurrent symptoms. DVT prophylaxis: Patient already on Eliquis 5 mg twice daily for stroke prophylaxis Fred Woodard, History of Present Illness Reason for Consultation: Syncope; Afib Requesting Physician: Dr. Amanda Attending Physician: Dr. Woodard History of Present Illness Patient is a 57 year old female known to [facility], Dr. Beck/Marline for history of: 1. Hypertension 2. History of mild LV dysfunction with EF 45-49%, presumed from hypertension and obesity. Improved with medical therapies. 3. Morbid obesity s/p bariatric surgery with about 150 lb weight loss thus far 4. Frequent PVC's 5. History of SVT 6. Diagnosis of atrial fibrillation in January 2023. 7. Possible VT vs afib with aberrancy on ZIO January 2023 Last clinic evaluation in January [address] Beck. At that time, patient had just recently been diagnosed with atrial fibrillation, controlled rates on her home dose of metoprolol 100 mg BID by EKG She was prescribed Eliquis 5 mg BID for stroke prophylaxis, but did not start taking medication until this past week. Over the last few months patient reports frequent episodes of pounding/racing heart beats. She also has been experiencing intermittent hot flushing sensation with dizziness. She had recent ZIO monitor completed which demonstrated persistent afib, controlled rates and multiple episodes of wide complex tachycardia possible VT vs possible afib with aberrancy. No symptoms reported during these episodes of possible VT. Earlier this year patient had a syncopal spell at work. She was pushing a wheelchair and felt lightheaded/dizzy and lost consciousness, falling face first to the floor. No significant injury. She came to the ER for evaluation. Head CT was negative. Found to be in afib with controlled rates. She admitted to not taking Eliquis and was encouraged to start. It was recommended she be admitted for further evaluation but patient declined. Unfortunately 2 days later patient was at home and once again became lightheaded/diaphoretic with dizziness. She got herself to a chair and briefly lost consciousness again. No bowel or bladder incontinence. She came back to ER for evaluation. At time of consult, patient resting in bed comfortably. She denies dizziness or lightheadedness since arrival. She has been in persistent afib with controlled rates. She became slightly bradycardicc this morning after AM meds with HR's dipping in the low 50's. No symptoms. BP has been controlled. She admits to left sided sharp/stabbing pains over [place] last few days, sharp in nature. Possibly since sycopal event several days ago. HS troponin has been negative x4 since admission. Minimally elevated LFT's noted. Other labs stable. Allergies Allergy/AdvReac Type Severity Reaction Status Date / Time bee venom protein (honey bee) Allergy Mild GENERALIZED Verified 04/20/23 00:14 SWELLING-SOB ciprofloxacin [From Cipro] Allergy Mild possible Verified 04/20/23 00:14 rash clindamycin Allergy Mild possible Verified 04/20/23 00:14 rash Home Medications Medication Instructions Recorded Confirmed Type BiPap Machine #1 ea 06/25/20 08/08/21 Rx walker #1 ea 06/25/20 08/08/21 Rx furosemide 20 mg tablet (Lasix) 20 mg PO BID #60 tabs 06/27/20 04/20/23 Rx cholecalciferol (vitamin D3) 25 25 mcg PO QPM 11/25/20 04/20/23 History mcg (1,000 unit) tablet (Vitamin D3) metoprolol tartrate 100 mg tablet 100 mg PO BIDM 11/25/20 04/20/23 History ascorbic acid (vitamin C) 500 mg 500 mg PO QPM 03/09/21 04/20/23 History tablet (Vitamin C) cyanocobalamin (vitamin B-12) 1,000 mcg PO QPM 03/09/21 04/20/23 History 1,000 mcg tablet apixaban 5 mg tablet (Eliquis) 5 mg PO BID 30 days #60 tabs 04/17/23 04/20/23 Rx calcium carbonate 600 mg-vitamin 1 tab PO DAILY 04/20/23 04/20/23 History D3 20 mcg (800 unit) chewable tablet (Caltrate 600 plus D) magnesium oxide 400 mg PO DAILY 04/20/23 04/20/23 History multivitamin 1 tab PO DAILY 04/20/23 04/20/23 History zinc acetate 50 mg (zinc) capsule 50 mg PO DAILY 04/20/23 04/20/23 History Patient History Medical History History of cellulitis RT LOWER LEG WOUND, REQUIRING MULTIPLE DEBRIDEMENTS, FOLLOWING WITH [facility]. HTN (hypertension) Hx of supraventricular tachycardia SHORT BURSTS OF SYMPTOMATIC PSVT NOTED WHILE HOSPITALIZED AT [facility] 05/2020. CARDIO CONSULT --> FELT 2/2 SEVERE DOMINIQUE. ADMITTED 06/2020 VIA EMS FOR CHEST PAIN (FOUND TO BE IN SVT BY EMS). CHEST PAIN RULED NON-ISCHEMIC, ECHO SHOWED NO NEW WMA. DISCHARGED ON 100MG PO METOPROLOL. Mitral valve regurgitation MILD-MODERATE BY 06/09/20 ECHO. FOLLOWS WITH [facility]. Morbid obesity Obstructive sleep apnea SEVERE BY POLYSOMNOGRAPHY 05/05/20. MONITORED DURING 05/2020 ADMISSION FOR ACUTE ON CHRONIC RESP FAILURE, DISCHARGED ON BIPAP DEVICE. Prediabetes Pulmonary hypertension RVSP 40-45MMHG BY 06/09/20 ECHO. Wound drainage RT LOWER LEG (PT STATES GOING TO E.D. TODAY FOR EXCESSIVE DRAINAGE) Surgical History H/O rotator cuff surgery LEFT S/P debridement (03/24/21) Excisional Debridement Right Lower Extremity Wound 6.0cm x 1.5cm x 2.0cm (Right) - Paul Morrison, Tubal ligation status Family History Grandmother Diabetes Heart disease Cancer Mother Hypertension Stroke Grandmother (Maternal) Family history of diabetes mellitus Other No family history of adverse response to anesthesia Social History Smoking Status: Former smoker Tobacco Type: Cigarettes packs per day: 1; Second Hand Exposure: Yes (IN THE PAST); Do You Dip or Chew Tobacco: No; Hx Alcohol Use: No Hx Substance Use: No Preferred Language: Thai Communication Ability: Effective Customer Complaint Service Supervisor Required: No Beliefs That Will Affect Care: None Current Living Situation: Parent Current Living Situation Comment: WITH MOTHER current occupational status: employed 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 How many Children do You have: 3 Feels Safe at Home: Yes Safety Concerns: Feels Safe At This Time Assistive Devices: None Review of Systems Review of Systems: All systems reviewed & are unremarkable except as noted in HPI & below Physical Exam Constitutional: WD/WN, vitals as above + obese; no acute distress Neck: + thick neck Respiratory: normal respiratory effort, lungs clear to auscultation Cardiovascular: Rate/Rhythm: + irregularly irregular Heart Sounds: normal S1 and normal S2; no murmur Extremities: no edema Gastrointestinal (Abdomen): normal bowel sounds, soft, nontender, no hepatosplenomegaly Skin: no rashes, warm and dry Results & Data Vital Signs (Past 12 Hours) Vital Signs Temp Pulse Pulse Resp BP Pulse Ox O2 Del Method 04/20/23 11:18 36.5 C 63 18 119/74 98 Room Air 04/20/23 08:45 78 04/20/23 07:47 36.7 C 75 18 135/83 99 Room Air 04/20/23 04:45 20 04/20/23 03:22 36.4 C L 69 22 137/83 98 Room Air 04/20/23 02:03 78 04/20/23 01:52 Room Air 04/20/23 01:37 36.4 C L 73 18 150/92 H 98 Room Air FiO2 04/20/23 11:18 04/20/23 08:45 04/20/23 07:47 04/20/23 04:45 21 04/20/23 03:22 04/20/23 02:03 04/20/23 01:52 04/20/23 01:37 Laboratory Results Cardiac Enzymes 04/19/23 04/20/23 04/20/23 Range/Units 22:30 05:23 11:00 AST 137 H 79 H (13-39) U/L Troponin I High Sens 5.7 4.7 4.3 (0-14) pg/ml Coagulation 04/19/23 Range/Units 23:41 PT 11.2 (9.0-12.0) Seconds APTT 27.6 (21.0-31.0) Seconds CBC 04/19/23 04/20/23 Range/Units 22:30 05:23 WBC 9.80 7.08 (4.8-10.8) K/ul RBC 4.25 3.90 L (4.20-5.40) M/uL Hgb 13.2 11.9 L (12.0-16.0) g/dl Hct 38.8 35.8 L (37.0-47.0) % Plt Count 312 244 (130-400) K/uL Neut # (Auto) 6.69 H 3.79 (1.40-6.50) K/uL Lymph # (Auto) 2.32 2.63 (1.2-3.4) K/uL [place] # (Auto) 0.62 H 0.51 (0.11-0.59) K/uL Eos # (Auto) 0.08 0.08 (0-0.50) K/uL Baso # (Auto) 0.06 0.05 (0-0.2) K/uL Comprehensive Metabolic Panel 04/19/23 04/20/23 Range/Units 22:30 05:23 Sodium 140 141 (136-145) mmol/L Potassium 4.2 3.7 (3.5-5.1) mmol/L Chloride 106 108 H (98-107) mmol/L Carbon Dioxide 27 29 (21-32) mmol/L BUN 26 H 20 (6-23) mg/dl Creatinine 0.67 0.52 L (0.6-1.2) mg/dl Glucose 106 H 84 (70-99(Fasting)) mg/dl Calcium 9.3 9.0 (8.6-10.3) mg/dl Direct Bilirubin 0.1 (0-0.2) mg/dl AST 137 H 79 H (13-39) U/L ALT 111 H 84 H (7-52) U/L Alkaline Phosphatase 121 H 104 (34-104) U/L Total Protein 6.9 6.1 (6.0-8.3) gm/dl Albumin 4.0 3.5 (3.4-5.0) gm/dl Intake and Output 04/19/23 04/20/23 04/20/23 22:59 06:59 14:59 Intake Total 1480 / 1480 Balance 1480 / 1480 Intake: IV 1000 / 1000 Sodium Chloride 0.9% 1000ML 1, 1000 / 1000 000 ml @ 999 mls/hr IV .Q1H1M [facility] Rx#:[id number] Oral 480 / 480 Other: # Unmeasured Voids 2 Weight 101.9 kg 126.8 kg Weight Measurement Method Built in Bedscale Built in [facility] Diagnostic Findings Telemetry reviewed: Atrial fibrillation with rates ranging 50-70 bpm EKG reviewed: Atrial fibrillation with controlled rates Anterolateral infarct (cited on or before 04-JUL-2020) Abnormal ECG When compared with ECG of 17-APR-2023 17:29, No significant change was found Echo pending at time of consult ZIO monitor report reviewed from Dec 2022: 102 Ventricular Tachycardia runs occurred, the run with the fastest interval lasting 18 beats with a max rate of 261 bpm, the longest lasting 12.7 secs with an avg rate of 208 bpm. Episodes of Ventricular Tachycardia may be possible Atrial Fibrillation with aberrancy. Intermittent Bundle Branch Block was present. Atrial Fibrillation occurred continuously (100% burden), ranging from 50-224 bpm (avg of 92 bpm). Isolated VEs were occasional (4.9%, 03993), VE Couplets were rare (<1.0%, 1406), and VE Triplets were rare (<1.0%, 42). Ventricular Bigeminy and Trigeminy were present. Some VEs may be aberrant beats. Occasional change in QRS axis possibly due to positional changes. Difficulty discerning atrial activity making definitive diagnosis difficult to ascertain. MD notification criteria for Rapid Atrial Fibrillation and Ventricular Tachycardia were met - report posted prior to notification per account request (BR). Agree with above. 100% afib burden with multiple runs of nonsustained ventricular tachycardia vs. afib with aberrancy. Frequent PVC burden of 5%. Medications Administered Current Inpatient Medications Acetaminophen (Acetaminophen 325 Mg Tab) 650 mg PO Q4H PRN PRN Reason: Pain or Fever Stop: 05/20/23 01:36 Apixaban (Apixaban 5 Mg Tablet) 5 mg PO BID [facility] Stop: 05/20/23 08:59 Last Admin: 04/20/23 08:04 Dose: 5 mg Ascorbic Acid (Ascorbic Acid 500 Mg Tab) 500 mg PO QPM [facility] Stop: 05/20/23 20:59 Calcium/Vitamin D (Calcium 600mg + Vit D 400 Iu Tab) 1 tab PO DAILY [facility] Stop: 05/20/23 08:59 Last Admin: 04/20/23 08:04 Dose: 1 tab Cyanocobalamin (Cyanocobalamin (B-12) 500 Mcg Tablet) 1,000 mcg PO QPM [facility] Stop: 05/20/23 20:59 Furosemide (Furosemide 20 Mg Tab) 20 mg PO BID17 [facility] Stop: 05/20/23 08:59 Last Admin: 04/20/23 08:05 Dose: 20 mg Magnesium Oxide (Magnesium Oxide 400 Mg Tab) 400 mg PO DAILY [facility] Stop: 05/20/23 08:59 Last Admin: 04/20/23 08:04 Dose: 400 mg Metoprolol Tartrate (Metoprolol Tartrate 1 Mg/Ml Vial) 5 mg IV Q6 PRN PRN Reason: Tachycardia Stop: 05/20/23 01:36 Metoprolol Tartrate (Metoprolol Tartrate 25 Mg Tab) 75 mg PO BIDM [facility] Stop: 05/20/23 16:59 Multivitamins (Multivitamin Tab) 1 tab PO DAILY [facility] Stop: 05/20/23 08:59 Last Admin: 04/20/23 08:05 Dose: 1 tab Nitroglycerin (Nitroglycerin Sl 0.4 Mg/Tab Tab) 0.4 mg SL UD PRN PRN Reason: Chest Pain Stop: 05/20/23 01:36 Polyethylene Glycol (Polyethylene (Miralax) 17 Gm Pack) 17 gm PO DAILY PRN PRN Reason: Constipation Stop: 05/20/23 01:36 Vitamin D (Cholecalciferol 1,000 Units 25 Mcg Tab) 1,000 units PO QPM [facility] Stop: 05/20/23 20:59 Zinc Sulfate (Zinc Sulfate 220 Mg Capsule) 220 mg PO DAILY [facility] Stop: 05/20/23 08:59 Last Admin: 04/20/23 08:05 Dose: 220 mg (3) Atrial fibrillation Atrial fibrillation type: unspecified Qualified Code(s): I48.91 - Unspecified atrial fibrillation
--- NOTE | 2023-04-20 14:43 | Electrocardiogram Report ---
Test Reason : Blood Pressure : / mmHG Vent. Rate : 075 BPM Atrial Rate : 000 BPM P-R Int : 000 ms QRS Dur : 092 ms QT Int : 406 ms P-R-T Axes : 000 -29 015 degrees QTc Int : 453 ms Atrial fibrillation Anterolateral infarct (cited on or before 04-JUL-2020) Abnormal ECG When compared with ECG of 17-APR-2023 17:29, No significant change was found Confirmed by Milton Ibrahim ([id number]) on 04/20/2023 2:43:11 PM Referred By: REFERRED SELF Confirmed By:Milton Ibrahim
[2023-04-20] MEDS: ACETAMINOPHEN 325 MG TAB PO PRN ×2 (15:02→20:52)
--- NOTE | 2023-04-20 15:12 | Ultrasound Report ---
CAROTID ARTERY ULTRASOUND CLINICAL HISTORY: Syncope. COMPARISON STUDY: None. TECHNIQUE: Real-time, grayscale, and color Doppler sonography of the carotid and vertebral arteries w as performed. Images were viewed in the transverse and longitudinal planes. FINDINGS: There is minimal atherosclerotic plaque. Velocity measurements are listed below. COMMON CAROTID PEAK SYSTOLIC VELOCITY (CM/S): RIGHT 62 LEFT 64 ICA PEAK SYSTOLIC VELOCITY (CM/S): RIGHT 88 LEFT 78 Systolic ratios between the internal to common carotid arteries were normal. Antegrade flow is seen in the vertebral arteries. Vertebral artery waveforms were normal. The externa l carotid arteries are patent. Prominent right cervical lymph node is likely benign. This contains a fatty hilum. IMPRESSION: No sonographic evidence for a hemodynamically significant stenosis. ACT 112: Negative or not required by law. Electronically signed by: Nasim Coretz M.D. 04/20/2023 3:11 PM
--- NOTE | 2023-04-20 16:46 | XRay Report ---
XR chest 2V PA/lateral CLINICAL HISTORY: left sided chest pain; history of syncope - r/o fx TECHNIQUE: 2 views of the chest were obtained. Comparison: Comparison is made to chest radiograph dated 07/15/2020 FINDINGS: No lines and tubes are seen. The cardiomediastinal silhouette is normal. The lungs are clear. No evid ence of pleural effusion or pneumothorax. IMPRESSION: No acute chest disease. ACT 112: Negative or not required by law. Electronically signed by: Christian Raphael M.D. 04/20/2023 4:45 PM
[2023-04-20] MEDS ORDERED: METOPROLOL TARTRATE 50 MG TAB PO SCH (17:00)
[2023-04-20] MEDS: METOPROLOL TARTRATE 25 MG TAB PO SCH (17:17)
[2023-04-20] MEDS: CHOLECALCIFEROL 1,000 UNITS 25 MCG TAB PO SCH (20:47)
[2023-04-20] MEDS: CYANOCOBALAMIN (B-12) 500 MCG TABLET PO SCH (20:47)
[2023-04-20] MEDS: ASCORBIC ACID 500 MG TAB PO SCH (20:47)
[2023-04-21] MEDS: ACETAMINOPHEN 325 MG TAB PO PRN ×3 (02:50→21:17)
[2023-04-21] MEDS: METOPROLOL TARTRATE 25 MG TAB PO SCH (07:58)
[2023-04-21] MEDS: ZINC SULFATE 220 MG CAPSULE PO SCH (09:24)
[2023-04-21] MEDS: MULTIVITAMIN TAB PO SCH (09:25)
[2023-04-21] MEDS: CALCIUM 600MG + VIT D 400 IU TAB PO SCH (09:25)
[2023-04-21] MEDS: APIXABAN 5 MG TABLET PO SCH ×2 (09:25→21:16)
[2023-04-21] MEDS: MAGNESIUM OXIDE 400 MG TAB PO SCH (09:25)
[2023-04-21] MEDS: FUROSEMIDE 20 MG TAB PO SCH ×2 (09:25→17:26)
--- NOTE | 2023-04-21 10:43 | Electrocardiogram Report ---
Test Reason : Blood Pressure : / mmHG Vent. Rate : 077 BPM Atrial Rate : 084 BPM P-R Int : 000 ms QRS Dur : 086 ms QT Int : 390 ms P-R-T Axes : 000 -16 003 degrees QTc Int : 441 ms Atrial fibrillation Cannot rule out Anterior infarct (cited on or before 04-JUL-2020) Nonspecific T wave abnormality Abnormal ECG When compared with ECG of 19-APR-2023 22:34, Nonspecific T wave abnormality now evident in Lateral leads Confirmed by Salazar Gutierrez ([id number]) on 04/21/2023 10:43:11 AM Referred By: REFERRED SELF Confirmed By:Salazar Gutierrez
--- NOTE | 2023-04-21 11:25 | Cardiology Progress Note ---
Date of Service April 21, 2023 Assessment & Plan (1) Syncope: (2) Dizziness: (3) Atrial fibrillation: (4) Ventricular tachycardia: Plan The patient is in a persistent asymptomatic atrial fibrillation. At times she has high heart rates and I have increased her Lopressor back to 100 mg twice daily. There has been no wide-complex tachycardia for the past 24 hours and I agree that the wide-complex is most likely A-fib with aberrancy. Admission and Anticipated Discharge Date Admission Date: April 20, 2023 Subjective The patient had an uneventful night. No complaints today. Review of Systems Review of Systems: Review of Systems: See HPI for pertinent positives. All other 10 point review of systems are negative. Physical Exam Physical Exam: General: no acute distress and stated age Head: normocephalic, no masses, lesions, tenderness or abnormalities Eyes: conjunctiva are pink and non-injected, sclera clear Neck: supple, no adenopathy, no bruits, normal jugular venous pulse, no hepatojugular reflux Chest: normal shape and normal respiratory effort Lungs: clear to auscultation and percussion Cardiac Exam: - irregular rate & rhythm, no murmurs gallops or rubs - normal S1, normal S2 Pulses: 2(+) throughout Abdomen: abdomen soft, non-tender, no abnormal masses and no hepatosplenomegaly Musculoskeletal: no gait disturbance, no joint inflammation, no deforming arthritis Extremities: no edema and no cyanosis Neuro: grossly normal exam Results & Data Vital Signs (Past 12 Hours) Vital Signs Temp Pulse Resp BP Pulse Ox O2 Del Method FiO2 04/21/23 07:47 36.4 C L 73 18 145/87 H 98 Room Air 04/21/23 03:00 36.6 C 93 H 22 98/66 L 98 Room Air 04/21/23 02:07 12 98 21 Laboratory Results Laboratory Results - last 24 hr 04/20/23 04/20/23 11:00 16:58 Troponin I High Sens 4.3 4.3 Medications Administered Current Inpatient Medications Acetaminophen (Acetaminophen 325 Mg Tab) 650 mg PO Q4H PRN PRN Reason: Pain or Fever Stop: 05/20/23 01:36 Last Admin: 04/21/23 02:50 Dose: 650 mg Apixaban (Apixaban 5 Mg Tablet) 5 mg PO BID [facility] Stop: 05/20/23 08:59 Last Admin: 04/21/23 09:25 Dose: 5 mg Ascorbic Acid (Ascorbic Acid 500 Mg Tab) 500 mg PO QPM [facility] Stop: 05/20/23 20:59 Last Admin: 04/20/23 20:47 Dose: 500 mg Calcium/Vitamin D (Calcium 600mg + Vit D 400 Iu Tab) 1 tab PO DAILY [facility] Stop: 05/20/23 08:59 Last Admin: 04/21/23 09:25 Dose: 1 tab Cyanocobalamin (Cyanocobalamin (B-12) 500 Mcg Tablet) 1,000 mcg PO QPM [facility] Stop: 05/20/23 20:59 Last Admin: 04/20/23 20:47 Dose: 1,000 mcg Furosemide (Furosemide 20 Mg Tab) 20 mg PO BID17 [facility] Stop: 05/20/23 08:59 Last Admin: 04/21/23 09:25 Dose: 20 mg Magnesium Oxide (Magnesium Oxide 400 Mg Tab) 400 mg PO DAILY [facility] Stop: 05/20/23 08:59 Last Admin: 04/21/23 09:25 Dose: 400 mg Metoprolol Tartrate (Metoprolol Tartrate 1 Mg/Ml Vial) 5 mg IV Q6 PRN PRN Reason: Tachycardia Stop: 05/20/23 01:36 Metoprolol Tartrate (Metoprolol Tartrate 100 Mg Tab) 100 mg PO BIDM [facility] Stop: 05/21/23 16:59 Multivitamins (Multivitamin Tab) 1 tab PO DAILY [facility] Stop: 05/20/23 08:59 Last Admin: 04/21/23 09:25 Dose: 1 tab Nitroglycerin (Nitroglycerin Sl 0.4 Mg/Tab Tab) 0.4 mg SL UD PRN PRN Reason: Chest Pain Stop: 05/20/23 01:36 Polyethylene Glycol (Polyethylene (Miralax) 17 Gm Pack) 17 gm PO DAILY PRN PRN Reason: Constipation Stop: 05/20/23 01:36 Vitamin D (Cholecalciferol 1,000 Units 25 Mcg Tab) 1,000 units PO QPM [facility] Stop: 05/20/23 20:59 Last Admin: 04/20/23 20:47 Dose: 1,000 units Zinc Sulfate (Zinc Sulfate 220 Mg Capsule) 220 mg PO DAILY [facility] Stop: 05/20/23 08:59 Last Admin: 04/21/23 09:24 Dose: 220 mg (3) Atrial fibrillation Atrial fibrillation type: unspecified Qualified Code(s): I48.91 - Unspecified atrial fibrillation
[2023-04-21 11:27] LABS: HBSAG NON-REACTIVE (NON-REACTIVE); Hepatitis A Antibody IgM NON-REACTIVE (NON-REACTIVE); Hepatitis B Core Antibody IgM NON-REACTIVE (NON-REACTIVE)
--- NOTE | 2023-04-21 12:46 | Hospitalist Progress Note ---
Date of Service April 21, 2023 Assessment & Plan (1) Syncope: (2) Atrial fibrillation: Plan: This is a 57-year-old female who presents with dizziness, near syncope, AFib and chest pain. 1. Dizziness, near syncope could be possibly symptomatic atrial fibrillation: Monitor in the tele floor. CT of the head - negative. We will check orthostatics. Echocardiogram obtained -mild concentric LVH. No regional wall motion abnormalities noted. LV systolic function is normal. Qualitative left ventricular EF 55%. LA is severely dilated. Aortic valve sclerosis mild, without significant aortic valvular stenosis. There is mild mitral regurg. There is mild tricuspid regurg. Cardiology consulted - carotid US obtained and negative 04/20 Outpatient records were reviewed in detail and she had possible episodes of non sustained VT vs afib with aberrancy on ZIO. She did not report symptoms with these episodes, but still concerning with patient now having syncopal events. Keep on monitor. May need EP evaluation/consult May need ischemic evaluation if this is VT. 04/21 There has been no wide-complex tachycardia for the past 24 hours and I agree that the wide-complex is most likely A-fib with aberrancy. The patient is in a persistent asymptomatic atrial fibrillation. At times she has high heart rates and I have increased her Lopressor back to 100 mg twice daily. 2. Atrial fibrillation: Currently rate controlled. Continue Eliquis. Cardiology following and increased metoprolol back to 100 bid 3. Chest pain, left side since 6:00 p.m.: EKG and troponins negative. echocardiogram obtained. seems MSK after her fall. will obtain rib cxr to r/o rib fx 4. Elevated LFTs: Possibly could be from the fatty liver, but obtained liver ultrasound -shows cholelithiasis, no gallbladder wall thickening. Normal caliber common bile duct ER ordered hepatitis panel, which is negative If any concern, consult GI while the patient is in the hospital. 5. History of diastolic congestive heart failure, chronic lower extremity edema: On Lasix, which will be continued. lower extremity Dopplers obtained - negative 6. Obstructive sleep apnea: On BIPAP 7. Pre Diabetes: Current HbA1c 5.1%. 8. Obesity, status post gastric bypass surgery: Followup. Continue her vitamin supplements. DVT prophylaxis: On Eliquis. DISPOSITION:tele floor. Level 1 full code. Expect to discharge home and follow with family doctor. Admission and Anticipated Discharge Date Admission Date: April 20, 2023 Subjective Pt seen in follow up of syncope, Afib Currently lying in bed, in no acute distress, however reports that she had episodes of dizziness today No fevers chills, palpitations, no shortness of breath She does report some left-sided chest pain, since fall. Review of Systems Review of Systems: All systems reviewed & are unremarkable except as noted in Subjective Physical Exam Physical Exam: GENERAL:morbidly obese F, not in acute distress. HEENT: Pupils equal, round and reactive to light. Oral mucosa moist. NECK: No JVD, no neck masses. CARDIOVASCULAR: S1 and S2 heard, irregular rhythm. No murmur, no gallop. RESPIRATORY: Normal AP diameter. No accessory muscle use. No wheezing or crackles. ABDOMEN: Soft, bowel sounds present, nontender, no distention. NEURO: alert, oriented, answering appropriately, no facial asymmetry, moves extremities EXTREMITIES: Bilateral lower extremity chronic edema. No erythema seen. Results & Data Results & Data Vital Signs (Past 12 Hours) Vital Signs Temp Pulse Pulse Resp BP Pulse Ox O2 Del Method 04/21/23 08:00 77 04/21/23 11:38 36.7 C 60 20 121/79 99 Room Air 04/21/23 07:47 36.4 C L 73 18 145/87 H 98 Room Air 04/21/23 03:00 36.6 C 93 H 22 98/66 L 98 Room Air 04/21/23 02:07 12 98 FiO2 04/21/23 08:00 04/21/23 11:38 04/21/23 07:47 04/21/23 03:00 04/21/23 02:07 21 Laboratory Results 04/22/23 04/22/23 04/19/23 Range/Units 05:33 05:33 23:41 WBC 6.19 (4.8-10.8) K/ul RBC 3.91 L (4.20-5.40) M/uL Hgb 12.0 (12.0-16.0) g/dl Hct 35.3 L (37.0-47.0) % MCV 90.3 (80.0-100.0) fL MCH 30.7 (25.0-34.0) pg MCHC 34.0 (32.0-36.0) g/dL RDW Std Deviation 44.0 (36.4-46.3) fL RDW Coeff of Quan 13.4 (11.5-14.5) % Plt Count 244 (130-400) K/uL MPV 10.0 (9.4-12.4) fL Sodium 141 (136-145) mmol/L Potassium 3.6 (3.5-5.1) mmol/L Chloride 106 (98-107) mmol/L Carbon Dioxide 33 H (21-32) mmol/L Anion Gap 2 L (3-11) BUN 19 (6-23) mg/dl Creatinine 0.55 L (0.6-1.2) mg/dl Est Cr Clr Drug Dosing 146.9 ml/min Est GFR ( Amer) 121.5 ml/min Est GFR (Non-Af Amer) 104.9 ml/min BUN/Creatinine Ratio 34.5 H (10-20) Glucose 80 (70-99(Fasting)) mg/dl Calcium 8.7 (8.6-10.3) mg/dl Phosphorus 3.8 (2.5-4.9) mg/dl Magnesium 2.0 (1.7-2.4) mg/dl Hepatitis A IgM Ab NON-REACTIVE (NON-REACTIVE) Hep Bs Antigen NON-REACTIVE (NON-REACTIVE) Hep Bs Ag Confirmation TNP Hep B Core IgM Ab NON-REACTIVE (NON-REACTIVE) Hepatitis C Ab (EIA) NON-REACTIVE (NON-REACTIVE) Hep C Ab Signal/Cutoff 0.04 (<1.00) Medications Administered Current Inpatient Medications Acetaminophen (Acetaminophen 325 Mg Tab) 650 mg PO Q4H PRN PRN Reason: Pain or Fever Stop: 05/20/23 01:36 Last Admin: 04/21/23 02:50 Dose: 650 mg Apixaban (Apixaban 5 Mg Tablet) 5 mg PO BID YUNIER Stop: 05/20/23 08:59 Last Admin: 04/21/23 09:25 Dose: 5 mg Ascorbic Acid (Ascorbic Acid 500 Mg Tab) 500 mg PO QPM YUNIER Stop: 05/20/23 20:59 Last Admin: 04/20/23 20:47 Dose: 500 mg Calcium/Vitamin D (Calcium 600mg + Vit D 400 Iu Tab) 1 tab PO DAILY YUNIER Stop: 05/20/23 08:59 Last Admin: 04/21/23 09:25 Dose: 1 tab Cyanocobalamin (Cyanocobalamin (B-12) 500 Mcg Tablet) 1,000 mcg PO QPM YUNIER Stop: 05/20/23 20:59 Last Admin: 04/20/23 20:47 Dose: 1,000 mcg Furosemide (Furosemide 20 Mg Tab) 20 mg PO BID17 YUNIER Stop: 05/20/23 08:59 Last Admin: 04/21/23 09:25 Dose: 20 mg Magnesium Oxide (Magnesium Oxide 400 Mg Tab) 400 mg PO DAILY YUNIER Stop: 05/20/23 08:59 Last Admin: 04/21/23 09:25 Dose: 400 mg Metoprolol Tartrate (Metoprolol Tartrate 1 Mg/Ml Vial) 5 mg IV Q6 PRN PRN Reason: Tachycardia Stop: 05/20/23 01:36 Metoprolol Tartrate (Metoprolol Tartrate 100 Mg Tab) 100 mg PO BIDM [facility] Stop: 05/21/23 16:59 Multivitamins (Multivitamin Tab) 1 tab PO DAILY YUNIER Stop: 05/20/23 08:59 Last Admin: 04/21/23 09:25 Dose: 1 tab Nitroglycerin (Nitroglycerin Sl 0.4 Mg/Tab Tab) 0.4 mg SL UD PRN PRN Reason: Chest Pain Stop: 05/20/23 01:36 Polyethylene Glycol (Polyethylene (Miralax) 17 Gm Pack) 17 gm PO DAILY PRN PRN Reason: Constipation Stop: 05/20/23 01:36 Vitamin D (Cholecalciferol 1,000 Units 25 Mcg Tab) 1,000 units PO QPM YUNIER Stop: 05/20/23 20:59 Last Admin: 04/20/23 20:47 Dose: 1,000 units Zinc Sulfate (Zinc Sulfate 220 Mg Capsule) 220 mg PO DAILY YUNIER Stop: 05/20/23 08:59 Last Admin: 04/21/23 09:24 Dose: 220 mg (2) Atrial fibrillation Atrial fibrillation type: unspecified Qualified Code(s): I48.91 - Unspecified atrial fibrillation
[2023-04-21] MEDS: METOPROLOL TARTRATE 100 MG TAB PO SCH (17:25)
[2023-04-21] MEDS: CYANOCOBALAMIN (B-12) 500 MCG TABLET PO SCH (21:16)
[2023-04-21] MEDS: ASCORBIC ACID 500 MG TAB PO SCH (21:16)
[2023-04-21] MEDS: CHOLECALCIFEROL 1,000 UNITS 25 MCG TAB PO SCH (21:16)
[2023-04-22 06:29] LABS: Hematocrit (blood only) 35.3 % (37.0-47.0); Mean Corpuscular Hemoglobin 30.7 pg (25.0-34.0); Mean Corpuscular Volume 90.3 fL (80.0-100.0); Platelet Count 244 K/uL (130-400); RDW Coefficient of Variation 13.4 % (11.5-14.5); Red Blood Count 3.91 M/uL (4.20-5.40); White Blood Count 6.19 K/ul (4.8-10.8)
[2023-04-22 06:37] LABS: BUN Creatinine Ratio 34.5 (10-20); Calcium 8.7 mg/dl (8.6-10.3); Creatinine Clr Calc Pharmacy 146.9 ml/min; Est GFR (African American) 121.5 ml/min; Est GFR (Non-African American) 104.9 ml/min; Phosphorus 3.8 mg/dl (2.5-4.9); Potassium 3.6 mmol/L (3.5-5.1)
[2023-04-22] MEDS: MAGNESIUM OXIDE 400 MG TAB PO SCH (08:28)
[2023-04-22] MEDS: APIXABAN 5 MG TABLET PO SCH (08:28)
[2023-04-22] MEDS: FUROSEMIDE 20 MG TAB PO SCH (08:28)
[2023-04-22] MEDS: METOPROLOL TARTRATE 100 MG TAB PO SCH (08:28)
[2023-04-22] MEDS: CALCIUM 600MG + VIT D 400 IU TAB PO SCH (08:28)
[2023-04-22] MEDS: MULTIVITAMIN TAB PO SCH (08:29)
[2023-04-22] MEDS: ZINC SULFATE 220 MG CAPSULE PO SCH (08:29)
[2023-04-22] MEDS ORDERED: POTASSIUM CHLORIDE CRTAB 20 MEQ TABCR PO STA (08:56)
--- NOTE | 2023-04-22 10:42 | XRay Report ---
XR ribs LT min 2V CLINICAL HISTORY: pain after fall TECHNIQUE: 3 views of the left ribs were obtained. Single frontal view of the chest was obtained. Comparison: None available at the time of this dictation. FINDINGS: No fractures are seen. The chest wall and soft tissues are normal. The cardiomediastinal silhouette is normal. The lungs are clear. No evidence of pleural effusion or p neumothorax. IMPRESSION: No evidence of acute fracture or other acute abnormalities in the visualized portions of the chest. ACT 112: Negative or not required by law. Electronically signed by: Christian Raphael M.D. 04/22/2023 10:40 AM
[2023-04-22] MEDS: ACETAMINOPHEN 325 MG TAB PO PRN (10:51)
--- NOTE | 2023-04-22 11:07 | Hospitalist Progress Note ---
Date of Service April 22, 2023 Assessment & Plan (1) Syncope: (2) Atrial fibrillation: Plan: This is a 57-year-old female who presents with dizziness, near syncope, AFib and chest pain. 1. Dizziness, near syncope could be possibly symptomatic atrial fibrillation: Monitor in the tele floor. CT of the head - negative. We will check orthostatics. Echocardiogram obtained -mild concentric LVH. No regional wall motion abnormalities noted. LV systolic function is normal. Qualitative left ventricular EF 55%. LA is severely dilated. Aortic valve sclerosis mild, without significant aortic valvular stenosis. There is mild mitral regurg. There is mild tricuspid regurg. Cardiology consulted - carotid US obtained and negative 04/20 Outpatient records were reviewed in detail and she had possible episodes of non sustained VT vs afib with aberrancy on ZIO. She did not report symptoms with these episodes, but still concerning with patient now having syncopal events. Keep on monitor. May need EP evaluation/consult May need ischemic evaluation if this is VT. 04/21 There has been no wide-complex tachycardia for the past 24 hours and I agree that the wide-complex is most likely A-fib with aberrancy. The patient is in a persistent asymptomatic atrial fibrillation. At times she has high heart rates and I have increased her Lopressor back to 100 mg twice daily. 2. Atrial fibrillation: Currently rate controlled. Continue Eliquis. Cardiology following and increased metoprolol back to 100 bid 3. Chest pain, left side since 6:00 p.m.: EKG and troponins negative. echocardiogram obtained. seems MSK after her fall. obtained rib cxr to r/o rib fx 4. Elevated LFTs: Possibly could be from the fatty liver, but obtained liver ultrasound -shows cholelithiasis, no gallbladder wall thickening. Normal caliber common bile duct ER ordered hepatitis panel, which is negative If any concern, consult GI while the patient is in the hospital. 5. History of diastolic congestive heart failure, chronic lower extremity edema: On Lasix, which will be continued. lower extremity Dopplers obtained - negative 6. Obstructive sleep apnea: On BIPAP 7. Pre Diabetes: Current HbA1c 5.1%. 8. Obesity, status post gastric bypass surgery: Followup. Continue her vitamin supplements. DVT prophylaxis: On Eliquis. DISPOSITION:tele floor. Expect to discharge home and follow with family doctor. Full code. Admission and Anticipated Discharge Date Admission Date: April 20, 2023 Subjective Pt seen in follow up of syncope, Obduliaib Currently sitting up in bed, in no acute distress, however reports that she still has episodes of dizziness No fevers chills, palpitations, no shortness of breath She does report some left-sided chest pain, since fall - rib xr obtained Review of Systems Review of Systems: All systems reviewed & are unremarkable except as noted in Subjective Physical Exam Physical Exam: GENERAL:morbidly obese F, not in acute distress. HEENT: Pupils equal, round and reactive to light. Oral mucosa moist. NECK: No JVD, no neck masses. CARDIOVASCULAR: S1 and S2 heard, irregular rhythm. No murmur, no gallop. RESPIRATORY: Normal AP diameter. No accessory muscle use. No wheezing or crackles. ABDOMEN: Soft, bowel sounds present, nontender, no distention. NEURO: alert, oriented, answering appropriately, no facial asymmetry, moves extremities EXTREMITIES: Bilateral lower extremity chronic edema. No erythema seen. Results & Data Results & Data Vital Signs (Past 12 Hours) Vital Signs Temp Pulse Pulse Resp BP Pulse Ox O2 Del Method 04/22/23 08:16 36.4 C L 84 19 137/88 98 Room Air 04/22/23 07:36 115 H 04/22/23 07:36 Room Air, CPAP 04/22/23 03:00 36.5 C 66 20 116/77 98 Room Air 04/21/23 23:03 72 11 L 98 FiO2 04/22/23 08:16 04/22/23 07:36 04/22/23 07:36 04/22/23 03:00 04/21/23 23:03 21 Laboratory Results 04/22/23 04/22/23 04/19/23 Range/Units 05:33 05:33 23:41 WBC 6.19 (4.8-10.8) K/ul RBC 3.91 L (4.20-5.40) M/uL Hgb 12.0 (12.0-16.0) g/dl Hct 35.3 L (37.0-47.0) % MCV 90.3 (80.0-100.0) fL MCH 30.7 (25.0-34.0) pg MCHC 34.0 (32.0-36.0) g/dL RDW Std Deviation 44.0 (36.4-46.3) fL RDW Coeff of Quan 13.4 (11.5-14.5) % Plt Count 244 (130-400) K/uL MPV 10.0 (9.4-12.4) fL Sodium 141 (136-145) mmol/L Potassium 3.6 (3.5-5.1) mmol/L Chloride 106 (98-107) mmol/L Carbon Dioxide 33 H (21-32) mmol/L Anion Gap 2 L (3-11) BUN 19 (6-23) mg/dl Creatinine 0.55 L (0.6-1.2) mg/dl Est Cr Clr Drug Dosing 146.9 ml/min Est GFR ( Amer) 121.5 ml/min Est GFR (Non-Af Amer) 104.9 ml/min BUN/Creatinine Ratio 34.5 H (10-20) Glucose 80 (70-99(Fasting)) mg/dl Calcium 8.7 (8.6-10.3) mg/dl Phosphorus 3.8 (2.5-4.9) mg/dl Magnesium 2.0 (1.7-2.4) mg/dl Hepatitis A IgM Ab NON-REACTIVE (NON-REACTIVE) Hep Bs Antigen NON-REACTIVE (NON-REACTIVE) Hep Bs Ag Confirmation TNP Hep B Core IgM Ab NON-REACTIVE (NON-REACTIVE) Hepatitis C Ab (EIA) NON-REACTIVE (NON-REACTIVE) Hep C Ab Signal/Cutoff 0.04 (<1.00) Medications Administered Current Inpatient Medications Acetaminophen (Acetaminophen 325 Mg Tab) 650 mg PO Q4H PRN PRN Reason: Pain or Fever Stop: 05/20/23 01:36 Last Admin: 04/22/23 10:51 Dose: 650 mg Apixaban (Apixaban 5 Mg Tablet) 5 mg PO BID YUNIER Stop: 05/20/23 08:59 Last Admin: 04/22/23 08:28 Dose: 5 mg Ascorbic Acid (Ascorbic Acid 500 Mg Tab) 500 mg PO QPM YUNIER Stop: 05/20/23 20:59 Last Admin: 04/21/23 21:16 Dose: 500 mg Calcium/Vitamin D (Calcium 600mg + Vit D 400 Iu Tab) 1 tab PO DAILY YUNIER Stop: 05/20/23 08:59 Last Admin: 04/22/23 08:28 Dose: 1 tab Cyanocobalamin (Cyanocobalamin (B-12) 500 Mcg Tablet) 1,000 mcg PO QPM YUNIER Stop: 05/20/23 20:59 Last Admin: 04/21/23 21:16 Dose: 1,000 mcg Furosemide (Furosemide 20 Mg Tab) 20 mg PO BID17 YUNIER Stop: 05/20/23 08:59 Last Admin: 04/22/23 08:28 Dose: 20 mg Magnesium Oxide (Magnesium Oxide 400 Mg Tab) 400 mg PO DAILY YUNIER Stop: 05/20/23 08:59 Last Admin: 04/22/23 08:28 Dose: 400 mg Metoprolol Tartrate (Metoprolol Tartrate 1 Mg/Ml Vial) 5 mg IV Q6 PRN PRN Reason: Tachycardia Stop: 05/20/23 01:36 Metoprolol Tartrate (Metoprolol Tartrate 100 Mg Tab) 100 mg PO BIDM COUNTS INCLUDE 234 BEDS AT THE [facility] Stop: 05/21/23 16:59 Last Admin: 04/22/23 08:28 Dose: 100 mg Multivitamins (Multivitamin Tab) 1 tab PO DAILY YUNIER Stop: 05/20/23 08:59 Last Admin: 04/22/23 08:29 Dose: 1 tab Nitroglycerin (Nitroglycerin Sl 0.4 Mg/Tab Tab) 0.4 mg SL UD PRN PRN Reason: Chest Pain Stop: 05/20/23 01:36 Polyethylene Glycol (Polyethylene (Miralax) 17 Gm Pack) 17 gm PO DAILY PRN PRN Reason: Constipation Stop: 05/20/23 01:36 Vitamin D (Cholecalciferol 1,000 Units 25 Mcg Tab) 1,000 units PO QPM YUNIER Stop: 05/20/23 20:59 Last Admin: 04/21/23 21:16 Dose: 1,000 units Zinc Sulfate (Zinc Sulfate 220 Mg Capsule) 220 mg PO DAILY YUNIER Stop: 05/20/23 08:59 Last Admin: 04/22/23 08:29 Dose: 220 mg (2) Atrial fibrillation Atrial fibrillation type: unspecified Qualified Code(s): I48.91 - Unspecified atrial fibrillation
--- NOTE | 2023-04-22 11:18 | Electrocardiogram Report ---
Test Reason : Blood Pressure : / mmHG Vent. Rate : 073 BPM Atrial Rate : 416 BPM P-R Int : 000 ms QRS Dur : 094 ms QT Int : 416 ms P-R-T Axes : 000 -13 -09 degrees QTc Int : 458 ms Atrial fibrillation Septal infarct (cited on or before 04-JUL-2020) Nonspecific T wave abnormality Abnormal ECG When compared with ECG of 21-APR-2023 05:49, No significant change was found Confirmed by Salazar Gutierrez ([id number]) on 04/22/2023 11:17:58 AM Referred By: REFERRED SELF Confirmed By:Salazar Gutierrez
--- NOTE | 2023-04-22 12:07 | Cardiology Progress Note ---
Date of Service April 22, 2023 Assessment & Plan (1) Syncope: (2) Dizziness: (3) Atrial fibrillation: (4) Ventricular tachycardia: Plan The patient's heart rates have improved with the increase in her beta-wally. I think at this point she can be discharged per the hospitalist service. I will arrange follow-up with our practice. Admission and Anticipated Discharge Date Admission Date: April 20, 2023 Subjective The patient had an uneventful night. No complaints today. No dizziness or lightheadedness. Heart rates have improved on telemetry with the increase in beta-wally Review of Systems Review of Systems: Review of Systems: See HPI for pertinent positives. All other 10 point review of systems are negative. Physical Exam Physical Exam: General: no acute distress and stated age Head: normocephalic, no masses, lesions, tenderness or abnormalities Eyes: conjunctiva are pink and non-injected, sclera clear Neck: supple, no adenopathy, no bruits, normal jugular venous pulse, no hepatojugular reflux Chest: normal shape and normal respiratory effort Lungs: clear to auscultation and percussion Cardiac Exam: - irregular rate & rhythm, no murmurs gallops or rubs - normal S1, normal S2 Pulses: 2(+) throughout Abdomen: abdomen soft, non-tender, no abnormal masses and no hepatosplenomegaly Musculoskeletal: no gait disturbance, no joint inflammation, no deforming arthritis Extremities: no edema and no cyanosis Neuro: grossly normal exam Results & Data Vital Signs (Past 12 Hours) Vital Signs Temp Pulse Pulse Resp BP Pulse Ox O2 Del Method 04/22/23 11:42 36.7 C 76 20 125/80 97 Room Air 04/22/23 08:16 36.4 C L 84 19 137/88 98 Room Air 04/22/23 07:36 115 H 04/22/23 07:36 Room Air, CPAP 04/22/23 03:00 36.5 C 66 20 116/77 98 Room Air Laboratory Results Laboratory Results - last 24 hr 04/22/23 04/22/23 05:33 05:33 WBC 6.19 RBC 3.91 L Hgb 12.0 Hct 35.3 L MCV 90.3 MCH 30.7 MCHC 34.0 RDW Std Deviation 44.0 RDW Coeff of Quan 13.4 Plt Count 244 MPV 10.0 Sodium 141 Potassium 3.6 Chloride 106 Carbon Dioxide 33 H Anion Gap 2 L BUN 19 Creatinine 0.55 L Est Cr Clr Drug Dosing 146.9 Est GFR ( Amer) 121.5 Est GFR (Non-Af Amer) 104.9 BUN/Creatinine Ratio 34.5 H Glucose 80 Calcium 8.7 Phosphorus 3.8 Magnesium 2.0 Medications Administered Current Inpatient Medications Acetaminophen (Acetaminophen 325 Mg Tab) 650 mg PO Q4H PRN PRN Reason: Pain or Fever Stop: 05/20/23 01:36 Last Admin: 04/22/23 10:51 Dose: 650 mg Apixaban (Apixaban 5 Mg Tablet) 5 mg PO BID YUNIER Stop: 05/20/23 08:59 Last Admin: 04/22/23 08:28 Dose: 5 mg Ascorbic Acid (Ascorbic Acid 500 Mg Tab) 500 mg PO QPM YUNIER Stop: 05/20/23 20:59 Last Admin: 04/21/23 21:16 Dose: 500 mg Calcium/Vitamin D (Calcium 600mg + Vit D 400 Iu Tab) 1 tab PO DAILY YUNIER Stop: 05/20/23 08:59 Last Admin: 04/22/23 08:28 Dose: 1 tab Cyanocobalamin (Cyanocobalamin (B-12) 500 Mcg Tablet) 1,000 mcg PO QPM YUNIER Stop: 05/20/23 20:59 Last Admin: 04/21/23 21:16 Dose: 1,000 mcg Furosemide (Furosemide 20 Mg Tab) 20 mg PO BID17 YUNIER Stop: 05/20/23 08:59 Last Admin: 04/22/23 08:28 Dose: 20 mg Magnesium Oxide (Magnesium Oxide 400 Mg Tab) 400 mg PO DAILY YUNIER Stop: 05/20/23 08:59 Last Admin: 04/22/23 08:28 Dose: 400 mg Metoprolol Tartrate (Metoprolol Tartrate 1 Mg/Ml Vial) 5 mg IV Q6 PRN PRN Reason: Tachycardia Stop: 05/20/23 01:36 Metoprolol Tartrate (Metoprolol Tartrate 100 Mg Tab) 100 mg PO BIDM [facility] Stop: 05/21/23 16:59 Last Admin: 04/22/23 08:28 Dose: 100 mg Multivitamins (Multivitamin Tab) 1 tab PO DAILY YUNIER Stop: 05/20/23 08:59 Last Admin: 04/22/23 08:29 Dose: 1 tab Nitroglycerin (Nitroglycerin Sl 0.4 Mg/Tab Tab) 0.4 mg SL UD PRN PRN Reason: Chest Pain Stop: 05/20/23 01:36 Polyethylene Glycol (Polyethylene (Miralax) 17 Gm Pack) 17 gm PO DAILY PRN PRN Reason: Constipation Stop: 05/20/23 01:36 Vitamin D (Cholecalciferol 1,000 Units 25 Mcg Tab) 1,000 units PO QPM YUNIER Stop: 05/20/23 20:59 Last Admin: 04/21/23 21:16 Dose: 1,000 units Zinc Sulfate (Zinc Sulfate 220 Mg Capsule) 220 mg PO DAILY YUNIER Stop: 05/20/23 08:59 Last Admin: 04/22/23 08:29 Dose: 220 mg (3) Atrial fibrillation Atrial fibrillation type: unspecified Qualified Code(s): I48.91 - Unspecified atrial fibrillation
--- NOTE | 2023-04-22 13:50 | Discharge Summary ---
Date of Service April 22, 2023 Admission HPI Per Admitting Provider This is a 57-year-old female with past medical history significant for prediabetes, obstructive sleep apnea treated with BiPAP, history of hypertension, history of hypertensive cardiomyopathy, obesity, status post back surgery, recent diagnosis of AFib, presents with dizziness and near syncope. The patient saw Cardiology on 02/07/2023. She works in a [employer]. She saw Cardiology because she had some racing heart and diaphoretic and long-term event monitor study showed persistent atrial fibrillation and was already mohini controlled with Metoprolol, she was placed on Eliquis, but at that time, she did not start eliquis. Echo several years ago showed hypertensive heart disease with some mitral regurgitation.The patient again was in the ER on 04/17/2023 because of the syncope.. The patient had syncope at work. When she was pushing a wheelchair, she felt lightheaded and next thing she knew was awoken on the floor. She hit right side of the head and she has some head discomfort. In the ER, she did not want to stay, so ER called on-call cardiology and was started Eliquis. The patient says she is taking it now. She still has some head discomfort in the right side since the fall. Today at home, again she was feeling dizzy and she felt like passing out. She has to hold the chair and sit in the chair and that is the reason she came here. Currently, resting comfortably, hemodynamically stable. During the episode, she felt some sweating, some nausea. Denies any shortness of breath. She also noticed some chest pain since 6:00 p.m. on the left side, 6/10 in severity, pressure-like feeling, constant pain. No blurred visions, no earache, no runny nose, no sore throat, no cough, no difficulty swallowing. No abdominal pain. Normal bowel and bladder movements. Denies any bloody stools or black stools. Denies any hematuria. She says prior to this episode, she was ambulating okay. Admission Exam Per Admitting Provider GENERAL: The patient is obese, not in acute distress. VITAL SIGNS: Temperature 36.8, pulse 65, respiratory rate 28, blood pressure 115/80, oxygen 96% on room air. HEENT: Pupils equal, round and reactive to light. Oral mucosa moist. NECK: No JVD, no neck masses. CARDIOVASCULAR: S1 and S2 heard, irregular rhythm. No murmur, no gallop. RESPIRATORY SYSTEM: Normal AP diameter. No accessory muscle use. No wheezing or crackles. ABDOMEN: Soft, bowel sounds present, nontender, no distention. CENTRAL NERVOUS SYSTEM: Cranial nerves II through XII grossly intact, nonfocal. EXTREMITIES: Bilateral lower extremity chronic edema seen. No erythema seen. Principal Diagnosis Syncope, Afib Discharge Exam GENERAL:morbidly obese F, not in acute distress. HEENT: Pupils equal, round and reactive to light. Oral mucosa moist. NECK: No JVD, no neck masses. CARDIOVASCULAR: S1 and S2 heard, irregular rhythm. No murmur, no gallop. RESPIRATORY: Normal AP diameter. No accessory muscle use. No wheezing or crackles. ABDOMEN: Soft, bowel sounds present, nontender, no distention. NEURO: alert, oriented, answering appropriately, no facial asymmetry, moves extremities EXTREMITIES: Bilateral lower extremity chronic edema. No erythema seen. Discharge Data Allergies Allergy/AdvReac Type Severity Reaction Status Date / Time bee venom protein (honey bee) Allergy Mild GENERALIZED Verified 04/20/23 00:14 SWELLING-SOB ciprofloxacin [From Cipro] Allergy Mild possible Verified 04/20/23 00:14 rash clindamycin Allergy Mild possible Verified 04/20/23 00:14 rash Consultations 04/19/23 23:41 ED Decision to Admit Stat 04/20/23 08:00 Consult Cardiology Routine Ordered Studies 04/19/23 22:40 CT head/brain wo con Stat FINDINGS: Brain: Unremarkable. No hemorrhage. No significant white matter disease. No edema. Ventricles: Unremarkable. No ventriculomegaly. Bones/joints: Unremarkable. No acute fracture. Soft tissues: Unremarkable. Sinuses: Unremarkable as visualized. No acute sinusitis. Mastoid air cells: Unremarkable as visualized. No mastoid effusion. IMPRESSION: Normal head/brain CT. 04/20/23 01:37 US liver Routine FINDINGS: Pancreas: The pancreatic tail is obscured by overlying bowel gas. The remaining portions of the pancreas are within normal limits. Liver: 19 cm in length. No hepatic masses. Gallbladder: The 1.7 cm stone within the fundus of the gallbladder. Small amount of sludge also seen within the gallbladder. Punctate echogenic focus with ringdown artifact at the anterior wall the gallbladder suggesting adenomyomatosis. No gallbladder wall thickening. CBD: 5 mm. Right kidney: No hydronephrosis. IMPRESSION: 1. Cholelithiasis. No gallbladder wall thickening. 2. Normal caliber common bile duct. US venous doppler LE BI Routine FINDINGS: Right deep veins: Unremarkable. No DVT in the right common femoral, femoral, proximal deep femoral or popliteal veins. The veins demonstrate normal color flow, are normally compressible, with normal phasic flow and/or augmentation response. Left deep veins: Unremarkable. No DVT in the left common femoral, femoral, proximal deep femoral or popliteal veins. The veins demonstrate normal color flow, are normally compressible, with normal phasic flow and/or augmentation response. Soft tissues: Left popliteal fossa cyst measuring 4.8 x 1.0 cm x 2.4 cm. IMPRESSION: No acute findings in the bilateral lower extremity veins. 04/20/23 11:31 Carotid duplex [US carotid doppler BI] Routine FINDINGS: There is minimal atherosclerotic plaque. Velocity measurements are listed below. COMMON CAROTID PEAK SYSTOLIC VELOCITY (CM/S): RIGHT 62 LEFT 64 ICA PEAK SYSTOLIC VELOCITY (CM/S): RIGHT 88 LEFT 78 Systolic ratios between the internal to common carotid arteries were normal. Antegrade flow is seen in the vertebral arteries. Vertebral artery waveforms were normal. The external carotid arteries are patent. Prominent right cervical lymph node is likely benign. This contains a fatty hilum. IMPRESSION: No sonographic evidence for a hemodynamically significant stenosis. Hospital Course (1) Syncope: (2) Atrial fibrillation: This is a 57-year-old female who presents with dizziness, near syncope, AFib and chest pain. 1. Dizziness, near syncope could be possibly symptomatic atrial fibrillation: Monitor in the tele floor. CT of the head - negative. We will check orthostatics. Echocardiogram obtained -mild concentric LVH. No regional wall motion abnormalities noted. LV systolic function is normal. Qualitative left ventricular EF 55%. LA is severely dilated. Aortic valve sclerosis mild, without significant aortic valvular stenosis. There is mild mitral regurg. There is mild tricuspid regurg. Cardiology consulted - carotid US obtained and negative 04/20 Outpatient records were reviewed in detail and she had possible episodes of non sustained VT vs afib with aberrancy on ZIO. She did not report symptoms with these episodes, but still concerning with patient now having syncopal events. Keep on monitor. May need EP evaluation/consult May need ischemic evaluation if this is VT. 04/21 There has been no wide-complex tachycardia for the past 24 hours and I agree that the wide-complex is most likely A-fib with aberrancy. The patient is in a persistent asymptomatic atrial fibrillation. At times she has high heart rates and I have increased her Lopressor back to 100 mg twice daily. 04/22 improved after increasing Lopressor. Discussed with cardiology, plan to discharge and close follow-up with their office. 2. Atrial fibrillation: Currently rate controlled. Continue Eliquis. Cardiology following and increased metoprolol back to 100 bid 3. Chest pain, left side since 6:00 p.m.: EKG and troponins negative. echocardiogram obtained. seems MSK after her fall. obtained rib cxr to r/o rib fx 4. Elevated LFTs: Possibly could be from the fatty liver, but obtained liver ultrasound -shows cholelithiasis, no gallbladder wall thickening. Normal caliber common bile duct ER ordered hepatitis panel, which is negative If any concern, consult GI while the patient is in the hospital. 5. History of diastolic congestive heart failure, chronic lower extremity edema: On Lasix, which will be continued. lower extremity Dopplers obtained - negative 6. Obstructive sleep apnea: On BIPAP 7. Pre Diabetes: Current HbA1c 5.1%. 8. Obesity, status post gastric bypass surgery: Followup. Continue her vitamin supplements. DVT prophylaxis: On Eliquis. Total Time Total Time Spent Total Time Spent (In Minutes): 40 Discharge Plan Discharge Items Patient Disposition: Home - Self-Care Reason For Visit: DIZZINESS, NEAR SYNCOPE Discharge Diagnosis: Syncope, Afib Condition on Discharge: Good Activity: Per Instructions section Non-emergency contact: Primary Care Provider and [employer] Service Technician Call non-emergency contact if: you have any medication questions and your symptoms worsen Follow-up/Referrals: Alan Wade MD [Primary Care Provider] - (Date & Time 04/26/2023 11:20 AM Provider Kyung Camilo MD [facility] ) Diet: Carb Consistent or DM2 and Heart Healthy Addtl Attending Provider Instructions: Follow-up with 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 The appointment with primary care doctor was scheduled for you for April 26. You will be contacted about your appointment with cardiology. Continue taking metoprolol at a dose of 100 mg twice a day. Pending Studies at Discharge: No Stand-Alone Forms: My Ranj[facility], Work/School Release, Smoking Cessation Medications and DC Order Prescriptions: Continued (DME) BiPap Machine Misc See Rx Instructions .ROUTE .MEDSUPPLY Qty: 1 0RF Rx Instructions: As directed (DME) walker Misc See Rx Instructions .ROUTE .MEDSUPPLY Qty: 1 0RF Rx Instructions: As directed furosemide [Lasix] 20 mg tablet 20 mg PO BID Qty: 60 2RF metoprolol tartrate 100 mg tablet 100 mg PO BIDM cholecalciferol (vitamin D3) [Vitamin D3] 25 mcg (1,000 unit) Tablet 25 mcg PO QPM cyanocobalamin (vitamin B-12) 1,000 mcg Tablet 1,000 mcg PO QPM ascorbic acid (vitamin C) [Vitamin C] 500 mg Tablet 500 mg PO QPM Eliquis 5 mg tablet 5 mg PO BID 30 Days Qty: 60 0RF zinc acetate 50 mg (zinc) Capsule 50 mg PO DAILY multivitamin Tablet 1 tab PO DAILY Caltrate 600 plus D 600 mg-20 mcg (800 unit) Tablet,Chewable 1 tab PO DAILY magnesium oxide 400 mg magnesium Tablet 400 mg PO DAILY Discharge Orders: Discharge Order (Routine); Ordered 04/22/23 Ordered By: Shay Bryant Admission Data Admit Date/Time: 04/20/23 00:25 Attending Provider: Shay Bryant Admit Provider: Héctor Amanda Primary Care Provider: Alan Wade Other Providers: Héctor Amanda ; Fred Woodard Other Interventions: Discharge Summary Assessment (RN) Last Done: 04/22/23 13:18
== END 2023-04-22 14:40 | disposition home or self-care (01) | DRG 309 ==
LOC: ED 22:29 → 2S 04-20 00:25